=== PATIENT | male | born 1975 | race Caucasian/White ===

== ENCOUNTER 2019-01-23 07:47 | Emergency (ER) | payer BC, SELFPAY ==
[2019-01-23] VITALS (33 sets, daily range): BP systolic 143–163; BP diastolic 78–99; PULSE 86–111; RESP 10–24; TEMP 36.8; O2SAT 94–99
--- NOTE | 2019-01-23 08:20 | DI.CT_ITS ---
SYMPTOM/DIAGNOSIS: TIA,. SLURRED SPEECH, OFF BALANCE NONCONTRAST HEAD CT: No intracranial hemorrhage, mass or infarct is seen. The ventricles are normal in size. The sinuses and orbits as well as mastoid air cells are unremarkable. IMPRESSION: Negative head CT.
--- NOTE | 2019-01-23 08:22 | ED.GENADUL_ITS ---
Discharge Plan Disposition Patient Disposition: HOME Condition: Improving Discharge Details Chief Complaint: CVA/TIA Clinical Impression: Hyperglycemia due to type 1 diabetes mellitus Primary Care Provider: Allan Mims ED Provider: Terry Jackson Home Meds and New Rx's Prescriptions: Continued ibuprofen 800 MG tablet 800 mg PO TID PRNQty: 90 RF: 0 lorazepam 0.5 MG tablet 0.5 mg PO q 6 h prn PRNQty: 40 RF: 0 duloxetine 60 mg capsule,delayed release(DR/EC) 60 mg PO DAILY Qty: 90 RF: 4 buspirone 15 mg tablet 15 mg PO BID Qty: 180 RF: 3 naltrexone 50 mg tablet 50 mg PO DAILY Qty: 30 RF: 3 Humalog U-100 Insulin 100 UNIT/1 ML cartridge 0 unit SQ as directed RF: 0 (DME) Blood Glucose Test 1 EACH strip 1 ea Miscellaneous QID Qty: 100 RF: 6 Lantus U-100 Insulin 100 UNIT/1 ML solution 55 unit SQ BID Qty: 5 RF: 6 magnesium oxide 400 MG tablet 400 mg PO DAILY Qty: 30 RF: 3 Discharge Instructions Instructions: Diabetic Hyperglycemia (ED) Additional Instructions: Please watch your blood sugar levels closely and use your Humalog as prescribed. Return to the emergency department immediately for any new or significant worsening of symptoms and follow-up with your primary care provider as needed for reassessment or if you continue to have these episodes as your medication may need to be changed. Referrals: Allan Mims MD [Primary Care Provider] - (As needed for reassessment) Discharge Data Discharge Date/Time-TO BE ENTERED AT DEPARTURE: 01/23/19 14:19 Medical Decision Making Patient presenting to the emergency department for chief complaint of 3 days of feeling off balance, disequilibrium, intermittent slurred speech. Patient does have headache that is mild but persistent in nature. Patient does have diabetes and states that sugars have been running high but he has been taking his Lantus and Humalog. Physical exam shows no specific findings except that patient does have slight sensation of falling backwards with Romberg. Plan to check labs, CT image head, give fluids. Review of labs show the patient is not acidotic, blood sugar of 199 on CMP, otherwise unremarkable CMP and CBC. Urinalysis does show glucose but no ketones. CT imaging reviewed with radiologist shows no acute findings. Patient reassessed and states continued symptoms given patient slurred speech, headache, and disequilibrium I do feel that MRI is required to rule out CVA. Patient is otherwise stable at this time. Plan to give subcu insulin. Review of MRI MRA with radiologist shows no acute findings. Patient was reassessed and did state improvement. With further discussion of patient's blood sugar control he reports that he has been taking his Lantus and his morning Humalog but throughout the day has not been taking any further Humalog on sliding scale basis. When asking patient to correspond his symptoms he does state that he has noticed his symptoms worsen in the evenings are better in the mornings. Given this I feel that this is more of a metabolic issue and discussed with patient tight glucose control. Return precautions were discussed patient otherwise to follow-up with his primary care provider preferably in the next week for reassessment Lab Data Lab results reviewed: Yes I reviewed the patient's lab results. ECG Data Prior ECG tracings: available for review Interpretation: Sinus rhythm, rate of 98, no acute STEMI, otherwise nondiagnostic EKG HPI General Mode of arrival: ambulatory . Date/Time Provider Initiated Documentation: 01/23/19 07:50 . Limitations to Documentation: no limitations . Information obtained by: patient, family and RN notes reviewed . History of Present Illness 43 year old M presents to the emergency department with the chief complaint of Slurred speech, off balance, described as mild, Patient reports radiation to back. Patient started experiencing this day(s) (3) and it has been intermittent. No relieving factors improve symptom(s), No exacerbating factors reported . Patient notes other (back pain, due ). Related Data Home Medications Medication Instructions Recorded Confirmed Humalog U-100 Insulin 0 unit SQ as directed 02/15/13 01/23/19 Blood Glucose Test #100 strip 11/02/17 09/07/18 Lantus U-100 Insulin 55 unit SQ BID #5 vial 11/02/17 01/23/19 magnesium oxide 400 mg PO DAILY #30 tab 11/02/17 01/23/19 ibuprofen 800 mg PO TID PRN #90 tab-cap 02/15/18 01/23/19 lorazepam 0.5 mg PO q 6 h prn PRN #40 tab-cap 02/15/18 01/23/19 duloxetine 60 mg capsule,delayed 60 mg PO DAILY #90 cap 04/20/18 01/23/19 release buspirone 15 mg tablet 15 mg PO BID #180 tab-cap 10/23/18 01/23/19 naltrexone 50 mg tablet 50 mg PO DAILY #30 tab 10/24/18 01/23/19 Previous Rx's Medication Instructions Recorded Blood Glucose Test #100 strip 11/02/17 Lantus U-100 Insulin 55 unit SQ BID #5 vial 11/02/17 magnesium oxide 400 mg PO DAILY #30 tab 11/02/17 duloxetine 60 mg capsule,delayed 60 mg PO DAILY #90 cap 04/20/18 release buspirone 15 mg tablet 15 mg PO BID #180 tab-cap 10/23/18 naltrexone 50 mg tablet 50 mg PO DAILY #30 tab 10/24/18 Allergies Allergy/AdvReac Type Severity Reaction Status Date / Time ciprofloxacin [From Cipro] AdvReac Intermediate blacks Verified 01/23/19 08:06 out General Stated Complaint: CVA/TIA NEYMAR: 2 Review of Systems Constitutional Denies fever(s), Denies frequent falls, Reports headache(s) and Reports malaise Eyes Denies loss of vision ENT Reports headache(s) and Reports disequilibrium Cardiovascular Denies chest pain and Denies dyspnea Respiratory Denies dyspnea Gastrointestinal Denies nausea and Denies vomiting Genitourinary Denies urinary frequency Musculoskeletal Denies tingling Neurologic Reports abnormal speech, Denies frequent falls, Reports headache(s), Reports lack of coordination, Denies focal weakness, Denies loss of vision, Denies sensory deficit, Denies tingling, Denies paresthesias and Reports disequilibrium Endocrine Denies polyphagia, Denies polydipsia and Denies polyuria [facility]LY [facility] Family History Mother No problems noted. Father Diabetes Brother No problems noted. Social History Smoking/Tobacco Use Status: Former Tobacco Use Drug use: Never Do you feel safe in your relationship?: Yes Exam Const General: cooperative, healthy appearing, no acute distress and well groomed Orientation: alert, awake and oriented x3 HENMT Head: normal to inspection Ears: hearing grossly normal bilaterally and TM's normal bilaterally Mouth: oral mucosae normal and moist mucous membranes Throat: posterior oropharynx normal Eyes Visual Rodrigues: normal visual rodrigues by confrontation Alignment and Position: alignment normal Periorbital: periorbital findings normal Eyelids: eyelids normal Sclera: sclerae normal Cornea: corneas normal Pupils: PERRL EOM: EOM intact bilaterally Neck Neck: normal visual inspection, full ROM, no lymphadenopathy and no meningeal signs Resp Effort & Inspection: normal respiratory effort and able to speak in complete sentences Auscultation: clear to auscultation bilaterally Cardio Rate: regular rate Rhythm: regular rhythm Heart Sounds: S1 normal and S2 normal Back/Spine/Pelvis Thoracic/Lumbar Spine: paraspinal tenderness and thoracic spinal tenderness Neuro General: alert, awake, oriented x3, gait normal, tone normal, moves all extremities, CN's II-XI intact bilaterally and not confused Cognition: normal cognition Speech: speech normal Motor: muscle tone normal throughout, strength 5/5 throughout, no pronator drift, no movement abnormalities noted and no fasciculations Sensory Exam: no sensory deficits noted Coordination: [id number] test normal, Romberg test normal, Does not sway with eyes open and rapid alternating movement UE normal Course Vital Signs Temperature 36.8 C 01/23/19 07:59 Pulse 104 H 01/23/19 07:59 Respiratory Rate 17 01/23/19 07:59 Blood Pressure 156/85 H 01/23/19 07:59 Pulse Oximetry 97 01/23/19 07:59 Temperature 36.8 C 01/23/19 07:59 Temperature Source Skin 01/23/19 07:59 Pulse 104 H 01/23/19 07:59 Respiratory Rate 17 01/23/19 07:59 Respiratory Effort Non-Labored 01/23/19 07:59 Blood Pressure 156/85 H 01/23/19 07:59 Blood Pressure Position Sitting 01/23/19 07:59 Pulse Oximetry 97 01/23/19 07:59 Oxygen Delivery Method Room Air 01/23/19 07:59 Oxygen Flow Rate 0 01/23/19 07:59 Pain Level 3 01/23/19 07:59
[2019-01-23 08:28] LABS: BE (Venous) 2.5 mmol/L (-3-3); HCO3 (Venous) 28 mmol/L (22-28); O2 Sat (Venous) 48 % (70-80); TCO2 (Venous) 25 mmol/L (22-29); pCO2 (Venous) 49 mm/Hg (34-47); pH (Venous) 7.36 (7.32-7.43); pO2 (Venous) 26 mm/Hg (28-44)
[2019-01-23] MEDS: Normal Saline 1,000 ML 1000 ML IV ×2 (08:30→10:23)
[2019-01-23 08:38] LABS: Abs Immature Grans 0.04 k/cumm (0.0-0.09); Absolute Basophil Count 0.04 k/cumm (0.0-0.2); Absolute Eosinophil Count 0.15 k/cumm (0.0-0.7); Absolute Monocyte Count 0.56 k/cumm (0.11-0.7); Absolute Neutrophil Count 3.79 k/cumm (1.2-6.7); Basophils % 0.6; Eosinophils % 2.3; HCT 46.2 % (40.0-50.0); HGB 15.9 g/dL (13.5-17.5); Immature Grans % 0.6; Lymphocytes % 30.4; Mean Corp. HGB Concentration 34.4 g/dL (32.0-36.0); Mean Corpuscular Hemoglobin 31.5 pg (27.0-33.0); Mean Corpuscular Volume 91.7 fL (80-95); Mean Platelet Volume 10.6 fL (8.0-11.0); Monocytes % 8.5; Neutrophils % 57.6; Platelet Count 334 x1000/uL (130-400); RBC 5.04 m/cumm (4.50-6.00); RBC Distribution Width 12.3 % (11.8-14.1); White Blood Cell Count 6.58 k/cumm (4.4-10.8)
[2019-01-23 08:50] LABS: ALT 36 U/L (12-78); AST 18 U/L (15-37); Albumin 3.8 g/dL (3.4-5.0); Alkaline Phosphatase 101 U/L (46-116); BUN 19 mg/dL (7-18); Bilirubin, Total 0.5 mg/dL (0.2-1.0); CREATININE 0.85 mg/dL (0.70-1.30); Chloride 103 mmol/L (98-107); Glucose 199 mg/dL (70-100); Magnesium 1.7 mg/dL (1.8-2.4); Potassium 4.3 mmol/L (3.5-5.1); Sodium 139 mmol/L (136-145); Total Protein 7.5 g/dL (6.4-8.2)
[2019-01-23 08:52] LABS: Troponin I < 0.05 ng/mL (0.00-0.06)
[2019-01-23 09:26] LABS: Bilirubin Negative (Negative); Blood Negative (Negative); Clarity Clear (Clear); Glucose 500 mg/dL (Negative); Ketones Negative (Negative); Leukocyte Esterase Negative (Negative); Nitrite Negative (Negative); Urobilinogen 0.2 EU/dL (Up TO 0.2); pH 5.5 (5-8)
[2019-01-23 09:39] LABS: Bacteria Rare HPF (Negative); Crystals Negative HPF (Negative); Epithelial Cells Rare HPF (Negative); Mucus Trace (Negative); RBC Negative (0-2); WBC 0-2 HPF (0-5)
[2019-01-23 09:40] LABS: C & S Indicated? No; Casts 0-2 Hyaline LPF (Negative)
--- NOTE | 2019-01-23 11:45 | DI.MRI_ITS ---
SYMPTOMS/DIAGNOSIS: SLURRED SPEECH, DISEQUILIBRIUM MRA OF THE [place]: 3D time of flight study was performed. The [place] vasculature appears normal in diameter. There is no significant stenosis or evidence of occlusion or aneurysm. IMPRESSION: Negative MRA of the [place].
--- NOTE | 2019-01-23 12:00 | DI.MRI_ITS ---
SYMPTOMS/DIAGNOSIS: SLURRED SPEECH, DISEQUILIBRIUM MRI OF THE BRAIN: Comparison is made with head CT performed earlier the same day. T 2 sagittal, T 1, T 2, FLAIR, diffusion and gradient echo axial sequences were performed. No intracranial hemorrhage, mass or infarct is seen. The ventricles are normal in size. The vascular flow voids appear intact. There are no white matter lesions. The orbits, sinuses and mastoid air cells are unremarkable. IMPRESSION: Negative MRI of the brain.
--- NOTE | 2019-01-23 12:20 | DI.MRI_ITS ---
SYMPTOMS/DIAGNOSIS: SLURRED SPEECH, DISEQUILIBRIUM MRA OF THE NECK: A 2D time of flight study was performed. The exam is mildly limited by patient motion. There is no evidence of vascular occlusion or significant stenosis of the carotid or vertebral arteries. IMPRESSION: Negative MRA of the neck.
[2019-01-23] MEDS: Insulin REGULAR-Human 100 UNITS/ML UNIT SC (13:03)
== END 2019-01-23 14:19 | disposition home or self-care (01) ==
PROVIDERS: Emergency Provider Nurse Practitioner Family; PCP Family Medicine
DX: E10.65 Type 1 diabetes mellitus with hyperglycemia (principal); R47.81 Slurred speech; R26.2 Difficulty in walking, not elsewhere classified
CPT/HCPCS: 36415; 36416; 70544; 70547; 80053; 82805; 82962; 96360; 96361; 96372; 99285; 70450; 70551; 81003; 81015; 83735; 84484; 85025

== ENCOUNTER 2020-07-22 21:29 | Outpatient (REF) | payer BC, SELFPAY ==
[2020-07-22 22:16] LABS: ALT 33 U/L (16-63); AST 15 U/L (15-37); Albumin 3.8 g/dL (3.4-5.0); Alkaline Phosphatase 108 U/L (46-116); Anion Gap 6.3 mmol/L (3-11); BUN 15 mg/dL (7-18); Bilirubin, Total 0.2 mg/dL (0.2-1.0); CO2 28.7 mmol/L (21.0-32.0); CREATININE 0.9 mg/dL (0.70-1.30); Calcium 9.6 mg/dL (8.5-10.1); Calculated LDL 201 mg/dL (<100); Chloride 100 mmol/L (98-107); Cholesterol 273 mg/dL (<200); Glucose 272 mg/dL (74-106); HDL Cholesterol 50 mg/dL (40-60); Sodium 135 mmol/L (136-145); Total Protein 7.1 g/dL (6.4-8.2); Triglyceride 114 mg/dL (<150)
[2020-07-22 22:17] LABS: COMMENT (LAB VIEW ONLY) 71.33 mg/dL
[2020-07-22 22:36] LABS: Microalb ug/mg Crea 1141.3 ug/mg Cr
== END 2020-07-22 21:30 | disposition home or self-care (01) ==
LOC: LBN 21:29
PROVIDERS: PCP Family Medicine; Visit Provider Family Medicine
DX: E10.9 Type 1 diabetes mellitus without complications (principal)
CPT/HCPCS: 80053; 80061; 82043; 82570

== ENCOUNTER 2021-02-09 01:43 | Outpatient (CLI) | payer BC, SELFPAY ==
--- NOTE | 2021-02-09 07:15 | DI.CT_ITS ---
Exam(s) CT ABDOMEN PELVIS WO/W EXAM: CT ABDOMEN PELVIS WO/W CLINICAL HISTORY: progressive left flank pain, R10.9. TECHNIQUE: Imaging Protocol: Axial computed tomography images with coronal and sagittal reformatted images were created and reviewed CONTRAST MATERIAL: Intravenous: Omnipaque 100cc Oral: None COMPARISON: CT ABD PELVIS WITH CONTRAST from 10/31/2017 FINDINGS: VISUALIZED LUNG BASES: No nodules nor pleural effusions evident. ABDOMEN: There is no ascites. LIVER: There are no focal hepatic lesions evident . GALLBLADDER/BILIARY: No obvious gallbladder pathology. CBD is not dilated. PANCREAS: No evidence of pancreatic mass nor dilatation pancreatic duct. However, there 2 adjacent ca lcifications in the pancreatic body, the larger of the 2 measuring 3 millimeters. No obvious mass at this level. No ductal dilatation. No other parenchymal calcifications evident in the pancreas. SPLEEN: Spleen is not enlarged. No obvious intrasplenic lesions. Splenic and portal veins are paten t. ADRENALS: There are no significant adrenal masses. KIDNEYS:There is a nonobstructive 3 millimeter calculus in the lower pole calyx of the right kidney a gain noted. Another smaller 1 millimeter punctate calculus is also noted in the lower pole the right kidney on today's study. There is also a nonobstructive 2 millimeter calculus in the lower pole of the opposite-left kidney now evident. No other focal renal findings and no hydronephrosis nor hydrou reter. There is a solitary nondilated ureter on each side. Both renal veins are patent. No significan t focal findings in the urinary bladder. . ABDOMINAL AORTA: Abdominal aorta is not enlarged. LYMPH NODES:There is no retroperitineal nor paraaortic adenopathy. ABDOMINAL WALL: No significant anterior abdominal hernia. There is mild subcutaneous streaking over lateral right subcutaneous tissues. No drainable fluid collection. No subcutaneous air at this leve l. GI: There is no evidence of bowel obstruction, free air, nor abscess. PELVIS: GI: No evidence of appendicitis.No evidence of sigmoid diverticulitis. LYMPH NODES: There is no intrapelvic nor inguinal adenopathy. REPRODUCTIVE: Prostate is not enlarged. Seminal vesicles unremarkable URINARY BLADDER: No calculi nor obvious masses evident OSSEOUS: No significant osseous lesions. IMPRESSION: 1. Bilateral small renal calculi, as described above. No hydronephrosis nor hydroureter. No calculi in the urinary bladder. No renal cysts nor masses evident . 2. Parenchymal calcification noted in the pancreas body, not associated with a mass nor obvious ducta l dilatation and unchanged from prior study of October 2017. 3. No ascites nor lymphadenopathy. 4. Visualized lung bases are clear RADIATION DOSE DELIVERED: Total DLP DATA REPOSITORY: All CT scans at this facility are submitted to the National Radiology Data Registry (NRDR) Dose Index Registry (DIR) with the [employer] (ACR). RADIATION OPTIMIZATION: All CT scans at this facility use at least one of these dose optimization te chniques: automated exposure control; mA and/or kV adjustment per patient size (includes targeted exa ms where dose is matched to clinical indication); or iterative reconstruction.
[2021-02-09 08:35] LABS: CREATININE 0.9 mg/dL (0.70-1.30); TSH (W/Ref FT4) 1.89 uIU/mL (0.36-3.74)
[2021-02-09] MEDS: Omnipaque 350 MG/ML 100 ML BTL IV (08:55)
[2021-02-12 10:55] LABS: Testosterone, Total 362 ng/dL (240-950)
== END 2021-02-09 02:03 ==
PROVIDERS: Nurse Practitioner Family; PCP Nurse Practitioner Family; Visit Provider Family Medicine
DX: R10.9 Unspecified abdominal pain (principal); N52.9 Male erectile dysfunction, unspecified; N20.0 Calculus of kidney; K86.89 Other specified diseases of pancreas
CPT/HCPCS: 36415; 84403; 74178; 82565; 84443; J3490

== ENCOUNTER 2021-02-15 19:15 | Inpatient (IN) | payer BC, SELFPAY ==
[2021-02-15] VITALS (29 sets, daily range): BP systolic 118–163; BP diastolic 63–89; PULSE 80–104; RESP 16–23; TEMP 36.5–36.7; O2SAT 97–100
[2021-02-15 19:53] LABS: Abs Immature Grans 0.08 10^3/uL (0.0-0.06); Absolute Basophil Count 0.08 10^3/uL (0.0-0.2); Absolute Eosinophil Count 0.06 10^3/uL (0.0-0.7); Absolute Monocyte Count 0.93 10^3/uL (0.1-0.8); Basophils % 0.6; Eosinophils % 0.5; HCT 44.9 % (40.0-50.0); HGB 15.3 g/dL (13.5-17.5); Immature Grans % 0.6; Lymphocytes % 16.3; MCH 30.5 pg (27.0-33.0); MCHC 34.1 % (32.0-36.0); MCV 89.4 fL (80-95); MPV 10.3 fL (8.0-11.0); Monocytes % 7.2; Neutrophils % 74.8; Nucleated RBC 0 %; Platelet Count 392 10^3/uL (130-400); RBC 5.02 10^6/uL (4.36-5.78); RDW 11.7 % (11.8-14.1); RDW-SD 37.9 fL; WBC 12.87 10^3/uL (4.4-10.8)
[2021-02-15 19:56] LABS: Absolute Neutrophil Count 9.63 10^3/uL (1.2-6.7)
[2021-02-15 20:03] LABS: PTT Activated 22.6 sec (21.0-27.5); Prothrombin Time 9.7 sec (9.3-11.0)
[2021-02-15 20:09] LABS: ALT 29 U/L (16-63); AST 22 U/L (15-37); Albumin 4.2 g/dL (3.4-5.0); Alkaline Phosphatase 110 U/L (46-116); Anion Gap 22.5 mmol/L (3-11); BUN 24 mg/dL (7-18); Bilirubin, Total 0.6 mg/dL (0.2-1.0); CO2 14.5 mmol/L (21.0-32.0); CREATININE 1.4 mg/dL (0.70-1.30); Calcium 9.5 mg/dL (8.5-10.1); Chloride 91 mmol/L (98-107); Estimated GFR 55.05 (mL/min/1.73m2); Glucose 411 mg/dL (74-106); Lipase 108 U/L (73-393); Potassium 4.5 mmol/L (3.5-5.1); Sodium 128 mmol/L (136-145); Total Protein 7.9 g/dL (6.4-8.2)
[2021-02-15] MEDS: Ondansetron 4 MG/2 ML VIAL IVP (20:27)
[2021-02-15 20:28] LABS: BE (Venous) -14 mmol/L (-2-3); HCO3 (Venous) 14 mmol/L (23-28); O2 Sat (Venous) 61 %; TCO2 (Venous) 13 mmol/L (24-29); pCO2 (Venous) 38 mmHg (41-51); pO2 (Venous) 35 mmHg
[2021-02-15] MEDS: Normal Saline 1,000 ML 1000 ML IV ×2 (20:28→21:14)
[2021-02-15] MEDS: Pantoprazole 40 MG VIAL IVP (20:29)
[2021-02-15] MEDS: FAMOTIDINE 20 MG/50 ML BAG 200 MG IVPB (20:31)
[2021-02-15 20:47] LABS: pH (Venous) 7.18 (7.31-7.41)
[2021-02-15 21:12] LABS: Bilirubin Negative (Negative); Blood Small (Negative); Clarity Clear (Clear); Glucose 500 mg/dL (Negative); Ketones >=160 mg/dL (Negative); Leukocyte Esterase Negative (Negative); Nitrite Negative (Negative); Specific Gravity >= 1.030 (1.005-1.025); Urobilinogen 0.2 EU/dL (Up TO 0.2); pH 5.5 (5-8)
[2021-02-15 21:20] LABS: Source Nasal/Nares
[2021-02-15 21:24] LABS: Bacteria Negative HPF (Negative); C & S Indicated? No; Casts Negative LPF (Negative); Crystals Negative HPF (Negative); Epithelial Cells Negative HPF (Negative); Mucus Negative (Negative); Other Cells Negative (Negative); RBC Negative HPF (0-2); WBC Negative HPF (0-5)
--- NOTE | 2021-02-15 21:45 | W.ED.GENAD ---
Discharge Plan Disposition Patient Disposition: [facility] INPATIENT Condition: Serious Discharge Details Clinical Impression: DKA (diabetic ketoacidosis) Primary Care Provider: [facility] ED Provider: [facility] Home Meds and New Rx's Prescriptions: No Action lisinopril 10 mg tablet 10 mg PO DAILY Qty: 30 RF: 5 buspirone 30 mg tablet 30 mg PO BID Qty: 60 RF: 11 sertraline 25 mg tablet 25 mg PO DAILY Qty: 90 RF: 4 insulin lispro 100 unit/mL insulin pen See Rx Instructions subcut DIRECTED Qty: 15 RF: 3 ibuprofen 800 MG tablet 800 mg PO TID PRNQty: 90 RF: 0 insulin glargine 100 unit/mL (3 mL) insulin pen 60 unit subcut BID Qty: 48 RF: 4 duloxetine 60 mg capsule,delayed release(DR/EC) 60 mg PO DAILY Qty: 90 RF: 4 (DME) Comfort EZ Pen [place] 33 gauge x 3/16 needle See Rx Instructions .ROUTE .MEDSUPPLY Qty: 200 RF: 4 (DME) Dexcom G6 [employer] Misc See Rx Instructions .ROUTE .MEDSUPPLY Qty: 1 RF: 0 (DME) Dexcom G6 Sensor Device See Rx Instructions .ROUTE .MEDSUPPLY Qty: 3 RF: 4 (DME) Dexcom G6 Transmitter Device See Rx Instructions .ROUTE .MEDSUPPLY Qty: 1 RF: 0 (DME) Blood Glucose Test 1 EACH strip 1 ea Miscellaneous QID Qty: 100 RF: 6 Medical Decision Making This is a 45-year-old gentleman, noncompliant insulin-dependent diabetic, presenting for nausea, vomiting x1, vomit was dark brown, concern for blood. Patient states that he had a similar presentation like this when he was in DKA. Has not checked his glucose levels in nearly 2 weeks. Clinically he appears dry, tachycardia at 102, otherwise abdomen is soft, nontender, nonsurgical. Will obtain IV access, give IV fluid, Zofran, obtain CBC, CMP, coags, urinalysis, VBG. No vomiting while under my care, patient reports Zofran has helped the symptoms. Heart rate now in the 90s. Laboratory values reveal mild nonspecific leukocytosis of 12.87 hemoglobin 15.3 hematocrit 44.9 platelet count 392. INR 1.0, sodium 128 potassium 4.5 anion gap 22.5 creatinine 1.4 glucose 411, lipase 108 Given his hyperglycemia and elevated anion gap, higher suspicion for DKA, awaiting VBG VBG revealed pH of 7.18 I have ordered a second liter of IV fluid and have initiated the insulin drip per the ER protocol. No vomiting under my care. No evidence of hypotension or anemia. We will discussed the case with our hospitalist team for admission Case discussed with Dr. Yeh who is agreeable to admission and will see the patient here in the ER Medical Records Medical records reviewed: Yes I reviewed the patient's medical records. Lab Data Lab results reviewed: Yes I reviewed the patient's lab results. Labs: Laboratory Tests Range/Units 02/15/21 02/15/21 02/15/21 19:35 19:35 19:35 WBC (4.4-10.8) 10^3/uL 12.87 H RBC (4.36-5.78) 10^6/uL 5.02 Hgb (13.5-17.5) g/dL 15.3 Hct (40.0-50.0) % 44.9 MCV (80-95) fL 89.4 MCH (27.0-33.0) pg 30.5 MCHC (32.0-36.0) % 34.1 RDW (11.8-14.1) % 11.7 L Plt Count (130-400) 10^3/uL 392 MPV (8.0-11.0) fL 10.3 Immature Gran % 0.6 Neutrophils % 74.8 Lymphocytes % 16.3 Monocytes % 7.2 Eosinophils % 0.5 Basophils % 0.6 Nucleated RBC % % 0 Absolute Neutrophils (1.2-6.7) 10^3/uL 9.63 H Absolute Lymphocytes (1.2-3.4) 10^3/uL 2.10 Absolute Monocytes (0.1-0.8) 10^3/uL 0.93 H Absolute Eosinophils (0.0-0.7) 10^3/uL 0.06 Absolute Basophils (0.0-0.2) 10^3/uL 0.08 PT (9.3-11.0) sec 9.7 INR (0.9-1.1) 1.0 APTT (21.0-27.5) sec 22.6 VBG pH (7.31-7.41) VBG pCO2 (41-51) mmHg VBG pO2 mmHg VBG HCO3 (23-28) mmol/L VBG Total CO2 (24-29) mmol/L VBG O2 Saturation % VBG Base Excess (-2-3) mmol/L Sodium (136-145) mmol/L 128 L Potassium (3.5-5.1) mmol/L 4.5 Chloride (98-107) mmol/L 91 L Carbon Dioxide (21.0-32.0) mmol/L 14.5 L Anion Gap (3-11) mmol/L 22.5 H BUN (7-18) mg/dL 24 H Creatinine (0.70-1.30) mg/dL 1.4 H Estimated GFR/1.73 m2 (mL/min/1.73m2) 55.05 Glucose (74-106) mg/dL 411 H Calcium (8.5-10.1) mg/dL 9.5 Total Bilirubin (0.2-1.0) mg/dL 0.6 AST (15-37) U/L 22 ALT (16-63) U/L 29 Alkaline Phosphatase (46-116) U/L 110 Total Protein (6.4-8.2) g/dL 7.9 Albumin (3.4-5.0) g/dL 4.2 Lipase (73-393) U/L 108 Urine Color (Yellow) Urine Clarity (Clear) Urine pH (5-8) Ur Specific Anderson (1.005-1.025) Urine Protein (Negative) mg/dL Urine Ketones (Negative) mg/dL Urine Blood (Negative) Urine Nitrite (Negative) Urine Bilirubin (Negative) Urine Urobilinogen (Up TO 0.2) EU/dL Ur Leukocyte Esterase (Negative) Urine RBC (0-2) HPF Urine WBC (0-5) HPF Ur Epithelial Cells (Negative) HPF Urine Crystals (Negative) HPF Urine Bacteria (Negative) HPF Urine Casts (Negative) LPF Urine Mucus (Negative) Urine Other (Negative) Ur Culture Indicated? Urine Glucose (Negative) mg/dL COVID-19 Source Range/Units 02/15/21 02/15/21 02/15/21 20:20 20:24 21:10 WBC (4.4-10.8) 10^3/uL RBC (4.36-5.78) 10^6/uL Hgb (13.5-17.5) g/dL Hct (40.0-50.0) % MCV (80-95) fL MCH (27.0-33.0) pg MCHC (32.0-36.0) % RDW (11.8-14.1) % Plt Count (130-400) 10^3/uL MPV (8.0-11.0) fL Immature Gran % Neutrophils % Lymphocytes % Monocytes % Eosinophils % Basophils % Nucleated RBC % % Absolute Neutrophils (1.2-6.7) 10^3/uL Absolute Lymphocytes (1.2-3.4) 10^3/uL Absolute Monocytes (0.1-0.8) 10^3/uL Absolute Eosinophils (0.0-0.7) 10^3/uL Absolute Basophils (0.0-0.2) 10^3/uL PT (9.3-11.0) sec INR (0.9-1.1) APTT (21.0-27.5) sec VBG pH (7.31-7.41) 7.18 L* VBG pCO2 (41-51) mmHg 38 L VBG pO2 mmHg 35 VBG HCO3 (23-28) mmol/L 14 L VBG Total CO2 (24-29) mmol/L 13 L VBG O2 Saturation % 61 VBG Base Excess (-2-3) mmol/L -14 L Sodium (136-145) mmol/L Potassium (3.5-5.1) mmol/L Chloride (98-107) mmol/L Carbon Dioxide (21.0-32.0) mmol/L Anion Gap (3-11) mmol/L BUN (7-18) mg/dL Creatinine (0.70-1.30) mg/dL Estimated GFR/1.73 m2 (mL/min/1.73m2) Glucose (74-106) mg/dL Calcium (8.5-10.1) mg/dL Total Bilirubin (0.2-1.0) mg/dL AST (15-37) U/L ALT (16-63) U/L Alkaline Phosphatase (46-116) U/L Total Protein (6.4-8.2) g/dL Albumin (3.4-5.0) g/dL Lipase (73-393) U/L Urine Color (Yellow) Yellow Urine Clarity (Clear) Clear Urine pH (5-8) 5.5 Ur Specific Anderson (1.005-1.025) >= 1.030 H Urine Protein (Negative) mg/dL 100 H Urine Ketones (Negative) mg/dL >=160 H Urine Blood (Negative) Small H Urine Nitrite (Negative) Negative Urine Bilirubin (Negative) Negative Urine Urobilinogen (Up TO 0.2) EU/dL 0.2 Ur Leukocyte Esterase (Negative) Negative Urine RBC (0-2) HPF Negative Urine WBC (0-5) HPF Negative Ur Epithelial Cells (Negative) HPF Negative Urine Crystals (Negative) HPF Negative Urine Bacteria (Negative) HPF Negative Urine Casts (Negative) LPF Negative Urine Mucus (Negative) Negative Urine Other (Negative) Negative Ur Culture Indicated? No Urine Glucose (Negative) mg/dL 500 H COVID-19 Source Nasal/Nares HPI General Mode of arrival: ambulatory. Date/Time Provider Initiated Documentation: 02/15/21 19:20. Limitations to Documentation: no limitations. Information obtained by: patient and family. HPI Narrative: This is a 45-year-old male, past medical history of insulin-dependent diabetes, depression, hyperlipidemia, history of 6-12 beers daily, sober for the past 6 months, presents to the ER for what he describes as epigastric discomfort, nausea, vomiting x1 around 30 minutes prior to arrival. He states that the vomit appeared to be dark brown and was concerned this may be blood. Patient also reports intermittent left lower quadrant pain for a few months, has had an outpatient CT of his abdomen pelvis with contrast as well as follow-up with urology with no clear etiology. Patient denies recent illness or trauma, fever, chest pain, shortness of breath, back pain, dysuria, hematuria, diarrhea or constipation. Denies black tarry stools or bright red blood in his stools. Patient states that he did have a similar episode of vomiting several years ago when he had DKA. Patient has not checked his glucose level cannot leave 2 weeks. Reports that he is not compliant with his medications. Currently reports mild nausea Related Data Home Medications Medication Instructions Recorded Confirmed Blood Glucose Test #100 strip 11/02/17 02/13/21 ibuprofen 800 mg PO TID PRN #90 tab-cap 02/15/18 02/15/21 lisinopril 10 mg tablet 10 mg PO DAILY #30 tab 04/01/20 02/15/21 buspirone 30 mg tablet 30 mg PO BID #60 tab 04/22/20 02/15/21 insulin glargine 100 unit/mL (3 60 unit SUBCUT BID #48 syrg 05/22/20 02/15/21 mL) subcutaneous pen duloxetine 60 mg capsule,delayed 60 mg PO DAILY #90 cap 06/03/20 02/15/21 release pen needle, diabetic 33 gauge x #200 each 10/15/20 02/13/2109/02 blood-glucose meter,continuous #1 ea 10/30/20 02/13/21 blood-glucose sensor #3 ea 12/03/20 02/13/21 insulin lispro 100 unit/mL See Rx Instructions SUBCUT 01/28/21 02/15/21 subcutaneous pen DIRECTED #15 ml sertraline 25 mg tablet 25 mg PO DAILY #90 tab 01/28/21 02/15/21 blood-glucose transmitter #1 ea 02/11/21 02/13/21 Previous Rx's Medication Instructions Recorded Blood Glucose Test #100 strip 11/02/17 lisinopril 10 mg tablet 10 mg PO DAILY #30 tab 04/01/20 buspirone 30 mg tablet 30 mg PO BID #60 tab 04/22/20 insulin glargine 100 unit/mL (3 60 unit SUBCUT BID #48 syrg 05/22/20 mL) subcutaneous pen duloxetine 60 mg capsule,delayed 60 mg PO DAILY #90 cap 06/03/20 release pen needle, diabetic 33 gauge x #200 each 10/15/2009/02 blood-glucose meter,continuous #1 ea 10/30/20 blood-glucose sensor #3 ea 12/03/20 insulin lispro 100 unit/mL See Rx Instructions SUBCUT 01/28/21 subcutaneous pen DIRECTED #15 ml sertraline 25 mg tablet 25 mg PO DAILY #90 tab 01/28/21 blood-glucose transmitter #1 ea 02/11/21 Allergies Allergy/AdvReac Type Severity Reaction Status Date / Time ciprofloxacin [From Cipro] AdvReac Intermediate blacks Verified 02/15/21 19:29 out General Stated Complaint: Abd Prob NEYMAR: 3 Review of Systems Constitutional Constitutional: Denies fatigue, Denies fever(s), Denies headache(s) and Denies weakness ENT Ears, Nose, Mouth, and Throat: Denies headache(s) and Denies neck pain Cardiovascular Cardiovascular: Denies chest pain and Denies dyspnea Respiratory Respiratory: Denies cough and Denies dyspnea Gastrointestinal Gastrointestinal: Reports abdominal pain, Denies melena, Denies hematochezia, Denies coffee ground emesis, Denies constipation, Denies diarrhea, Reports nausea and Reports vomiting Genitourinary Genitourinary: Denies hematuria Musculoskeletal Musculoskeletal: Denies back pain, Denies neck pain, Denies numbness and Denies tingling Integumentary/Breasts Skin/Breast: Denies rash Neurologic Neurologic: Denies headache(s), Denies numbness, Denies tingling and Denies weakness Endocrine Endocrine: Denies fatigue Hematologic/Lymphatic Hematologic/Lymphatic: Denies easy bleeding and Denies easy bruising PFSH Medical History Erectile dysfunction Family History Mother Depression Father Diabetes Social History Smoking/Tobacco Use Status: Former Tobacco Use tobacco type: cigarettes Quit Date: 04/11/02 Tobacco: How many years used: 7 Second Hand Exposure: Yes Smoking risk assessment performed?: Yes Alcohol Intake: current Alcohol Intake frequency: 3 or more drinks per day Alcohol type: beer Drug use: Never Substance use type: does not use Details: No ETOH x 6 months Caregiver/Support person: No Household members: spouse and children Housing: house Communication Needs: None Do you need help understanding health information?: Never Pets and animals: Yes Pets and animals: cat(s) and dog(s) Sexually active: Yes Do you think of yourself as: straight/heterosexual Current gender identity: male What is your relationship status?: How often do you talk on the phone with friends or family?: three or more times per week How often do you get together with friends or relatives?: once per week How often do you attend mandaeism or restoration services?: decline to answer Do you belong to any clubs or organized social groups?: yes Panel score (0-1 are the most socially isolated patients): 3 Nohemi/Latter-Day: None Seatbelt use: sometimes Drive intox or ride w/intox local hazmat driver: No Do you feel safe at home: Yes Do you feel safe in your relationship?: Yes Exam Const General: cooperative, comfortable and no acute distress Orientation: alert, awake and oriented x3 HENMT Head: normal to inspection, normocephalic and atraumatic Mouth: moist mucous membranes abnormal (dry) Throat: posterior oropharynx normal Eyes General: appearance normal, both eyes and all related structures Conjunctivae: conjunctivae normal Neck Neck: normal visual inspection, full ROM, trachea midline and supple Resp Effort & Inspection: normal respiratory effort and able to speak in complete sentences Auscultation: clear to auscultation bilaterally Cardio Rate: tachycardic (102) Rhythm: regular rhythm GI Inspection: normal to inspection Palpation: soft, not firm, no guarding, no pulsatile masses and nontender Auscultation: normal bowel sounds Back/Spine/Pelvis Back: No back tenderness Skin General skin exam: no rashes or lesions noted Neuro General: patient alert, patient awake, moves all extremities and no focal motor deficits Cognition: normal cognition Speech: speech normal Gait: normal gait Motor: muscle tone normal throughout Sensory Exam: no sensory deficits noted Extrem General: normal to inspection, full ROM and capillary refill normal Psych Appearance: grossly normal Mental Status: mental status grossly normal Course Vital Signs Vital signs: Vital Signs Temperature 36.7 C 02/15/21 19:19 Pulse 104 H 02/15/21 19:19 Respiratory Rate 16 02/15/21 19:19 Blood Pressure 163/87 H 02/15/21 19:19 Pulse Oximetry 99 02/15/21 19:19 Temperature 36.7 C 02/15/21 19:19 Pulse 93 H 02/15/21 21:30 Respiratory Rate 16 02/15/21 19:19 Respiratory Effort Non-Labored 02/15/21 19:30 Blood Pressure 144/84 H 02/15/21 21:30 Blood Pressure Mean 99 02/15/21 21:30 Blood Pressure Position Supine 02/15/21 19:19 Pulse Oximetry 99 02/15/21 21:30 Oxygen Delivery Method Room Air 02/15/21 19:19 Oxygen Flow Rate 0 02/15/21 19:19 Pain Level 7 02/15/21 20:29 Lab/Test Results Lab/Test Results: Laboratory Tests Range/Units 0802/15/21 02/15/21 19:35 19:35 19:35 WBC (4.4-10.8) 10^3/uL 12.87 H RBC (4.36-5.78) 10^6/uL 5.02 Hgb (13.5-17.5) g/dL 15.3 Hct (40.0-50.0) % 44.9 MCV (80-95) fL 89.4 MCH (27.0-33.0) pg 30.5 MCHC (32.0-36.0) % 34.1 RDW (11.8-14.1) % 11.7 L Plt Count (130-400) 10^3/uL 392 MPV (8.0-11.0) fL 10.3 Immature Gran % 0.6 Neutrophils % 74.8 Lymphocytes % 16.3 Monocytes % 7.2 Eosinophils % 0.5 Basophils % 0.6 Nucleated RBC % % 0 Absolute Neutrophils (1.2-6.7) 10^3/uL 9.63 H Absolute Lymphocytes (1.2-3.4) 10^3/uL 2.10 Absolute Monocytes (0.1-0.8) 10^3/uL 0.93 H Absolute Eosinophils (0.0-0.7) 10^3/uL 0.06 Absolute Basophils (0.0-0.2) 10^3/uL 0.08 PT (9.3-11.0) sec 9.7 INR (0.9-1.1) 1.0 APTT (21.0-27.5) sec 22.6 VBG pH (7.31-7.41) VBG pCO2 (41-51) mmHg VBG pO2 mmHg VBG HCO3 (23-28) mmol/L VBG Total CO2 (24-29) mmol/L VBG O2 Saturation % VBG Base Excess (-2-3) mmol/L Sodium (136-145) mmol/L 128 L Potassium (3.5-5.1) mmol/L 4.5 Chloride (98-107) mmol/L 91 L Carbon Dioxide (21.0-32.0) mmol/L 14.5 L Anion Gap (3-11) mmol/L 22.5 H BUN (7-18) mg/dL 24 H Creatinine (0.70-1.30) mg/dL 1.4 H Estimated GFR/1.73 m2 (mL/min/1.73m2) 55.05 Glucose (74-106) mg/dL 411 H Calcium (8.5-10.1) mg/dL 9.5 Total Bilirubin (0.2-1.0) mg/dL 0.6 AST (15-37) U/L 22 ALT (16-63) U/L 29 Alkaline Phosphatase (46-116) U/L 110 Total Protein (6.4-8.2) g/dL 7.9 Albumin (3.4-5.0) g/dL 4.2 Lipase (73-393) U/L 108 Urine Color (Yellow) Urine Clarity (Clear) Urine pH (5-8) Ur Specific Anderson (1.005-1.025) Urine Protein (Negative) mg/dL Urine Ketones (Negative) mg/dL Urine Blood (Negative) Urine Nitrite (Negative) Urine Bilirubin (Negative) Urine Urobilinogen (Up TO 0.2) EU/dL Ur Leukocyte Esterase (Negative) Urine RBC (0-2) HPF Urine WBC (0-5) HPF Ur Epithelial Cells (Negative) HPF Urine Crystals (Negative) HPF Urine Bacteria (Negative) HPF Urine Casts (Negative) LPF Urine Mucus (Negative) Urine Other (Negative) Ur Culture Indicated? Urine Glucose (Negative) mg/dL COVID-19 Source Range/Units 02/15/21 02/15/21 02/15/21 20:20 20:24 21:10 WBC (4.4-10.8) 10^3/uL RBC (4.36-5.78) 10^6/uL Hgb (13.5-17.5) g/dL Hct (40.0-50.0) % MCV (80-95) fL MCH (27.0-33.0) pg MCHC (32.0-36.0) % RDW (11.8-14.1) % Plt Count (130-400) 10^3/uL MPV (8.0-11.0) fL Immature Gran % Neutrophils % Lymphocytes % Monocytes % Eosinophils % Basophils % Nucleated RBC % % Absolute Neutrophils (1.2-6.7) 10^3/uL Absolute Lymphocytes (1.2-3.4) 10^3/uL Absolute Monocytes (0.1-0.8) 10^3/uL Absolute Eosinophils (0.0-0.7) 10^3/uL Absolute Basophils (0.0-0.2) 10^3/uL PT (9.3-11.0) sec INR (0.9-1.1) APTT (21.0-27.5) sec VBG pH (7.31-7.41) 7.18 L* VBG pCO2 (41-51) mmHg 38 L VBG pO2 mmHg 35 VBG HCO3 (23-28) mmol/L 14 L VBG Total CO2 (24-29) mmol/L 13 L VBG O2 Saturation % 61 VBG Base Excess (-2-3) mmol/L -14 L Sodium (136-145) mmol/L Potassium (3.5-5.1) mmol/L Chloride (98-107) mmol/L Carbon Dioxide (21.0-32.0) mmol/L Anion Gap (3-11) mmol/L BUN (7-18) mg/dL Creatinine (0.70-1.30) mg/dL Estimated GFR/1.73 m2 (mL/min/1.73m2) Glucose (74-106) mg/dL Calcium (8.5-10.1) mg/dL Total Bilirubin (0.2-1.0) mg/dL AST (15-37) U/L ALT (16-63) U/L Alkaline Phosphatase (46-116) U/L Total Protein (6.4-8.2) g/dL Albumin (3.4-5.0) g/dL Lipase (73-393) U/L Urine Color (Yellow) Yellow Urine Clarity (Clear) Clear Urine pH (5-8) 5.5 Ur Specific Anderson (1.005-1.025) >= 1.030 H Urine Protein (Negative) mg/dL 100 H Urine Ketones (Negative) mg/dL >=160 H Urine Blood (Negative) Small H Urine Nitrite (Negative) Negative Urine Bilirubin (Negative) Negative Urine Urobilinogen (Up TO 0.2) EU/dL 0.2 Ur Leukocyte Esterase (Negative) Negative Urine RBC (0-2) HPF Negative Urine WBC (0-5) HPF Negative Ur Epithelial Cells (Negative) HPF Negative Urine Crystals (Negative) HPF Negative Urine Bacteria (Negative) HPF Negative Urine Casts (Negative) LPF Negative Urine Mucus (Negative) Negative Urine Other (Negative) Negative Ur Culture Indicated? No Urine Glucose (Negative) mg/dL 500 H COVID-19 Source Nasal/Nares Critical Care Time Critical Care Time Critical Care Time: Yes Total Critical Care Time: 35 Attestation: Upon my evaluation, this patient had a high probability of clinically significant, life-threatening deterioration due to their current medical conditions, which required my direct attention, intervention, and personal management. I have personally provided greater than 30 minutes of critical care time exclusive of the time spend on separately billable procedures. Time includes obtaining a history, examining the patient, pulse oximetry, review of laboratory data, radiology results, discussion with consultants, arranging urgent treatment with development of a management plan, evaluation of patient's response to treatment, and monitoring for potential decompensation. Interventions were performed as documented above.
--- NOTE | 2021-02-15 21:48 | HPE_ITS ---
Date of service: 02/15/21 Time of Service: 21:49 Assessment and Plan Assessment and plan (1) DKA (diabetic ketoacidosis): Status: Acute Assessment and plan: Reviewed his laboratory studies. He has been given intravenous fluids. He was started on insulin infusion. His venous gases will be checked in a few hours to monitor for the change. He will be started on intravenous pantoprazole. Diabetic education consult was requested. His labs be checked frequently and monitored for changes of his sodium, potassium and blood sugar. I suspect he will need to be in the hospital for couple days. History of Present Illness History of Present Illness Chief Complaint: nausea,vomiting Narrative: This 45-year-old male came to the hospital with chief complaint nausea and vomiting. He has a history of diabetes since he was age 28. He has not checked his blood sugar about 2 weeks. He took his insulin this morning but did not take it yesterday morning. He does not use a sliding scale. He normally is to take glargine insulin 60 units twice a day. [place] and [place]ited some material that looked a bit red. He vomited about 4 or 5 times. He also has some epigastric pain. He says that he was treated in 2018 for diabetic ketoacidosis. I do not see a record of that here. He has not been around anyone else has been sick. He says he has had both coronavirus vaccines. 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 Was having some ab dominal pain on the left side recently and had a CT scan done which showed 2 stones in his kidney but they are nonobstructing. He has not been drinking alcohol for about 6 months. He says a urologist saw him and thought he might be having some muscle pain on his left side. He lives with his significant other 3 children and a grandson and one of his children's girlfriends. Review of Systems Constitutional Constitutional: Reports anorexia, Denies chills, Denies fever(s) and Denies weakness ENT Ears, Nose, Mouth, and Throat: Denies dizziness Cardiovascular Cardiovascular: Denies chest pain, Denies rapid heart rate, Denies irregular heart rhythm, Denies palpitations and Denies dyspnea Respiratory Respiratory: Denies cough and Denies dyspnea Gastrointestinal Gastrointestinal: Reports abdominal pain, Reports nausea and Reports vomiting Comments: possible hematemesis Genitourinary Genitourinary: Denies hematuria, Denies oliguria and Denies urinary frequency Musculoskeletal Musculoskeletal: Denies back pain and Denies myalgias Neurologic Neurologic: Denies dizziness and Denies weakness Endocrine Endocrine: Denies palpitations [facility] Medical History Erectile dysfunction Family History Mother Depression Father Diabetes Social History Smoking/Tobacco Use Status: Former Tobacco Use tobacco type: cigarettes Quit Date: 04/11/02 Tobacco: How many years used: 7 Second Hand Exposure: Yes Smoking risk assessment performed?: Yes Alcohol Intake: current Alcohol Intake frequency: 3 or more drinks per day Alcohol type: beer Drug use: Never Substance use type: does not use Details: No ETOH x 6 months Caregiver/Support person: No Household members: spouse and children Housing: house Communication Needs: None Do you need help understanding health information?: Never Pets and animals: Yes Pets and animals: cat(s) and dog(s) Sexually active: Yes Do you think of yourself as: straight/heterosexual Current gender identity: male What is your relationship status?: How often do you talk on the phone with friends or family?: three or more times per week How often do you get together with friends or relatives?: once per week How often do you attend catholic or scientology services?: decline to answer Do you belong to any clubs or organized social groups?: yes Panel score (0-1 are the most socially isolated patients): 3 Nohemi/Lutheran: None Seatbelt use: sometimes 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 Do you feel safe at home: Yes Do you feel safe in your relationship?: Yes Meds Allergies and Home Medications Allergies Allergy/AdvReac Type Severity Reaction Status Date / Time ciprofloxacin [From Cipro] AdvReac Intermediate blacks Verified 02/15/21 19:29 out Home Medications Medication Instructions Recorded Confirmed Type Blood Glucose Test #100 strip 11/02/17 02/13/21 Rx ibuprofen 800 mg PO TID PRN #90 tab-cap 02/15/18 02/15/21 History lisinopril 10 mg tablet 10 mg PO DAILY #30 tab 04/01/20 02/15/21 Rx buspirone 30 mg tablet 30 mg PO BID #60 tab 04/22/20 02/15/21 Rx insulin glargine 100 unit/mL (3 60 unit SUBCUT BID #48 syrg 05/22/20 02/15/21 Rx mL) subcutaneous pen duloxetine 60 mg capsule,delayed 60 mg PO DAILY #90 cap 06/03/20 02/15/21 Rx release pen needle, diabetic 33 gauge x #200 each 10/15/20 02/13/21 Rx 09/02 blood-glucose meter,continuous #1 ea 10/30/20 02/13/21 Rx blood-glucose sensor #3 ea 12/03/20 02/13/21 Rx insulin lispro 100 unit/mL See Rx Instructions SUBCUT 01/28/21 02/15/21 Rx subcutaneous pen DIRECTED #15 ml sertraline 25 mg tablet 25 mg PO DAILY #90 tab 01/28/21 02/15/21 Rx blood-glucose transmitter #1 ea 02/11/21 02/13/21 Rx Exam Const General: cooperative, comfortable, no acute distress and not ill appearing Nutritional Appearance: average body habitus Neck Neck: normal visual inspection and no lymphadenopathy Thyroid: thyroid normal Resp Effort & Inspection: normal respiratory effort and able to speak in complete sentences Auscultation: no rales, no rhonchi and no wheezes Cardio Jugular venous pressure: no JVD Rate: regular rate Rhythm: regular rhythm Heart Sounds: S1 normal, S2 normal, no gallops and no murmurs GI Inspection: normal to inspection and non-distended Palpation: no hepatosplenomegaly, not firm and nontender Skin General skin exam: no rashes or lesions noted Neuro General: patient alert, patient awake and patient oriented x3 Extrem General: normal to inspection and no edema Results Labs Result diagrams: 02/15/21 19:35 02/15/21 19:35 Labs: Laboratory Results - last 24 hr 02/15/21 02/15/21 02/15/21 19:35 19:35 19:35 WBC 12.87 H RBC 5.02 Hgb 15.3 Hct 44.9 MCV 89.4 MCH 30.5 MCHC 34.1 RDW 11.7 L Plt Count 392 MPV 10.3 Immature Gran % 0.6 Neutrophils % 74.8 Lymphocytes % 16.3 Monocytes % 7.2 Eosinophils % 0.5 Basophils % 0.6 Nucleated RBC % 0 Absolute Neutrophils 9.63 H Absolute Lymphocytes 2.10 Absolute Monocytes 0.93 H Absolute Eosinophils 0.06 Absolute Basophils 0.08 PT 9.7 INR 1.0 APTT 22.6 VBG pH VBG pCO2 VBG pO2 VBG HCO3 VBG Total CO2 VBG O2 Saturation VBG Base Excess Sodium 128 L Potassium 4.5 Chloride 91 L Carbon Dioxide 14.5 L Anion Gap 22.5 H BUN 24 H Creatinine 1.4 H Estimated GFR/1.73 m2 55.05 Glucose 411 H Calcium 9.5 Total Bilirubin 0.6 AST 22 ALT 29 Alkaline Phosphatase 110 Total Protein 7.9 Albumin 4.2 Lipase 108 Urine Color Urine Clarity Urine pH Ur Specific [place] Urine Protein Urine Ketones Urine Blood Urine Nitrite Urine Bilirubin Urine Urobilinogen Ur Leukocyte Esterase Urine RBC Urine WBC Ur Epithelial Cells Urine Crystals Urine Bacteria Urine Casts Urine Mucus Urine Other Ur Culture Indicated? Urine Glucose COVID-19 Source 02/15/21 02/15/21 02/15/21 20:20 20:24 21:10 WBC RBC Hgb Hct MCV MCH MCHC RDW Plt Count MPV Immature Gran % Neutrophils % Lymphocytes % Monocytes % Eosinophils % Basophils % Nucleated RBC % Absolute Neutrophils Absolute Lymphocytes Absolute Monocytes Absolute Eosinophils Absolute Basophils PT INR APTT VBG pH 7.18 L* VBG pCO2 38 L VBG pO2 35 VBG HCO3 14 L VBG Total CO2 13 L VBG O2 Saturation 61 VBG Base Excess -14 L Sodium Potassium Chloride Carbon Dioxide Anion Gap BUN Creatinine Estimated GFR/1.73 m2 Glucose Calcium Total Bilirubin AST ALT Alkaline Phosphatase Total Protein Albumin Lipase Urine Color Yellow Urine Clarity Clear Urine pH 5.5 Ur Specific [place] >= 1.030 H Urine Protein 100 H Urine Ketones >=160 H Urine Blood Small H Urine Nitrite Negative Urine Bilirubin Negative Urine Urobilinogen 0.2 Ur Leukocyte Esterase Negative Urine RBC Negative Urine WBC Negative Ur Epithelial Cells Negative Urine Crystals Negative Urine Bacteria Negative Urine Casts Negative Urine Mucus Negative Urine Other Negative Ur Culture Indicated? No Urine Glucose 500 H COVID-19 Source Nasal/Nares Last Vital Signs Temp 36.7 C 02/15/21 19:19 Pulse 93 H 02/15/21 21:30 Resp 16 02/15/21 19:19 BP 144/84 H 02/15/21 21:30 Pulse Ox 99 02/15/21 21:30
[2021-02-15] MEDS: INSULIN REGULAR IN 0.9 % NACL 100 UNIT/100 ML BAG 9.4 UNIT IV (22:05)
[2021-02-15 22:32] LABS: COVID-19 PCR Negative (Negative)
[2021-02-15] MEDS: POTASSIUM CHLORIDE/0.9% NACL 1,000 ML 125 MEQ IV (23:29)
[2021-02-16] VITALS (28 sets, daily range): BP systolic 102–123; BP diastolic 56–74; PULSE 80–99; RESP 11–22; TEMP 36.4–37; O2SAT 96–100
[2021-02-16 00:08] LABS: HCT 40.8 % (40.0-50.0); HGB 14.1 g/dL (13.5-17.5)
[2021-02-16 00:10] LABS: Anion Gap 16.1 mmol/L (3-11); BUN 20 mg/dL (7-18); CO2 16.9 mmol/L (21.0-32.0); CREATININE 1.1 mg/dL (0.70-1.30); Calcium 8.4 mg/dL (8.5-10.1); Chloride 101 mmol/L (98-107); Potassium 4.5 mmol/L (3.5-5.1); Sodium 134 mmol/L (136-145)
[2021-02-16 00:11] LABS: Lipase 124 U/L (73-393)
[2021-02-16 00:12] LABS: BE (Venous) -12 mmol/L (-2-3); HCO3 (Venous) 16 mmol/L (23-28); O2 Sat (Venous) 70 %; TCO2 (Venous) 15 mmol/L (24-29); pCO2 (Venous) 40 mmHg (41-51); pO2 (Venous) 39 mmHg
[2021-02-16 00:13] LABS: Glucose 219 mg/dL (74-106)
[2021-02-16] MEDS: POTASSIUM CHLORIDE/D5-0.45NACL 1,000 ML 150 MEQ IV (00:53)
[2021-02-16 02:13] LABS: Anion Gap 13.4 mmol/L (3-11); BUN 18 mg/dL (7-18); CO2 16.6 mmol/L (21.0-32.0); Calcium 8.3 mg/dL (8.5-10.1); Chloride 105 mmol/L (98-107); Glucose 189 mg/dL (74-106); Potassium 4.1 mmol/L (3.5-5.1); Sodium 135 mmol/L (136-145)
[2021-02-16 04:19] LABS: Anion Gap 11.4 mmol/L (3-11); BUN 16 mg/dL (7-18); CO2 19.6 mmol/L (21.0-32.0); Calcium 8.3 mg/dL (8.5-10.1); Chloride 104 mmol/L (98-107); Glucose 147 mg/dL (74-106); Potassium 3.9 mmol/L (3.5-5.1); Sodium 135 mmol/L (136-145)
[2021-02-16 06:40] LABS: BE (Venous) -6 mmol/L (-2-3); HCO3 (Venous) 20 mmol/L (23-28); O2 Sat (Venous) 97 %; TCO2 (Venous) 18 mmol/L (24-29); pCO2 (Venous) 37 mmHg (41-51); pH (Venous) 7.33 (7.31-7.41); pO2 (Venous) 97 mmHg
[2021-02-16 06:42] LABS: Abs Immature Grans 0.04 10^3/uL (0.0-0.06); Absolute Basophil Count 0.06 10^3/uL (0.0-0.2); Absolute Eosinophil Count 0.15 10^3/uL (0.0-0.7); Absolute Lymphocyte Count 2.02 10^3/uL (1.2-3.4); Absolute Monocyte Count 1.08 10^3/uL (0.1-0.8); Absolute Neutrophil Count 7.13 10^3/uL (1.2-6.7); Basophils % 0.6; Eosinophils % 1.4; HCT 38.9 % (40.0-50.0); HGB 13.7 g/dL (13.5-17.5); Immature Grans % 0.4; Lymphocytes % 19.3; MCH 30.7 pg (27.0-33.0); MCHC 35.2 % (32.0-36.0); MCV 87.2 fL (80-95); MPV 10.2 fL (8.0-11.0); Monocytes % 10.3; Nucleated RBC 0 %; Platelet Count 350 10^3/uL (130-400); RBC 4.46 10^6/uL (4.36-5.78); RDW 11.7 % (11.8-14.1); RDW-SD 37.5 fL; WBC 10.48 10^3/uL (4.4-10.8)
[2021-02-16 06:54] LABS: Magnesium 1.7 mg/dL (1.8-2.4)
[2021-02-16 06:58] LABS: PHOSPHORUS 2.4 mg/dL (2.6-4.7)
[2021-02-16 07:20] LABS: Anion Gap 10.7 mmol/L (3-11); BUN 14 mg/dL (7-18); CO2 19.3 mmol/L (21.0-32.0); CREATININE 0.9 mg/dL (0.70-1.30); Calcium 8.4 mg/dL (8.5-10.1); Chloride 107 mmol/L (98-107); Glucose 111 mg/dL (74-106); Potassium 4.2 mmol/L (3.5-5.1); Sodium 137 mmol/L (136-145)
--- NOTE | 2021-02-16 08:03 | W.PM.PROGNOT ---
Subjective Subjective Interval history since last seen: ZACARIAS. Decent night. Last BG 101 at 7:15. On D5 NS - switching to D5 LR. About to get his lantus this morning. Usually takes 60 units BID. No n/v. Wants breakfast. Objective Last Vital Signs Temp 36.5 C 02/15/21 22:55 Pulse 91 H 02/16/21 06:00 Resp 14 02/16/21 06:00 BP 120/74 02/16/21 06:00 Pulse Ox 97 02/16/21 06:00 Laboratory Results - last 24 hr 02/15/21 02/15/21 02/15/21 19:35 19:35 19:35 WBC 12.87 H RBC 5.02 Hgb 15.3 Hct 44.9 MCV 89.4 MCH 30.5 MCHC 34.1 RDW 11.7 L Plt Count 392 MPV 10.3 Immature Gran % 0.6 Neutrophils % 74.8 Lymphocytes % 16.3 Monocytes % 7.2 Eosinophils % 0.5 Basophils % 0.6 Nucleated RBC % 0 Absolute Neutrophils 9.63 H Absolute Lymphocytes 2.10 Absolute Monocytes 0.93 H Absolute Eosinophils 0.06 Absolute Basophils 0.08 PT 9.7 INR 1.0 APTT 22.6 VBG pH VBG pCO2 VBG pO2 VBG HCO3 VBG Total CO2 VBG O2 Saturation VBG Base Excess Sodium 128 L Potassium 4.5 Chloride 91 L Carbon Dioxide 14.5 L Anion Gap 22.5 H BUN 24 H Creatinine 1.4 H Estimated GFR/1.73 m2 55.05 Glucose 411 H Calcium 9.5 Phosphorus Magnesium Total Bilirubin 0.6 AST 22 ALT 29 Alkaline Phosphatase 110 Total Protein 7.9 Albumin 4.2 Lipase 108 Urine Color Urine Clarity Urine pH Ur Specific [place] Urine Protein Urine Ketones Urine Blood Urine Nitrite Urine Bilirubin Urine Urobilinogen Ur Leukocyte Esterase Urine RBC Urine WBC Ur Epithelial Cells Urine Crystals Urine Bacteria Urine Casts Urine Mucus Urine Other Ur Culture Indicated? Urine Glucose COVID-19 Source SARS-CoV-2 (PCR) 02/15/21 02/15/21 02/15/21 20:20 20:24 21:10 WBC RBC Hgb Hct MCV MCH MCHC RDW Plt Count MPV Immature Gran % Neutrophils % Lymphocytes % Monocytes % Eosinophils % Basophils % Nucleated RBC % Absolute Neutrophils Absolute Lymphocytes Absolute Monocytes Absolute Eosinophils Absolute Basophils PT INR APTT VBG pH 7.18 L* VBG pCO2 38 L VBG pO2 35 VBG HCO3 14 L VBG Total CO2 13 L VBG O2 Saturation 61 VBG Base Excess -14 L Sodium Potassium Chloride Carbon Dioxide Anion Gap BUN Creatinine Estimated GFR/1.73 m2 Glucose Calcium Phosphorus Magnesium Total Bilirubin AST ALT Alkaline Phosphatase Total Protein Albumin Lipase Urine Color Yellow Urine Clarity Clear Urine pH 5.5 Ur Specific [place] >= 1.030 H Urine Protein 100 H Urine Ketones >=160 H Urine Blood Small H Urine Nitrite Negative Urine Bilirubin Negative Urine Urobilinogen 0.2 Ur Leukocyte Esterase Negative Urine RBC Negative Urine WBC Negative Ur Epithelial Cells Negative Urine Crystals Negative Urine Bacteria Negative Urine Casts Negative Urine Mucus Negative Urine Other Negative Ur Culture Indicated? No Urine Glucose 500 H COVID-19 Source Nasal/Nares SARS-CoV-2 (PCR) Negative 02/15/21 02/15/21 02/15/21 23:50 23:50 23:50 WBC RBC Hgb Hct MCV MCH MCHC RDW Plt Count MPV Immature Gran % Neutrophils % Lymphocytes % Monocytes % Eosinophils % Basophils % Nucleated RBC % Absolute Neutrophils Absolute Lymphocytes Absolute Monocytes Absolute Eosinophils Absolute Basophils PT INR APTT VBG pH 7.20 L VBG pCO2 40 L VBG pO2 39 VBG HCO3 16 L VBG Total CO2 15 L VBG O2 Saturation 70 VBG Base Excess -12 L Sodium 134 L Potassium 4.5 Chloride 101 Carbon Dioxide 16.9 L Anion Gap 16.1 H BUN 20 H Creatinine 1.1 Estimated GFR/1.73 m2 >= 60.00 Glucose 219 H D Calcium 8.4 L Phosphorus Magnesium Total Bilirubin AST ALT Alkaline Phosphatase Total Protein Albumin Lipase 124 Urine Color Urine Clarity Urine pH Ur Specific [place] Urine Protein Urine Ketones Urine Blood Urine Nitrite Urine Bilirubin Urine Urobilinogen Ur Leukocyte Esterase Urine RBC Urine WBC Ur Epithelial Cells Urine Crystals Urine Bacteria Urine Casts Urine Mucus Urine Other Ur Culture Indicated? Urine Glucose COVID-19 Source SARS-CoV-2 (PCR) 02/16/21 02/16/21 02/16/21 00:00 02:00 03:45 WBC RBC Hgb 14.1 Hct 40.8 MCV MCH MCHC RDW Plt Count MPV Immature Gran % Neutrophils % Lymphocytes % Monocytes % Eosinophils % Basophils % Nucleated RBC % Absolute Neutrophils Absolute Lymphocytes Absolute Monocytes Absolute Eosinophils Absolute Basophils PT INR APTT VBG pH VBG pCO2 VBG pO2 VBG HCO3 VBG Total CO2 VBG O2 Saturation VBG Base Excess Sodium 135 L Cancelled Potassium 4.1 Cancelled Chloride 105 Cancelled Carbon Dioxide 16.6 L Cancelled Anion Gap 13.4 H Cancelled BUN 18 Cancelled Creatinine 1.0 Cancelled Estimated GFR/1.73 m2 >= 60.00 Cancelled Glucose 189 H Cancelled Calcium 8.3 L Cancelled Phosphorus Magnesium Total Bilirubin AST ALT Alkaline Phosphatase Total Protein Albumin Lipase Urine Color Urine Clarity Urine pH Ur Specific [place] Urine Protein Urine Ketones Urine Blood Urine Nitrite Urine Bilirubin Urine Urobilinogen Ur Leukocyte Esterase Urine RBC Urine WBC Ur Epithelial Cells Urine Crystals Urine Bacteria Urine Casts Urine Mucus Urine Other Ur Culture Indicated? Urine Glucose COVID-19 Source SARS-CoV-2 (PCR) 02/16/21 02/16/21 02/16/21 04:05 05:45 06:20 WBC 10.48 RBC 4.46 Hgb 13.7 Hct 38.9 L MCV 87.2 MCH 30.7 MCHC 35.2 RDW 11.7 L Plt Count 350 MPV 10.2 Immature Gran % 0.4 Neutrophils % 68.0 Lymphocytes % 19.3 Monocytes % 10.3 Eosinophils % 1.4 Basophils % 0.6 Nucleated RBC % 0 Absolute Neutrophils 7.13 H Absolute Lymphocytes 2.02 Absolute Monocytes 1.08 H Absolute Eosinophils 0.15 Absolute Basophils 0.06 PT INR APTT VBG pH VBG pCO2 VBG pO2 VBG HCO3 VBG Total CO2 VBG O2 Saturation VBG Base Excess Sodium 135 L Cancelled Potassium 3.9 Cancelled Chloride 104 Cancelled Carbon Dioxide 19.6 L Cancelled Anion Gap 11.4 H Cancelled BUN 16 Cancelled Creatinine 1.0 Cancelled Estimated GFR/1.73 m2 >= 60.00 Cancelled Glucose 147 H Cancelled Calcium 8.3 L Cancelled Phosphorus Magnesium Total Bilirubin AST ALT Alkaline Phosphatase Total Protein Albumin Lipase Urine Color Urine Clarity Urine pH Ur Specific [place] Urine Protein Urine Ketones Urine Blood Urine Nitrite Urine Bilirubin Urine Urobilinogen Ur Leukocyte Esterase Urine RBC Urine WBC Ur Epithelial Cells Urine Crystals Urine Bacteria Urine Casts Urine Mucus Urine Other Ur Culture Indicated? Urine Glucose COVID-19 Source SARS-CoV-2 (PCR) 02/16/21 02/16/21 02/16/21 06:20 06:20 06:20 WBC RBC Hgb Hct MCV MCH MCHC RDW Plt Count MPV Immature Gran % Neutrophils % Lymphocytes % Monocytes % Eosinophils % Basophils % Nucleated RBC % Absolute Neutrophils Absolute Lymphocytes Absolute Monocytes Absolute Eosinophils Absolute Basophils PT INR APTT VBG pH VBG pCO2 VBG pO2 VBG HCO3 VBG Total CO2 VBG O2 Saturation VBG Base Excess Sodium 137 Potassium 4.2 Chloride 107 Carbon Dioxide 19.3 L Anion Gap 10.7 BUN 14 Creatinine 0.9 Estimated GFR/1.73 m2 >= 60.00 Glucose 111 H Calcium 8.4 L Phosphorus 2.4 L Magnesium 1.7 L Total Bilirubin AST ALT Alkaline Phosphatase Total Protein Albumin Lipase Urine Color Urine Clarity Urine pH Ur Specific [place] Urine Protein Urine Ketones Urine Blood Urine Nitrite Urine Bilirubin Urine Urobilinogen Ur Leukocyte Esterase Urine RBC Urine WBC Ur Epithelial Cells Urine Crystals Urine Bacteria Urine Casts Urine Mucus Urine Other Ur Culture Indicated? Urine Glucose COVID-19 Source SARS-CoV-2 (PCR) 02/16/21 02/16/21 02/16/21 06:20 07:45 09:45 WBC RBC Hgb Hct MCV MCH MCHC RDW Plt Count MPV Immature Gran % Neutrophils % Lymphocytes % Monocytes % Eosinophils % Basophils % Nucleated RBC % Absolute Neutrophils Absolute Lymphocytes Absolute Monocytes Absolute Eosinophils Absolute Basophils PT INR APTT VBG pH 7.33 VBG pCO2 37 L VBG pO2 97 VBG HCO3 20 L VBG Total CO2 18 L VBG O2 Saturation 97 VBG Base Excess -6 L Sodium Cancelled Cancelled Potassium Cancelled Cancelled Chloride Cancelled Cancelled Carbon Dioxide Cancelled Cancelled Anion Gap Cancelled Cancelled BUN Cancelled Cancelled Creatinine Cancelled Cancelled Estimated GFR/1.73 m2 Cancelled Cancelled Glucose Cancelled Cancelled Calcium Cancelled Cancelled Phosphorus Magnesium Total Bilirubin AST ALT Alkaline Phosphatase Total Protein Albumin Lipase Urine Color Urine Clarity Urine pH Ur Specific [place] Urine Protein Urine Ketones Urine Blood Urine Nitrite Urine Bilirubin Urine Urobilinogen Ur Leukocyte Esterase Urine RBC Urine WBC Ur Epithelial Cells Urine Crystals Urine Bacteria Urine Casts Urine Mucus Urine Other Ur Culture Indicated? Urine Glucose COVID-19 Source SARS-CoV-2 (PCR) 02/16/21 02/16/21 02/16/21 11:45 13:45 15:45 WBC RBC Hgb Hct MCV MCH MCHC RDW Plt Count MPV Immature Gran % Neutrophils % Lymphocytes % Monocytes % Eosinophils % Basophils % Nucleated RBC % Absolute Neutrophils Absolute Lymphocytes Absolute Monocytes Absolute Eosinophils Absolute Basophils PT INR APTT VBG pH VBG pCO2 VBG pO2 VBG HCO3 VBG Total CO2 VBG O2 Saturation VBG Base Excess Sodium Cancelled Cancelled Cancelled Potassium Cancelled Cancelled Cancelled Chloride Cancelled Cancelled Cancelled Carbon Dioxide Cancelled Cancelled Cancelled Anion Gap Cancelled Cancelled Cancelled BUN Cancelled Cancelled Cancelled Creatinine Cancelled Cancelled Cancelled Estimated GFR/1.73 m2 Cancelled Cancelled Cancelled Glucose Cancelled Cancelled Cancelled Calcium Cancelled Cancelled Cancelled Phosphorus Magnesium Total Bilirubin AST ALT Alkaline Phosphatase Total Protein Albumin Lipase Urine Color Urine Clarity Urine pH Ur Specific [place] Urine Protein Urine Ketones Urine Blood Urine Nitrite Urine Bilirubin Urine Urobilinogen Ur Leukocyte Esterase Urine RBC Urine WBC Ur Epithelial Cells Urine Crystals Urine Bacteria Urine Casts Urine Mucus Urine Other Ur Culture Indicated? Urine Glucose COVID-19 Source SARS-CoV-2 (PCR) 02/16/21 02/16/21 02/16/21 17:45 19:45 21:45 WBC RBC Hgb Hct MCV MCH MCHC RDW Plt Count MPV Immature Gran % Neutrophils % Lymphocytes % Monocytes % Eosinophils % Basophils % Nucleated RBC % Absolute Neutrophils Absolute Lymphocytes Absolute Monocytes Absolute Eosinophils Absolute Basophils PT INR APTT VBG pH VBG pCO2 VBG pO2 VBG HCO3 VBG Total CO2 VBG O2 Saturation VBG Base Excess Sodium Cancelled Cancelled Cancelled Potassium Cancelled Cancelled Cancelled Chloride Cancelled Cancelled Cancelled Carbon Dioxide Cancelled Cancelled Cancelled Anion Gap Cancelled Cancelled Cancelled BUN Cancelled Cancelled Cancelled Creatinine Cancelled Cancelled Cancelled Estimated GFR/1.73 m2 Cancelled Cancelled Cancelled Glucose Cancelled Cancelled Cancelled Calcium Cancelled Cancelled Cancelled Phosphorus Magnesium Total Bilirubin AST ALT Alkaline Phosphatase Total Protein Albumin Lipase Urine Color Urine Clarity Urine pH Ur Specific [place] Urine Protein Urine Ketones Urine Blood Urine Nitrite Urine Bilirubin Urine Urobilinogen Ur Leukocyte Esterase Urine RBC Urine WBC Ur Epithelial Cells Urine Crystals Urine Bacteria Urine Casts Urine Mucus Urine Other Ur Culture Indicated? Urine Glucose COVID-19 Source SARS-CoV-2 (PCR) 02/16/21 23:45 WBC RBC Hgb Hct MCV MCH MCHC RDW Plt Count MPV Immature Gran % Neutrophils % Lymphocytes % Monocytes % Eosinophils % Basophils % Nucleated RBC % Absolute Neutrophils Absolute Lymphocytes Absolute Monocytes Absolute Eosinophils Absolute Basophils PT INR APTT VBG pH VBG pCO2 VBG pO2 VBG HCO3 VBG Total CO2 VBG O2 Saturation VBG Base Excess Sodium Cancelled Potassium Cancelled Chloride Cancelled Carbon Dioxide Cancelled Anion Gap Cancelled BUN Cancelled Creatinine Cancelled Estimated GFR/1.73 m2 Cancelled Glucose Cancelled Calcium Cancelled Phosphorus Magnesium Total Bilirubin AST ALT Alkaline Phosphatase Total Protein Albumin Lipase Urine Color Urine Clarity Urine pH Ur Specific [place] Urine Protein Urine Ketones Urine Blood Urine Nitrite Urine Bilirubin Urine Urobilinogen Ur Leukocyte Esterase Urine RBC Urine WBC Ur Epithelial Cells Urine Crystals Urine Bacteria Urine Casts Urine Mucus Urine Other Ur Culture Indicated? Urine Glucose COVID-19 Source SARS-CoV-2 (PCR)
[2021-02-16] MEDS: Lisinopril 10 MG TAB PO (08:04)
[2021-02-16] MEDS: Insulin Glargine 300 UNITS/3 ML PEN 30 UNITS SC (08:37)
[2021-02-16] MEDS: MAGNESIUM SULFATE 4 GM/100 ML BAG IVPB (08:59)
[2021-02-16] MEDS: Insulin Aspart 300 UNITS/3 ML PEN SC ×2 (09:05→12:56)
--- NOTE | 2021-02-16 09:27 | PUCC_ITS ---
General Date of Service Date of service: 02/16/21 Time of Service: 07:30 Reason for Admission to ICU: Diabetic ketoacidosis Assessment and Plan Assessment and plan (1) DKA (diabetic ketoacidosis): Status: Acute Qualifiers: Diabetes mellitus type: other specified (including MALLY) Diabetes mellitus complication detail: without coma Qualified Code(s): E13.10 - Other specified diabetes mellitus with ketoacidosis without coma (2) Hypomagnesemia: Status: Acute (3) Hypophosphatemia: Status: Acute (4) Leukocytosis: Status: Acute Qualifiers: Leukocytosis type: leukemoid reaction Qualified Code(s): D72.823 - Leukemoid reaction (5) Metabolic acidosis due to diabetes mellitus: Status: Acute Assessment and plan: This is a 45-year-old gentleman admitted to the ICU for DKA in the setting of noncompliance. He has had DKA in the past with his last episode being in 2018. He is maintained on 60 units of Lantus twice daily without any sliding scale or prandial insulin. I cannot find evidence of any endocrine involvement in his care, although he would certainly benefit from this as well as social work to get to the bottom of why he is noncompliant with his regimen. His DKA is resolved and he will be able to come off the drip once he can tolerate p.o. I do notice that his DKA was treated with normal saline, when compared to a balance crystalloid such as Plasma-Lyte or lactated Ringer's, normal saline increases the risk of an adverse renal event, such as the need for renal replacement therapy in critically ill patients, including DKA. Would recommend switching his fluids to LR and using LR or Plasma-Lyte in the future. Recommendations Pulmonary: No acute concerns Cardiac: - recommend EKG and at least one troponin in the setting of DKA Hypertension - continue home lisinopril Renal: Chronic renal calculi - saw Urology on 02/13/21 for this who did not believe these were obstructing or warranted any intervention Metabolic acidosis due to DKA - resolved - negative lactate Hypomagnesemia - recommend repletion to 2.0 - continue to monitor daily Hypophosphatemia - recommend repletion to 4.0 - at risk for refeeding given low phos and vomiting in setting DKA - continue to monitor daily I&O: Intake & Output 02/13/21 02/14/21 02/15/21 02/16/21 23:59 23:59 23:59 23:59 Intake Total 2061.237 / 2061.237 230.082 / 230.082 Output Total 400 / 400 1100 / 1100 Balance 1661.237 / 1661.237 -869.918 / -869.918 Weight 93.4 kg 93.9 kg Daily Fluid Goal:: Even GI Nutrition: Start full PO diet prior to stopping insulin gtt Date of Last Bowel Movement: 02/13/21 Infectious Disease: - UA negative for infection - would have gotten a CXR to rule out respiratory infection - no signs of cellulitis Hematologic: Leukocytosis, resolved - likely reactive Neurologic: Depression - recommend restarting buspirone and sertraline Endocrine: Recurrent diabetic ketoacidosis - GAP is closed and bicarb >18 - recommend against using normal saline - would recommend giving Lantus subq at time of insulin gtt initiation as patients tend to recover more quickly - recommend starting Lantus 60U bid (home regimen) - recommend feeding with a diabetic diet this morning and if he tolerates this can discontinue insulin gtt - can discontinue IVF once patient is tolerating PO intake - can discontinue q2hr labs - typically these can be done q4hr for simple DKA but now that his DKA is resolved can do bid BMP - can D/C q1 hr fingersticks and change to AC&HS - recommend SSI - he should see an car retarder operator if he hasn't - he would benefit from prandial insulin - recommend social work to help determine cause for noncompliance Lines: PIV Prophylaxis: recommend DVT ppx with Lovenox No need for GI ppx I spent a total of 40 minutes with this patient including bedside assessment, rounding with nursing, coordination of care with the hospitalist service, chart review and documentation. Code Status: Resuscitation Status Full Code Subjective Critical and life-threatening events over the past 24 hours: This is a 45-year-old man admitted to the ICU for DKA in the setting of insulin noncompliance. His last bout of DKA was in 2018, he was diagnosed at 28. He tells me that he does not always take his insulin and in this instance he skipped several doses. He reportedly had not checked his blood sugar in approximately 2 weeks. At home he takes glargine 60 units twice daily without a sliding scale. He was not feeling sick prior to the onset of his DKA. He did have vomiting and epigastric pain in the setting of his DKA. He had a CAT scan that does show 2 stones in his kidney however they are nonobstructing. He denies trouble breathing, chest pain, nausea. Exam Const General: no acute distress Nutritional Appearance: well nourished [facility] Head: normocephalic Ears: external ears normal General nose exam: nasal mucous membranes and turbinates normal Face and sinus: normal facial exam Mouth: oropharynx normal and moist mucous membranes Teeth and gingiva: dentition normal Eyes General: appearance normal, both eyes and all related structures Pupils: PERRL Neck Neck: normal visual inspection and no lymphadenopathy Chest Chest: normal inspection of the chest Resp Effort & Inspection: normal respiratory effort Auscultation: clear to auscultation bilaterally, no rales, no rhonchi and no wheezes Cardio Rate: regular rate Rhythm: regular rhythm Heart Sounds: S1 normal, S2 normal and no murmurs Pulses: radial pulses present bilaterally GI Inspection: normal to inspection Palpation: soft Skin General skin exam: no rashes or lesions noted Neuro General: patient alert, patient awake and patient oriented x3 Extrem General: no clubbing, cyanosis or edema Psych Mental Status: mental status grossly normal Affect: normal affect Attitude: cooperative Most Recent VS/Results Last Vital Signs Temp 36.5 C 02/15/21 22:55 Pulse 91 H 02/16/21 08:00 Resp 13 02/16/21 08:00 BP 105/56 L 02/16/21 08:00 Pulse Ox 99 02/16/21 08:00 Laboratory Results - last 24 hr 02/15/21 02/15/21 02/15/21 19:35 19:35 19:35 WBC 12.87 H RBC 5.02 Hgb 15.3 Hct 44.9 MCV 89.4 MCH 30.5 MCHC 34.1 RDW 11.7 L Plt Count 392 MPV 10.3 Immature Gran % 0.6 Neutrophils % 74.8 Lymphocytes % 16.3 Monocytes % 7.2 Eosinophils % 0.5 Basophils % 0.6 Nucleated RBC % 0 Absolute Neutrophils 9.63 H Absolute Lymphocytes 2.10 Absolute Monocytes 0.93 H Absolute Eosinophils 0.06 Absolute Basophils 0.08 PT 9.7 INR 1.0 APTT 22.6 VBG pH VBG pCO2 VBG pO2 VBG HCO3 VBG Total CO2 VBG O2 Saturation VBG Base Excess Sodium 128 L Potassium 4.5 Chloride 91 L Carbon Dioxide 14.5 L Anion Gap 22.5 H BUN 24 H Creatinine 1.4 H Estimated GFR/1.73 m2 55.05 Glucose 411 H Calcium 9.5 Phosphorus Magnesium Total Bilirubin 0.6 AST 22 ALT 29 Alkaline Phosphatase 110 Total Protein 7.9 Albumin 4.2 Lipase 108 Urine Color Urine Clarity Urine pH Ur Specific [place] Urine Protein Urine Ketones Urine Blood Urine Nitrite Urine Bilirubin Urine Urobilinogen Ur Leukocyte Esterase Urine RBC Urine WBC Ur Epithelial Cells Urine Crystals Urine Bacteria Urine Casts Urine Mucus Urine Other Ur Culture Indicated? Urine Glucose COVID-19 Source SARS-CoV-2 (PCR) 02/15/21 02/15/21 02/15/21 20:20 20:24 21:10 WBC RBC Hgb Hct MCV MCH MCHC RDW Plt Count MPV Immature Gran % Neutrophils % Lymphocytes % Monocytes % Eosinophils % Basophils % Nucleated RBC % Absolute Neutrophils Absolute Lymphocytes Absolute Monocytes Absolute Eosinophils Absolute Basophils PT INR APTT VBG pH 7.18 L* VBG pCO2 38 L VBG pO2 35 VBG HCO3 14 L VBG Total CO2 13 L VBG O2 Saturation 61 VBG Base Excess -14 L Sodium Potassium Chloride Carbon Dioxide Anion Gap BUN Creatinine Estimated GFR/1.73 m2 Glucose Calcium Phosphorus Magnesium Total Bilirubin AST ALT Alkaline Phosphatase Total Protein Albumin Lipase Urine Color Yellow Urine Clarity Clear Urine pH 5.5 Ur Specific [place] >= 1.030 H Urine Protein 100 H Urine Ketones >=160 H Urine Blood Small H Urine Nitrite Negative Urine Bilirubin Negative Urine Urobilinogen 0.2 Ur Leukocyte Esterase Negative Urine RBC Negative Urine WBC Negative Ur Epithelial Cells Negative Urine Crystals Negative Urine Bacteria Negative Urine Casts Negative Urine Mucus Negative Urine Other Negative Ur Culture Indicated? No Urine Glucose 500 H COVID-19 Source Nasal/Nares SARS-CoV-2 (PCR) Negative 02/15/21 02/15/21 02/15/21 23:50 23:50 23:50 WBC RBC Hgb Hct MCV MCH MCHC RDW Plt Count MPV Immature Gran % Neutrophils % Lymphocytes % Monocytes % Eosinophils % Basophils % Nucleated RBC % Absolute Neutrophils Absolute Lymphocytes Absolute Monocytes Absolute Eosinophils Absolute Basophils PT INR APTT VBG pH 7.20 L VBG pCO2 40 L VBG pO2 39 VBG HCO3 16 L VBG Total CO2 15 L VBG O2 Saturation 70 VBG Base Excess -12 L Sodium 134 L Potassium 4.5 Chloride 101 Carbon Dioxide 16.9 L Anion Gap 16.1 H BUN 20 H Creatinine 1.1 Estimated GFR/1.73 m2 >= 60.00 Glucose 219 H D Calcium 8.4 L Phosphorus Magnesium Total Bilirubin AST ALT Alkaline Phosphatase Total Protein Albumin Lipase 124 Urine Color Urine Clarity Urine pH Ur Specific [place] Urine Protein Urine Ketones Urine Blood Urine Nitrite Urine Bilirubin Urine Urobilinogen Ur Leukocyte Esterase Urine RBC Urine WBC Ur Epithelial Cells Urine Crystals Urine Bacteria Urine Casts Urine Mucus Urine Other Ur Culture Indicated? Urine Glucose COVID-19 Source SARS-CoV-2 (PCR) 02/16/21 02/16/21 02/16/21 00:00 02:00 03:45 WBC RBC Hgb 14.1 Hct 40.8 MCV MCH MCHC RDW Plt Count MPV Immature Gran % Neutrophils % Lymphocytes % Monocytes % Eosinophils % Basophils % Nucleated RBC % Absolute Neutrophils Absolute Lymphocytes Absolute Monocytes Absolute Eosinophils Absolute Basophils PT INR APTT VBG pH VBG pCO2 VBG pO2 VBG HCO3 VBG Total CO2 VBG O2 Saturation VBG Base Excess Sodium 135 L Cancelled Potassium 4.1 Cancelled Chloride 105 Cancelled Carbon Dioxide 16.6 L Cancelled Anion Gap 13.4 H Cancelled BUN 18 Cancelled Creatinine 1.0 Cancelled Estimated GFR/1.73 m2 >= 60.00 Cancelled Glucose 189 H Cancelled Calcium 8.3 L Cancelled Phosphorus Magnesium Total Bilirubin AST ALT Alkaline Phosphatase Total Protein Albumin Lipase Urine Color Urine Clarity Urine pH Ur Specific [place] Urine Protein Urine Ketones Urine Blood Urine Nitrite Urine Bilirubin Urine Urobilinogen Ur Leukocyte Esterase Urine RBC Urine WBC Ur Epithelial Cells Urine Crystals Urine Bacteria Urine Casts Urine Mucus Urine Other Ur Culture Indicated? Urine Glucose COVID-19 Source SARS-CoV-2 (PCR) 02/16/21 02/16/21 02/16/21 04:05 05:45 06:20 WBC 10.48 RBC 4.46 Hgb 13.7 Hct 38.9 L MCV 87.2 MCH 30.7 MCHC 35.2 RDW 11.7 L Plt Count 350 MPV 10.2 Immature Gran % 0.4 Neutrophils % 68.0 Lymphocytes % 19.3 Monocytes % 10.3 Eosinophils % 1.4 Basophils % 0.6 Nucleated RBC % 0 Absolute Neutrophils 7.13 H Absolute Lymphocytes 2.02 Absolute Monocytes 1.08 H Absolute Eosinophils 0.15 Absolute Basophils 0.06 PT INR APTT VBG pH VBG pCO2 VBG pO2 VBG HCO3 VBG Total CO2 VBG O2 Saturation VBG Base Excess Sodium 135 L Cancelled Potassium 3.9 Cancelled Chloride 104 Cancelled Carbon Dioxide 19.6 L Cancelled Anion Gap 11.4 H Cancelled BUN 16 Cancelled Creatinine 1.0 Cancelled Estimated GFR/1.73 m2 >= 60.00 Cancelled Glucose 147 H Cancelled Calcium 8.3 L Cancelled Phosphorus Magnesium Total Bilirubin AST ALT Alkaline Phosphatase Total Protein Albumin Lipase Urine Color Urine Clarity Urine pH Ur Specific [place] Urine Protein Urine Ketones Urine Blood Urine Nitrite Urine Bilirubin Urine Urobilinogen Ur Leukocyte Esterase Urine RBC Urine WBC Ur Epithelial Cells Urine Crystals Urine Bacteria Urine Casts Urine Mucus Urine Other Ur Culture Indicated? Urine Glucose COVID-19 Source SARS-CoV-2 (PCR) 02/16/21 02/16/21 02/16/21 06:20 06:20 06:20 WBC RBC Hgb Hct MCV MCH MCHC RDW Plt Count MPV Immature Gran % Neutrophils % Lymphocytes % Monocytes % Eosinophils % Basophils % Nucleated RBC % Absolute Neutrophils Absolute Lymphocytes Absolute Monocytes Absolute Eosinophils Absolute Basophils PT INR APTT VBG pH VBG pCO2 VBG pO2 VBG HCO3 VBG Total CO2 VBG O2 Saturation VBG Base Excess Sodium 137 Potassium 4.2 Chloride 107 Carbon Dioxide 19.3 L Anion Gap 10.7 BUN 14 Creatinine 0.9 Estimated GFR/1.73 m2 >= 60.00 Glucose 111 H Calcium 8.4 L Phosphorus 2.4 L Magnesium 1.7 L Total Bilirubin AST ALT Alkaline Phosphatase Total Protein Albumin Lipase Urine Color Urine Clarity Urine pH Ur Specific [place] Urine Protein Urine Ketones Urine Blood Urine Nitrite Urine Bilirubin Urine Urobilinogen Ur Leukocyte Esterase Urine RBC Urine WBC Ur Epithelial Cells Urine Crystals Urine Bacteria Urine Casts Urine Mucus Urine Other Ur Culture Indicated? Urine Glucose COVID-19 Source SARS-CoV-2 (PCR) 02/16/21 02/16/21 02/16/21 06:20 07:45 09:45 WBC RBC Hgb Hct MCV MCH MCHC RDW Plt Count MPV Immature Gran % Neutrophils % Lymphocytes % Monocytes % Eosinophils % Basophils % Nucleated RBC % Absolute Neutrophils Absolute Lymphocytes Absolute Monocytes Absolute Eosinophils Absolute Basophils PT INR APTT VBG pH 7.33 VBG pCO2 37 L VBG pO2 97 VBG HCO3 20 L VBG Total CO2 18 L VBG O2 Saturation 97 VBG Base Excess -6 L Sodium Cancelled Cancelled Potassium Cancelled Cancelled Chloride Cancelled Cancelled Carbon Dioxide Cancelled Cancelled Anion Gap Cancelled Cancelled BUN Cancelled Cancelled Creatinine Cancelled Cancelled Estimated GFR/1.73 m2 Cancelled Cancelled Glucose Cancelled Cancelled Calcium Cancelled Cancelled Phosphorus Magnesium Total Bilirubin AST ALT Alkaline Phosphatase Total Protein Albumin Lipase Urine Color Urine Clarity Urine pH Ur Specific [place] Urine Protein Urine Ketones Urine Blood Urine Nitrite Urine Bilirubin Urine Urobilinogen Ur Leukocyte Esterase Urine RBC Urine WBC Ur Epithelial Cells Urine Crystals Urine Bacteria Urine Casts Urine Mucus Urine Other Ur Culture Indicated? Urine Glucose COVID-19 Source SARS-CoV-2 (PCR) 02/16/21 02/16/21 02/16/21 11:45 13:45 15:45 WBC RBC Hgb Hct MCV MCH MCHC RDW Plt Count MPV Immature Gran % Neutrophils % Lymphocytes % Monocytes % Eosinophils % Basophils % Nucleated RBC % Absolute Neutrophils Absolute Lymphocytes Absolute Monocytes Absolute Eosinophils Absolute Basophils PT INR APTT VBG pH VBG pCO2 VBG pO2 VBG HCO3 VBG Total CO2 VBG O2 Saturation VBG Base Excess Sodium Cancelled Cancelled Cancelled Potassium Cancelled Cancelled Cancelled Chloride Cancelled Cancelled Cancelled Carbon Dioxide Cancelled Cancelled Cancelled Anion Gap Cancelled Cancelled Cancelled BUN Cancelled Cancelled Cancelled Creatinine Cancelled Cancelled Cancelled Estimated GFR/1.73 m2 Cancelled Cancelled Cancelled Glucose Cancelled Cancelled Cancelled Calcium Cancelled Cancelled Cancelled Phosphorus Magnesium Total Bilirubin AST ALT Alkaline Phosphatase Total Protein Albumin Lipase Urine Color Urine Clarity Urine pH Ur Specific [place] Urine Protein Urine Ketones Urine Blood Urine Nitrite Urine Bilirubin Urine Urobilinogen Ur Leukocyte Esterase Urine RBC Urine WBC Ur Epithelial Cells Urine Crystals Urine Bacteria Urine Casts Urine Mucus Urine Other Ur Culture Indicated? Urine Glucose COVID-19 Source SARS-CoV-2 (PCR) 02/16/21 02/16/21 02/16/21 17:45 19:45 21:45 WBC RBC Hgb Hct MCV MCH MCHC RDW Plt Count MPV Immature Gran % Neutrophils % Lymphocytes % Monocytes % Eosinophils % Basophils % Nucleated RBC % Absolute Neutrophils Absolute Lymphocytes Absolute Monocytes Absolute Eosinophils Absolute Basophils PT INR APTT VBG pH VBG pCO2 VBG pO2 VBG HCO3 VBG Total CO2 VBG O2 Saturation VBG Base Excess Sodium Cancelled Cancelled Cancelled Potassium Cancelled Cancelled Cancelled Chloride Cancelled Cancelled Cancelled Carbon Dioxide Cancelled Cancelled Cancelled Anion Gap Cancelled Cancelled Cancelled BUN Cancelled Cancelled Cancelled Creatinine Cancelled Cancelled Cancelled Estimated GFR/1.73 m2 Cancelled Cancelled Cancelled Glucose Cancelled Cancelled Cancelled Calcium Cancelled Cancelled Cancelled Phosphorus Magnesium Total Bilirubin AST ALT Alkaline Phosphatase Total Protein Albumin Lipase Urine Color Urine Clarity Urine pH Ur Specific [place] Urine Protein Urine Ketones Urine Blood Urine Nitrite Urine Bilirubin Urine Urobilinogen Ur Leukocyte Esterase Urine RBC Urine WBC Ur Epithelial Cells Urine Crystals Urine Bacteria Urine Casts Urine Mucus Urine Other Ur Culture Indicated? Urine Glucose COVID-19 Source SARS-CoV-2 (PCR) 02/16/21 23:45 WBC RBC Hgb Hct MCV MCH MCHC RDW Plt Count MPV Immature Gran % Neutrophils % Lymphocytes % Monocytes % Eosinophils % Basophils % Nucleated RBC % Absolute Neutrophils Absolute Lymphocytes Absolute Monocytes Absolute Eosinophils Absolute Basophils PT INR APTT VBG pH VBG pCO2 VBG pO2 VBG HCO3 VBG Total CO2 VBG O2 Saturation VBG Base Excess Sodium Cancelled Potassium Cancelled Chloride Cancelled Carbon Dioxide Cancelled Anion Gap Cancelled BUN Cancelled Creatinine Cancelled Estimated GFR/1.73 m2 Cancelled Glucose Cancelled Calcium Cancelled Phosphorus Magnesium Total Bilirubin AST ALT Alkaline Phosphatase Total Protein Albumin Lipase Urine Color Urine Clarity Urine pH Ur Specific [place] Urine Protein Urine Ketones Urine Blood Urine Nitrite Urine Bilirubin Urine Urobilinogen Ur Leukocyte Esterase Urine RBC Urine WBC Ur Epithelial Cells Urine Crystals Urine Bacteria Urine Casts Urine Mucus Urine Other Ur Culture Indicated? Urine Glucose COVID-19 Source SARS-CoV-2 (PCR) Review of Systems All systems reviewed & are unremarkable except as noted in HPI and below Constitutional Constitutional: Denies fever(s), Denies increased appetite and Reports poor appetite ENT Ears, Nose, Mouth, and Throat: Reports dry mouth, Denies odynophagia, Denies sinus pain, Denies sinus pressure and Denies sore throat Cardiovascular Cardiovascular: Denies chest pain, Denies edema, Denies irregular heart rhythm and Denies dyspnea Respiratory Respiratory: Denies chest congestion, Denies cough and Denies dyspnea Gastrointestinal Gastrointestinal: Denies abdominal pain, Denies change in stool character, Denies nausea, Denies odynophagia and Denies vomiting Endocrine Endocrine: Denies polyphagia
[2021-02-16 10:35] LABS: Anion Gap 10.3 mmol/L (3-11); BUN 13 mg/dL (7-18); CO2 21.7 mmol/L (21.0-32.0); CREATININE 1.1 mg/dL (0.70-1.30); Calcium 8.4 mg/dL (8.5-10.1); Chloride 105 mmol/L (98-107); Glucose 124 mg/dL (74-106); Potassium 3.8 mmol/L (3.5-5.1); Sodium 137 mmol/L (136-145)
--- NOTE | 2021-02-16 10:56 | INITIAL_ITS ---
- If Service Date Differs Date of service: 02/16/21 Time of Service: 11:01 Care Management Initial Assess REASON FOR HOSPITALIZATION:: Diabetic ketoacidosis PAST MEDICAL HISTORY/PAST SURGICAL HISTORY:: Medical History. Erectile dysfunction PREVIOUS FUNCTIONAL STATUS/SOCIAL/FAMILY SUPPORTS:: Dragan resides in [place] with his , Mary and their blended family. They have an adult daughter who resides outside of the home, two eighteen year old boys and an eight year old daughter. 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 He is independent in the community. CURRENT FUNCTIONAL STATUS:: Dragan was lying in bed when CM met with him. He reported that he doesn't have good control of his diabetes, but he declined further education to be set up out patient. He stated that he plans to re establish with his Payroll Benefits Administrator [place] [facility] CM sent a new referral, as it has been 5 years since he has been seen. CM will continue to follow. ADVANCE DIRECTIVES:: Not on file, forms offered. Has patient been provided with info about the portal/API?: Yes Did the patient sign up for the portal?: Yes (active) CODE STATUS:: Full Code INSURANCE COVERAGE / FINANCIAL ISSUES:: BCBS CURRENT HOME/COMMUNITY SERVICES/EQUIPMENT:: No current services or equipment. PRIMARY CARE PHYSICIAN:: [place] POTENTIAL DISCHARGE NEEDS:: Evaluation for further needs, follow up appointments. PATIENT/FAMILY EDUCATION NEEDS:: Review discharge instructions regarding activity levels and medications, discussion of self care needs including ask me three. ANTICIPATED BARRIERS TO DISCHARGE:: None identified at this time. TRANSPORTATION:: Via private vehicle by family. PLAN:: Anticipate Dragan will return home when medicallly cleared by MD. He will be transported home via private vehicle when ready. He will follow up with his PCP and discharge plan of care. CM will continue to follow.
[2021-02-16] MEDS: Lactated Ringers 1,000 ML 150 ML IV (11:47)
[2021-02-16] MEDS: Lidocaine 5% Patch 1 PATCH TP (12:03)
--- NOTE | 2021-02-16 12:37 | W.INDIABCONS ---
Date of service: 02/16/21 Time of Service: 12:37 Diabetes Inpatient Consult DESCRIPTION/ASSESSMENT: Met with Dragan in ICU s/p inpatient admission for DKA with metabolic acidosis, hypophosphatemia, hypomagnesemia. Had previous admission for DKA in 2018. Dragan states he has Dm1 with onset in 2010, he takes 60 units lantus BID. He has script for Dexcom 6 and is interested in getting an insulin pump going forward. He reports not using Dexcom in recent weeks and often skipping insulin doses. He reports that he sometimes has hypoglycemia if he uses sliding scale insulin at meals. Most recent A1C: 13.8% (01/28/21) indicating very poor glycemic control. Weight has been stable in recent year. Admitted with DKA after eating at [facility] without insulin coverage. INTERVENTION: Dragan declines diabetes educationat this time. Provided my contact information and encouraged him to reach out as needed for assistance in blood sugar management PLAN: Dragan to reach out to engineering technical writer for diabetes education in outpatient setting prn. Time Spent in Nutritional Counseling and Treatment: 5
--- NOTE | 2021-02-16 13:56 | PHA.REVIEW ---
Pharmacy Admission Review - Admission Clinical Review (Last Reviewed 02/15/21 @ 21:54 by ABUNDIO Gaines) Leukocytosis (Acute) Metabolic acidosis due to diabetes mellitus (Acute) Hypophosphatemia (Acute) Hypomagnesemia (Acute) DKA (diabetic ketoacidosis) (Acute) ciprofloxacin [From Cipro] Adverse Reaction (Intermediate, Verified 02/15/21 19:29) blacks out Resuscitation Status Full Code Height 6 ft Weight 93.9 kg - Renal Dosing Renal Dosing: BUN Cancelled 02/16/21 23:45 Creatinine Cancelled 02/16/21 23:45 Medications needing adjustments: Reviewed List of meds needing interventions: eCrCl 94 ml/min - Anticoagulation Anticoagulation: Hgb 13.7 g/dL (13.5-17.5) 02/16/21 06:20 Hct 38.9 % (40.0-50.0) L 02/16/21 06:20 Plt Count 350 10^3/uL (130-400) 02/16/21 06:20 INR 1.0 (0.9-1.1) 02/15/21 19:35 Creatinine Cancelled 02/16/21 23:45 DVT Prophylaxis: N/A - Opiate Usage Evaluate Pain Scale/Pains Meds: N/A - Relevant Labs Sodium Cancelled 02/16/21 23:45 Potassium Cancelled 02/16/21 23:45 Chloride Cancelled 02/16/21 23:45 Phosphorus 2.4 mg/dL (2.6-4.7) L 02/16/21 06:20 Magnesium 1.7 mg/dL (1.8-2.4) L 02/16/21 06:20 Electrolytes, C-Reactive P, ESR: Reviewed (repleted with 4mg IV mag this AM, 250mg PO phos QID started this afternoon) - DM Control DM Control: Glucose Cancelled 02/16/21 23:45 Finger Stick Blood Glucose 84 Finger Stick Blood Glucose 84 Finger Stick Blood Glucose 84 Finger Stick Blood Glucose 115 Finger Stick Blood Glucose 115 Finger Stick Blood Glucose 154 Finger Stick Blood Glucose 154 Finger Stick Blood Glucose 95 Finger Stick Blood Glucose 95 Finger Stick Blood Glucose 101 Finger Stick Blood Glucose 101 Finger Stick Blood Glucose 109 Finger Stick Blood Glucose 109 Insulin Dosing: Reviewed (insulin gtt stopped, 30U glargine given this AM + SSI with carb coverage added) - Heart Failure/MS EF%, AUSTIN's, B-Blockers, Diuretics: N/A - BP Control BP Control: Blood Pressure 107/63 Blood Pressure 103/58 Blood Pressure 111/66 Blood Pressure 105/56 Blood Pressure 120/74 Blood Pressure 123/69 Blood Pressure 119/74 If elevated: Reviewed - Qtc Review If Elevated: N/A - IV to PO Switch IV Medications: Reviewed - Home Meds Home Med List reviewed: Reviewed Relevent Home Meds Not ordered & why?: buspirone, sertraline (was previously NPO); of note: lisinopril hasn't been filled since october x 30 day supply -- recommend reiterating importance of ACEI for kidney protection in DM prior to discharge as pt does have compliance issues - Current meds Current Medication Order Review: Reviewed - Comments Comments/Follow Ups: Monitor BMP -- specifically mag and phos; home dose of lantus is 60U BID
[2021-02-16 14:17] LABS: Anion Gap 7.3 mmol/L (3-11); BUN 12 mg/dL (7-18); CO2 22.7 mmol/L (21.0-32.0); CREATININE 0.9 mg/dL (0.70-1.30); Calcium 8.4 mg/dL (8.5-10.1); Chloride 106 mmol/L (98-107); Glucose 113 mg/dL (74-106); Potassium 3.8 mmol/L (3.5-5.1); Sodium 136 mmol/L (136-145)
[2021-02-16 14:21] LABS: PHOSPHORUS 2.4 mg/dL (2.6-4.7)
[2021-02-16] MEDS: Gabapentin 100 MG CAP PO (14:24)
--- NOTE | 2021-02-16 15:46 | W.PM.DS.N ---
Date of service: 02/16/21 Time of Service: 15:46 DS: Diagnosis Discharge Diagnosis (1) DKA (diabetic ketoacidosis): Status: Resolved (2) Diabetes type I: Status: Chronic (3) Radiculopathy: Status: Acute (4) Hypomagnesemia: Status: Acute (5) Hypophosphatemia: Status: Acute (6) Leukocytosis: Status: Resolved Asessment and Plan: reactive (7) Metabolic acidosis due to diabetes mellitus: Status: Resolved (8) Noncompliance with medication regimen: Status: Chronic (9) COVID-19 ruled out by laboratory testing: Status: Ruled-out Discharge Plan Disposition Patient Disposition: HOME Condition: Serious Discharge Details Reason For Visit: Diabetic ketoacidosis Admit Date/Time: 02/15/21 21:37 Admit Provider: Allan Yeh Attending Provider: Allan Yeh Primary Care Provider: Deep [facility] Hospital Course Hospital Course: Mr Leon is a 45 year old male with h/o IDDM with h/o prior DKA, as well as h/o hypertension, hyperlipidemia, and depression, who was a patient in [facility] ICU under the hospitalist service from 02/15/21 until 02/16/21 for DKA. The patient had not been checking his blood sugars for two weeks prior to coming to the hospital, despite having a dexcom CGM at home. 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 The patient was treated with IVF, insulin infusion until resolution of his DKA, at which point he was transitioned to basal bolus insulin. He tolerated PO. He was initiated on gabapentin for apparent radiculopathy of his thoracolumbar region on the left. PCP may choose to pursue imaging of this. He is medically stable to be discharged herman on his [id number] regimen with a referral back to endocrinology. He met with our environmental educator and, while he was not interested in discussing his diabetes mangement with her, outpatient referral for DM education is being sent on discharge. Total Critical Care Time 40 minutes. Home Meds and New Rx's Prescriptions: New gabapentin 100 mg capsule 100 mg PO TID Qty: 90 RF: 0 Continued lisinopril 10 mg tablet 10 mg PO DAILY Qty: 30 RF: 5 buspirone 30 mg tablet 30 mg PO BID Qty: 60 RF: 11 sertraline 25 mg tablet 25 mg PO DAILY Qty: 90 RF: 4 insulin lispro 100 unit/mL insulin pen See Rx Instructions subcut DIRECTED Qty: 15 RF: 3 ibuprofen 800 MG tablet 800 mg PO TID PRNQty: 90 RF: 0 insulin glargine 100 unit/mL (3 mL) insulin pen 60 unit subcut BID Qty: 48 RF: 4 duloxetine 60 mg capsule,delayed release(DR/EC) 60 mg PO DAILY Qty: 90 RF: 4 (DME) Comfort EZ Pen [place] 33 gauge x 3/16 needle See Rx Instructions .ROUTE .MEDSUPPLY Qty: 200 RF: 4 (DME) Dexcom G6 Marking Machine Tender Misc See Rx Instructions .ROUTE .MEDSUPPLY Qty: 1 RF: 0 (DME) Dexcom G6 Sensor Device See Rx Instructions .ROUTE .MEDSUPPLY Qty: 3 RF: 4 (DME) Dexcom G6 Transmitter Device See Rx Instructions .ROUTE .MEDSUPPLY Qty: 1 RF: 0 (DME) Blood Glucose Test 1 EACH strip 1 ea Miscellaneous QID Qty: 100 RF: 6 Discharge Instructions Instructions: Gabapentin (By mouth), Diabetic Ketoacidosis (DC), Lumbar Radiculopathy (GEN) Additional Instructions: Return to the hospital with any fever, bleeding, chest pain, shortness of breath. Take your insulin as prescribed and make sure to check your blood sugars before each meal and at bedtime. Use your continuous glucose monitor. Follow up with your PCP in 1-2 weeks. We are sending referrals to [facility] endocrinology and are also recommending that you follow up with diabetes education. Referrals: ENDOCRINOLOGY,[facility] [OTHER] - Deep Knox, BRASS ROLLER [Primary Care Provider] - Liza Harrington [DEPORTATION EXAMINER] - Activity:: Activity as Tolerated Equipment/Supplies:: No Equipment Needed Diet:: Carb Counting Discharge Orders Discharge Orders: Discharge Order (Routine); Ordered 02/16/21 Ordered By: Cristal Calvo DS: Summary Time Spent with Patient providing and/or coordinating discharge services: Greater than 30 minutes Status at Discharge Functional status at discharge: independent ambulation Overall status at discharge: patient is back to baseline Mental Status: mental status grossly normal Speech and Movement: speech and movement normal Mood: congruent mood Affect: normal affect Exam Narrative Exam Narrative: General: Pleasant middle-aged male, A&Ox3 HEENT: EOMI, MMM Heart: RRR, no m/r/g Lungs: CTAB Abdomen: soft, nontender, nondistended Extremities: no edema BLE's Psych Mental Status: mental status grossly normal Speech and Movement: speech and movement normal Mood: congruent mood Affect: normal affect DS: Data Vitals/I&O Vitals and I&O: Vital Signs Temperature 37.0 C 02/16/21 12:30 Temperature Source Temporal Artery Scan 02/16/21 12:30 Pulse 82 02/16/21 12:59 Pulse 84 02/16/21 13:00 Respiratory Rate 11 L 02/16/21 13:00 Respiratory Effort Non-Labored 02/16/21 12:30 Respiratory Depth Normal 02/16/21 12:30 Respiratory Pattern Normal 02/16/21 12:30 Blood Pressure 107/63 02/16/21 12:59 Blood Pressure Mean 72 02/16/21 12:59 Blood Pressure Position Sitting 02/16/21 12:30 Pulse Oximetry 97 02/16/21 13:28 Oxygen Delivery Method Room Air 02/16/21 13:28 Oxygen Flow Rate 0 02/16/21 13:28 Pain Level 4 02/16/21 12:30 Intake & Output 02/15/21 02/16/21 02/16/21 23:59 11:59 23:59 Intake Total 2061.237 / 2061.237 1741.629 / 1741.629 Output Total 400 / 400 2100 / 2100 Balance 1661.237 / 1661.237 -358.371 / -358.371 Weight 93.4 kg 93.9 kg Intake: IV 2061.237 / 2061.237 1741.629 / 1741.629 Output: Urine 400 / 400 2100 / 2100 Other: Urine Color Yellow Urine Appearance Clear Urine Odor Normal Voiding Methods Urinal Data Completed and Pending Completed studies during hospitalization [Text1]: CT abdomen/pelvis: 1. Bilateral small renal calculi, as described above. No hydronephrosis nor hydroureter. No calculi in the urinary bladder. No renal cysts nor masses evident . 2. Parenchymal calcification noted in the pancreas body, not associated with a mass nor obvious ductal dilatation and unchanged from prior study of October 2017. 3. No ascites nor lymphadenopathy. 4. Visualized lung bases are clear Labs on day of discharge: Labs from last 24 hours 02/16/21 02/16/21 02/16/21 23:45 21:45 19:45 WBC RBC Hgb Hct MCV MCH MCHC RDW Plt Count MPV Immature Gran % Neutrophils % Lymphocytes % Monocytes % Eosinophils % Basophils % Nucleated RBC % Absolute Neutrophils Absolute Lymphocytes Absolute Monocytes Absolute Eosinophils Absolute Basophils PT INR APTT VBG pH VBG pCO2 VBG pO2 VBG HCO3 VBG Total CO2 VBG O2 Saturation VBG Base Excess Sodium Cancelled Cancelled Cancelled Potassium Cancelled Cancelled Cancelled Chloride Cancelled Cancelled Cancelled Carbon Dioxide Cancelled Cancelled Cancelled Anion Gap Cancelled Cancelled Cancelled BUN Cancelled Cancelled Cancelled Creatinine Cancelled Cancelled Cancelled Estimated GFR/1.73 m2 Cancelled Cancelled Cancelled Glucose Cancelled Cancelled Cancelled Calcium Cancelled Cancelled Cancelled Phosphorus Magnesium Total Bilirubin AST ALT Alkaline Phosphatase Total Protein Albumin Lipase Urine Color Urine Clarity Urine pH Ur Specific [place] Urine Protein Urine Ketones Urine Blood Urine Nitrite Urine Bilirubin Urine Urobilinogen Ur Leukocyte Esterase Urine RBC Urine WBC Ur Epithelial Cells Urine Crystals Urine Bacteria Urine Casts Urine Mucus Urine Other Ur Culture Indicated? Urine Glucose COVID-19 Source SARS-CoV-2 (PCR) 02/16/21 02/16/21 02/16/21 17:45 15:45 13:55 WBC RBC Hgb Hct MCV MCH MCHC RDW Plt Count MPV Immature Gran % Neutrophils % Lymphocytes % Monocytes % Eosinophils % Basophils % Nucleated RBC % Absolute Neutrophils Absolute Lymphocytes Absolute Monocytes Absolute Eosinophils Absolute Basophils PT INR APTT VBG pH VBG pCO2 VBG pO2 VBG HCO3 VBG Total CO2 VBG O2 Saturation VBG Base Excess Sodium Cancelled Cancelled Potassium Cancelled Cancelled Chloride Cancelled Cancelled Carbon Dioxide Cancelled Cancelled Anion Gap Cancelled Cancelled BUN Cancelled Cancelled Creatinine Cancelled Cancelled Estimated GFR/1.73 m2 Cancelled Cancelled Glucose Cancelled Cancelled Calcium Cancelled Cancelled Phosphorus 2.4 L Magnesium Total Bilirubin AST ALT Alkaline Phosphatase Total Protein Albumin Lipase Urine Color Urine Clarity Urine pH Ur Specific [place] Urine Protein Urine Ketones Urine Blood Urine Nitrite Urine Bilirubin Urine Urobilinogen Ur Leukocyte Esterase Urine RBC Urine WBC Ur Epithelial Cells Urine Crystals Urine Bacteria Urine Casts Urine Mucus Urine Other Ur Culture Indicated? Urine Glucose COVID-19 Source SARS-CoV-2 (PCR) 0802/16/21 02/16/21 13:55 13:45 11:45 WBC RBC Hgb Hct MCV MCH MCHC RDW Plt Count MPV Immature Gran % Neutrophils % Lymphocytes % Monocytes % Eosinophils % Basophils % Nucleated RBC % Absolute Neutrophils Absolute Lymphocytes Absolute Monocytes Absolute Eosinophils Absolute Basophils PT INR APTT VBG pH VBG pCO2 VBG pO2 VBG HCO3 VBG Total CO2 VBG O2 Saturation VBG Base Excess Sodium 136 Cancelled Cancelled Potassium 3.8 Cancelled Cancelled Chloride 106 Cancelled Cancelled Carbon Dioxide 22.7 Cancelled Cancelled Anion Gap 7.3 Cancelled Cancelled BUN 12 Cancelled Cancelled Creatinine 0.9 Cancelled Cancelled Estimated GFR/1.73 m2 >= 60.00 Cancelled Cancelled Glucose 113 H Cancelled Cancelled Calcium 8.4 L Cancelled Cancelled Phosphorus Magnesium Total Bilirubin AST ALT Alkaline Phosphatase Total Protein Albumin Lipase Urine Color Urine Clarity Urine pH Ur Specific [place] Urine Protein Urine Ketones Urine Blood Urine Nitrite Urine Bilirubin Urine Urobilinogen Ur Leukocyte Esterase Urine RBC Urine WBC Ur Epithelial Cells Urine Crystals Urine Bacteria Urine Casts Urine Mucus Urine Other Ur Culture Indicated? Urine Glucose COVID-19 Source SARS-CoV-2 (PCR) 02/16/21 02/16/21 02/16/21 10:19 09:45 07:45 WBC RBC Hgb Hct MCV MCH MCHC RDW Plt Count MPV Immature Gran % Neutrophils % Lymphocytes % Monocytes % Eosinophils % Basophils % Nucleated RBC % Absolute Neutrophils Absolute Lymphocytes Absolute Monocytes Absolute Eosinophils Absolute Basophils PT INR APTT VBG pH VBG pCO2 VBG pO2 VBG HCO3 VBG Total CO2 VBG O2 Saturation VBG Base Excess Sodium 137 Cancelled Cancelled Potassium 3.8 Cancelled Cancelled Chloride 105 Cancelled Cancelled Carbon Dioxide 21.7 Cancelled Cancelled Anion Gap 10.3 Cancelled Cancelled BUN 13 Cancelled Cancelled Creatinine 1.1 Cancelled Cancelled Estimated GFR/1.73 m2 >= 60.00 Cancelled Cancelled Glucose 124 H Cancelled Cancelled Calcium 8.4 L Cancelled Cancelled Phosphorus Magnesium Total Bilirubin AST ALT Alkaline Phosphatase Total Protein Albumin Lipase Urine Color Urine Clarity Urine pH Ur Specific [place] Urine Protein Urine Ketones Urine Blood Urine Nitrite Urine Bilirubin Urine Urobilinogen Ur Leukocyte Esterase Urine RBC Urine WBC Ur Epithelial Cells Urine Crystals Urine Bacteria Urine Casts Urine Mucus Urine Other Ur Culture Indicated? Urine Glucose COVID-19 Source SARS-CoV-2 (PCR) 02/16/21 02/16/21 02/16/21 06:20 06:20 06:20 WBC RBC Hgb Hct MCV MCH MCHC RDW Plt Count MPV Immature Gran % Neutrophils % Lymphocytes % Monocytes % Eosinophils % Basophils % Nucleated RBC % Absolute Neutrophils Absolute Lymphocytes Absolute Monocytes Absolute Eosinophils Absolute Basophils PT INR APTT VBG pH 7.33 VBG pCO2 37 L VBG pO2 97 VBG HCO3 20 L VBG Total CO2 18 L VBG O2 Saturation 97 VBG Base Excess -6 L Sodium Potassium Chloride Carbon Dioxide Anion Gap BUN Creatinine Estimated GFR/1.73 m2 Glucose Calcium Phosphorus 2.4 L Magnesium 1.7 L Total Bilirubin AST ALT Alkaline Phosphatase Total Protein Albumin Lipase Urine Color Urine Clarity Urine pH Ur Specific [place] Urine Protein Urine Ketones Urine Blood Urine Nitrite Urine Bilirubin Urine Urobilinogen Ur Leukocyte Esterase Urine RBC Urine WBC Ur Epithelial Cells Urine Crystals Urine Bacteria Urine Casts Urine Mucus Urine Other Ur Culture Indicated? Urine Glucose COVID-19 Source SARS-CoV-2 (PCR) 02/16/21 02/16/21 02/16/21 06:20 06:20 05:45 WBC 10.48 RBC 4.46 Hgb 13.7 Hct 38.9 L MCV 87.2 MCH 30.7 MCHC 35.2 RDW 11.7 L Plt Count 350 MPV 10.2 Immature Gran % 0.4 Neutrophils % 68.0 Lymphocytes % 19.3 Monocytes % 10.3 Eosinophils % 1.4 Basophils % 0.6 Nucleated RBC % 0 Absolute Neutrophils 7.13 H Absolute Lymphocytes 2.02 Absolute Monocytes 1.08 H Absolute Eosinophils 0.15 Absolute Basophils 0.06 PT INR APTT VBG pH VBG pCO2 VBG pO2 VBG HCO3 VBG Total CO2 VBG O2 Saturation VBG Base Excess Sodium 137 Cancelled Potassium 4.2 Cancelled Chloride 107 Cancelled Carbon Dioxide 19.3 L Cancelled Anion Gap 10.7 Cancelled BUN 14 Cancelled Creatinine 0.9 Cancelled Estimated GFR/1.73 m2 >= 60.00 Cancelled Glucose 111 H Cancelled Calcium 8.4 L Cancelled Phosphorus Magnesium Total Bilirubin AST ALT Alkaline Phosphatase Total Protein Albumin Lipase Urine Color Urine Clarity Urine pH Ur Specific [place] Urine Protein Urine Ketones Urine Blood Urine Nitrite Urine Bilirubin Urine Urobilinogen Ur Leukocyte Esterase Urine RBC Urine WBC Ur Epithelial Cells Urine Crystals Urine Bacteria Urine Casts Urine Mucus Urine Other Ur Culture Indicated? Urine Glucose COVID-19 Source SARS-CoV-2 (PCR) 02/16/21 02/16/21 02/16/21 04:05 03:45 02:00 WBC RBC Hgb Hct MCV MCH MCHC RDW Plt Count MPV Immature Gran % Neutrophils % Lymphocytes % Monocytes % Eosinophils % Basophils % Nucleated RBC % Absolute Neutrophils Absolute Lymphocytes Absolute Monocytes Absolute Eosinophils Absolute Basophils PT INR APTT VBG pH VBG pCO2 VBG pO2 VBG HCO3 VBG Total CO2 VBG O2 Saturation VBG Base Excess Sodium 135 L Cancelled 135 L Potassium 3.9 Cancelled 4.1 Chloride 104 Cancelled 105 Carbon Dioxide 19.6 L Cancelled 16.6 L Anion Gap 11.4 H Cancelled 13.4 H BUN 16 Cancelled 18 Creatinine 1.0 Cancelled 1.0 Estimated GFR/1.73 m2 >= 60.00 Cancelled >= 60.00 Glucose 147 H Cancelled 189 H Calcium 8.3 L Cancelled 8.3 L Phosphorus Magnesium Total Bilirubin AST ALT Alkaline Phosphatase Total Protein Albumin Lipase Urine Color Urine Clarity Urine pH Ur Specific [place] Urine Protein Urine Ketones Urine Blood Urine Nitrite Urine Bilirubin Urine Urobilinogen Ur Leukocyte Esterase Urine RBC Urine WBC Ur Epithelial Cells Urine Crystals Urine Bacteria Urine Casts Urine Mucus Urine Other Ur Culture Indicated? Urine Glucose COVID-19 Source SARS-CoV-2 (PCR) 02/16/21 02/15/21 02/15/21 00:00 23:50 23:50 WBC RBC Hgb 14.1 Hct 40.8 MCV MCH MCHC RDW Plt Count MPV Immature Gran % Neutrophils % Lymphocytes % Monocytes % Eosinophils % Basophils % Nucleated RBC % Absolute Neutrophils Absolute Lymphocytes Absolute Monocytes Absolute Eosinophils Absolute Basophils PT INR APTT VBG pH 7.20 L VBG pCO2 40 L VBG pO2 39 VBG HCO3 16 L VBG Total CO2 15 L VBG O2 Saturation 70 VBG Base Excess -12 L Sodium Potassium Chloride Carbon Dioxide Anion Gap BUN Creatinine Estimated GFR/1.73 m2 Glucose Calcium Phosphorus Magnesium Total Bilirubin AST ALT Alkaline Phosphatase Total Protein Albumin Lipase 124 Urine Color Urine Clarity Urine pH Ur Specific [place] Urine Protein Urine Ketones Urine Blood Urine Nitrite Urine Bilirubin Urine Urobilinogen Ur Leukocyte Esterase Urine RBC Urine WBC Ur Epithelial Cells Urine Crystals Urine Bacteria Urine Casts Urine Mucus Urine Other Ur Culture Indicated? Urine Glucose COVID-19 Source SARS-CoV-2 (PCR) 02/15/21 02/15/21 02/15/21 23:50 21:10 20:24 WBC RBC Hgb Hct MCV MCH MCHC RDW Plt Count MPV Immature Gran % Neutrophils % Lymphocytes % Monocytes % Eosinophils % Basophils % Nucleated RBC % Absolute Neutrophils Absolute Lymphocytes Absolute Monocytes Absolute Eosinophils Absolute Basophils PT INR APTT VBG pH VBG pCO2 VBG pO2 VBG HCO3 VBG Total CO2 VBG O2 Saturation VBG Base Excess Sodium 134 L Potassium 4.5 Chloride 101 Carbon Dioxide 16.9 L Anion Gap 16.1 H BUN 20 H Creatinine 1.1 Estimated GFR/1.73 m2 >= 60.00 Glucose 219 H D Calcium 8.4 L Phosphorus Magnesium Total Bilirubin AST ALT Alkaline Phosphatase Total Protein Albumin Lipase Urine Color Yellow Urine Clarity Clear Urine pH 5.5 Ur Specific [place] >= 1.030 H Urine Protein 100 H Urine Ketones >=160 H Urine Blood Small H Urine Nitrite Negative Urine Bilirubin Negative Urine Urobilinogen 0.2 Ur Leukocyte Esterase Negative Urine RBC Negative Urine WBC Negative Ur Epithelial Cells Negative Urine Crystals Negative Urine Bacteria Negative Urine Casts Negative Urine Mucus Negative Urine Other Negative Ur Culture Indicated? No Urine Glucose 500 H COVID-19 Source Nasal/Nares SARS-CoV-2 (PCR) Negative 02/15/21 02/15/21 02/15/21 20:20 19:35 19:35 WBC 12.87 H RBC 5.02 Hgb 15.3 Hct 44.9 MCV 89.4 MCH 30.5 MCHC 34.1 RDW 11.7 L Plt Count 392 MPV 10.3 Immature Gran % 0.6 Neutrophils % 74.8 Lymphocytes % 16.3 Monocytes % 7.2 Eosinophils % 0.5 Basophils % 0.6 Nucleated RBC % 0 Absolute Neutrophils 9.63 H Absolute Lymphocytes 2.10 Absolute Monocytes 0.93 H Absolute Eosinophils 0.06 Absolute Basophils 0.08 PT 9.7 INR 1.0 APTT 22.6 VBG pH 7.18 L* VBG pCO2 38 L VBG pO2 35 VBG HCO3 14 L VBG Total CO2 13 L VBG O2 Saturation 61 VBG Base Excess -14 L Sodium Potassium Chloride Carbon Dioxide Anion Gap BUN Creatinine Estimated GFR/1.73 m2 Glucose Calcium Phosphorus Magnesium Total Bilirubin AST ALT Alkaline Phosphatase Total Protein Albumin Lipase Urine Color Urine Clarity Urine pH Ur Specific [place] Urine Protein Urine Ketones Urine Blood Urine Nitrite Urine Bilirubin Urine Urobilinogen Ur Leukocyte Esterase Urine RBC Urine WBC Ur Epithelial Cells Urine Crystals Urine Bacteria Urine Casts Urine Mucus Urine Other Ur Culture Indicated? Urine Glucose COVID-19 Source SARS-CoV-2 (PCR) 02/15/21 19:35 WBC RBC Hgb Hct MCV MCH MCHC RDW Plt Count MPV Immature Gran % Neutrophils % Lymphocytes % Monocytes % Eosinophils % Basophils % Nucleated RBC % Absolute Neutrophils Absolute Lymphocytes Absolute Monocytes Absolute Eosinophils Absolute Basophils PT INR APTT VBG pH VBG pCO2 VBG pO2 VBG HCO3 VBG Total CO2 VBG O2 Saturation VBG Base Excess Sodium 128 L Potassium 4.5 Chloride 91 L Carbon Dioxide 14.5 L Anion Gap 22.5 H BUN 24 H Creatinine 1.4 H Estimated GFR/1.73 m2 55.05 Glucose 411 H Calcium 9.5 Phosphorus Magnesium Total Bilirubin 0.6 AST 22 ALT 29 Alkaline Phosphatase 110 Total Protein 7.9 Albumin 4.2 Lipase 108 Urine Color Urine Clarity Urine pH Ur Specific [place] Urine Protein Urine Ketones Urine Blood Urine Nitrite Urine Bilirubin Urine Urobilinogen Ur Leukocyte Esterase Urine RBC Urine WBC Ur Epithelial Cells Urine Crystals Urine Bacteria Urine Casts Urine Mucus Urine Other Ur Culture Indicated? Urine Glucose COVID-19 Source SARS-CoV-2 (PCR) [facility] Medical History (Updated 02/16/21 @ 15:51 by Cristal Calvo MD) Diabetes type I Erectile dysfunction Family History Mother Depression Father Diabetes Social History Smoking/Tobacco Use Status: Former Tobacco Use tobacco type: cigarettes Quit Date: 04/11/02 Tobacco: How many years used: 7 Second Hand Exposure: Yes Smoking risk assessment performed?: Yes Alcohol Intake: current Alcohol Intake frequency: 3 or more drinks per day Alcohol type: beer Drug use: Never Substance use type: does not use Details: No ETOH x 6 months Caregiver/Support person: No Household members: spouse and children Housing: house Communication Needs: None Do you need help understanding health information?: Never Pets and animals: Yes Pets and animals: cat(s) and dog(s) Sexually active: Yes Do you think of yourself as: straight/heterosexual Current gender identity: male What is your relationship status?: How often do you talk on the phone with friends or family?: three or more times per week How often do you get together with friends or relatives?: once per week How often do you attend pentecostal or rastafari services?: decline to answer Do you belong to any clubs or organized social groups?: yes Panel score (0-1 are the most socially isolated patients): 3 Nohemi/Congregation: None Seatbelt use: sometimes Drive intox or ride w/intox package car driver: No Do you feel safe at home: Yes Do you feel safe in your relationship?: Yes
--- NOTE | 2021-02-16 16:35 | CMDISCH_ITS ---
- If Service Date Differs Date of service: 02/16/21 Time of Service: 16:35 LACE Index Scoring Tool - Questions: Length of Stay (in days): 1 Acuity (Admit via E.D.?): Yes Comorbidities: Diabetes w/o Complication E.D. Visits: 1 - Answers: Total Score: 6 Risk of Readmission: Low Risk Care Management Discharge Reason for Hospitalization: Diabetic ketoacidosis Discharge Plan: Dragan will return home with no new services. His will drive him home via private vehicle. He will follow up with his PCP and discharge plan of care. CM sent a referral for him to see his Kid Club Attendant at [facility]. He is happy to be returning home. Patient/Family Education Needs: Review discharge instructions regarding activity levels and medications, discussion of self care needs including ask me three.
== END 2021-02-16 17:02 | disposition home or self-care (01) | DRG 639 ==
LOC: ER 21:55 → ICU 23:20
PROVIDERS: Internal Medicine; Admitting Provider Family Medicine; Emergency Provider Physician Assistant; PCP Nurse Practitioner Family; Visit Provider Family Medicine
DX: E11.10 Type 2 diabetes mellitus with ketoacidosis without coma (principal); E83.42 Hypomagnesemia; E83.39 Other disorders of phosphorus metabolism; D72.823 Leukemoid reaction; Z20.822 Contact with and (suspected) exposure to COVID-19; Z79.4 Long term (current) use of insulin; Z87.891 Personal history of nicotine dependence; N20.0 Calculus of kidney; F32.9 Major depressive disorder, single episode, unspecified; Z91.14 Patient's other noncompliance with medication regimen; M54.15 Radiculopathy, thoracolumbar region
CPT/HCPCS: 36415; 36416; 80048; 80053; 82805; 82962; 83690; 87635; 96361; 96365; 96375; 99285; 81003; 81015; 83735; 84100; 85014; 85018; 85025; 85610; 85730; 99222; 99291; J2405; J3475; J3490

== ENCOUNTER 2022-01-12 11:56 | Outpatient (CLI) | payer BC, SELFPAY | END 2022-01-12 11:57 | disposition home or self-care (01) | LOC: LBO 11:56 | PROVIDERS: PCP Nurse Practitioner Family ==

== ENCOUNTER 2022-01-15 01:14 | Outpatient (CLI) | payer BC, SELFPAY ==
--- OUTSIDE RECORDS SUMMARY | 2022-01-15 01:16 | XMS_ITS | Encounter Summary ---
:1975 Author Organization [facility] [place] [address] Care Team Providers Name Role Phone Allan Mims MD Primary Care Provider Encounter Details Date Type Department Care Team Description 10/31/2014 Notes Only Endocrinology at [facility] [place] [id number] Social History Tobacco Use Types Packs/Day Years Used Date Former Smoker Quit: 04/28/20 01 Smokeless Tobacco: Never Used Sex Assigned at Date Recorded Not on file documented as of this encounter Progress Notes Francie Delgado LPN - 10/31/2014 3:36 PM EDT CMN for CGM faxed to [facility] documented in this encounter Plan of Treatment Not on filedocumented as of this encounter Visit Diagnoses Not on filedocumented in this encounter Care Teams Process Manufacturing Engineer Relationship Specialty Start Date End Date Allan Mims MD PCP - General 04/28/11 02/25/[address] [place] [address] documented as of this encounter
--- OUTSIDE RECORDS SUMMARY | 2022-01-15 01:16 | XMS_ITS | Encounter Summary ---
:1975 Author Organization [facility] [place] [address] Care Team Providers Name Role Phone Allan Mims MD Primary Care Provider Encounter Details Date Type Department Care Team Description 07/24/2015 Telephone Endocrinology at [facility] [place] [address] Social History Tobacco Use Types Packs/Day Years Used Date Former Smoker Quit: 04/28/20 01 Smokeless Tobacco: Never Used Sex Assigned at Date Recorded Not on file documented as of this encounter Miscellaneous Notes Telephone Encounter - Francie Delgado LPN - 07/29/2015 2:14 PM EST Called patient at which time he was told of need to schedule f/u appointment. Patient agrees with plan of care. Call transferred to paralegal legal secretary. 08/18/15 with Cely Mercedes NP. Telephone Encounter - Francie Delgado LPN - 07/24/2015 1:54 PM EST Rx request received for Dexcom Transmitter and sensors. Called patient. No answer. Message left on home v/m for patient to r/c to nurse regarding need to schedule f/u appointment. documented in this encounter Plan of Treatment Not on filedocumented as of this encounter Visit Diagnoses Not on filedocumented in this encounter Care Teams Fertilizer Loader Relationship Specialty Start Date End Date Allan Mims MD PCP - General 04/28/11 02/25/[address] [place] [address] documented as of this encounter
--- OUTSIDE RECORDS SUMMARY | 2022-01-15 01:16 | XMS_ITS | Encounter Summary ---
:1975 Author Organization [facility] [place] [address] Care Team Providers Name Role Phone Allan Mims MD Primary Care Provider Encounter Details Date Type Department Care Team Description 12/26/2014 Office Visit Endocrinology at [facility] Yina Colin, Type I ([facility] LD type) diabetes Drive [facility] [place] [address] [place] [phone] ENDOCRINOLOGY manifestations , DEPT. uncontrolled [place], [place] [address] Social History Tobacco Use Types Packs/Day Years Used Date Former Smoker Quit: 04/28/20 01 Smokeless Tobacco: Never Used Sex Assigned at Date Recorded Not on file documented as of this encounter Progress Notes Yina Burks LD - 12/26/2014 5:08 PM EDT Diabetes Education and DexCom G4 Continuous Glucose Monitoring System Education Visit Food Service Sales Representatives/Dietitian: Yina EDWARDS, RD, MS, CDE S: Dragan Leon is a 39 y.o. male with type 1 diabetes. He is here for a diabetes education session and will be trialing a DexCom Continuous Glucose Monitoring System which is required by his insurance company before they will pay for the dexcom. His asked me how alcohol ingestion affects blood sugars. Dragan sometimes drinks 6 - 10 [place] Light beers a night. I reviewed risk of hypoglycemia with alcohol and safe drinking amounts. Dragan did have a low blood sugar of 40 last night after drinking. O: Mr. Leon inserted the sensor and was taught how to put in the transmitter, start the sensor session, and calibrate the map editor. Insulin action times and diabetes management skills were reviewed along with how to respond safely to the continuous glucose information and alarms. His low alarm was set at 75. A: Dragan demonstrates an understanding of diabetes management skills and the DexCom Continuous Monitoring System use. P: He is to keep track of his food intake, insulin doses and blood sugars while he wears the sensor continuously for seven days. He will return the DexCom kit and the information will be downloaded andgiven to his diabetes provider. An interpretation will be sent to his insurance company. This was a 60 minute education session. 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
--- OUTSIDE RECORDS SUMMARY | 2022-01-15 01:16 | XMS_ITS | Clinical Summary ---
:1975 Author Organization [facility] [place] [address] Care Team Providers Name Role Phone Deep Knox APRN Primary Care Provider Allergies Active Allergy Reactions Severity Noted Date Comments Ciprofloxacin Seizure, Anaphylaxis High 04/21/2011 dizzin ess Ciprofloxacin (Mixture) Fidel k out, faint Medications Medication Sig Dispensed Refills Start Date End Date Status rosuvastatin Take 1 tablet by 90 tablet 3 10/11/2012 Active (CRESTOR) 20 mg mouth daily. tablet DULoxetine (CYMBALTA) Take 60 mg by mouth 0 Active 60 mg capsule daily. magnesium oxide Take 400 mg by 0 Active (MAG-OX) 400 mg mouth daily. Tablet Reported on 12/13/2016 enalapril (VASOTEC) 5 Take 1 tablet by 90 tablet 3 07/14/2017 Active mg Tablet mouth daily. ONETOUCH ULTRA TEST 1 each by Other 400 each 3 07/14/2017 Active Strip route 4 times daily. Check glcuose 4 times daily Dx code E10.65 glucagon, human As directed for low 2 mL 07/14/2017 Active recombinant, blood sugar (GLUCAGON EMERGENCY KIT, HUMAN,) 1 mg Kit Acetone, Urine, Test 1 each by 50 strip 07/14/2017 Active Strip Misc.(Non-Drug; Combo Route) route as needed (for unexplained BG >250 x 2). Additional Information Patient not taking. Reported on 12/13/2017 busPIRone (BUSPAR) 15 mg Take 15 mg by mouth 2 times 1 11/26/2017 Active Tablet daily. LORazepam (ATIVAN) 0.5 mg Take 0.5 mg by mouth 2 times 0 12/12/2017 Active Tablet daily as needed. naltrexone (DEPADE) 50 mg Take 50 mg by mouth daily. 0 12/01/2017 Active Tablet HUMALOG KWIKPEN 100 Inject 20-25 Units 60 mL 3 04/25/2018 Active unit/mL Insulin Pen subcutaneously 3 times daily (before meals). ICD 10 Code: E10.65 Insulin Safety [place], Inject 1 each subcutaneously 500 each 3 04/25/2018 Active Disp, (NOVOFINE 5 times daily. ICD 10 Code: AUTOCOVER) 30 gauge x E10.65 / Needle LANTUS SOLOSTAR U-100 Inject 50 Units 90 mL 3 04/17/2018 Active INSULIN pen subcutaneously 2 times daily. ICD 10 Code: E10.65 flash glucose sensor 1 each by Mis.(Non-Drug; 3 kit 2 Active (FREESTYLE PAO 10 DAY Combo Route) route See Admin SENSOR) Kit Instructions. Dx code:E10.65 Active Problems Problem Noted Date Anxiety 12/13/2017 DKA, type 1 01/28/2016 Diabetes mellitus 01/26/2015 DM type 1 (diabetes mellitus, type 1) 04/28/2011 Hyperlipidemia 04/28/2011 Immunizations Name Administration Dates Next Due Pneumococcal Polyvalent 23 03/03/2006 Td, adult 04/08/2005 Family History Medical History Relation Comments Diabetes Father Relation Status Comments Father Social History Tobacco Use Types Packs/Day Years Used Date Former Smoker Cigarettes Quit: 04/28/20 Smokeless Tobacco: Never Used Alcohol Use Standard Drinks/Week Comments Yes 6 (1 standard drink = 0.6 oz pure alcoho l) every 2 day's Alcohol Habits Answer Date Recorded How often do you have a drink containing alcohol? Not asked How many drinks containing alcohol do you have on a Not aske d typical day when you are drinking? How often do you have six or more drinks on one occasion? No t asked Comment: every 2 day's 08/27/2020 Sex Assigned at Date Recorded Not on file Last Filed Vital Signs Vital Sign Reading Time Taken Comments Blood Pressure 146/89 12/13/2017 9:24 AM EDT Pulse 96 12/27/2017 7:59 AM EDT Temperature - - Respiratory Rate 16 05/17/2012 10:57 AM EST Oxygen Saturation - - Inhaled Oxygen Concentration - - Weight 103.7 kg (228 lb 11.2 oz) 12/27/2017 7:59 AM EDT Height 182.9 cm (6') 12/27/2017 7:59 AM EDT Body Mass Index 31.02 12/27/2017 7:59 AM EDT Plan of Treatment Health Maintenance Due Date Last Done Comments Covid-19 Vaccine (#1) 1981 HIV screen 1994 Hepatitis C Screening 1994 Tdap adult 1995 Pneumococcal Vaccine: At-Risk 03/03/2007 03/03/2006 5-64yrs (2 - PCV) Tetanus vaccine 04/08/2015 04/08/2005 DM Creatinine yearly 12/13/2017 12/13/2016, 10/30/2014, 09/13/2013, Additional history exists DM Urine Microalbumin yearly 12/13/2017 12/13/2016, 016, 10/30/2014, Additional history exists DM Hemoglobin A1c 03/15/2018 12/13/2017, 12/13/2016, 06/07/2016, Additional history exists Colonoscopy 2021 Influenza (Flu) vaccine (1 of - 02/18/2022 Influenza standard series) DM Opthalmology Exam 03/10/2022 03/10/2021, 08/27/2020 Insurance Payer Benefit Plan Subscriber ID Effective Dates Phone Address Type / Group [facility] [[email or web address] [id number] 2020-Prese [address] [place] [address] [facility] [id number] 2020-Prese [id number] [address] [place] [address] [id number] y (Home) [place] [address] Care Teams Joint Filler Relationship Specialty Start Date End Date Deep Knox, COMMERCIAL TRAILER TRUCK DRIVER PCP - General Family Medicine 02/26/[address] [place], [place] [address]
--- OUTSIDE RECORDS SUMMARY | 2022-01-15 01:16 | XMS_ITS | Encounter Summary ---
:1975 Author Organization [facility] [place] [address] Care Team Providers Name Role Phone Allan Mims MD Primary Care Provider Reason for Visit Reason Onset Date Comments Other 11/28/2014 Encounter Details Date Type Department Care Team Description 11/28/2014 Telephone Endocrinology at [facility] Harmony Jennings, [place] [address] Social History Tobacco Use Types Packs/Day Years Used Date Former Smoker Quit: 04/28/20 01 Smokeless Tobacco: Never Used Sex Assigned at Date Recorded Not on file documented as of this encounter Miscellaneous Notes Telephone Encounter - Francie Delgado LPN - 12/11/2014 3:33 PM EDT Per Cynthia from Dexcom trial sensor needed per insurance Per Yina Burks patient can be seen on December 31 @ 9AM in Dexcom class. Called patient No answer. Message left on home v/m for patient to r/c to nurse . Patient scheduled should he want this appointment.. Telephone Encounter - Harmony Banks RN - 11/28/2014 3:10 PM EDT Received voicemail from Dragan's . States that they would like to know if it is possible to come in sooner for the CGM trial. Will forward to Yina Burks documented in this encounter Plan of Treatment Not on filedocumented as of this encounter Visit Diagnoses Not on filedocumented in this encounter Care Teams Hunter Relationship Specialty Start Date End Date Allan Mims MD PCP - General 04/28/11 02/25/[address] [place] [address] documented as of this encounter
--- OUTSIDE RECORDS SUMMARY | 2022-01-15 01:16 | XMS_ITS | Encounter Summary ---
:1975 Author Organization [facility] [place] [address] Care Team Providers Name Role Phone Allan Mims MD Primary Care Provider Reason for Visit Reason Onset Date Comments Medication Refill 04/17/2018 Encounter Details Date Type Department Care Team Description 04/17/2018 Refill Endocrinology at [facility] C Nubia Mercedes, CONTINUUM OF CARE MANAGER [facility] [place] [address] ENDOCRINOLOGY DEPT. [phone] [place] [id number] (Wo rk) Social History Tobacco Use Types Packs/Day Years Used Date Former Smoker Cigarettes Quit: 04/28/20 01 Smokeless Tobacco: Never Used Sex Assigned at Date Recorded Not on file documented as of this encounter Plan of Treatment Not on filedocumented as of this encounter Visit Diagnoses Not on filedocumented in this encounter Care Teams Agent Telegrapher Relationship Specialty Start Date End Date Allan Mims MD PCP - General 04/28/11 02/25/[address] [place] [address] documented as of this encounter
--- OUTSIDE RECORDS SUMMARY | 2022-01-15 01:16 | XMS_ITS | Encounter Summary ---
:1975 Author Organization [facility] [place] [address] Care Team Providers Name Role Phone Deep Knox APRN Primary Care Provider Encounter Details Date Type Department Care Team Description 08/28/2021 Telephone Ophthalmology at [facility] Lupis Huggins, [facility] [place] [address] [facility] [phone] [place], [place] [address] (Wo rk) Social History Tobacco Use Types [...] this encounter Miscellaneous Notes Telephone Encounter - Cecelia Sawant - 11/11/2021 4:08 PM EDT Called pt x2 to reschedule bumped 09/11 appt with DM. No answer, left vm. Letter sent. Telephone Encounter - Cecelia Sawant - 08/28/2021 10:24 AM EST Called pt to let him know appt on 09/11 w/ DM has been canceled and to reschedule. 6 months for DFE OCT OU Bumped x1 09/11 No answer, left vm. Please reschedule next avail fuv with DM. documented in this encounter Plan of Treatment Not on filedocumented as of this encounter Visit Diagnoses Not on filedocumented in this encounter Care Teams Knife Finisher Relationship Specialty Start Date End Date Deep Knox, CHASSIS INSPECTOR PCP - General Family Medicine 02/26/[address] [place] [address] documented as of this encounter
--- OUTSIDE RECORDS SUMMARY | 2022-01-15 01:16 | XMS_ITS | Encounter Summary ---
:1975 Author Organization [facility] [place] [address] Care Team Providers Name Role Phone Allan Mims MD Primary Care Provider Reason for Visit Reason Comments Diabetes Encounter Details Date Type Department Care Team Description 08/18/2015 Office Visit Endocrinology at [facility] C Nubia Mercedes, Type 1 diabetes [facility] ROLL CUTTING OPERATOR mellitus with [address] [facility] [place] [place] [address] [address] [phone] ENDOCRINOLOGY DEPT. [place], [place] [address] Social History Tobacco Use Types Packs/Day Years Used Date Former Smoker Quit: 04/28/20 01 Smokeless Tobacco: Never Used Sex Assigned at Date Recorded Not on file documented as of this encounter Last Filed Vital Signs Vital Sign Reading Time Taken Comments Blood Pressure 153/99 08/18/2015 10:25 AM EST Pulse 90 08/18/2015 10:25 AM EST Temperature - - Respiratory Rate - - Oxygen Saturation - - Inhaled Oxygen Concentration - - Weight 96.7 kg (213 lb 3.2 oz) 08/18/2015 10:25 AM EST Height 182.9 cm (6') 08/18/2015 10:25 AM EST Body Mass Index 28.92 08/18/2015 10:25 AM EST documented in this encounter Patient Instructions Patient InstructionsNubia Mercedes APRN - 08/18/2015 10:44 AM EST Cable Installer Repairer for corn removal humalog before evening meal consistently documented in this encounter Progress Notes Nubia MercedesED - 08/18/2015 12:57 PM EST DATE OF VISIT: 08/18/2015 REASON FOR VISIT: Followup type 1 DM in continued terrible control with complication of neuropathy pain. BRIEF HISTORY: Presents with and young daughter. Was advised he needed to schedule the appointment because he had called for refill of DexCom sensors. DATE OF DIAGNOSIS OF DIABETES: 2004. Had BKA in 2014. DIABETES REGIMEN: Levemir 65 units in p.m., Humalog usually only takes it before breakfast. States he does not usually need it before lunch because he is so active at work and always forgets to take it before evening meal. COMPLICATIONS: Some neuropathy pain in his right shoulder. REVIEW OF SYSTEMS: Depression and Mood: Takes Cymbalta for neuropathy pain. states he is definitely lr. Eyes: No recent vision changes. Has pre-proliferative retinopathy. No recent headaches or chest pain or shortness of breath. No recent GI symptoms. Appetite: Same. Sleep Pattern: Okay. Extremities: Has a lot of right shoulder pain. Has been advised that it is not neuropathy, but he thinks there is some internal damage in it. PHYSICAL EXAMINATION: Appearance: He appears in good health, pleasant, has good eye contact. Eyes: No retinopathy with green light exam. Neck: No thyromegaly or lymphadenopathy. Heart: Regular rate and rhythm. No murmurs. Lungs: Clear to auscultation. Feet: Skin is normal on right. Has a corn on left lateral aspect. He has tried uyju-iwa-iyeubfd preparations. Pulses are normal. Neuro: Normal sensation to 10 g of pressure. He did have a flu vaccine. Hemoglobin A1c 11.5%, previous was 10.5%. IMPRESSION AND PLAN: Diabetes mellitus type 1 in continued terrible control. Tried to problem solve with the patient and to help the patient remember to take the Humalog consistently before evening meal. He states when he walks in the door, he is just exhausted and the sensor will beep because his glucose levels are so high after the dinner. Was advised to using jlbgxck-ru-ahrg of 1 to 7 with his evening meal from 01/30/2015 office visit note with Dr. Debbie Jacobo. Gave the patient written glucose logs. Encouraged to try to write down his glucose level before the meal and taking the Humalog before the meal. Called the patient later in the day and advised to start low-dose enalapril 5 mg daily and he was taking a statin in the past. Prescription also sent for atorvastatin 10 mg daily. Return to office in three months. Will check hemoglobin A1c, DLDL. Discussed the importance of taking care of his emotional health. Advised to consider counseling. He does enjoy spending time fishing, but has not been able to do that recently. This was a 37-minute office visit with 36 minutes spent counseling ogsf-hy-aqfa with the patient and in the management of glucose levels, stressing the importance of lowering hemoglobin A1c closer to 7% to prevent complications in his future. Advised to contact [facility] for name of office automation technician, Dr. Rocha related to the corn on his left foot. Recent Results (from the past 72 hour(s)) Hemoglobin A1c Result Value Ref Range Hemoglobin A1C 11.5 (H) 4.3 - 5.6 % Est Avg Gluc 283 mg/dL documented in this encounter Plan of Treatment Not on filedocumented as of this encounter Results (ABNORMAL) Microalbumin, urine, random (01/28/2016 9:13 AM EDT) P athologist Signature Alb/Cr Ratio, 30 (H) 0 - 29 [facility] Random mcg/mg Cr [facility] Comment: Reference Ranges: <30 mcg/mg: Normal 30-300 mcg/mg: Moderately increased albu minuria.* >300 mcg/mg: Severely increased albuminu erica. * ACEI or ARB recommended if diabetic; s uggested if BP>130/80 without diabetes ACEI or ARB strongly recommended if di abetic; recommended if BP>130/80 without diabetes Two of three specimens collected within a 3 to 6 month period should be abnormal before considering a patient to have albuminuria. Transient causes: exercise, fever, infection, CHF, marked hyperglycemia or hypertension. Persistent albuminuria indicates CKD and is an independent risk factor for ASCVD. ADA Standards of Medical Care in Diabete s-2016; KDIGO: Kidney International Supplements (2012) 2, 357? 362 U Albumin Conc, Random 39.2 mg/L [facility] U Creatinine 131 mg/dL [facility] Specimen Anatomical Collection Method Collection Time Receive d Time (Source) Location / / Volume Laterality Urine specimen 01/28/2016 9:13 AM 016 9:17 (specimen) EDT AM EDT Resulting Agency Comment Spec In Lab Williams Espinal MD URINE ORDERABLES Performing Organization Address City/[facility] Code Phon e Number [place] [id number] LDL Cholesterol, Direct (01/28/2016 9:12 AM EDT) P athologist Signature LDL Chol 91 <=99 mg/dL [facility] Comment: The National Cholesterol Education Progr am (NCEP) has set the following guidelines for LDL Cholesterol: Reference range: ?? Optimal: ?<100 mg/dL ?? Near Optimal/Above Optimal: ?? 100-1 29 mg/dL ?? Borderline high: ?130-159 mg/dL ?? High: ? 160-189 mg/dL ?? Very high: ?>ea=810 mg/dL MADY 2001: 285(19):6114-6977 Specimen Anatomical Collection Method Collection Time Receive d Time (Source) Location / / Volume Laterality Blood specimen 01/28/2016 9:12 AM 016 9:17 (specimen) EDT AM EDT Resulting Agency Comment Spec In Lab Williams Espinal MD CHEMISTRY ORDERABLES Performing Organization Address City/[facility]/[place] [address] TSH (01/28/2016 9:12 AM EDT) P athologist Signature TSH 1.66 0.27 - 4.20 [facility] mcIU/mL [facility] Specimen Anatomical Collection Method Collection Time Receive d Time (Source) Location / / Volume Laterality Blood specimen 01/28/2016 9:12 AM 016 9:17 (specimen) EDT AM EDT Resulting Agency Comment Spec In Lab Williams Espinal MD CHEMISTRY ORDERABLES Performing Organization Address City/State/[place] [address] (ABNORMAL) Hemoglobin A1c (01/28/2016 9:12 AM EDT) [facility] gist Method Time Signature Hemoglobin A1C 11.4 (H) 4.3 - 5.6 [facility] Comment: Reference Range: 4.3 - 5.6% 5.7 - 6.4% - Increased Risk of Developin g Diabetes Mellitus >=6.5% - Consistent with diagnosis of Di abetes Mellitus In the absence of hyperglycemia (i.e. pl asma glucose > 200 mg/dL) or classic symptoms of hyperglycemia a repeat measu rement of HbA1c should be performed on a separate sample to confirm the diagnos is. Diagnosis and Classification of Diabetes Mellitus, Diabetes Care 2013; 36: Suppl. 1, K27-43 Est Avg Gluc 280 mg/dL [facility] Comment: eAG equivalents for HbA1c percentages: HbA1c(%) ?eAG(mg/dL) 6.0 ?126 6.5 ?140 7.0 ?154 7.5 ?169 8.0 ?183 8.5 ?197 9.0 ?212 9.5 ?226 10.0 ? 240 Limitations: The eAG calculation has not been validated on women, individuals below 18 years old and above 70 years old, and individuals with hemoglobinopathies. Additional resources are available on [facility] website: [email or web address] OKLAHOMA CITYadacalc Orestes MIXON, Gómez J, Philip R, et al. ??Tr anslating the A1C assay into estimated average glucose values. ??Diabetes Care 2008:31(8):1418-8827. Specimen Anatomical Collection Method Collection Time Receive d Time (Source) Location / / Volume Laterality Blood specimen 01/28/2016 9:12 AM 016 9:17 (specimen) EDT AM EDT Resulting Agency Comment Spec In Lab Williams Espinal MD CHEMISTRY ORDERABLES Performing Organization Address City/State/[place] [address] documented in this encounter Visit Diagnoses Diagnosis Type 1 diabetes mellitus with diabetic n europathy Type I (juvenile type) diabetes mellitus with neurological manifestations, not stated as uncontrolled documented in this encounter Care Teams Packing Machine Pilot Can Router Relationship Specialty Start Date End Date Allan Mims MD PCP - General 04/28/11 02/25/[address] [place] [address] documented as of this encounter
--- OUTSIDE RECORDS SUMMARY | 2022-01-15 01:16 | XMS_ITS | Encounter Summary ---
:1975 Author Organization [facility] [place] [address] Care Team Providers Name Role Phone Allan Mims MD Primary Care Provider Encounter Details Date Type Department Care Team Description 01/02/2018 Notes Only [facility] [place] [address] Social History Tobacco Use Types Packs/Day Years Used Date Former Smoker Cigarettes Quit: 04/28/20 01 Smokeless Tobacco: Never Used Sex Assigned at Date Recorded Not on file documented as of this encounter Progress Notes Bety Jolley RN - 01/02/2018 11:29 AM EDT Faxed [place] Medicaid Medical Necessity Form - signed by Nubia Mercedes- to [facility] [phone] Bety Jolley, TANYA - 01/02/2018 11:29 AM EDT Faxed to [place] Medicaid DME number on 01/02/18. documented in this encounter Plan of Treatment Not on filedocumented as of this encounter Visit Diagnoses Not on filedocumented in this encounter Care Teams Literacy Teacher Relationship Specialty Start Date End Date Allan Mims MD PCP - General 04/28/11 02/25/[address] [place] [address] documented as of this encounter
--- OUTSIDE RECORDS SUMMARY | 2022-01-15 01:16 | XMS_ITS | Encounter Summary ---
:1975 Author Organization [facility] [place] [address] Care Team Providers Name Role Phone Allan Mims MD Primary Care Provider Reason for Visit Reason Onset Date Comments Medication Refill 05/06/2015 Encounter Details Date Type Department Care Team Description 05/06/2015 Refill Endocrinology at [facility] Debbie Garcia MD [facility] [place] [address] ENDOCRINOLOGY DEPT. [phone] [place], [place] [address] (Wo rk) Social History Tobacco Use Types Packs/Day Years Used Date Former Smoker Quit: 04/28/20 01 Smokeless Tobacco: Never Used Sex Assigned at Date Recorded Not on file documented as of this encounter Plan of Treatment Not on filedocumented as of this encounter Visit Diagnoses Not on filedocumented in this encounter Care Teams Emergency Medical Service Manager Relationship Specialty Start Date End Date Allan Mims MD PCP - General 04/28/11 02/25/[address] [place] [address] documented as of this encounter
--- OUTSIDE RECORDS SUMMARY | 2022-01-15 01:16 | XMS_ITS | Encounter Summary ---
:1975 [place] [address] Care Team Providers Name Role Phone Allan Mims MD Primary Care Provider Reason for Visit Reason Onset Date Comments Medication Refill 12/17/2017 Encounter Details Date Type Department Care Team Description 12/19/2017 Refill Endocrinology at [facility] C Michael Avalos APRN [facility] [place] [address] ENDOCRINOLOGY DEPT. [phone] [place] [id number] (Wo rk) Social History Tobacco Use Types Packs/Day Years Used Date Former Smoker Cigarettes Quit: 04/28/20 01 Smokeless Tobacco: Never Used Sex Assigned at Date Recorded Not on file documented as of this encounter Miscellaneous Notes Telephone Encounter - Bety Jolley RN - 12/19/2017 9:14 AM EDT From: Dragan Leon To: Michael Avalos APRN Sent: 12/17/2017 9:22 AM EDT Subject: Medication Renewal Request Original authorizing provider: ED MELGAR would like a refill of the following medications: NOVOFINE AUTOCOVER 30 gauge x 1/3 Needle [MICHAEL AVALOS APRN] Preferred pharmacy: [phone] Comment: I am almost out of needles and need them yadira documented in this encounter Plan of Treatment Not on filedocumented as of this encounter Visit Diagnoses Not on filedocumented in this encounter Care Teams Band Splicer Relationship Specialty Start Date End Date Allan Mims MD PCP - General 04/28/11 02/25/[address] [place] [address] documented as of this encounter
--- OUTSIDE RECORDS SUMMARY | 2022-01-15 01:16 | XMS_ITS | Encounter Summary ---
:1975 Author Organization [facility] [place] [address] Care Team Providers Name Role Phone Allan Mims MD Primary Care Provider Encounter Details Date Type Department Care Team Description 06/07/2016 Office Visit Endocrinology at [facility] Brittany, Uncontrolled type 1 [facility] GRACE Hess diabetes mellitus with [facility] [place] [id number] Center [phone] [place] [address] Social History Tobacco Use Types Packs/Day Years Used Date Former Smoker Quit: 04/28/20 Smokeless Tobacco: Never Used Sex Assigned at Date Recorded Not on file documented as of this encounter Patient Instructions Patient InstructionsSena Connolly LD - 06/07/2016 12:00 PM EST Goals Calibrate Dexcom 3-4x per day Use the dexcom like a video game to help you get your BG under control- stay in between your goal lines Get into the habit of taking Lantus every morning and night- set up an alarm on your phone for lantus dose Will need to come in again to download dexcom or BG meter to show testing BG 4x per day A Note in your lunch box to remind you to take your lunch insulin. Blood Glucose (BG) Targets and accuracy: Check Blood Sugar ____X per day FASTING B-130 before meals B-130 1-2 hours after eating BG: < 180 Before bed BG - 100-150 Omni Pod and Tandem X2- are the two pumps considering documented in this encounter Progress Notes Sena Connolly LD - 06/07/2016 12:00 PM EST Images from the original note were not included. Diabetes and Nutrition Note- not ready for pump therapy at this time Goals Calibrate Dexcom 3-4x per day Use the dexcom like a video game to help you get your BG under control- stay in between your goal lines Get into the habit of taking Lantus every morning and night- set up an alarm on your phone for lantus dose Will need to come in again to download dexcom or BG meter to show testing BG 4x per day A Note in your lunch box to remind you to take your lunch insulin. Blood Glucose (BG) Targets and accuracy: Check Blood Sugar ____X per day FASTING B-130 before meals B-130 1-2 hours after eating BG: < 180 Before bed BG - 100-150 Omni Pod and Tandem X2- are the two pumps considering Assessment Dragan Leon is a 41 y.o. male with uncontrolled T1DM. A1c even higher now. Needs to show he's taking medications- switching to the pump isn't going to make things necessarily easier. Discussed site changes (every three days) asked if he would remember to do this- he said yes. Pt uses Dexcom G4 and was calibrating only 1x per day, sensor was not accurate. Last time used the sensor was Mar 16. Transmitter is out of battery and needs new onw. Medications: Pt forgets to take both meds ~ Humalog 80 units/day lantus sliding scale 10-20 units in am and pm. Am usually 14-15 and around the same at night. often forgets to take lantus at night It is unclear how often he tests BG, pt states hes inconsistant and not testing 4x. Asked pt if he was trained on how to use dexcom - he says no. I suggested he come in for training when he gets his new transmitter. Reviewed ways to remember to take insulin. Diabetic nerve pain in shoulder- taking meds for this Dentures- doesn't go to dentist- recommended seeing one 1x per year. 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 I asked him why he's wearing the dexcom- no answer. Asked pt how he could better use dexcom and he's unsure. Discussed how to use dexcom effectively with easy solutions. Pt is willing to try. Pt mostly wearing the sensor to avoid lows. Pt isn't having lows. Recent Labs 06/07/16 1234 01/28/16 0912 08/18/15 1007 HA1C 12.2* 11.4* 11.5* SYSTOLIC 131 DIASTOLIC 72 PULSE 80 RESPIRATIONS Height (Armenian) 6' 0 Height (Metric) 182.9 cm Weight (Armenian) 219 lbs Weight (Metric) 99.338 kg BODY MASS INDEX 29.7 kg/m2 BSA 45 min visit 30 mins mnt documented in this encounter Plan of Treatment Not on filedocumented as of this encounter Visit Diagnoses Diagnosis Uncontrolled type 1 diabetes mellitus wi th hyperglycemia documented in this encounter Care Teams Appraiser Real Estate Relationship Specialty Start Date End Date Allan Mims MD PCP - General 04/28/11 02/25/[address] [place] [address] documented as of this encounter
--- OUTSIDE RECORDS SUMMARY | 2022-01-15 01:16 | XMS_ITS | Encounter Summary ---
:1975 Author Organization [facility] [place] [address] Care Team Providers Name Role Phone Allan Mims MD Primary Care Provider Reason for Visit Reason Onset Date Comments Medication Refill 07/13/2017 Encounter Details Date Type Department Care Team Description 07/14/2017 Refill Endocrinology at [facility] Nubia Li, SPRING COILER HAND [facility] D [facility] [place][note 2] [place] [address] ENDOCRINOLOGY DEPT. [phone] [place], [place] [address] (Wo rk) Social History Tobacco Use Types Packs/Day Years Used Date Former Smoker Quit: 04/28/20 01 Smokeless Tobacco: Never Used Sex Assigned at Date Recorded Not on file documented as of this encounter Plan of Treatment Not on filedocumented as of this encounter Visit Diagnoses Not on filedocumented in this encounter Care Teams Electronic Component Processor Relationship Specialty Start Date End Date Allan Mims MD PCP - General 04/28/11 02/25/[address] [place] [address] documented as of this encounter
--- OUTSIDE RECORDS SUMMARY | 2022-01-15 01:16 | XMS_ITS | Encounter Summary ---
:1975 Author Organization [facility] [place] [address] Care Team Providers Name Role Phone Allan Mims MD Primary Care Provider Encounter Details Date Type Department Care Team Description 11/26/2014 Notes Only Endocrinology at [facility] C Candida Banegas, [place] [address] Social History Tobacco Use Types Packs/Day Years Used Date Former Smoker Quit: 04/28/20 01 Smokeless Tobacco: Never Used Sex Assigned at Date Recorded Not on file documented as of this encounter Progress Notes Candida Banegas RN - 11/26/2014 11:18 AM EDT Faxed Continuous Glucose Monitoring System certificate of medical necessity. Sent 2 recent office visits and labs. documented in this encounter Plan of Treatment Not on filedocumented as of this encounter Visit Diagnoses Not on filedocumented in this encounter Care Teams Lap Layer Relationship Specialty Start Date End Date Allan Mims MD PCP - General 04/28/11 02/25/[address] [place] [address] documented as of this encounter
--- OUTSIDE RECORDS SUMMARY | 2022-01-15 01:16 | XMS_ITS | Encounter Summary ---
:1975 Author Organization [facility] [place] [address] Care Team Providers Name Role Phone Allan Mims MD Primary Care Provider Reason for Visit Reason Onset Date Comments Medication Refill 05/13/2015 Encounter Details Date Type Department Care Team Description 05/13/2015 Refill Endocrinology at [facility] Avila Garcia MD [facility] [place] [address] ENDOCRINOLOGY DEPT. [phone] [place] [address] (Wo rk) Social History Tobacco Use Types Packs/Day Years Used Date Former Smoker Quit: 04/28/20 01 Smokeless Tobacco: Never Used Sex Assigned at Date Recorded Not on file documented as of this encounter Miscellaneous Notes Telephone Encounter - DannyAbiel caalRAVINDRA shearer - 05/13/2015 8:32 AM EST From: Dragan Leon To: Avila Jacobo MD Sent: 05/13/2015 6:41 AM EST Subject: Medication Renewal Request Original authorizing provider: MD Dragan VIGIL would like a refill of the following medications: Blood Sugar Diagnostic (ONE TOUCH ULTRA TEST) test strip [AVILA JACOBO MD] insulin glargine (LANTUS SOLOSTAR) pen injection [AVILA JACOBO MD] Insulin Lispro (HUMALOG KWIKPEN) InPn [AVILA JACOBO MD] NOVOFINE AUTOCOVER 30 x 1/3 Needle [AVILA JACOBO MD] Diabetic Supplies, Miscellan. Misc [AVILA JACOBO MD] Preferred pharmacy: [id number] - [place], [place] - [address] [place] [address] Comment: documented in this encounter Plan of Treatment Not on filedocumented as of this encounter Visit Diagnoses Not on filedocumented in this encounter Care Teams Eyelet Operator Relationship Specialty Start Date End Date Allan Mims MD PCP - General 04/28/11 02/25/[address] [place] [address] documented as of this encounter
--- OUTSIDE RECORDS SUMMARY | 2022-01-15 01:16 | XMS_ITS | Encounter Summary ---
:1975 Author Organization [facility] [address] Care Team Providers Name Role Phone Allan Mims MD Primary Care Provider Encounter Details Date Type Department Care Team Description 12/13/2017 Laboratory Appointment Lab 3L Bety gross type [address] [place] [address] diabetes [facility] [place] [id number] Social History Tobacco Use Types Packs/Day Years Used Date Former Smoker Cigarettes Quit: 04/28/20 01 Smokeless Tobacco: Never Used Sex Assigned at Date Recorded Not on file documented as of this encounter Plan of Treatment Not on filedocumented as of this encounter Procedures Procedure Name Priority Date/Time Associated Diagnosis Comme nts LDL CHOLESTEROL, Routine 12/13/2017 8:36 AM Uncontrolled type 1 Results for this DIRECT EDT diabetes mellitus procedure are in without complication the res ults section. HEMOGLOBIN A1C Routine 12/13/2017 8:36 AM Uncontrolled type 1 Results for this EDT diabetes mellitus procedure are in without complication the res ults section. documented in this encounter Results LDL Cholesterol, Direct (12/13/2017 8:36 AM EDT) P athologist Signature LDL Chol 139 mg/dL [facility] Comment: Lowest Risk: <100 mg/dL Lower Risk: 100-129 mg/dL Borderline High Risk: 130-159 mg/dL High Risk: 160-189 mg/dL Very High Risk: >cx=347 mg/dL Specimen Anatomical Collection Method Collection Time Receive d Time (Source) Location / / Volume Laterality Blood specimen 12/13/2017 8:36 AM 018 8:46 (specimen) EDT AM EDT Resulting Agency Comment Spec In Lab Nubia Mercedes ED CHEMISTRY ORDERABLES Performing Organization Address City/State/ZIP Code Mindy Marquez [place] [id number] [address] (ABNORMAL) Hemoglobin A1c (12/13/2017 8:36 AM EDT) Analysis Performed At Patho logist Time Signature Hemoglobin A1C 9.4 (H) 4.3 - 5.6 [facility] Comment: Reference Range: 4.3 - 5.6% 5.7 - 6.4% - Increased Risk of Developin g Diabetes Mellitus >= 6.5% - Consistent with diagnosis of D iabetes Mellitus In the absence of hyperglycemia (i.e. pl asma glucose > 200 mg/dL) or classic symptoms of hyperglycemia a repeat measu rement of HbA1c should be performed on a separate sample to confirm the diagnos is. Diagnosis and Classification of Diabetes Mellitus, Diabetes Care 2013; 36: Suppl. 1, S67-74 Est Avg Gluc 223 mg/dL [facility] Comment: eAG equivalents for HbA1c percentages: HbA1c(%) ?eAG(mg/dL) 6.0 ?126 6.5 ?140 7.0 ?154 7.5 ?169 8.0 ?183 8.5 ?197 9.0 ?212 9.5 ?226 10.0 ? 240 Limitations: The eAG calculation has not been validated on women, individuals below 18 years old and above 70 years old, and individuals with hemoglobinopathies. Additional resources are available on th e ADA website. Orestes DM, Gómez J, Philip R, et al. ??Tr anslating the A1C assay into estimated average glucose values. ??Diabetes Care 2008:31(8):4908-9096. Specimen Anatomical Collection Method Collection Time Receive d Time (Source) Location / / Volume Laterality Blood specimen 12/13/2017 8:36 AM 018 8:46 (specimen) EDT AM EDT Resulting Agency Comment Spec In Lab Nubia Mercedes APRN CHEMISTRY ORDERABLES Performing Organization Address City/State/[place] [address] documented in this encounter Visit Diagnoses Diagnosis Uncontrolled type 1 diabetes mellitus [facility] complication documented in this encounter Care Teams Base Wad Operator Adjuster Relationship Specialty Start Date End Date Allan Mims MD PCP - General 04/28/11 02/25/[address] [place] [address] documented as of this encounter
--- OUTSIDE RECORDS SUMMARY | 2022-01-15 01:16 | XMS_ITS | Encounter Summary ---
:1975 Author Organization [facility] [place] [address] Care Team Providers Name Role Phone Allan Mims MD Primary Care Provider Reason for Visit Consultation (Routine) - Closed Specialty Diagnoses / Procedures Referred By Contact Refer red To Contact Ophthalmology Diagnoses npdr od Saul Durand, AUGUSTO [place], [address] [place] [address] DR Violette MD [facility] [address] [place] [address] Fax: Referral ID Status Reason Start Date Expiration Date Visits V isits Requested Authorized [id number] Closed Consult, 07/16/2020 07/16/2021 1 1 Test & Treat Encounter Details Date Type Department Care Team Description 08/27/2020 Office Visit Ophthalmology at [facility] Lupis Hug[place], Non-proliferative [facility] MD Violette diabetic retinopathy, [facility] [place] [address] Center [phone] [place], [place] [address] Social History Tobacco Use Types Packs/Day Years Used Date Former Smoker Cigarettes Quit: 04/28/20 01 Smokeless Tobacco: Never Used Alcohol Use Standard [...] documented as of this encounter Progress Notes Violette Hug[place] MD - 08/27/2020 1:00 PM EST ASSESSMENT/PLAN: 1. Non-proliferative diabetic retinopathy, both eyes Visual Acuity Visual Acuity (Snellen - Linear) Right Left Dist cc 20/20 20/40 +1 Dist ph cc 20/30 Near sc 20/20 20/25 Correction: Glasses Last A1c: 12 (07/2020) 1. Moderate NPDR OU without DME OU Dr. Durand, thank you for the kind referral. Dragan Leon has Type 1 diabetes. Today's fundoscopic exam and multimodal imaging show that the retinopathy is non proliferative and there is macular edema that is not visually significant OU Recommended good blood sugar control. The findings communicated to the patient's PCP. Recommended observation with regular eye exams. Treatment is not recommended at this time. 2. Dry Eyes OU Recommend lubricating drops QID PRN. Follow up: 6 months for DFE OCT OU Sooner PRN I, Maryjane Drake, have performed the documentation for this encounter in the presence of, and acting as a scribe for Violette Hug[place] MD. I performed the services which were documented by the scribe, and I agree with the accuracy of the documentation in this encounter.' Violette Hug[place] MD, PhD documented in this encounter Plan of Treatment Not on filedocumented as of this encounter Procedures Procedure Name Priority Date/Time Associated Comments Diagnosis FLUORESCEIN Routine 08/27/2020 3:00 PM Non-proliferative Resu lts for this ANGIOGRAPHY - OU - EST diabetic procedure are in BOTH EYES retinopathy, both the result s eyes section. FUNDUS PHOTOS - OU- Routine 08/27/2020 3:00 PM Non-proliferati ve Results for this BOTH EYES EST diabetic procedure are i n retinopathy, both the result s eyes section. OCT RETINA - OU - Routine 08/27/2020 3:00 PM Non-proliferative Results for this BOTH EYES EST diabetic procedure are i n retinopathy, both the result s eyes section. documented in this encounter Results Fluorescein Angiography - OU - Both Eyes (08/27/2020 3:00 PM EST) Anatomical Region Laterality Modality Other Specimen (Source) Anatomical Location Collection Method / Collectio n Time Received Time / Laterality Volume Narrative 08/27/2020 3:00 PM EST Right Eye Progression has no prior data. Early pha se findings include staining, window defect. Mid/Late phase findings i nclude staining, window defect, microaneurysm. Choroidal neovascularizat ion is not present. Left Eye Progression has no prior data. Early pha se findings include staining, window defect. Mid/Late phase findings i nclude staining, window defect, microaneurysm. Choroidal neovascularizat ion is not present. Violette Hug[place] MD [facility] Fundus Photos - OU - Both Eyes (08/27/2020 3:00 PM EST) Anatomical Region Laterality Modality Other Specimen (Source) Anatomical Location Collection Method / Collectio n Time Received Time / Laterality Volume Narrative 08/27/2020 3:00 PM EST Right Eye Progression has no prior data. Disc find ings include normal observations. Macula findings include microaneurysms. Periphery findings include normal observations. Left Eye Progression has no prior data. Disc find ings include normal observations. Macula findings include exudates, edema. Periphery findings include exudates. Violette Hug[place] MD [facility]MOLOGY [facility] OCT Retina - OU - Both Eyes (08/27/2020 3:00 PM EST) Anatomical Region Laterality Modality Other Specimen (Source) Anatomical Location Collection Method / Collectio n Time Received Time / Laterality Volume Narrative 08/27/2020 3:00 PM EST Right Eye Quality was good. Scan locations include d subfoveal. Progression has no prior data. Findings include intraretina l fluid, normal foveal contour. Left Eye Quality was good. Scan locations include d subfoveal. Progression has no prior data. Findings include intraretina l fluid, normal foveal contour. Violette Hug[place] MD [facility] documented in this encounter Visit Diagnoses Diagnosis Non-proliferative diabetic retinopathy, both eyes Type II or unspecified type diabetes mario litus with ophthalmic manifestations, not stated as uncontrolled documented in this encounter Care Teams Woodworking Machine Setter Relationship Specialty Start Date End Date Allan Mims MD PCP - General 04/28/11 02/25/[address] [place] [address] documented as of this encounter
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
--- OUTSIDE RECORDS SUMMARY | 2022-01-15 01:16 | XMS_ITS | Encounter Summary ---
:1975 Author Organization [facility] [place] [address] Care Team Providers Name Role Phone Allan Mims MD Primary Care Provider Reason for Visit Reason Onset Date Comments Medication Refill 12/19/2017 Encounter Details Date Type Department Care Team Description 12/19/2017 Refill Endocrinology at [facility] Lupis Jolley [facility] [place] [address] Social History Tobacco Use Types Packs/Day Years Used Date Former Smoker Cigarettes Quit: 04/28/20 01 Smokeless Tobacco: Never Used Sex Assigned at Date Recorded Not on file documented as of this encounter Miscellaneous Notes Telephone Encounter - Bety Jolley RN - 12/19/2017 9:14 AM EDT ERROR documented in this encounter Plan of Treatment Not on filedocumented as of this encounter Visit Diagnoses Not on filedocumented in this encounter Care Teams Hot Die Press Feeder Relationship Specialty Start Date End Date Allan Mims MD PCP - General 04/28/11 02/25/[address] [place] [address] documented as of this encounter
--- OUTSIDE RECORDS SUMMARY | 2022-01-15 01:16 | XMS_ITS | Encounter Summary ---
:1975 Author Organization [facility] [address] Care Team Providers Name Role Phone Allan Mims MD Primary Care Provider Reason for Visit Reason Onset Date Comments Medication Refill 07/13/2016 Encounter Details Date Type Department Care Team Description 07/13/2016 Refill Endocrinology at [facility] Nubia Li, GOPHERMAN [facility] [place] [address] ENDOCRINOLOGY DEPT. [phone] [place], [place] [address] (Wo rk) Social History Tobacco Use Types Packs/Day Years Used Date Former Smoker Quit: 04/28/20 01 Smokeless Tobacco: Never Used Sex Assigned at Date Recorded Not on file documented as of this encounter Plan of Treatment Not on filedocumented as of this encounter Visit Diagnoses Not on filedocumented in this encounter Care Teams Manager Field Investigations Relationship Specialty Start Date End Date Allan Mims MD PCP - General 04/28/11 02/25/[address] [place] [address] documented as of this encounter
--- OUTSIDE RECORDS SUMMARY | 2022-01-15 01:16 | XMS_ITS | Encounter Summary ---
:1975 [place] [address] Care Team Providers Name Role Phone Allan Mims MD Primary Care Provider Encounter Details Date Type Department Care Team Description 06/07/2016 Laboratory Appointment Lab at [facility] Diabetes mellitus type [address] [address] Social History Tobacco Use Types Packs/Day Years Used Date Former Smoker Quit: 04/28/20 01 Smokeless Tobacco: Never Used Sex Assigned at Date Recorded Not on file documented as of this encounter Plan of Treatment Not on filedocumented as of this encounter Procedures Procedure Name Priority Date/Time Associated Diagnosis Comme nts HEMOGLOBIN A1C Routine 06/07/2016 12:34 PM Diabetes mellitus t ype Results for this EST 1, uncontrolled procedure ar e in the results section. documented in this encounter Results (ABNORMAL) Hemoglobin A1c (06/07/2016 12:34 PM EST) [facility] Method Time Signature Hemoglobin A1C 12.2 (H) 4.3 - 5.6 [facility] Comment: Reference Range: 4.3 - [...] Mellitus, Diabetes Care 2013; 36: Suppl. 1, S67-79 Est Avg Gluc 303 mg/dL [facility] Comment: eAG equivalents for HbA1c percentages: HbA1c(%) ?eAG(mg/dL) 6.0 ?126 6.5 ?140 7.0 ?154 7.5 ?169 8.0 ?183 8.5 ?197 9.0 ?212 9.5 ?226 10.0 ? 240 Limitations: The eAG calculation has not been validated on women, individuals below 18 years old and above 70 years old, and individuals with hemoglobinopathies. Additional resources are available on [facility] website: http://[employer]/DHMCadacalc Orestes MIXON, Gómez J, Philip R, et al. ??Tr anslating the A1C assay into estimated average glucose values. ??Diabetes Care 2008:31(8):3987-5156. Specimen Anatomical Collection Method Collection Time Receive d Time (Source) Location / / Volume Laterality Blood specimen 06/07/2016 12:34 6 (specimen) PM EST 12:46 PM EST Resulting Agency Comment Spec In Lab Williams Espinal MD CHEMISTRY ORDERABLES Performing Organization Address City/State/[place] [address] documented in this encounter Visit Diagnoses Diagnosis Diabetes mellitus type 1, uncontrolled Type I (juvenile type) diabetes mellitus without mention of complication, uncontrolled documented in this encounter Care Teams Hard Tile Setter Relationship Specialty Start Date End Date Allan Mims MD PCP - General 04/28/11 02/25/[address] [place] [address] documented as of this encounter
--- OUTSIDE RECORDS SUMMARY | 2022-01-15 01:16 | XMS_ITS | Encounter Summary ---
:1975 Author Organization [facility] [place] [address] Care Team Providers Name Role Phone Allan Mims MD Primary Care Provider Encounter Details Date Type Department Care Team Description 01/18/2018 Telephone Endocr[facility]ology at [facility] [place] [address] Social History Tobacco Use Types Packs/Day Years Used Date Former Smoker Cigarettes Quit: 04/28/20 01 Smokeless Tobacco: Never Used Sex Assigned at Date Recorded Not on file documented as of this encounter Plan of Treatment Not on filedocumented as of this encounter Visit Diagnoses Not on filedocumented in this encounter Care Teams Education Program Specialist Relationship Specialty Start Date End Date Allan Mims MD PCP - General 04/28/11 02/25/[address] [place] [address] documented as of this encounter
--- OUTSIDE RECORDS SUMMARY | 2022-01-15 01:16 | XMS_ITS | Encounter Summary ---
:1975 Author Organization [facility] [place] [address] Care Team Providers Name Role Phone Allan Mims MD Primary Care Provider Reason for Visit Reason Comments Diabetes Encounter Details Date Type Department Care Team Description 01/28/2016 Office Visit Endocrinology at [facility] Nubia Li, Diabetes mellitus [facility] SHIPS OR BARGES LOADER type 1, [place] [address] C[address] [phone] [address]PT[address] [place] [id number] Social History Tobacco Use Types Packs/Day Years Used Date Former Smoker Quit: 04/28/20 01 Smokeless Tobacco: Never Used Sex Assigned at Date Recorded Not on file documented as of this encounter Last Filed Vital Signs Vital Sign Reading Time Taken Comments Blood Pressure 131/72 01/28/2016 9:56 AM EDT Pulse 80 01/28/2016 9:56 AM EDT Temperature - - Respiratory Rate - - Oxygen Saturation - - Inhaled Oxygen Concentration - - Weight 99.3 kg (219 lb) 01/28/2016 9:56 AM EDT Height 182.9 cm (6') 01/28/2016 9:56 AM EDT Body Mass Index 29.7 01/28/2016 9:56 AM EDT documented in this encounter Patient Instructions Patient InstructionsNubia Mercedes, SHIPS OR BARGES LOADER - 01/28/2016 10:00 AM EDT Annual dentist appointment injection site rotation Check glucose 4X/day Bring meter to appointments Given information about pumps documented in this encounter Progress Notes Nubia Mercedes APRN - 01/28/2016 10:00 AM EDT REASON FOR VISIT: Followup type 1 DM in continued terrible control with recent hospitalization for DKA at [facility] in [place]. BRIEF HISTORY: Presents with . States the reason he ended up in the hospital because he was not taking care of himself. Now he has stopped drinking beer and soda and he is checking his glucose levels and taking his insulin. Date of diagnosis of diabetes 2004. DIABETES REGIMEN: Lantus, he has lowered the doses to 45 or 50 units twice a day. Humalog before meals, up to 25 units. COMPLICATIONS: None. REVIEW OF SYSTEMS: Depression and mood: States he thinks he is starting to do better. 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 Eyes: No recent vision changes. No recent headaches, chest pain, or shortness of breath. No recent GI symptoms. Appetite is the same. Sleep patterns okay. Extremities are okay. PHYSICAL EXAMINATION: Appearance: He appears in good health. Blood pressure 131/72, weight 219. Eyes: No retinopathy with green light exam. Neck: No thyromegaly or lymphadenopathy. Heart: Regular rate and rhythm. Lungs: Clear to auscultation. Feet: Skin is normal. Pulses are present. Neuro: Normal sensation to 10 g of pressure. Hemoglobin A1c 11.4%. Previous was the same. IMPRESSION AND PLAN: DM type 1. Encouraged the patient to bring meter to all appointments. asked about using an insulin pump. Gave him written information on using an insulin pump. Needs to be checking glucose levels minimum of 3 times a day. He does use the DexCom sensor now and he plans to use it more consistently. Reviewed his 24-hour meal plan. Breakfast is 2 toast or 2 eggs. Lunch is a sandwich. Evening meal was a salad with chicken, rice, and green beans. 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 Gave him written information on available pumps. Requested refill of Glucagon, which was done, and refill of test strips, which was done for 4 times a day in case he is not using the sensor for a while he would be able test before meals and before bed. Reviewed prevention and treatment of hypoglycemia. Gave him copy of his lab results and reviewed them with him. Return to office in 3 months. Schedule appointment with RD to discuss pump use and also the patient is having some trouble with taping issues of the DexCom sensor. This was a 39-minute office visit with 38 minutes spent counseling [id number] with patient and in the management of glucose levels. Advised annual dentist appointment. Discussed protocol to start using an insulin pump. Also, stressed the importance of injection site rotation. He has mostly been using his abdomen. In 3 months, will check hemoglobin A1c. Note: previous office note by this provider listed BKA and should have read DKA documented in this encounter Plan of Treatment Not on filedocumented as of this encounter Results (ABNORMAL) Hemoglobin A1c (06/07/2016 12:34 PM EST) [facility] Method Time Signature Hemoglobin A1C 12.2 (H) 4.3 - 5.6 [facility] Comment: Reference Range: 4.3 - 5.6% [...] 36: Suppl. 1, S67-74 Est Avg Gluc 303 mg/dL [facility] Comment: eAG equivalents for HbA1c percentages: HbA1c(%) ?eAG(mg/dL) 6.0 ?126 6.5 ?140 7.0 ?154 7.5 ?169 8.0 ?183 8.5 ?197 9.0 ?212 9.5 ?226 10.0 ? 240 Limitations: The eAG calculation has not been validated on women, individuals below 18 years old and above 70 years old, and individuals with hemoglobinopathies. Additional resources are available on [facility] website: http://[employer]/DHMCadacalc Orestes MIXON, Gómez J, Philip R, et al. ??Tr anslating the A1C assay into estimated average glucose values. ??Diabetes Care 2008:31(8):0673-4639. Specimen Anatomical Collection Method Collection Time Receive d Time (Source) Location / / Volume Laterality Blood specimen 06/07/2016 12:34 6 (specimen) PM EST 12:46 PM EST Resulting Agency Comment Spec In Lab Williams Espinal MD CHEMISTRY ORDERABLES Performing Organization Address City/State/ZIP [place] [address] documented in this encounter Visit Diagnoses Diagnosis Diabetes mellitus type 1, uncontrolled Type I (juvenile type) diabetes mellitus without mention of complication, uncontrolled documented in this encounter Care Teams Muskrat Trapper Relationship Specialty Start Date End Date Allan Mims MD PCP - General 04/28/11 02/25/[address] [place] [address] documented as of this encounter
--- OUTSIDE RECORDS SUMMARY | 2022-01-15 01:16 | XMS_ITS | Encounter Summary ---
:1975 Author Organization [place] [address] Care Team Providers Name Role Phone Allan Mims MD Primary Care Provider Reason for Visit Reason Onset Date Comments Medication Refill 06/02/2016 Encounter Details Date Type Department Care Team Description 06/02/2016 Refill Endocrinology at [facility] C Jammie Zhou, [place] [address] Social History Tobacco Use Types Packs/Day Years Used Date Former Smoker Quit: 04/28/20 01 Smokeless Tobacco: Never Used Sex Assigned at Date Recorded Not on file documented as of this encounter Plan of Treatment Not on filedocumented as of this encounter Visit Diagnoses Not on filedocumented in this encounter Care Teams Clean Up Helper Banquet Relationship Specialty Start Date End Date Allan Mims MD PCP - General 04/28/11 02/25/[address] [place] [address] documented as of this encounter
--- OUTSIDE RECORDS SUMMARY | 2022-01-15 01:16 | XMS_ITS | Encounter Summary ---
:1975 Author Organization [facility] [place] [address] Care Team Providers Name Role Phone Allan Mims MD Primary Care Provider Encounter Details Date Type Department Care Team Description 06/16/2016 Telephone Endocrinology at [facility] [place] [address] Social History Tobacco Use Types Packs/Day Years Used Date Former Smoker Quit: 04/28/20 01 Smokeless Tobacco: Never Used Sex Assigned at Date Recorded Not on file documented as of this encounter Miscellaneous Notes Telephone Encounter - Manuela Rahman - 06/16/2016 12:32 PM EST LM FOR PATIENT TO RESCHEDULE APPOINTMENT WITH MICHAEL AVALOS documented in this encounter Plan of Treatment Not on filedocumented as of this encounter Visit Diagnoses Not on filedocumented in this encounter Care Teams Lining Layer Relationship Specialty Start Date End Date Allan Mims MD PCP - General 04/28/11 02/25/[address] [place] [address] documented as of this encounter
--- OUTSIDE RECORDS SUMMARY | 2022-01-15 01:16 | XMS_ITS | Encounter Summary ---
:1975 Author Organization [facility] [place] [address] Care Team Providers Name Role Phone Allan Mims MD Primary Care Provider Encounter Details Date Type Department Care Team Description 01/30/2015 Office Visit Endocrinology at [facility] C Yina Burks, Type I ([facility] LD type) diabetes Drive [facility] [place] [address] [place] [phone] ENDOCRINOLOGY manifestations , DEPT. uncontrolled [place] [id number] Social History Tobacco Use Types Packs/Day Years Used Date Former Smoker Quit: 04/28/20 01 Smokeless Tobacco: Never Used Sex Assigned at Date Recorded Not on file documented as of this encounter Progress Notes Yina Burks LD - 01/30/2015 11:32 AM EDT I saw Dragan briefly. I will fax in his blood glucose log that he brought in to get approved for Dexcom CGM. He will call me when he receives the CGM system. 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
--- OUTSIDE RECORDS SUMMARY | 2022-01-15 01:16 | XMS_ITS | Encounter Summary ---
:1975 Author Organization [facility] Address [facility] [place] [address] Care Team Providers Name Role Phone Allan Mims MD Primary Care Provider Encounter Details Date Type Department Care Team Description 01/28/2016 Laboratory Appointment Lab at [facility] Type 1 diabetes [facility] mellitus [place] [id number] Social History Tobacco Use Types Packs/Day Years Used Date Former Smoker Quit: 04/28/20 01 Smokeless Tobacco: Never Used Sex Assigned at Date Recorded Not on file documented as of this encounter Plan of Treatment Not on filedocumented as of this encounter Procedures Procedure Name Priority Date/Time Associated Comments Diagnosis U ALBUMIN/CRE RATIO Routine 01/28/2016 9:13 AM Type 1 diabetes Results for this EDT mellitus with procedure are in diabetic neuropathy the resu lts section. TSH Routine 01/28/2016 9:12 AM Type 1 diabetes Result s for this EDT mellitus with procedure are in diabetic neuropathy the resu lts section. LDL CHOLESTEROL, Routine 01/28/2016 9:12 AM Type 1 diabetes Re sults for this DIRECT EDT mellitus with procedure are in diabetic neuropathy the resu lts section. HEMOGLOBIN A1C Routine 01/28/2016 9:12 AM Type 1 diabetes Resu lts for this EDT mellitus with procedure are in diabetic neuropathy the resu lts section. documented in this encounter Results (ABNORMAL) Microalbumin, urine, random (01/28/2016 9:13 AM EDT) P athologist Signature Alb/Cr Ratio, 30 (H) 0 - 29 [facility] Random mcg/mg Cr [facility] Comment: Reference Ranges: <30 mcg/mg: [...] 362 U Albumin Conc, Random 39.2 mg/L [facility] U Creatinine 131 mg/dL [facility] Specimen Anatomical Collection Method Collection Time Receive d Time (Source) Location / / Volume Laterality Urine specimen 01/28/2016 9:13 AM 016 9:17 (specimen) EDT AM EDT Resulting Agency Comment Spec In Lab Williams Espinal MD URINE ORDERABLES Performing Organization Address City/State/ZIP Code Phon e Number [place] [phone] LDL Cholesterol, Direct (01/28/2016 9:12 AM EDT) P athologist Signature LDL Chol 91 <=99 mg/dL [facility] Comment: The National Cholesterol Education Progr am (NCEP) has set the following guidelines for LDL Cholesterol: Reference range: ?? Optimal: ?<100 mg/dL ?? Near Optimal/Above Optimal: ?? 100-1 29 mg/dL ?? Borderline high: ?130-159 mg/dL ?? High: ? 160-189 mg/dL ?? Very high: ?>qx=516 mg/dL MADY 2001: 285(19):1497-5634 Specimen Anatomical Collection Method Collection Time Receive d Time (Source) Location / / Volume Laterality Blood specimen 01/28/2016 9:12 AM 016 9:17 (specimen) EDT AM EDT Resulting Agency Comment Spec In Lab Williams Espinal MD CHEMISTRY ORDERABLES Performing Organization Address City/[facility]/ZIP Code Phon e Number [address] TSH (01/28/2016 9:12 AM EDT) P athologist Signature TSH 1.66 0.27 - 4.20 [facility] mcIU/mL [facility] Specimen Anatomical Collection Method Collection Time Receive d Time (Source) Location / / Volume Laterality Blood specimen 01/28/2016 9:12 AM 016 9:17 (specimen) EDT AM EDT Resulting Agency Comment Spec In Lab Williams Espinal MD CHEMISTRY ORDERABLES Performing Organization Address City/[facility]/ZIP [place] [address] (ABNORMAL) Hemoglobin A1c (01/28/2016 9:12 AM EDT) Patholo gist Method Time Signature Hemoglobin A1C 11.4 (H) 4.3 - 5.6 [facility] Comment: Reference Range: 4.3 [...] 36: Suppl. 1, S67-74 Est Avg Gluc 280 mg/dL [facility] Comment: eAG equivalents for HbA1c percentages: HbA1c(%) ?eAG(mg/dL) 6.0 ?126 6.5 ?140 7.0 ?154 7.5 ?169 8.0 ?183 8.5 ?197 9.0 ?212 9.5 ?226 10.0 ? 240 Limitations: The eAG calculation has not been validated on women, individuals below 18 years old and above 70 years old, and individuals with hemoglobinopathies. Additional resources are available on [employer] website: [email or web address] Orestes MIXON, Gómez J, Philip R, et al. ??Tr anslating the A1C assay into estimated average glucose values. ??Diabetes Care 2008:31(8):9551-7646. Specimen Anatomical Collection Method Collection Time Receive d Time (Source) Location / / Volume Laterality Blood specimen 01/28/2016 9:12 AM 016 9:17 (specimen) EDT AM EDT Resulting Agency Comment Spec In Lab iWlliams sEpinal MD CHEMISTRY ORDERABLES Performing Organization Address City/State/[place] [address] documented in this encounter Visit Diagnoses Diagnosis Type 1 diabetes mellitus with diabetic n europathy Type I (juvenile type) diabetes mellitus with neurological manifestations, not stated as uncontrolled documented in this encounter Care Teams Green Building Engineer Relationship Specialty Start Date End Date Allan Mims MD PCP - General 04/28/11 02/25/[address] [place] [address] documented as of this encounter
--- OUTSIDE RECORDS SUMMARY | 2022-01-15 01:16 | XMS_ITS | Encounter Summary ---
:1975 Author Organization [facility] [place] [address] Care Team Providers Name Role Phone Deep Knox APRN Primary Care Provider Reason for Visit Reason Comments Medication Refill Encounter Details Date Type Department Care Team Description 05/27/2019 Refill Endocrinology at [facility] C Nubia Mercedes APRN [facility] [place] [address] ENDOCRINOLOGY DEPT. [phone] [place], [place] [address] (Wo rk) Social History Tobacco Use Types Packs/Day Years Used Date Former Smoker Cigarettes Quit: 04/28/20 01 Smokeless Tobacco: Never Used Sex Assigned at Date Recorded Not on file documented as of this encounter Plan of Treatment Not on filedocumented as of this encounter Visit Diagnoses Not on filedocumented in this encounter Care Teams Derivatives Trader Relationship Specialty Start Date End Date Deep Knox APRN PCP - General Family Medicine 02/26/[address] [place] [address] documented as of this encounter
--- OUTSIDE RECORDS SUMMARY | 2022-01-15 01:16 | XMS_ITS | Encounter Summary ---
:1975 Author Organization [facility] [place] [address] Care Team Providers Name Role Phone Allan Mims MD Primary Care Provider Encounter Details Date Type Department Care Team Description 12/27/2017 Orders Only Endocrinology at [facility] C Nubia Mercedes, ED [facility] [place] [address] ENDOCRINOLOGY DEPT. [phone] [place] [id number] (Wo rk) Social History Tobacco Use Types Packs/Day Years Used Date Former Smoker Cigarettes Quit: 04/28/20 01 Smokeless Tobacco: Never Used Sex Assigned at Date Recorded Not on file documented as of this encounter Plan of Treatment Not on filedocumented as of this encounter Visit Diagnoses Not on filedocumented in this encounter Care Teams Metal Hanging Supervisor Relationship Specialty Start Date End Date Allan Mims MD PCP - General 04/28/11 02/25/[address] [place] [address] documented as of this encounter
--- OUTSIDE RECORDS SUMMARY | 2022-01-15 01:16 | XMS_ITS | Encounter Summary ---
:1975 Author Organization [facility] [place] [address] Care Team Providers Name Role Phone Allan Mims MD Primary Care Provider Reason for Visit Reason Onset Date Comments Medication Refill 07/29/2015 Encounter Details Date Type Department Care Team Description 07/29/2015 Refill Endocrinology at [facility] Nubia Li, SEAMER OPERATOR [facility] [place] [address] ENDOCRINOLOGY DEPT. [phone] [place] [id number] (Wo rk) Social History Tobacco Use Types Packs/Day Years Used Date Former Smoker Quit: 04/28/20 01 Smokeless Tobacco: Never Used Sex Assigned at Date Recorded Not on file documented as of this encounter Plan of Treatment Not on filedocumented as of this encounter Visit Diagnoses Not on filedocumented in this encounter Care Teams Help Desk Technician Relationship Specialty Start Date End Date Allan Mims MD PCP - General 04/28/11 02/25/[address] [place] [address] documented as of this encounter
--- OUTSIDE RECORDS SUMMARY | 2022-01-15 01:16 | XMS_ITS | Encounter Summary ---
:1975 Author Organization [facility] [place] [address] Care Team Providers Name Role Phone Deep Knox APRN Primary Care Provider Encounter Details Date Type Department Care Team Description 03/10/2021 Office Visit Ophthalmology at [facility] Lupis Huggins, Non-proliferative [facility] MD Violette diabetic retinopathy, [facility] [place] [address] [place] [address] [place], [place] [address] Social History Tobacco Use Types [...] encounter Progress Notes Violette Huggins MD - 03/10/2021 2:30 PM EDT ASSESSMENT/PLAN: 1. Non-proliferative diabetic retinopathy, both eyes Visual Acuity Visual Acuity (Snellen - Linear) Right Left Dist cc 20/30 -1 20/30 -1 Dist ph cc 20/25- NI Near cc 20/20 20/25 Last A1c: 12 (07/2020) 1. Moderate NPDR OU without DME OU Recommended good blood sugar control. The findings communicated to the patient's PCP. Recommended observation with regular eye exams. Today 03/10/2021 Doing well upon exam and multimodal imaging. No treatment recommended at this time. 2. Dry Eyes [...] Name Priority Date/Time Associated Diagnosis Comme nts OCT RETINA - OU - Routine 03/10/2021 4:23 PM Non-proliferative Results for this BOTH EYES EDT diabetic procedure are i n retinopathy, both the result s eyes section. documented in this encounter Results OCT Retina - OU - Both Eyes (03/10/2021 4:23 PM EDT) Anatomical Region Laterality Modality Other Specimen (Source) Anatomical Location Collection Method / Collectio n Time Received Time / Laterality Volume Narrative 03/10/2021 4:23 PM EDT Right Eye Quality was good. Scan locations include d subfoveal. Progression has been stable. Findings include intraretinal fl uid, normal foveal contour. Left Eye Quality was good. Scan locations include d subfoveal. Progression has been stable. Findings include intraretinal fl uid, normal foveal contour. Violette Huggins MD [facility] documented in this encounter Visit Diagnoses Diagnosis Non-proliferative diabetic retinopathy, both eyes Type II or unspecified type diabetes mario litus with ophthalmic manifestations, not stated as uncontrolled documented in this encounter Care Teams Pediatric Urologist Relationship Specialty Start Date End Date Deep Knox, BELT MAKER PCP - General Family Medicine 02/26/[address] [place] [address] documented as of this encounter
--- OUTSIDE RECORDS SUMMARY | 2022-01-15 01:16 | XMS_ITS | Encounter Summary ---
:1975 Author Organization [facility] [place] [address] Care Team Providers Name Role Phone Allan Mims MD Primary Care Provider Reason for Visit Reason Onset Date Comments Medication Refill 2018 Encounter Details Date Type Department Care Team Description 2018 Refill Endocrinology at [facility] C Nubia Mercedes, RN IMMUNOLOGY [facility] [place] [address] ENDOCRINOLOGY DEPT. [phone] [place] [id number] (Wo rk) Social History Tobacco Use Types Packs/Day Years Used Date Former Smoker Cigarettes Quit: 04/28/20 01 Smokeless Tobacco: Never Used Sex Assigned at Date Recorded Not on file documented as of this encounter Plan of Treatment Not on filedocumented as of this encounter Visit Diagnoses Not on filedocumented in this encounter Care Teams Air Intercept Controller Relationship Specialty Start Date End Date Allan Mims MD PCP - General 04/28/11 02/25/[address] [place] [address] documented as of this encounter
--- OUTSIDE RECORDS SUMMARY | 2022-01-15 01:16 | XMS_ITS | Encounter Summary ---
:1975 Author Organization [facility] [place] [address] Care Team Providers Name Role Phone Alaln Mims MD Primary Care Provider Reason for Visit Reason Comments Diabetes Encounter Details Date Type Department Care Team Description 01/30/2015 Office Visit Endocrinology at [facility] Donnell, Type 1 diabetes mellitus wit h diabetic retinopathy without macular edema, with unspecified retinopathy severity; [facility] Windy Mayorga Diabetes mellitus type 1, [place] [address] CENTER [phone] END[address]PT[address] [place] [address] Social History Tobacco Use Types Packs/Day Years Used Date Former Smoker Quit: 04/28/20 01 Smokeless Tobacco: Never Used Sex Assigned at Date Recorded Not on file documented as of this encounter Last Filed Vital Signs Vital Sign Reading Time Taken Comments Blood Pressure 132/80 01/30/2015 10:21 AM EDT Pulse 77 01/30/2015 10:21 AM EDT Temperature - - Respiratory Rate - - Oxygen Saturation - - Inhaled Oxygen Concentration - - Weight 94.7 kg (208 lb 12.8 oz) 01/30/2015 10:21 AM EDT Height 182.9 cm (6') 01/30/2015 10:21 AM EDT Body Mass Index 28.32 01/30/2015 10:21 AM EDT documented in this encounter Progress Notes Debbie Jacobo MD - 01/26/2015 6:58 PM EDT PRIMARY CARE PROVIDER: Allan Mims M.D CC: Here for f/u of type 1 DM Dx: 2004, anti GABRIELLE + 08/01 Regimen ____ oral agents only ____ basal insulin __xx__ basal and meal insulin/pump Diagnosis codes 250.03 __x_ Type 1 250.02 ____Type 2 Glucose test strip brand: one touch Number of Tests prescribed per day ___ 2 _x__ 3 ___ 4 ___ 5-8 ___>8 Prescriber: _ JUANCHO Espinal MD _BOWEN Colunga _ Amarjit Saab MD _ Augie Rodriguez MD _orestes Jacobo MD Justification for more than 3 tests a day ____ prevent severe hypoglycemia ____ prevent severe hyperglycemia ____ widely fluctuating blood sugars ____ overnight hypoglycemia Duration of need ___ lifetime until ___/___/___ Last Hga1c 10.5, 02/01; 11.9, 11/01;10.6, 08/31; 9.1%, 10/30;8.5%, 08/02; 9.4%, 05/01; 8.7%, 01/29; 8.8%, 10/29; 8.2%, 08/01 Regimen: lantus 55 bid; novolog 5-10, CF 15 if > 170 -carb 10 COMPLICATIONS: He has not seen his dentist. Only has six teeth on the bottom. Had his eyes examined November 21, 2014, PPDR-.Microalbumin 11, 09/01 . Creatinine 0.79, 11/01. No neuropathic symptoms. No symptomatic cardiac disease. Lipids ; total cholesterol 179, 11/01, HDL 34, 11/01, LDL 73 on Crestor 20 , 08/31 DIABETIC HEALTH MAINTENANCE: [id number], [place] Inhibitor-no, Statin: crestor 20. Aspirin:no- too much heartburn. Flu Shot: 2012. Pneumovax: 2005. He is a nonsmoker.TSH 2.6, 11/01 Since his last visit, Dragan wore the glucose sensor and found it very helpful and he is in the process of seeing if he will be eligible for it from his insurance company. He checks his blood sugars usually four times a day, fasting has been running 50 to 180, lunch 70 to 120, sometimes low after lunch and then supper 130 to 210 and at bedtime 220 to 250. He has lows two or three times a week, so he has cut back on his Lantus insulin doing 55 units twice a day. He has been better about counting his carbohydrates and using his correction factor. Exercise, he walks a couple of times a week, he is mowing his lawn, etc. His diet for breakfast, he had a breakfast pizza with egg, pringle and cheese on crust. Lunch time, two sandwiches. For supper, four eggs with peppers and two peanut butter sandwiches, usually has a regular meal at suppertime with meat and potato and a vegetable. No evening snack. COMPLICATION EVALUATION: He has pre-proliferative retinopathy and otherwise complications are minimal and up to date on evaluation. PAST MEDICAL HISTORY: Type 1 diabetes (DKA 11/01), hypertension, and hyperlipidemia. Current Outpatient Prescriptions Medication Sig Dispense Refill ??? NOVOFINE AUTOCOVER 30 x 1/3 Needle USE 4-5 TIMES A DAY WITH INSULIN 400 each 3 ??? glucagon, human recombinant, (GLUCAGON EMERGENCY KIT, HUMAN,) 1 mg Kit As directed for low bloodsugar 2 mL prn ??? insulin glargine (LANTUS SOLOSTAR) pen injection Inject 70 Units subcutaneously 2 times daily. 135 mL 3 ??? Insulin Lispro (HUMALOG KWIKPEN) InPn Inject 25-30 Units subcutaneously 3 times daily (before meals). 90 mL 3 ??? DULoxetine (CYMBALTA) 60 mg capsule Take 60 mg by mouth daily. ??? rosuvastatin (CRESTOR) 20 mg tablet Take 1 tablet by mouth daily. 90 tablet 3 ??? Blood Sugar Diagnostic (ONE TOUCH ULTRA TEST) test strip 1 each by Other route 6 times daily. Use as instructed 4-6 times daily 200 each 12 No current facility-administered medications for this visit. Allergies Allergen Reactions ??? 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 Complete review of systems is negative. On physical exam, blood pressure 132/80, pulse 77, weight 208. In general, he looks well. Skin: Smooth, warm, and dry. No ulcerations. Cardiovascular: 2+ pulses. No edema. On neurologic exam, he has excellent light touch sensation to the monofilament. Psychiatric: Mood and affect are appropriate. LABORATORY TESTS: Hemoglobin A1c 10.5%. IMPRESSION/PLAN: 1. Diabetes. Blood sugar control has improved since October, but still poor. Dragan's having high blood sugars in the evening and his ratio of basal to bolus is still heavy on the basal. I asked him to adjust his carb ratio at supper to 1:7 or 8 and if he is still spiking high after the meal to go to 1:6 and see if we can get the evening blood sugars down and if he goes low in the middle of the night it means his Lantus dose is too high and he can cut back on that. We will see him in follow up in about six months with hemoglobin A1c in the [facility] lab. documented in this encounter Plan of Treatment Not on filedocumented as of this encounter Procedures Procedure Name Priority Date/Time Associated Diagnosis Comme nts HEMOGLOBIN A1C STAT 01/30/2015 9:41 AM Diabetes mellitus ty pe Results for this EDT 1, uncontrolled procedure ar e in the results section. documented in this encounter Results (ABNORMAL) Hemoglobin A1c (08/18/2015 10:07 AM EST) [facility] Method Time Signature Hemoglobin A1C 11.5 (H) 4.3 - 5.6 [facility] Comment: Reference Range: 4.3 [...] Mellitus, Diabetes Care 2013; 36: Suppl. 1, C17-68 Est Avg Gluc 283 mg/dL [facility] Comment: eAG equivalents for HbA1c percentages: HbA1c(%) ?eAG(mg/dL) 6.0 ?126 6.5 ?140 7.0 ?154 7.5 ?169 8.0 ?183 8.5 ?197 9.0 ?212 9.5 ?226 10.0 ? 240 Limitations: The eAG calculation has not been validated on women, individuals below 18 years old and above 70 years old, and individuals with hemoglobinopathies. Additional resources are available on [employer] website: [email or web address] Orestes MIXON, Gómez J, Philip R, et al. ??Tr anslating the A1C assay into estimated average glucose values. ??Diabetes Care 2008:31(8):5727-4516. Specimen Anatomical Collection Method Collection Time Receive d Time (Source) Location / / Volume Laterality Blood specimen 08/18/2015 10:07 6 (specimen) AM EST 10:28 AM EST Resulting Agency Comment Spec In Lab Debbie Jacobo MD CHEMISTRY ORDERABLES Performing Organization Address City/State/[place] [address] (ABNORMAL) Hemoglobin A1c (01/30/2015 9:41 AM EDT) [facility] Method Time Signature Hemoglobin A1C 10.5 (H) 4.3 - 5.6 [facility] Comment: Reference Range: 4.3 - 5.6% 5.7 - 6.4% - Increased Risk of Developin g Diabetes Mellitus 6.5% - Consistent with diagnosis of Diab etes Mellitus In the absence of hyperglycemia (i.e. pl asma glucose > 200 mg/dL) or classic symptoms of hyperglycemia a repeat measu rement of HbA1c should be performed on a separate sample to confirm the diagnos is. Diagnosis and Classification of Diabetes Mellitus, Diabetes Care 2013; 36: Suppl. 1, S67-74 Est Avg Gluc 255 mg/dL [facility] Comment: eAG equivalents for HbA1c percentages: HbA1c(%) ?eAG(mg/dL) 6.0 ?126 6.5 ?140 7.0 ?154 7.5 ?169 8.0 ?183 8.5 ?197 9.0 ?212 9.5 ?226 10.0 ? 240 Limitations: The eAG calculation has not been validated on women, individuals below 18 years old and above 70 years old, and individuals with hemoglobinopathies. Additional resources are available on [facility] website: [email or web address] Orestes MIXON, Gómez J, Philip R, et al. ??Tr anslating the A1C assay into estimated average glucose values. ??Diabetes Care 2008:31(8):6210-7486. Specimen Anatomical Collection Method Collection Time Receive d Time (Source) Location / / Volume Laterality Blood specimen 01/30/2015 9:41 AM 015 9:52 (specimen) EDT AM EDT Resulting Agency Comment Spec In Lab Debbie Jacobo MD CHEMISTRY ORDERABLES Performing Organization Address City/State/[place] [address] [facility] documented in this encounter Visit Diagnoses Diagnosis Type 1 diabetes mellitus with diabetic r etinopathy without macular edema, with unspecified retinopathy severity documented in this encounter Care Teams Logistician Relationship Specialty Start Date End Date Allan Mims MD PCP - General 04/28/11 02/25/[address] [place] [address] documented as of this encounter
--- OUTSIDE RECORDS SUMMARY | 2022-01-15 01:16 | XMS_ITS | Encounter Summary ---
:1975 Author Organization [employer] [place] [address] Care Team Providers Name Role Phone Allan Mims MD Primary Care Provider Encounter Details Date Type Department Care Team Description 12/13/2016 Laboratory Appointment [facility] [place] [id number] Social History Tobacco Use Types Packs/Day Years Used Date Former Smoker Quit: 04/28/20 01 Smokeless Tobacco: Never Used Sex Assigned at Date Recorded Not on file documented as of this encounter Plan of Treatment Not on filedocumented as of this encounter Procedures Procedure Name Priority Date/Time Associated Diagnosis Comme nts U ALBUMIN/CRE RATIO Routine 12/13/2016 2:29 PM Uncontrolled ty pe 1 Results for this EDT diabetes mellitus procedure are in without complication the res ults section. TSH Routine 12/13/2016 2:21 PM Uncontrolled type 1 Re sults for this EDT diabetes mellitus procedure are in without complication the res ults section. HEMOGLOBIN A1C Routine 12/13/2016 2:21 PM Uncontrolled type 1 Results for this EDT diabetes mellitus procedure are in without complication the res ults section. BASIC METABOLIC Routine 12/13/2016 2:21 PM Uncontrolled type 1 Results for this PANEL (NON-FASTING) EDT diabetes mellitus pro cedure are in without complication the res ults section. documented in this encounter Results (ABNORMAL) U Albumin/Cre Ratio (12/13/2016 2:29 PM EDT) athologist Signature Alb/Cr Ratio, 146 (H) 0 - 29 [facility] Random mcg/mg Cr [facility] Comment: Reference Ranges: <30 mcg/mg: [...] 2, 357? 362 U Albumin Conc, Random 92.1 mg/L [facility] U Creatinine 63 mg/dL [facility] Specimen Anatomical Collection Method Collection Time Receive d Time (Source) Location / / Volume Laterality Urine specimen 12/13/2016 2:29 PM 017 2:35 (specimen) EDT PM EDT Resulting Agency Comment Spec In Lab Nubia Mercedes COPY PREPARER URINE ORDERABLES Performing Organization Address City/[facility]/[place] [address] TSH (12/13/2016 2:21 PM EDT) P athologist Signature TSH 1.43 0.27 - 4.20 [facility] mlU/ML [facility] Specimen Anatomical Collection Method Collection Time Receive d Time (Source) Location / / Volume Laterality Blood specimen 12/13/2016 2:21 PM 017 2:26 (specimen) EDT PM EDT Resulting Agency Comment Spec In Lab Nubia Deni Pickeringa COPY PREPARER CHEMISTRY ORDERABLES Performing Organization Address City/[facility]/[place] [address] (ABNORMAL) Hemoglobin A1c (12/13/2016 2:21 PM EDT) Analysis Performed At Patho logist Time Signature Hemoglobin A1C 9.8 (H) 4.3 - 5.6 [facility] Comment: Reference Range: 4.3 - [...] Mellitus, Diabetes Care 2013; 36: Suppl. 1, S67-53 Est Avg Gluc 235 mg/dL [facility] Comment: eAG equivalents for HbA1c percentages: HbA1c(%) ?eAG(mg/dL) 6.0 ?126 6.5 ?140 7.0 ?154 7.5 ?169 8.0 ?183 8.5 ?197 9.0 ?212 9.5 ?226 10.0 ? 240 Limitations: The eAG calculation has not been validated on women, individuals below 18 years old and above 70 years old, and individuals with hemoglobinopathies. Additional resources are available on [facility] ADA website. Orestes MIXON, Gómez J, Philip R, et al. ??Tr anslating the A1C assay into estimated average glucose values. ??Diabetes Care 2008:31(8):4110-1694. Specimen Anatomical Collection Method Collection Time Receive d Time (Source) Location / / Volume Laterality Blood specimen 12/13/2016 2:21 PM 017 2:26 (specimen) EDT PM EDT Resulting Agency Comment Spec In Lab Nubia Mercedes APRN CHEMISTRY ORDERABLES Performing Organization Address City/State/ZIP [place] [address] (ABNORMAL) Basic Metabolic Panel (non-fasting) (12/13/2016 2:21 PM EDT) athologist Signature Glucose Lvl 302 (H) 65 - 199 [facility] mg/dL [facility] Comment: Diabetes: >=200 mg/dL plus symp toms BUN 13 10 - 20 mg/dL [facility] Creatinine 0.91 0.80 - 1.50 mg/dL [facility] Comment: Please note that the pediatric reference intervals supplied above were not validated at [facility]. Results from pediatri c patients should be interpreted in conjunction to the patient's age, height and muscle mass. Sodium 138 135 - 145 mmol/L [facility] Potassium 4.2 3.5 - 5.0 mmol/L [facility] Comment: Please note: ??Patients with WBC >100,00 0 may have falsely elevated Potassium levels. ??For accurate Potassium quantif ication in these patients send serum separator tube (gold top) for subsequent determinations. ??Contact the Clinical Chemistry Laboratory if there are any qu estions. Chloride 98 98 - 107 mmol/L [facility] CO2 24 22 - 31 mmol/L [facility] Anion Gap 16 (H) 5 - 15 mmol/L [facility] Calcium 9.2 8.5 - 10.5 mg/dL [facility] Estimated GFR >60 >=60 [facility] Comment: This estimated GFR (eGFR) value was calc ulated using the MDRD equation which has been validated on patients between t he ages of 18 and 70. The MDRD should not be used to assess kidney function in patients < 18 years of age or in patients with extremes of body mass, or in patients with acute kidney failure. This value should be multiplied by 1.2 f or patients. For further information please copy and past e the following links into your internet browser. [email or web address] [email or web address] Specimen Anatomical Collection Method Collection Time Receive d Time (Source) Location / / Volume Laterality Blood specimen 12/13/2016 2:21 PM 017 2:26 (specimen) EDT PM EDT Resulting Agency Comment Spec In Lab Nubia Mercedes COPY PREPARER CHEMISTRY ORDERABLES Performing Organization Address City/State/ZIP [place] [address] documented in this encounter Visit Diagnoses Diagnosis Uncontrolled type 1 diabetes mellitus wi thout complication documented in this encounter Care Teams Caramel Candy Maker Helper Relationship Specialty Start Date End Date Allan Mims MD PCP - General 04/28/11 02/25/[address] [place] [address] documented as of this encounter
--- OUTSIDE RECORDS SUMMARY | 2022-01-15 01:16 | XMS_ITS | Encounter Summary ---
:1975 Author Organization [facility] [place] [address] Care Team Providers Name Role Phone Allan Mims MD Primary Care Provider Reason for Visit Reason Comments Diabetes Encounter Details Date Type Department Care Team Description 12/13/2016 Office Visit Endocrinology at [facility] C Nubia Mercedes, Uncontrolled type 1 [facility] SECURITY TRAINER diabetes mellitus [facility] [place] [address] [address] [phone] ENDOCRINOLOGY DEPT. [place], [place] [address] Social History Tobacco Use Types Packs/Day Years Used Date Former Smoker Quit: 04/28/20 01 Smokeless Tobacco: Never Used Sex Assigned at Date Recorded Not on file documented as of this encounter Last Filed Vital Signs Vital Sign Reading Time Taken Comments Blood Pressure 151/89 12/13/2016 3:25 PM EDT Pulse 101 12/13/2016 3:25 PM EDT Temperature - - Respiratory Rate - - Oxygen Saturation - - Inhaled Oxygen Concentration - - Weight 100.7 kg (222 lb) 12/13/2016 4:07 PM EDT Height 182.9 cm (6') 12/13/2016 3:25 PM EDT Body Mass Index 30.11 12/13/2016 3:25 PM EDT documented in this encounter Patient Instructions Patient InstructionsNubia Mercedes APRN - 12/13/2016 3:30 PM EDT humalog 3X/day before meals Given 7 units humalog 3:45 pm documented in this encounter Progress Notes Nubia Mercedes APRN - 12/13/2016 3:30 PM EDT REASON FOR VISIT: Followup type-1 DM in poor but improving control. BRIEF HISTORY: Presents and states glucose levels are usually still around 200 but today he had one as low as 43 at work. DIABETES REGIMEN: Lantus 50 units twice a day, Humalog up to 20 units before meals 3 times a day, uses a correction factor of 10. Does not count carb grams and does not use an insulin:carb ratio. COMPLICATIONS: None. DATE OF DIAGNOSIS OF DIABETES: 2004 REVIEW OF SYSTEMS: Depression and mood: Looking forward to vacation soon to celebrate his 's completion of a teacher's degree. Eyes: No recent vision changes. He has had some headaches recently because he bumped his head at work. No chest pain or shortness of breath. No recent GI symptoms. Appetite is good. Sleep pattern: States he always gets up once during the night. Extremities: Okay. PHYSICAL EXAM: Appearance: He appears in good health. He is overweight, 222 pounds. Blood pressure 151/89; it is not usually that high. Eyes: No retinopathy with green light exam. Neck: No thyromegaly or lymphadenopathy. Heart: Regular rate and rhythm. Lungs are clear to auscultation. Feet: Has callus on first toes, medial aspect. Pulses are normal. Neuro: Normal sensation to 10 Gs of pressure. Hemoglobin A1c 9.8%; previous was 12.2%. IMPRESSION AND PLAN: DM type-1 in poor but improved control. At time of lab draw, glucose level was over 300. Patient states the hardest Humalog dose to remember to take consistently recently has been the one before lunch and he did not take Humalog before lunch today. Gave him correction dose of 7 units, subcutaneous, right arm. Gave him copy of his lab results and reviewed them with him. Encouraged to change from NSAID for pain control to Tylenol for renal protection. Patient states his would like him to consider using an insulin pump. He has discussed using a pump in the past and he was not interested but he states he was thinking about using one in the future. Advised appointment with MARY to review available insulin pumps. He states using the DexCom sensor is definitely why he was able to lower his hemoglobin A1c. Return to office in March. Will check hemoglobin A1c. This was a 39-minute office visit with 25 minutes spent counseling [id number] with patient in the management of glucose levels, reviewing target glucose levels, advised if fasting glucose level is under 95 to start lowering the Lantus doses by 2 or 4 units and that becomes the new dose. Bring meter to all appointments. Schedule a follow-up visit with Dr. Espinal. Recent Results (from the past 72 hour(s)) Basic Metabolic Panel (non-fasting) Result Value Ref Range Glucose Lvl 302 (H) 65 - 199 mg/dL BUN 13 10 - 20 mg/dL Creatinine 0.91 0.80 - 1.50 mg/dL Sodium 138 135 - 145 mmol/L Potassium 4.2 3.5 - 5.0 mmol/L Chloride 98 98 - 107 mmol/L CO2 24 22 - 31 mmol/L Anion Gap 16 (H) 5 - 15 mmol/L Calcium 9.2 8.5 - 10.5 mg/dL Estimated GFR >60 >=60 Hemoglobin A1c Result Value Ref Range Hemoglobin A1C 9.8 (H) 4.3 - 5.6 % Est Avg Gluc 235 mg/dL TSH Result Value Ref Range TSH 1.43 0.27 - 4.20 mlU/ML U Albumin/Cre Ratio Result Value Ref Range Alb/Cr Ratio, Random 146 (H) 0 - 29 mcg/mg Cr U Albumin Conc, Random 92.1 mg/L U Creatinine 63 mg/dL documented in this encounter Plan of Treatment Not on filedocumented as of this encounter Results LDL Cholesterol, Direct (12/13/2017 8:36 AM EDT) P athologist Signature LDL Chol 139 mg/dL [facility] Comment: Lowest Risk: <100 mg/dL Lower Risk: 100-129 mg/dL Borderline High Risk: 130-159 mg/dL High Risk: 160-189 mg/dL Very High Risk: >ts=897 mg/dL Specimen Anatomical Collection Method Collection Time Receive d Time (Source) Location / / Volume Laterality Blood specimen 12/13/2017 8:36 AM 018 8:46 (specimen) EDT AM EDT Resulting Agency Comment Spec In Lab Nubia Mercedes ED CHEMISTRY ORDERABLES Performing Organization Address City/State/ZIP Code Mindy Marquez [place] [id number] (ABNORMAL) Hemoglobin A1c (12/13/2017 8:36 AM EDT) Analysis Performed At Patho logist Time Signature Hemoglobin A1C 9.4 (H) 4.3 - 5.6 [facility] Comment: Reference Range: 4.3 - [...] 1, S67-74 Est Avg Gluc 223 mg/dL [facility] Comment: eAG equivalents for HbA1c percentages: HbA1c(%) ?eAG(mg/dL) 6.0 ?126 6.5 ?140 7.0 ?154 7.5 ?169 8.0 ?183 8.5 ?197 9.0 ?212 9.5 ?226 10.0 ? 240 Limitations: The eAG calculation has not been validated on women, individuals below 18 years old and above 70 years old, and individuals with hemoglobinopathies. Additional resources are available on ADA website. Orestes MIXON, Gómez J, Philip R, et al. ??Tr anslating the A1C assay into estimated average glucose values. ??Diabetes Care 2008:31(8):0360-8272. Specimen Anatomical Collection Method Collection Time Receive d Time (Source) Location / / Volume Laterality Blood specimen 12/13/2017 8:36 AM 018 8:46 (specimen) EDT AM EDT Resulting Agency Comment Spec In Lab Nubia Deni Ladana SECURITY TRAINER CHEMISTRY ORDERABLES Performing Organization Address City/[facility]/[place] [address] (ABNORMAL) U Albumin/Cre Ratio (12/13/2016 2:29 PM EDT) athologist Signature Alb/Cr Ratio, 146 (H) 0 - 29 [facility] Random mcg/mg Cr [facility] Comment: Reference Ranges: <30 mcg/mg: Normal [...] 362 U Albumin Conc, Random 92.1 mg/L [facility] U Creatinine 63 mg/dL [facility] Specimen Anatomical Collection Method Collection Time Receive d Time (Source) Location / / Volume Laterality Urine specimen 12/13/2016 2:29 PM 017 2:35 (specimen) EDT PM EDT Resulting Agency Comment Spec In Lab Nubiadavy Parkotta SECURITY TRAINER URINE ORDERABLES Performing Organization Address City/[facility]/ZIP Code Phon [place] [address] TSH (12/13/2016 2:21 PM EDT) P athologist Signature TSH 1.43 0.27 - 4.20 [facility]ML [facility] Specimen Anatomical Collection Method Collection Time Receive d Time (Source) Location / / Volume Laterality Blood specimen 12/13/2016 2:21 PM 017 2:26 (specimen) EDT PM EDT Resulting Agency Comment Spec In Lab Nubia E Ladankelly ED CHEMISTRY ORDERABLES Performing Organization Address City/State/ZIP Code Phon e Number [place] [phone] [facility] Drive (ABNORMAL) Hemoglobin A1c (12/13/2016 2:21 PM EDT) Analysis Performed At Patho logist Time Signature Hemoglobin A1C 9.8 (H) 4.3 - 5.6 [facility] % [facility] Comment: Reference Range: 4.3 [...] Mellitus, Diabetes Care 2013; 36: Suppl. 1, V77-00 Est Avg Gluc 235 mg/dL [facility] Comment: eAG equivalents for HbA1c percentages: HbA1c(%) ?eAG(mg/dL) 6.0 ?126 6.5 ?140 7.0 ?154 7.5 ?169 8.0 ?183 8.5 ?197 9.0 ?212 9.5 ?226 10.0 ? 240 Limitations: The eAG calculation has not been validated on women, individuals below 18 years old and above 70 years old, and individuals with hemoglobinopathies. Additional resources are available on [facility] website. Orestes MIXON, Gómez J, Philip R, et al. ??Tr anslating the A1C assay into estimated average glucose values. ??Diabetes Care 2008:31(8):2872-7911. Specimen Anatomical Collection Method Collection Time Receive d Time (Source) Location / / Volume Laterality Blood specimen 12/13/2016 2:21 PM 017 2:26 (specimen) EDT PM EDT Resulting Agency Comment Spec In Lab Nubia Mercedes APRN CHEMISTRY ORDERABLES Performing Organization Address City/State/[place] [address] (ABNORMAL) Basic Metabolic Panel (non-fasting) (12/13/2016 2:21 PM EDT) athologist Signature Glucose Lvl 302 (H) 65 - 199 [facility] mg/dL [facility] Comment: Diabetes: >=200 mg/dL plus symp toms BUN 13 10 - 20 mg/dL [facility] Creatinine 0.91 0.80 - 1.50 mg/dL [facility] Comment: Please note that the pediatric reference intervals supplied above were not validated at [facility]. Results from pediatri c patients should be interpreted in conjunction to the patient's age, height and muscle mass. Sodium 138 135 - 145 mmol/L [facility] Potassium 4.2 3.5 - 5.0 mmol/L [facility] Comment: Please note: ??Patients with WBC >100,00 0 may have falsely elevated Potassium levels. ??For accurate Potassium quantif ication in these patients send serum separator tube (gold top) for subsequent determinations. ??Contact the Clinical Chemistry Laboratory if there are any qu estions. Chloride 98 98 - 107 mmol/L [facility] CO2 24 22 - 31 mmol/L [facility] Anion Gap 16 (H) 5 - 15 mmol/L [facility] Calcium 9.2 8.5 - 10.5 mg/dL [facility] Estimated GFR >60 >=60 [facility] Comment: This estimated GFR [...] the following links into your internet browser. [email or web address] Specimen Anatomical Collection Method Collection Time Receive d Time (Source) Location / / Volume Laterality Blood specimen 12/13/2016 2:21 PM 017 2:26 (specimen) EDT PM EDT Resulting Agency Comment Spec In Lab Nubia Mercedes APRN CHEMISTRY ORDERABLES Performing Organization Address City/State/ZIP Code Phon e Number [place] [phone] documented in this encounter Visit Diagnoses Diagnosis Uncontrolled type 1 diabetes mellitus wi thout complication documented in this encounter Administered Medications Inactive Administered Medications - up to 3 most recent administrations Medication Order MAR Action Action Date Dose Rate Site insulin lispro (humaLOG) Given 12/13/2016 3:41 PM EDT 7 Units Right Arm VIAL injection 7 Units 7 Units, Subcutaneous, ONCE, 1 dose, On 12/13/16 at 1600, Routine documented in this encounter Care Teams Sofa Back Upholsterer Relationship Specialty Start Date End Date Allan Mims MD PCP - General 04/28/11 02/25/[address] [place] [address] documented as of this encounter
--- OUTSIDE RECORDS SUMMARY | 2022-01-15 01:17 | XMS_ITS | Encounter Summary ---
:1975 Author Organization [facility] [place] [address] Care Team Providers Name Role Phone Allan Mims MD Primary Care Provider Reason for Visit Reason Onset Date Comments Other 06/02/2012 Encounter Details Date Type Department Care Team Description 06/02/2012 Telephone Endocrinology at [facility] C Doreen Stuart CDE [facility] [place] [phone] ENDOCRINOLOGY DEPT. [phone] [place], [place] [address] (Wo rk) Social History Tobacco Use Types Packs/Day Years Used Date Former Smoker Quit: 04/28/20 01 Sex Assigned at Date Recorded Not on file documented as of this encounter Miscellaneous Notes Telephone Encounter - Doreen Stuart RN - 06/02/2012 11:[address] Conway's message left on this patient's answering machine. documented in this encounter Plan of Treatment Not on filedocumented as of this encounter Visit Diagnoses Not on filedocumented in this encounter Care Teams Roto Rooter Operator Relationship Specialty Start Date End Date Allan Mims MD PCP - General 04/28/11 02/25/[address] [place], [place] [address] documented as of this encounter
--- OUTSIDE RECORDS SUMMARY | 2022-01-15 01:17 | XMS_ITS | Encounter Summary ---
:1975 Author Organization [facility] [place] [address] Care Team Providers Name Role Phone Allan Mims MD Primary Care Provider Reason for Visit Reason Onset Date Comments Medication Refill 08/10/2012 Encounter Details Date Type Department Care Team Description 08/10/2012 Refill Endocrinology at [facility] Debbie Garcia MD [facility] [place] [address] ENDOCRINOLOGY DEPT. [phone] [place], [place] [address] (Wo rk) Social History Tobacco Use Types Packs/Day Years Used Date Former Smoker Quit: 04/28/20 01 Sex Assigned at Date Recorded Not on file documented as of this encounter Plan of Treatment Not on filedocumented as of this encounter Visit Diagnoses Not on filedocumented in this encounter Care Teams Driver Engineer Relationship Specialty Start Date End Date Allan Mims MD PCP - General 04/28/11 02/25/[address] [place] [address] documented as of this encounter
--- OUTSIDE RECORDS SUMMARY | 2022-01-15 01:17 | XMS_ITS | Encounter Summary ---
:1975 Author Organization [facility] Address [place] [id number] Care Team Providers Name Role Phone Jc Gonzalez MD Primary Care Provider Reason for Referral Consultation (Routine) - Duplicate Referral Specialty Diagnoses / Procedures Referred By Contact Refer red To Contact Endocrinology Diagnoses Type I (juvenile type) diabetes mellitus without mention of complication, uncontrolled Debbie Jacobo, [facility] Endocrinology [address] [place] [address] [place] [address] Referral ID Status Reason Start Expiration Visits Visits Date Date Requested Authorized [id number] Duplicate Specialty 10/30/2014 10/30/2015 3 3 Referral Service Requested Consultation (Routine) - Closed Specialty Diagnoses / Procedures Referred By Contact Refer red To Contact Endocrinology Diagnoses Type I (juvenile type) diabetes mellitus without mention of complication, uncontrolled Debbie Jacobo, [facility] Endocrinology [address] [place] [address] [place] [address] Referral ID Status Reason Start Date Expiration Date Visits V isits Requested Authorized [id number] Closed Specialty 10/30/2014 10/30/2015 3 3 Service Requested Encounter Details Date Type Department Care Team Description 10/30/2014 Office Visit Endocrinology at [facility] Yina Colin, Type I (Formerly [facility] LD type) diabetes [place] [address] mention of [phone] ENDOCRINOLOGY complication, DEPT. uncontrolled [place], [place] [address] Social History Tobacco Use Types Packs/Day Years Used Date Former Smoker Quit: 04/28/20 Smokeless Tobacco: Never Used Sex Assigned at Date Recorded Not on file documented as of this encounter Progress Notes Yina Burks, LD - 10/30/2014 11:44 AM EDT Assessment of Diabetes Management and Medical Nutrition Therapy Primary Care Provider: JC GONZALEZ MD Diabetes Provider: Debbie Jacobo MD Medical History: Pt with type 1 dm x 10 years with recent hospitalization for DKA. Labs: HbA1c 11.6% today Patient Information: He is here with his and 2 children. 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 He was told to eat more protein and less carb - max of 60 gms carb per meal. Breakfast: 4 eggs and 2 toasts, diet soda = 30 gms carb (previous was no breakfast) Snack: Lunch: 2 tuna sandwiches and 2 apples and 3 chips = 93 gms carb and previous was fruit and ? Snack: Dinner:last night was meat balls, pepperoni with cheese and jhoana sauce over 2 slices bread and 1/2 cup peas = 45 gms carb Monitoring Blood Glucose: Checking 2 - 3 x a day and many lows Toolkit given He uses a One Touch Mini meter: has one at home and one at work. He rarely checks BG at work as it is difficult with his job. We talked about using alternate sites but it is not as accurate. Education: We sent in the paper work for a Dexcom CGM. He will call when it arrives. He does have [place] Medicaid for insurance so it may take a while for him to get it. I taught him carb counting using 1:10 ratio with Cf of 35 and 115 target. Carb resource book given. Carb amount needed: 200 - 300 gms a day . Amount of one-on-one diabetes education and medical nutrition therapy time spent:: of this 40 min appt, 20 mins was spent on MNT documented in this encounter Plan of Treatment Scheduled Referrals Name Type Priority Associated Diagnoses Order S chedule Referral to Outpatient Referral Routine Type I (juvenile Orde red: Diabetic Education type) diabetes 015 mellitus without mention of complication, uncontrolled Referral to Outpatient Referral Routine Type I (juvenile Orde red: Diabetic Education type) diabetes 015 mellitus without mention of complication, uncontrolled documented as of this encounter Visit Diagnoses Diagnosis Type I (juvenile type) diabetes mellitus without mention of complication, uncontrolled documented in this encounter Care Teams Dermatologist Managing Partner Relationship Specialty Start Date End Date Jc Gonzalez MD PCP - General 04/28/11 02/25/[address] [place] [address] documented as of this encounter
--- OUTSIDE RECORDS SUMMARY | 2022-01-15 01:17 | XMS_ITS | Encounter Summary ---
:1975 Author Organization [facility] [address] Care Team Providers Name Role Phone Allan Mims MD Primary Care Provider Reason for Visit Reason Comments Diabetes Encounter Details Date Type Department Care Team Description 11/15/2012 Office Visit Endocrinology at [facility] Debbie Garcia DM type 1 (diabetes [facility] MD Lupis mellitus, type 1) [place] (Primary Dx) [place] [address] [address] [place] [id number] Social History Tobacco Use Types Packs/Day Years Used Date Former Smoker Quit: 04/28/20 01 Sex Assigned at Date Recorded Not on file documented as of this encounter Last Filed Vital Signs Vital Sign Reading Time Taken Comments Blood Pressure 139/84 11/15/2012 11:02 AM EDT Pulse 92 11/15/2012 11:02 AM EDT Temperature - - Respiratory Rate - - Oxygen Saturation - - Inhaled Oxygen Concentration - - Weight 103.7 kg (228 lb 9.6 oz) 11/15/2012 11:02 AM EDT Height - - Body Mass Index 31 05/17/2012 10:57 AM EST documented in this encounter Progress Notes Debbie Jacobo MD - 11/12/2012 10:57 PM EDT PRIMARY CARE PROVIDER: Allan Mims [...] Amarjit Saab MD _ Augie Rodriguez MD _x Thompson Jacobo MD Justification for more than 3 tests a day ____ prevent severe hypoglycemia ____ prevent severe hyperglycemia ____ widely fluctuating blood sugars ____ overnight hypoglycemia Duration of need ___ lifetime until ___/___/___ Last Hga1c 9.1%, 10/30;8.5%, 08/02; 9.4%, 05/01; 8.7%, 01/29; 8.8%, 10/29; 8.2%, 08/01 Regimen: lantus 70 bid; novolog 0-20, CF 10 if > 150 - not calculating just guesstimating COMPLICATIONS: He has not seen his dentist. Only has six teeth on the bottom. Had his eyes examined in 08/02, PPDR- f/u 6 months.Microalbumin 41, 08/02 . Creatinine 0.93 in 01/2012. No neuropathic symptoms. No symptomatic cardiac disease. Lipids ; total [id number], HDL 36, LDL 126 on simvastatin 40 mg/d 08/02- changed to Crestor 20 DIABETIC HEALTH MAINTENANCE: Olba-Viayneu-vk, [place] Inhibitor-no, Statin: crestor 20. Aspirin:no- too much heartburn. Flu Shot: 2011. Pneumovax: 2005. He is a nonsmoker.TSH 2.01, 01/29 Since his last visit, Dragan started the Weight Watchers diet about a month ago, he has lost 21 pounds. With this, he has noticed some low blood sugars two or three hours after breakfast or lunch, so he has been very leery about using much NovoLog insulin, so he is only using sometimes 0 to 10 units. Fasting sugars 80 to 140. He is not really checking many other times a day. About four times a week, lows after breakfast or after lunch. EXERCISE: He walks once or twice a week. He has been mowing the lawn. DIET: Weight Watchers. Yesterday, he had a banana for breakfast. For lunch, he had a chicken wrap. For supper, he had a hamburger with a bun, Divehi fries and coleslaw, usually does not have the bun and no evening snack. He is up-to-date with his complication evaluation and he is looking very much improved with Crestor versus simvastatin. PAST MEDICAL HISTORY: Type 1 diabetes, hypertension, and hyperlipidemia. Current Outpatient Prescriptions on File Prior to Visit Medication Sig Dispense Refill ??? rosuvastatin (CRESTOR) 20 mg tablet Take 1 tablet by mouth daily. 90 tablet 3 ??? Insulin Glargine (LANTUS SOLOSTAR) 100 unit/mL (3 mL) InPn Inject 130-150 Units subcutaneously daily. 150 mL 11 ??? Insulin Lispro (HUMALOG KWIKPEN) 100 unit/mL InPn Inject 25-30 Units subcutaneously 3 times daily (before meals). 90 mL 11 ??? Blood Sugar Diagnostic (ONE TOUCH ULTRA TEST) test strip 1 each by Other route 6 times daily. Use as instructed 4-6 times daily 200 each 12 Allergies Allergen Reactions ??? 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 Not smoking, not drinking much, on Weight Watchers diet. Complete review of systems is negative. He really feels well. PHYSICAL EXAMINATION: On physical exam, his blood pressure is 139/84, pulse 92, and weight 228 pounds. In general, he looks well. His skin is smooth, warm, and dry. No ulcerations. Cardiovascular: 2+ pulses. No edema. Neurologic Exam: Good light touch sensation to the monofilament. Psych: Mood and affect are appropriate. LABORATORY TESTS: Hemoglobin A1c 9.1% and LDL cholesterol 61. IMPRESSION: 1. Diabetes. Blood sugar control is suboptimal despite the diet and weight loss, although that it has only been ongoing for about a month. I told Dragan he really needs to check his blood sugars more often, so we can see where we need to make adjustments in his insulin. He should be aiming for premeals below 120 to 130 and two-hour post meal below 180. If he is spiking higher than that, then he probably needs more NovoLog. 2. Hyperlipidemia, well controlled with Crestor. PLAN: 1. More frequent home blood glucose testing. 2. Follow up in three months with hemoglobin A1c, creatinine, and TSH in the quick draw lab. documented in this encounter Plan of Treatment Not on filedocumented as of this encounter Procedures Procedure Name Priority Date/Time Associated Comments Diagnosis LDL CHOLESTEROL, STAT 11/15/2012 10:00 AM DM type 1 (diabet es Results for this DIRECT EDT mellitus, type 1) procedure are in the results section. HEMOGLOBIN A1C STAT 11/15/2012 10:00 AM DM type 1 (diabetes Results for this EDT mellitus, type 1) procedure are in the results section. documented in this encounter Results TSH (09/13/2013 9:22 AM EDT) athologist Signature TSH 1.43 0.27 - 4.20 CERNER mcIU/mL MILLENNIUM Specimen Anatomical Collection Method Collection Time Receive d Time (Source) Location / / Volume Laterality Blood specimen 09/13/2013 9:22 AM 014 9:36 (specimen) EDT AM EDT Resulting Agency Comment Spec In Lab Debbie Jacobo MD CHEMISTRY ORDERABLES Performing Organization Address City/State/[place] [address] CERNER MILLENNIUM Creatinine (09/13/2013 9:22 AM EDT) athologist Signature Creatinine 1.07 0.80 - 1.50 CERNER mg/dL MILLENNIUM Comment: Please note that the pediatric reference intervals supplied above were not validated at [facility]. Results from pediatri c patients should be interpreted in conjunction to the patient's age, height and muscle mass. Estimated GFR >60 >=60 CERNER MILLENNIU M Comment: This estimated GFR (eGFR) value was [...] the following links into your internet browser. http://www.nkdep.nih.gov/lab-evaluation. shtml http://www.kidney.org/professionals/ Specimen Anatomical Collection Method Collection Time Receive d Time (Source) Location / / Volume Laterality Blood specimen 09/13/2013 9:22 AM 014 9:36 (specimen) EDT AM EDT Resulting Agency Comment Spec In Lab Debbie Jacobo MD CHEMISTRY ORDERABLES Performing Organization Address City/State/[place] [address] [facility] (ABNORMAL[facility] Hemoglobin A1c (09/13/2013 9:22 AM EDT) [facility] gist Method Time Signature Hemoglobin A1C 10.6 (H) <=5.6 % [facility] Comment: As of 2013 the methodology for Hem oglobin A1c testing has changed. This change is accompanied by a new interpret marty statement and flags. Please review the new interpretive statement and conta ct Dr. Garcias or Dr. Ruelas with questions. Reference Range: 4.3 ? 5.6% 5.7 ? 6.4% - Increased Risk of Developing Diabetes Mellitus 6.5% - Consistent with diagnosis of Diab etes Mellitus In the absence of hyperglycemia (i.e. pl asma glucose > 200 mg/dL) or classic symptoms of hyperglycemia a repeat measu rement of HbA1c should be performed on a separate sample to confirm the diagnos is. Diagnosis and Classification of Diabetes Mellitus, Diabetes Care 2013; 36: Suppl. 1, Z57-41 Est Avg Gluc 258 mg/dL [facility] Comment: eAG equivalents for HbA1c percentages: HbA1c(%) ?eAG(mg/dL) 6.0 ?126 6.5 ?140 7.0 ?154 7.5 ?169 8.0 ?183 8.5 ?197 9.0 ?212 9.5 ?226 10.0 ? 240 Limitations: The eAG calculation has not been validated on women, individuals below 18 years old and above 70 years old, and individuals with hemoglobinopathies. Additional resources are available on [facility] ADA website: ??http://professional.diabetes.org/gluc osecalculator.aspx Orestes MIXON, Gómez Panda, Philip R, et al. ??Tr anslating the A1C assay into estimated average glucose values. ??Diabetes Care 2008:31(8):5377-0029. Specimen Anatomical Collection Method Collection Time Receive d Time (Source) Location / / Volume Laterality Blood specimen 09/13/2013 9:22 AM 014 9:36 (specimen) EDT AM EDT Resulting Agency Comment Spec In Lab Debbie Jacobo MD CHEMISTRY ORDERABLES Performing Organization Address City/State/[place] [address] [facility] LDL Cholesterol, Direct (11/15/2012 10:00 AM EDT) athologist Signature LDL Chol 61 <=99 mg/dL [facility] Comment: The National Cholesterol Education Progr am (NCEP) has set the following guidelines for LDL Cholesterol: Reference range: ?? Optimal: ?<100 mg/dL ?? Near Optimal/Above Optimal: ?? 100-1 29 mg/dL ?? Borderline high: ?130-159 mg/dL ?? High: ? 160-189 mg/dL ?? Very high: ?>uf=151 mg/dL MADY 2001: [id number] Specimen Anatomical Collection Method Collection Time Receive d Time (Source) Location / / Volume Laterality Blood specimen 11/15/2012 10:00 3 (specimen) AM EDT 10:15 AM EDT Resulting Agency Comment Spec In Lab Debbie Jacobo MD CHEMISTRY ORDERABLES Performing Organization Address City/State/[place] [address] CERNER MILLENNIUM (ABNORMAL) Hemoglobin A1c (11/15/2012 10:00 AM EDT) Analysis Performed At Patho logist Time Signature Hemoglobin A1C 9.1 (H) 4.3 - 6.1 CERNER % [facility] Comment: The [place] Diabetes Association (ADA) has stated that HbA1c values >or= 6.5% are consistent with the diagnosis of facundo betes mellitus. In the absence of hyperglycemia (i.e. plasma glucose > 200 mg/dL) or classic symptoms of hyperglycemia a repeat measurement of Hb A1c should be performed on a separate sample to confirm the diagnosis. The ADA also considers an HbA1c value be tween 5.7% and 6.4% to be consistent with an increased risk of diabetes (pred iabetes). Patients with an HbA1c value in this range should be counseled about their increased risk of progressing to diabetes. Reference: Position Statement: Standards of Medical Care in Diabetes 2013. Diabetes Care 2013:36;suppl 1:S11 -S66. Est Avg Gluc 214 mg/dL CERNER MILLENNIUM Comment: eAG equivalents for HbA1c percentages: HbA1c(%) ?eAG(mg/dL) 6.0 ?126 6.5 ?140 7.0 ?154 7.5 ?169 8.0 ?183 8.5 ?197 9.0 ?212 9.5 ?226 10.0 ? 240 Limitations: The eAG calculation has not been validated on women, individuals below 18 years old and above 70 years old, and individuals with hemoglobinopathies. Additional resources are available on [facility] ADA website: ??http://professional.diabetes.org/gluc osecalculator.aspx Orestes MIXON, Gómez J, Philip R, et al. ??Tr anslating the A1C assay into estimated average glucose values. ??Diabetes Care 2008:31(8):3018-6239. Specimen Anatomical Collection Method Collection Time Receive d Time (Source) Location / / Volume Laterality Blood specimen 11/15/2012 10:00 3 (specimen) AM EDT 10:15 AM EDT Resulting Agency Comment Spec In Lab Debbie Jacobo MD CHEMISTRY ORDERABLES Performing Organization Address City/State/[place] [address] [address] [facility] documented in this encounter Visit Diagnoses Diagnosis DM type 1 (diabetes mellitus, type 1) - Primary Type I (juvenile type) diabetes mellitus without mention of complication, not stated as uncontrolled documented in this encounter Care Teams Shearing Supervisor Relationship Specialty Start Date End Date Allan Mims MD PCP - General 04/28/11 02/25/[address] [place] [address] documented as of this encounter
--- OUTSIDE RECORDS SUMMARY | 2022-01-15 01:17 | XMS_ITS | Encounter Summary ---
:1975 Author Organization [facility] [place] [address] Care Team Providers Name Role Phone Allan Mims MD Primary Care Provider Encounter Details Date Type Department Care Team Description 10/11/2012 Orders Only Endocrinology at [facility] C Debbie Jacobo, [facility] [place] [address] [facility] [phone] ENDOCR[address]OLOGY [address] PT. [place], [place] [address] (Wo rk) Social History Tobacco Use Types Packs/Day Years Used Date Former Smoker Quit: 04/28/20 01 Sex Assigned at Date Recorded Not on file documented as of this encounter Plan of Treatment Not on filedocumented as of this encounter Visit Diagnoses Not on filedocumented in this encounter Care Teams Automated Cutting Machine Operator Relationship Specialty Start Date End Date Allan Mims MD PCP - General 04/28/11 02/25/[address] [place] [address] documented as of this encounter
--- OUTSIDE RECORDS SUMMARY | 2022-01-15 01:17 | XMS_ITS | Encounter Summary ---
:1975 Author Organization [facility] [place] [address] Care Team Providers Name Role Phone Allan Mims MD Primary Care Provider Reason for Visit Reason Comments Diabetes Encounter Details Date Type Department Care Team Description 04/28/2011 Office Visit Endocrinology at [facility] Debbie Garcia DM type 1 (diabetes [facility] MD Lupis mellitus, type 1) [facility] (Primary Dx) [place] [address] ENDOCRIN[address]PT[address] [place] [id number] Social History Tobacco Use Types Packs/Day Years Used Date Former Smoker Quit: 04/28/20 Sex Assigned at Date Recorded Not on file documented as of this encounter Last Filed Vital Signs Vital Sign Reading Time Taken Comments Blood Pressure 121/77 04/28/2011 10:01 AM EST Pulse 96 04/28/2011 10:01 AM EST Temperature - - Respiratory Rate - - Oxygen Saturation - - Inhaled Oxygen Concentration - - Weight 81 kg (178 lb 9.6 oz) 04/28/2011 10:01 AM EST Height 182.9 cm (6') 04/28/2011 10:01 AM EST Body Mass Index 24.22 04/28/2011 10:01 AM EST documented in this encounter Patient Instructions Patient InstructionsDebbie Jacobo MD - 04/28/2011 10:45 AM EST Target ranges for blood sugars: before meals 90-130, 2 hours after meals <180, Lantus 55 units If am sugars above 130 for 1 week. increase 5 units, if am low decrease Lantus 5 units Humalog 12-18 with meals, learn carb counting For high blood sugars 150-200 1 unit 201-250 2 units 251-300 3 units 301-350 4 units 351-400 5 units > 400 5 units Check ketones if blood sugar> 250, if moderate or high take and extra 3-5 units Humalog Learn carb counting at [facility] documented in this encounter Progress Notes Debbie Jacobo MD - 04/28/2011 12:38 PM EST OFFICE NOTE DATE OF DICTATION: 04/28/2011 PRIMARY CARE PROVIDER: Allan Mims M.D. and Rodolfo Harris Mr. Leon is a 36-year-old man seen at the request of Dr. Mims for evaluation of diabetes. He was diagnosed 7 years ago when he was found to have high blood sugar on health exam. He was treated with oral agents for two years and then switched to insulin. He was initially told he had type 2 diabetes but more recently told he had type 1 diabetes and he is not sure. Of note, he was admitted to [facility] on April 20 with nausea and vomiting and severe diabetic ketoacidosis. Preceding this admission, the patient admits he was not compliant with his insulin regimen, he took only Lantus insulin (no Novolog) for a month before that and was not checking his blood sugars at all. He awakened that morning with nausea and vomiting and queasiness and several days before had had an injury to his hand from a table saw, had multiple sutures and an infection, had been started on an antibiotic a day or two ahead of time. He had nausea and vomiting the whole day, finally around 5 p.m. went to his local emergency room, was found to be ketotic with a bicarb of 6, and an elevated white count of 22,000. He was treated with IV insulin and IV hydration, IV antibiotics and despite Insulin at 10 units an hour and the 5 L of fluid, was still acidotic with a bicarb of 5 and was transferred to [facility]. His ketoacidosis resolved with fluids and insulin drip, and he was discharged home on Lantus and Humalog and he is here now to establish care for his diabetes. During his hospital stay, other than the lesions on his hand and noncompliance with insulin regimen, no other inciting factor for his DKA were noted. Urine tests, chest x-ray, abdominal CT scan, troponins, and EKG were all unremarkable. Prior to that admission, the patient was taking Lantus 50 or 55 units a day and never took Humalog insulin, was not checking his blood sugars, had significant polyuria, polydipsia. Since being discharged, he is taking Lantus 50 units, but Increased it to 55 units and Humalog started with 6 or 7 units, bumped it as high as 20 units, was having low blood sugars with that. It is back down to 15 units with meals, so he is on Lantus 55 units, Humalog 15 units with meals. Fasting sugars are running 90 to 160. Noon 100 to 125. Supper 65 to 100 and bedtime 90 to 130. The polyuria and polydipsia have subsided and his vision is pretty much back to normal. EXERCISE: He tries to stay active around the house. He has been laid off. 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 His current diet, for breakfast, usually two toasts and egg and some bananas. For lunch, usually a sandwich, cottage cheese, and some pickles and for supper, last night he had hot dogs, Hungarian fries, cottage cheese, and [place] sprouts. He does not snack. COMPLICATIONS: He only has six teeth on his bottom jaw and none on the upper. He is due to see his dentist. Had his eyes examined in 02/2010. No retinopathy. Microalbumin 62, creatinine 1.1 in 09/2010. No neuropathic symptoms. No symptomatic coronary disease and lipids in 09/2010, total cholesterol 170, LDL 158, HDL 38, triglycerides 146. DIABETIC HEALTH MAINTENANCE: Beta-Jamila: No. Aspirin 81 mg. [place]IN Inhibitor and Statin: No. Flu Shot: 2010. Pneumovax: 2005. He is a nonsmoker. I do not have a recent TSH. Clinically, he is feeling much better since he is home from the hospital. He understands the importance of taking his insulin regimen regularly and he is ready to get serious about controlling the diabetes. PAST MEDICAL HISTORY: Type 1 diabetes with recent episode of DKA and hyperlipidemia. PAST SURGICAL HISTORY: Sinus surgery in the spring and nephrolithiasis with severe surgeries a couple of years ago. Current outpatient prescriptions ordered prior to encounter Medication Sig Dispense Refill ??? insulin glargine (LANTUS) 100 unit/mL injection 15 unit(s), SQ, QHS Allergies Allergen Reactions ??? Ciprofloxacin (Mixture) Black out, faint SOCIAL HISTORY: He is twice, most recently for two and a half years. He has two children by his previous marriage, a 15-year-old daughter and a 9-year-old son. He has a stepson, his current 's son is 9 years old and his is currently expecting in 09/2011. 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 Quit smoking 10 years ago. Alcohol, two or three drinks a month. FAMILY HISTORY: His father is 63, developed diabetes in his 30s and has always been on insulin sounds like type 1. Mother has rheumatoid arthritis. Brother is alive and well. Complete review of systems is really negative. On physical exam, blood pressure 121/77, pulse 96, weight 178 pounds, height 6 feet. In general, he is a well-developed man in no acute distress. HEENT: Extraocular movements intact. Fundi showed sharp discs. No hemorrhages or exudates were noted. His pharynx was clear. His neck was supple. Lungs are clear to auscultation and percussion. Spine: No point tenderness. Cardiac Exam: Regular rhythm. Normal S1 and S2. No murmur, rub, or gallops were appreciated. Abdomen: Bowel sounds present, soft, nontender. No organomegaly or masses. Skin: He had several long lacerations on his second, third, and fourth finger on his left hand. There were no ulcerations on his feet. No lipohypertrophy at insulin injection sites. Peripheral pulses were 2+ and symmetrical. On neurologic exam, cranial nerves III through XII intact. Motor strength and tone are normal. Deep tendon reflexes were 2+ and symmetrical. He had excellent light touch sensation to the monofilament. Psych: Mood and affect were appropriate. IMPRESSION: 1. Dragan Leon is a 36-year-old man with about a seven-year history of diabetes, I suspect it is type 1 diabetes with the severe episode of diabetic ketoacidosis which I think was precipitated by noncompliance with insulin regimen and perhaps infection in his hand lacerations. He has recovered now and on his current insulin regimen, blood sugars actually are fairly well controlled. We talked about having him learn carbohydrate counting and he will make an appointment with the clinical nurse educator at [facility]. In the meantime, he will continue Lantus 55 units and Humalog 12 to 18 units with meals, a sort of small medium large carbohydrate 12, 15, 18 units and I gave him a correction factor of 50 for blood sugars over 150. We will teach his how to do a glucagon injection in case he needs it. We reviewed treatment of hypoglycemia, good foot care, regular eye exams, etc. We will see him in followup in about three months. 2. Hyperlipidemia and mild increase in his lipids, we will check it again at his next visit. 3. Microalbuminuria- will check at next visit, it may improve with improved control of blood sugars. PLAN: 1. Adjust insulin as noted above. Encouraged diabetes education appointment and learning carbohydrate counting. 2. Followup in three months with hemoglobin A1c, lipids, microalbumin, and TSH in the quick draw lab. documented in this encounter Plan of Treatment Not on filedocumented as of this encounter Results Microalbumin, urine, random (08/05/2011 9:32 AM EST) P athologist Signature U Creatinine 55 mg/dL CERNER MILLENNIUM U Albumin Conc, <3.0 mg/L CERNER Random MILLENNIUM Alb/Cr Ratio, <5 mcg/mg Cr CERNER Random MILLENNIUM Comment: Reference Range* Random collection (mcg/mg creatinine) Normal ?<30 Microalbuminuria ?? 30 - 300 Clinical Albuminuria ?? >300 *Canadian Diabetes Association. Diabetic Nephropathy. Diabetes Care 1997;(Suppl 1):S24-S27 Exercise within 24 hour, infection, fe juan, CHF, marked hyperglycemia, and marked hypertension may elevate urinary albumin excretion over baseline values. Specimen Anatomical Collection Method Collection Time Receive d Time (Source) Location / / Volume Laterality Urine specimen 08/05/2011 9:32 AM 012 9:38 (specimen) EST AM EST Debbie Jacobo MD URINE ORDERABLES Performing Organization Address City/[facility]/[place] [address] [facility] GAD65 Antibody Assay (08/05/2011 9:29 AM EST) athologist Signature GAD65 Ab 0.07 (H) <=0.02 CERNER nmol/L [facility] Comment: Suggests predisposition to type-1 diabet es and related autoimmune thyrogastric disorders. Test Performed by: [facility] Dpt of Lab Med and Pathology [address] [place] [address] Farm Marketer: Venkat deleon III, M.D. Specimen Anatomical Collection Method Collection Time Receive d Time (Source) Location / / Volume Laterality Blood specimen 08/05/2011 9:29 AM 012 (specimen) EST 11:06 AM EST Resulting Agency Comment Spec In Lab Debbie Jacobo MD CHEMISTRY ORDERABLES Performing Organization Address City/[facility]/ZIP Code Phon e Number [place] [phone] [facility] [address] [facility] HDL/Cholesterol Profile (08/05/2011 9:29 AM EST) athologist Signature Chol, Total 184 <=199 mg/dL [facility] Comment: Recommendations of the NCEP Adult Treatm ent Panel for the following risk cutoff thresholds for the [place] populatio n: Desirable: <200 mg/dL Borderline High: 200-239 mg/dL High: > or = 240 mg/dL HDL 56 >=40 mg/dL [facility] Comment: Reference range: ??Low HDL: ?? < 40 mg/dL ??Normal: ?40-60 mg/dL ??Desirable: > 60 mg/dL MADY 2001; 285(19):1559-1792 Chol/HDL Ratio 3.3 ratio [facility] Comment: A Cholesterol to HDL ratio below 4:1 is desirable. ??Studies suggest that increased CAD risk occurs at ratios abov e 5 for females and above 6 for men. ? Canadian Heart Association ??(htt p://www.americanheart.org) ? Katelyn Int Med, 1994; 121:641 ? AM J Med, 1998; 105(1A):48S Specimen Anatomical Collection Method Collection Time Receive d Time (Source) Location / / Volume Laterality Blood specimen 08/05/2011 9:29 AM 012 9:38 (specimen) EST AM EST Debbie Jacobo MD CHEMISTRY ORDERABLES Performing Organization Address City/[facility]/ZIP Code Phon e Number [address] [facility] (ABNORMAL) LDL Cholesterol, Direct (08/05/2011 9:29 AM EST) athologist Signature LDL Chol 125 (H) <=99 mg/dL [facility] Comment: The National Cholesterol Education Progr am (NCEP) has set the following guidelines for LDL Cholesterol: Reference range: ?? Optimal: ?<100 mg/dL ?? Near Optimal/Above Optimal: ?? 100-1 29 mg/dL ?? Borderline high: ?130-159 mg/dL ?? High: ? 160-189 mg/dL ?? Very high: ?>bc=321 mg/dL MADY 2001: 285(19):9925-0065 Specimen Anatomical Collection Method Collection Time Receive d Time (Source) Location / / Volume Laterality Blood specimen 08/05/2011 9:29 AM 012 9:38 (specimen) EST AM EST Debbie Jacobo MD CHEMISTRY ORDERABLES Performing Organization Address [facility]/ZIP Code Phon e Number [address] [facility] (ABNORMAL) Hemoglobin A1c (08/05/2011 9:29 AM EST) Analysis Performed At Patho logist Time Signature Hemoglobin A1C 8.2 (H) 4.3 - 6.1 CERNER % MILLENNIUM Est Avg Gluc 189 mg/dL [facility] Comment: eAG equivalents for HbA1c percentages: HbA1c(%) ?eAG(mg/dL) 6.0 ?126 6.5 ?140 7.0 ?154 7.5 ?169 8.0 ?183 8.5 ?197 9.0 ?212 9.5 ?226 10.0 ? 240 Limitations: The eAG calculation has not been validated on women, individuals below 18 years old and above 70 years old, and individuals with hemoglobinopathies. Additional resources are available on [facility] ADA website: ??http://professional.diabetes.org/gluc osecalculator.aspx Reference: Orestes MIXON, Gómez J, Philip R, et al. ??Tr anslating the A1C assay into estimated average glucose values. ??Diabetes Care 2008:31(8):1814-7755. Specimen Anatomical Collection Method Collection Time Receive d Time (Source) Location / / Volume Laterality Blood specimen 08/05/2011 9:29 AM 012 9:38 (specimen) EST AM EST Debbie Jacobo MD CHEMISTRY ORDERABLES Performing Organization Address City/State/ZIP [place] [address] [facility] documented in this encounter Visit Diagnoses Diagnosis DM type 1 (diabetes mellitus, type 1) - Primary Type I (juvenile type) diabetes mellitus without mention of complication, not stated as uncontrolled documented in this encounter Care Teams Storage Management Architect Relationship Specialty Start Date End Date Allan Mims MD PCP - General 04/28/11 02/25/[address] [place] [address] documented as of this encounter
--- OUTSIDE RECORDS SUMMARY | 2022-01-15 01:17 | XMS_ITS | Encounter Summary ---
:1975 Author Organization [facility] [place] [address] Care Team Providers Name Role Phone Allan Mims MD Primary Care Provider Reason for Visit Reason Onset Date Comments Medication Refill 01/25/2013 Encounter Details Date Type Department Care Team Description 01/25/2013 Refill Endocrinology at [facility] Debbie Garcia MD [facility] [place] [address] ENDOCR[address]Y [address]PT. [phone] [place], [place] [address] (Wo rk) Social History Tobacco Use Types Packs/Day Years Used Date Former Smoker Quit: 04/28/20 01 Sex Assigned at Date Recorded Not on file documented as of this encounter Plan of Treatment Not on filedocumented as of this encounter Visit Diagnoses Not on filedocumented in this encounter Care Teams First Helper Relationship Specialty Start Date End Date Allan Mims MD PCP - General 04/28/11 02/25/[address] [place] [address] documented as of this encounter
--- OUTSIDE RECORDS SUMMARY | 2022-01-15 01:17 | XMS_ITS | Encounter Summary ---
:1975 Author Organization [facility] [place] [address] Care Team Providers Name Role Phone Allan Mims MD Primary Care Provider Reason for Visit Reason Comments Follow-up Encounter Details Date Type Department Care Team Description 08/05/2011 Office Visit Endocrinology at [facility] Debbie Garcia DM type 1 (diabetes [facility] MD Lupis mellitus, type 1) [facility] (Primary Dx) [place] [address] [address]PT[address] [place] [id number] Social History Tobacco Use Types Packs/Day Years Used Date Former Smoker Quit: 04/28/20 01 Sex Assigned at Date Recorded Not on file documented as of this encounter Last Filed Vital Signs Vital Sign Reading Time Taken Comments Blood Pressure 135/82 08/05/2011 10:18 AM EST Pulse 88 08/05/2011 10:18 AM EST Temperature - - Respiratory Rate 20 08/05/2011 10:18 AM EST Oxygen Saturation - - Inhaled Oxygen - - Concentration Weight 96.8 kg (213 lb 6 08/05/2011 10:18 with clothes and oz) AM EST shoes on. Height 182.9 cm (6') 08/05/2011 10:18 AM EST Body Mass Index 28.94 08/05/2011 10:18 AM EST documented in this encounter Patient Instructions Patient InstructionsDebbie Jacobo MD - 08/05/2011 10:47 AM EST Recent Results (from the past 24 hour(s)) HDL/CHOL PROFILE Component Value Range ? ? Chol, Total 184 <=199 (mg/dL) ? ? HDL 56 >=40 (mg/dL) ??? Chol/HDL Ratio 3.3 (ratio) HEMOGLOBIN A1C Component Value Range ??? Hemoglobin A1C 8.2 (*) 4.3 - 6.1 (%) ??? Est Avg Gluc 189 (mg/dL) LDL CHOLESTEROL, DIRECT Component Value Range ? ? LDL Chol Direct 125 (*) <=99 (mg/dL) MICROALBUMIN, URINE, RANDOM Component Value Range ??? U Creatinine 55 (mg/dL) I'll let you know the results of the lab tests Lantus 60 units, increase 5 units every week if am sugar>130 Humalog 15-25 units with meals Correction factor 25 (BS-125)/25 150-175 1 unit 176-200 2 201-226 3 226-250 4 251-275 5 Target ranges for blood sugars: before meals <130, 2 hours after meals <180, documented in this encounter Progress Notes Debbie Jacobo MD - 08/05/2011 11:13 AM EST OFFICE NOTE DATE OF DICTATION: 08/05/2011 PRIMARY CARE PROVIDER: Allan Mims M.D. Dragan is here for followup of his type 1 diabetes which was diagnosed at 02/14/2005. Initially was felt to be type 2 diabetes. Treated with oral agents for two years, then went on insulin, but had a severe bout of DKA in 04/2011. His anti-GABRIELLE antibody is pending from today and hemoglobin A1c today 8.2%. His current regimen is Lantus 55 units, Humalog 15 to 20 units with meals, and he does not have a set correction factor, says if he is over 300, he will usually take 8 to 10 units. Checking his blood sugars, fastings are running 160 to 205, lunch time 100 to 140, supper 110 to 270, rare hypoglycemia. EXERCISE: He is active around his house. He lost his job. Diet is unchanged. For breakfast, eggs, toast, and pringle. For lunch, usually a sandwich and cottage cheese. For supper, usually has a meat, a vegetable, and a starch. He is trying to keep the starch portions limited. COMPLICATIONS: He has not seen his dentist. Only has six teeth on the bottom. Had his eyes examined in 02/2010. We will arrange an upcoming visit. Microalbumin is pending today. Creatinine 1.1 in 09/2010. No neuropathic symptoms. No symptomatic cardiac disease. Lipids 07/2011; total cholesterol 184, HDL 56, LDL 125. He is off his atorvastatin. DIABETIC HEALTH MAINTENANCE: Beta-Jamila, [place] Inhibitor, Statin: No. Aspirin: 81 mg. Flu Shot: 2010. Pneumovax: 2005. He is a nonsmoker. I do not have a recent TSH. Clinically, he is feeling well. Was a little concerned that sugars are still little higher than he wants them to be. 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 PAST MEDICAL HISTORY: Type 1 diabetes with an episode of DKA. Current outpatient prescriptions ordered prior to encounter Medication Sig Dispense Refill ??? aspirin 81 mg EC tablet Take 81 mg by mouth daily. ??? glucagon, human recombinant, (GLUCAGON EMERGENCY) 1 mg injection Inject subcutaneously. Use for low blood sugar as directed 1 mL prn ??? Insulin Safety [place], Disp, 29 x 3/16 Ndle 1 Device by [facility].(Non-Drug; Combo Route) route 4 times daily. 200 Device 12 ??? Blood Sugar Diagnostic (ONE TOUCH ULTRA TEST) test strip 1 each by Other route 6 times daily. Use as instructed 4-6 times daily 200 each 12 Allergies Allergen Reactions ??? Ciprofloxacin (Mixture) Black out, faint On physical exam, blood pressure 135/82, pulse 88, respiratory rate 20, weight 213 pounds, and height 6 feet. In general, he is a well-developed man in no acute distress. His skin is smooth and warm and dry. No ulcerations. Extremities: No edema. Cardiovascular: 2+ pulses. On neurologic exam, excellent light touch sensation to the monofilament. Psychiatric: Mood and affect are appropriate. LABORATORY TESTS: Hemoglobin A1c 8.2%. Lipids as noted above. Microalbumin and anti-GABRIELLE antibody are pending. IMPRESSION: 1. Probable type 1 diabetes. Blood sugar control has improved, but still suboptimal. We are going to increase Lantus to 60 units and then increase by 5 units every week until mornings are below 130. Use Humalog 15 to 25 units. He is not interested in learning carb counting just yet and he will use a correction factor of 25 for blood sugars over 150. We reviewed target blood sugars. He knows how to make appropriate insulin adjustments. PLAN: 1. Adjust insulin as noted above. 2. Follow up in three months with hemoglobin A1c in the quick draw lab. Recent Results (from the past 72 hour(s)) HDL/CHOL PROFILE Component Value Range ? ? Chol, Total 184 <=199 (mg/dL) ? ? HDL 56 >=40 (mg/dL) ??? Chol/HDL Ratio 3.3 (ratio) HEMOGLOBIN A1C Component Value Range ??? Hemoglobin A1C 8.2 (*) 4.3 - 6.1 (%) ??? Est Avg Gluc 189 (mg/dL) LDL CHOLESTEROL, DIRECT Component Value Range ? ? LDL Chol Direct 125 (*) <=99 (mg/dL) MICROALBUMIN, URINE, RANDOM Component Value Range ??? U Creatinine 55 (mg/dL) ? ? U Ran Malb Conc <3.0 (mg/L) ? ? U Ran Malb Calc <5 (mcg/mg Cr) documented in this encounter Plan of Treatment Not on filedocumented as of this encounter Procedures Procedure Name Priority Date/Time Associated Comments Diagnosis U ALBUMIN/CRE RATIO NO 08/05/2011 9:32 AM DM type 1 (diab etes Results for this EST mellitus, type 1) procedure are in the results section. GAD65 ANTIBODY ASSAY Routine 08/05/2011 9:29 AM DM type 1 (facundo betes Results for this EST mellitus, type 1) procedure are in the results section. LDL CHOLESTEROL, NO 08/05/2011 9:29 AM DM type 1 (diabete s Results for this DIRECT EST mellitus, type 1) procedure are in the results section. HDL/CHOL PROFILE NO 08/05/2011 9:29 AM DM type 1 (diabete s Results for this EST mellitus, type 1) procedure are in the results section. HEMOGLOBIN A1C NO 08/05/2011 9:29 AM DM type 1 (diabetes Results for this EST mellitus, type 1) procedure are in the results section. documented in this encounter Results (ABNORMAL) Hemoglobin A1c (11/04/2011 9:35 AM EDT) Analysis Performed At [facility] Time Signature Hemoglobin A1C 8.8 (H) 4.3 - 6.1 C[facility]ER [facility] Est Avg Gluc 206 mg/dL [facility] Comment: eAG equivalents for HbA1c percentages: HbA1c(%) ?eAG(mg/dL) 6.0 ?126 6.5 ?140 7.0 ?154 7.5 ?169 8.0 ?183 8.5 ?197 9.0 ?212 9.5 ?226 10.0 ? 240 Limitations: The eAG calculation has not been validated on women, individuals below 18 years old and above 70 years old, and individuals with hemoglobinopathies. Additional resources are available on [facility] ADA website: ??http://professional.diabetes.org/gluc osecalculator.aspx Reference: Orestes MIXON, Gómez J, Philip R, et al. ??Tr anslating the A1C assay into estimated average glucose values. ??Diabetes Care 2008:31(8):7122-2913. Specimen Anatomical Collection Method Collection Time Receive d Time (Source) Location / / Volume Laterality Blood specimen 11/04/2011 9:35 AM 012 9:40 (specimen) EDT AM EDT Resulting Agency Comment Spec In Lab Debbie Jacobo MD CHEMISTRY ORDERABLES Performing Organization Address City/State/Z[place] [address] CERNER [facility]ILL[facility]UM Microalbumin, urine, random (08/05/2011 9:32 AM EST) P athologist Signature U Creatinine 55 mg/dL [facility] U Albumin Conc, <3.0 mg/L [facility] Random MILLEN[facility]UM Alb/Cr Ratio, <5 mcg/mg Cr CERNER Random MILLENNIUM Comment: Reference Range* Random collection (mcg/mg creatinine) Normal ?<30 Microalbuminuria ?? 30 - 300 Clinical Albuminuria ?? >300 *[place] Diabetes Association. Diabetic Nephropathy. Diabetes Care 1997;(Suppl 1):S24-S27 Exercise within 24 hour, infection, fe juan, CHF, marked hyperglycemia, and marked hypertension may elevate urinary albumin excretion over baseline values. Specimen Anatomical Collection Method Collection Time Receive d Time (Source) Location / / Volume Laterality Urine specimen 08/05/2011 9:32 AM 012 9:38 (specimen) EST AM EST Debbie Jacobo MD URINE ORDERABLES Performing Organization Address City/State/[place] [address] [facility] [address] [facility] (ABNORMAL) LDL Cholesterol, Direct (08/05/2011 9:29 AM EST) athologist Signature LDL Chol 125 (H) <=99 mg/dL [facility] Direct [facility] Comment: The National Cholesterol Education Progr am (NCEP) has set the following guidelines for LDL Cholesterol: Reference range: ?? Optimal: ?<100 mg/dL ?? Near Optimal/Above Optimal: ?? 100-1 29 mg/dL ?? Borderline high: ?130-159 mg/dL ?? High: ? 160-189 mg/dL ?? Very high: ?>ky=818 mg/dL MADY 2001: 285(88):8034-7788 Specimen Anatomical Collection Method Collection Time Receive d Time (Source) Location / / Volume Laterality Blood specimen 08/05/2011 9:29 AM 012 9:38 (specimen) EST AM EST Debbie Jacobo MD CHEMISTRY ORDERABLES Performing Organization Address City/State/ZIP Code [place]on [place] [address] CERNER MILLENNIUM (ABNORMAL) Hemoglobin A1c (08/05/2011 9:29 AM EST) Analysis Performed At [facility] Time Signature Hemoglobin A1C 8.2 (H) 4.3 - 6.1 CERNER % MILLENNIUM Est Avg Gluc 189 mg/dL CERNER MILLENNIUM Comment: eAG equivalents for HbA1c percentages: HbA1c(%) ?eAG(mg/dL) 6.0 ?126 6.5 ?140 7.0 ?154 7.5 ?169 8.0 ?183 8.5 ?197 9.0 ?212 9.5 ?226 10.0 ? 240 Limitations: The eAG calculation has not been validated on women, individuals below 18 years old and above 70 years old, and individuals with hemoglobinopathies. Additional resources are available on e ADA website: ??http://professional.diabetes.org/gluc osecalculator.aspx Reference: Orestes MIXON, Gómez J, Philip R, et al. ??Tr anslating the A1C assay into estimated average glucose values. ??Diabetes Care 2008:31(8):0792-8050. Specimen Anatomical Collection Method Collection Time Receive d Time (Source) Location / / Volume Laterality Blood specimen 08/05/2011 9:29 AM 012 9:38 (specimen) EST AM EST Debbie Jacobo MD CHEMISTRY ORDERABLES Performing Organization Address City/[facility]/ZIP Code Phon e Number [place] [phone] CERNER MILLENNIUM (ABNORMAL) GAD65 Antibody Assay (08/05/2011 9:29 AM EST) athologist Signature GAD65 Ab 0.07 (H) <=0.02 CERNER nmol/L MILLENNIUM Comment: Suggests predisposition to type-1 diabet es and related autoimmune thyrogastric disorders. Test Performed by: [facility] Dpt of Lab Med and Pathology [address] [place] [address] Cco & President: Venkat deleon III, M.D. Specimen Anatomical Collection Method Collection Time Receive d Time (Source) Location / / Volume Laterality Blood specimen 08/05/2011 9:29 AM 012 (specimen) EST 11:06 AM EST Resulting Agency Comment Spec In Lab Debbie Jacobo MD CHEMISTRY ORDERABLES Performing Organization Address City/[facility]/[place] [address] CERNER MILLENNIUM HDL/Cholesterol Profile (08/05/2011 9:29 AM EST) athologist Signature Chol, Total 184 <=199 mg/dL CERNER MILLENNIUM Comment: Recommendations of the NCEP Adult Treatm ent Panel for the following risk cutoff thresholds for the [place] populatio n: Desirable: <200 mg/dL Borderline High: 200-239 mg/dL High: > or = 240 mg/dL HDL 56 >=40 mg/dL CERNER MILLENNIUM Comment: Reference range: ??Low HDL: ?? < 40 mg/dL ??Normal: ?40-60 mg/dL ??Desirable: > 60 mg/dL MADY 2001; 285(19):6990-5335 Chol/HDL Ratio 3.3 ratio CERNER MILLENNI UM Comment: A Cholesterol to HDL ratio below 4:1 is desirable. ??Studies suggest that increased CAD risk occurs at ratios abov e 5 for females and above 6 for men. ? [place] Heart Association ??(htt p://www.americanheart.org) ? Katelyn Int Med, 1994; 121:641 ? AM J Med, 1998; 105(1A):48S Specimen Anatomical Collection Method Collection Time Receive d Time (Source) Location / / Volume Laterality Blood specimen 08/05/2011 9:29 AM 012 9:38 (specimen) EST AM EST Debbie Jacobo MD CHEMISTRY ORDERABLES Performing Organization Address City/State/Z[place] [address] [facility] documented in this encounter Visit Diagnoses Diagnosis DM type 1 (diabetes mellitus, type 1) - Primary Type I (juvenile type) diabetes mellitus without mention of complication, not stated as uncontrolled documented in this encounter Care Teams Nuclear Technician Relationship Specialty Start Date End Date Allan Mims MD PCP - General 04/28/11 02/25/[address] [place] [address] documented as of this encounter
--- OUTSIDE RECORDS SUMMARY | 2022-01-15 01:17 | XMS_ITS | Encounter Summary ---
:1975 Author Organization [place] [place] [address] Care Team Providers Name Role Phone Allan Mims MD Primary Care Provider Encounter Details Date Type Department Care Team Description 08/09/2012 Office Visit Endocrinology at [facility] Lupis Jacobo, DM type 1 (diabetes mellitus , type 1) (Primary Dx); [facility] Windy Mayorga DM w/o complication type I, uncontrolled ; [place] [address] [facility]ENTER [phone] END[address] [place] [id number] Social History Tobacco Use Types Packs/Day Years Used Date Former Smoker Quit: 04/28/20 01 Sex Assigned at Date Recorded Not on file documented as of this encounter Last Filed Vital Signs Vital Sign Reading Time Taken Comments Blood Pressure 143/90 08/09/2012 10:57 AM EST Pulse 104 08/09/2012 10:57 AM EST Temperature - - Respiratory Rate - - Oxygen Saturation - - Inhaled Oxygen Concentration - - Weight 113.1 kg (249 lb 6.4 oz) 08/09/2012 10:57 AM Wit h shoes EST Height - - Body Mass Index 33.82 05/17/2012 10:57 AM EST documented in this encounter Progress Notes Debbie Jacobo MD - 08/07/2012 8:36 PM EST PRIMARY CARE PROVIDER: Allan Mims M.D CC: Here for f/u of type 1 DM Dx: 2005, anti GABRIELLE + 2/12 Last Hga1c 8.5%, 08/02; 9.4%, 05/01; 8.7%, 01/29; 8.8%, 10/29; 8.2%, 08/01 Regimen: lantus 70 bid; novolog 30-35, CF 10 if > 150 - not calculating just guesstimating Monitoring: one touch- 2-3/d COMPLICATIONS: He has not seen his dentist. Only has six teeth on the bottom. Had his eyes examined in 08/02, PPDR- f/u 6 months.Microalbumin <3, 08/01 . Creatinine 0.93 in 01/2012. No neuropathic symptoms. No symptomatic cardiac disease. Lipids 01/2012; total cholesterol 201, HDL 53, LDL 127 on simvastatin 20 mg/d DIABETIC HEALTH MAINTENANCE: Sjcl-Tvtypcc-ot, [place]UST[place] Inhibitor-no, Statin: simvastatin 40 mg will increase to 80. Aspirin:no- too much heartburn. Flu Shot: 2011. Pneumovax: 2005. He is a nonsmoker.TSH 2.01, 01/29... Since his last visit, Mr. Leon has been doing better about taking his insulin pretty regularly. He still sort of estimates his NovoLog somewhere between usually 28 and 34, although if his blood sugars are really low in the morning, he may only take 22 units. He has low blood sugars two or three times a week where blood sugars will be in the 60s or 70s. He usually can explain why as he ate a little less then when he thought he was going to. Checking his blood sugars regularly about three times a day, sometimes he will do an extra one. Fastings 80 to 140, after lunch 120 to 230, before supper 130 to 160. Dragan found with the aspirin he was having a lot of heartburn. He was taking it at the same time as the simvastatin. He stopped the simvastatin, still had heartburn, then stopped the aspirin, heartburn went away, restarted the simvastatin, and the heartburn did not come back. So, he is on the simvastatin but off the aspirin. EXERCISE: He has done some ice fishing and he is going to school, so he is not that active on his job. 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 His diet, for breakfast, two to four pieces of toast with peanut butter. Midmorning, some popcorn four or five days a week, usually does not take extra insulin for that. For lunch, a sandwich or a hot dog or a double quarter pounder. For supper, last night he had some leftover pizza, usually he will have meat or chicken, potato or rice, and a vegetable; and evening snack, more popcorn. He does drink beer once or twice a week. He might have up to a six pack. He always eats when he drinks. Current Outpatient Prescriptions on File Prior to Visit Medication Sig Dispense Refill ??? Insulin Glargine (LANTUS SOLOSTAR) 100 unit/mL (3 mL) InPn Inject 130-150 Units subcutaneously daily. 150 mL 11 ??? Insulin Lispro (HUMALOG KWIKPEN) 100 unit/mL InPn Inject 25-30 Units subcutaneously 3 times daily (before meals). 90 mL 11 ??? Insulin Safety [place], Disp, 29 x 3/16 Ndle 1 Device [place] [facility] [place]Non-Drug; Combo Route) route 4 times daily. 100 Device 12 ??? Insulin [place], Disposable, 31 X 1/4 Ndle 1 each [place] [facility] [place]Non-Drug; Combo Route) route 4 times daily. Dx 250; tests 4 x daily; uses 4 needles daily Novofine autocover .3x8mm; 400 each 4 ??? glucagon, human recombinant, (GLUCAGON EMERGENCY) 1 mg injection Inject subcutaneously. Use for low blood sugar as directed 1 mL prn ??? Blood Sugar Diagnostic (ONE TOUCH ULTRA TEST) test strip 1 each by Other route 6 times daily. Use as instructed 4-6 times daily 200 each 12 Allergies Allergen Reactions ??? Ciprofloxacin (Mixture) Black out, faint SOCIAL HISTORY: He is for five years. Has three of his own children and a 10-year-old stepson, so he has a 16-year-old, 10-year-old, [id number], and a 10-year-old stepson. 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 Nonsmoker. Alcohol, a couple of times a week. PHYSICAL EXAMINATION: Blood pressure 143/90, pulse 104, weight 249. In general, he is a well-developed, overweight man in no acute distress. His skin is smooth, warm, and dry. No ulcerations. He has some calluses on his great toes. Cardiovascular: 2+ pulses. No edema. On neurologic exam, he has excellent light touch sensation to the monofilament. Psych: Mood and affect are appropriate. LABORATORY TESTS: Hemoglobin A1c 8.5%. Lipids: Total cholesterol 197, HDL 36, LDL 126. Microalbumin 41. IMPRESSION: 1. Diabetes. Blood sugar control has improved. Hemoglobin A1c is down 0.9% since his last visit and he attributes it to being more careful about taking his insulin regularly and calculated his carbohydrates better. We are going to have him check some after supper blood sugars as well to see if he might need to adjust his insulin at that time of day. 2. Hyperlipidemia. Lipids are still above target. We will increase simvastatin from 40 mg a day to 80 mg a day and check his lipids at his next visit. 3. Hypertension. Blood pressure is a little above target. If it stays up, we may need to start an AUSTIN inhibitor at his next visit. PLAN: 1. A little more frequent home blood glucose testing to include after supper and after breakfast. 2. Increase simvastatin to 80 mg a day. 3. We will see him in followup in three months with hemoglobin A1c and lipids, LDL cholesterol in the quick draw lab. 4. If blood pressure stays up, we will start an AUST[place] inhibitor. 5. Followup in three months. Recent Results (from the past 72 hour(s)) HEMOGLOBIN A1C Component Value Range Hemoglobin A1C 8.5 (*) 4.3 - 6.1 (%) Est Avg Gluc 197 LDL CHOLESTEROL, DIRECT Component Value Range LDL Chol Direct 136 (*) <=99 (mg/dL) HDL/CHOL PROFILE Component Value Range Chol, Total 197 <=199 (mg/dL) HDL 36 (*) >=40 (mg/dL) Chol/HDL Ratio 5.5 MICROALBUMIN, URINE, RANDOM Component Value Range U Creatinine 137 U Ran Malb Conc 55.8 U Ran Malb Calc 41 documented in this encounter Plan of Treatment Not on filedocumented as of this encounter Procedures Procedure Name Priority Date/Time Associated Comments Diagnosis U ALBUMIN/CRE RATIO STAT 08/09/2012 10:08 AM DM type 1 (facundo peres Results for this EST mellitus, type 1) procedure are in the results section. LDL CHOLESTEROL, STAT 08/09/2012 10:04 AM DM type 1 (diabet es Results for this DIRECT EST mellitus, type 1) procedure are in the results section. HDL/CHOL PROFILE STAT 08/09/2012 10:04 AM DM type 1 (diabet es Results for this EST mellitus, type 1) procedure are in the results section. HEMOGLOBIN A1C STAT 08/09/2012 10:04 AM DM type 1 (diabetes Results for this EST mellitus, type 1) procedure are in the results section. documented in this encounter Results LDL Cholesterol, Direct (11/15/2012 10:00 AM EDT) P athologist Signature LDL Chol 61 <=99 mg/dL CERNER Direct MILLENNIUM Comment: The National Cholesterol Education Progr am (NCEP) has set the following guidelines for LDL Cholesterol: Reference range: ?? Optimal: ?<100 mg/dL ?? Near Optimal/Above Optimal: ?? 100-1 29 mg/dL ?? Borderline high: ?130-159 mg/dL ?? High: ? 160-189 mg/dL ?? Very high: ?>at=204 mg/dL MADY 2001: 285(19):1901-3335 Specimen Anatomical Collection Method Collection Time Receive d Time (Source) Location / / Volume Laterality Blood specimen 11/15/2012 10:00 3 (specimen) AM EDT 10:15 AM EDT Resulting Agency Comment Spec In Lab Debbie Jacobo MD CHEMISTRY ORDERABLES Performing Organization Address City/State/[place] [address] CERNER MILLENNIUM (ABNORMAL) Hemoglobin A1c (11/15/2012 10:00 AM EDT) Analysis Performed At Patho logist Time Signature Hemoglobin A1C 9.1 (H) 4.3 - 6.1 CERNER % MILLENNIUM Comment: The [place] Diabetes Association (ADA) has stated that HbA1c [...] 1:S11 -S66. Est Avg Gluc 214 mg/dL [facility] Comment: eAG equivalents for HbA1c percentages: HbA1c(%) ?eAG(mg/dL) 6.0 ?126 6.5 ?140 7.0 ?154 7.5 ?169 8.0 ?183 8.5 ?197 9.0 ?212 9.5 ?226 10.0 ? 240 Limitations: The eAG calculation has not been validated on women, individuals below 18 years old and above 70 years old, and individuals with hemoglobinopathies. Additional resources are available on th e ADA website: ??http://professional.diabetes.org/gluc osecalculator.aspx Orestes MIXON, Gómez J, Philip R, et al. ??Tr anslating the A1C assay into estimated average glucose values. ??Diabetes Care 2008:31(8):8862-7542. Specimen Anatomical Collection Method Collection Time Receive d Time (Source) Location / / Volume Laterality Blood specimen 11/15/2012 10:00 3 (specimen) AM EDT 10:15 AM EDT Resulting Agency Comment Spec In Lab Debbie Jacobo MD CHEMISTRY ORDERABLES Performing Organization Address [facility] [place] [address] CERNER MILLENNIUM Microalbumin, urine, random (08/09/2012 10:08 AM EST) athologist Signature U Creatinine 137 mg/dL CERNER MILLENNIUM U Albumin Conc, 55.8 mg/L CERNER Random MILLENNIUM Alb/Cr Ratio, 41 mcg/mg Cr CERNER Random MILLENNIUM Comment: Reference Range* Random collection (mcg/mg creatinine) Normal ?<30 Microalbuminuria ?? 30 - 300 Clinical Albuminuria ?? >300 *[place] Diabetes Association. Diabetic Nephropathy. Diabetes Care 1997;(Suppl 1):S24-S27 Exercise within 24 hour, infection, fe juan, CHF, marked hyperglycemia, and marked hypertension may elevate urinary albumin excretion over baseline values. Specimen Anatomical Collection Method Collection Time Receive d Time (Source) Location / / Volume Laterality Urine specimen 08/09/2012 10:08 3 (specimen) AM EST 10:27 AM EST Resulting Agency Comment Spec In Lab Debbie Jacobo MD URINE ORDERABLES Performing Organization Address [facility] [place] [address] CERNER MILLENNIUM (ABNORMAL) HDL/Cholesterol Profile (08/09/2012 10:04 AM EST) athologist Signature Chol, Total 197 <=199 mg/dL CERNER MILLENNIUM Comment: Recommendations of the NCEP Adult Treatm ent Panel for the following risk cutoff thresholds for the [place] populatio n: Desirable: <200 mg/dL Borderline High: 200-239 mg/dL High: > or = 240 mg/dL HDL 36 (L) >=40 mg/dL CERNER MILLENNIUM Comment: Reference range: ??Low HDL: ?? < 40 mg/dL ??Normal: ?40-60 mg/dL ??Desirable: > 60 mg/dL MADY 2001; 285(19):4751-0784 Chol/HDL Ratio 5.5 ratio CERNER ORII UM Comment: A Cholesterol to HDL ratio below 4:1 is desirable. ??Studies suggest that increased CAD risk occurs at ratios abov e 5 for females and above 6 for men. ? [place] Heart Association ??(htt p://www.americanheart.org) ? Katelyn Int Med, 1994; 121:641 ? AM J Med, 1998; 105(1A):48S Specimen Anatomical Collection Method Collection Time Receive d Time (Source) Location / / Volume Laterality Blood specimen 08/09/2012 10:04 3 (specimen) AM EST 10:10 AM EST Resulting Agency Comment Spec In Lab Debbie Jacobo MD CHEMISTRY ORDERABLES Performing Organization Address City/State/ZIP Code Phon e Number [place] [phone] [facility] (ABNORMAL[facility] LDL Cholesterol, Direct (08/09/2012 10:04 AM EST) athologist Signature LDL Chol 136 (H) <=99 mg/dL CERNER Direct [facility] Comment: The National Cholesterol Education Progr am (NCEP) has set the following guidelines for LDL Cholesterol: Reference range: ?? Optimal: ?<100 mg/dL ?? Near Optimal/Above Optimal: ?? 100-1 29 mg/dL ?? Borderline high: ?130-159 mg/dL ?? High: ? 160-189 mg/dL ?? Very high: ?>jf=781 mg/dL MADY 2001: 285(19):6737-0439 Specimen Anatomical Collection Method Collection Time Receive d Time (Source) Location / / Volume Laterality Blood specimen 08/09/2012 10:04 3 (specimen) AM EST 10:10 AM EST Resulting Agency Comment Spec In Lab Debbie Jacobo MD CHEMISTRY ORDERABLES Performing Organization Address City/State/[place] [address] KARL BARRERA (ABNORMAL) Hemoglobin A1c (08/09/2012 10:04 AM EST) Analysis Performed At Patho logis Time Signature Hemoglobin A1C 8.5 (H) 4.3 - 6.1 CERNER % MILLENNIUM Est Avg Gluc 197 mg/dL [facility] Comment: eAG equivalents for HbA1c percentages: HbA1c(%) ?eAG(mg/dL) 6.0 ?126 6.5 ?140 7.0 ?154 7.5 ?169 8.0 ?183 8.5 ?197 9.0 ?212 9.5 ?226 10.0 ? 240 Limitations: The eAG calculation has not been validated on women, individuals below 18 years old and above 70 years old, and individuals with hemoglobinopathies. Additional resources are available on ADA website: ??http://professional.diabetes.org/gluc osecalculator.aspx Reference: Orestes MIXON, Gómez J, Philip R, et al. ??Tr anslating the A1C assay into estimated average glucose values. ??Diabetes Care 2008:31(8):0647-2378. Specimen Anatomical Collection Method Collection Time Receive d Time (Source) Location / / Volume Laterality Blood specimen 08/09/2012 10:04 3 (specimen) AM EST 10:10 AM EST Resulting Agency Comment Spec In Lab Debbie Jacobo MD CHEMISTRY ORDERABLES Performing Organization Address City/State/ZIP Code [place] [address] [facility] documented in this encounter Visit Diagnoses Diagnosis Type I (juvenile type) diabetes mellitus without mention of complication, uncontrolled Hyperlipidemia Other and unspecified hyperlipidemia documented in this encounter Care Teams Bookkeeping Clerk Relationship Specialty Start Date End Date Allan Mims MD PCP - General 04/28/11 02/25/[address] [place] [address] documented as of this encounter
--- OUTSIDE RECORDS SUMMARY | 2022-01-15 01:17 | XMS_ITS | Encounter Summary ---
:1975 Author Organization [facility] [place] [address] Care Team Providers Name Role Phone Allan Mims MD Primary Care Provider Reason for Visit Reason Comments Diabetes Encounter Details Date Type Department Care Team Description 10/30/2014 Office Visit Endocrinology at [facility] Lupis Jacobo, Diabetes mellitus [facility] type 1, [place] [address] CENTER [phone] END[address] [place] [address] Social History Tobacco Use Types Packs/Day Years Used Date Former Smoker Quit: 04/28/20 01 Smokeless Tobacco: Never Used Sex Assigned at Date Recorded Not on file documented as of this encounter Last Filed Vital Signs Vital Sign Reading Time Taken Comments Blood Pressure 140/90 10/30/2014 9:30 AM EDT Pulse 79 10/30/2014 9:30 AM EDT Temperature - - Respiratory Rate - - Oxygen Saturation - - Inhaled Oxygen Concentration - - Weight 91.1 kg (200 lb 12.8 oz) 10/30/2014 9:30 AM EDT Height 182.9 cm (6') 10/30/2014 9:30 AM EDT Body Mass Index 27.23 10/30/2014 9:30 AM EDT documented in this encounter Patient Instructions Patient InstructionsDebbie Jacobo MD - 10/30/2014 10:10 AM EDT Recent Results (from the past 24 hour(s)) HEMOGLOBIN A1C Result Value Ref Range Hemoglobin A1C 11.9 (*) 4.3 - 5.6 % Est Avg Gluc 295 CREATININE Result Value Ref Range Creatinine 0.79 (*) 0.80 - 1.50 mg/dL Estimated GFR >60 >=60 HDL/CHOL PROFILE Result Value Ref Range Chol, Total 169 <=199 mg/dL HDL 34 (*) >=40 mg/dL Chol/HDL Ratio 5.0 TSH Result Value Ref Range TSH 2.60 0.27 - 4.20 mcIU/mL documented in this encounter Progress Notes Debbie Jacobo MD - 10/28/2014 3:59 PM EDT PRIMARY CARE PROVIDER: Allan Mims [...] Saab MD _ Augie Rodriguez MD _x K MD Zoraida Justification for more than 3 tests a day ____ prevent severe hypoglycemia ____ prevent severe hyperglycemia ____ widely fluctuating blood sugars ____ overnight hypoglycemia Duration of need ___ lifetime until ___/___/___ Last Hga1c 11.9, 11/01;10.6, 08/31; 9.1%, 10/30;8.5%, 08/02; 9.4%, 05/01; 8.7%, 01/29; 8.8%, 10/29; 8.2%, 2/12 Regimen: lantus 70 bid; novolog 0-25, CF 10 if > 150 - not calculating just guesstimating COMPLICATIONS: He has not seen his dentist. Only has six teeth on the bottom. Had his eyes examined in 06/01 upcoming November 21, 2014, PPDR-.Microalbumin 11, 09/01 . Creatinine 10.79, 11/01. No neuropathic symptoms. No symptomatic cardiac disease. Lipids ; total cholesterol 179, 11/01, HDL 34, 11/01, LDL 73 on Crestor 20 , 08/31 DIABETIC HEALTH MAINTENANCE: Jwlw-Vtninai-uf, [place] Inhibitor-no, Statin: crestor 20. Aspirin:no- too much heartburn. Flu Shot: 2012. Pneumovax: 2005. He is a nonsmoker.TSH 2.6, 11/01; It has been about a year since his last visit and Mr. Leon was admitted to the hospital last weekend with early DKA; was hydrated, given insulin, and discharged. It turns out he has not been taking his NovoLog insulin, he has not been checking his blood sugars, he has not been eating well, was not feeling well for a while before he got admitted with some polyuria, polydipsia, then got a sinus infection and ended up in the hospital. Since his discharge, he has been taking Lantus 70 units twice a day and was advised to take NovoLog 18 units with the meals, but he is having low blood sugars with that, so he is taking 10 to 16. He is not doing carb counting yet, but will be meeting his helper steel fabrication locally to go over some of that and will meet with our critical care educator today to review some of that as well. Fasting sugars have been 68 to 140 usually 90 to 100 since discharge. Lunch time 80 to 90. He has had two lows in the afternoon around 4 or 4:30 yesterday as low as 36, supper 90 to 100. 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 DIET: For breakfast, four eggs and two slices of toast. For lunch, two tuna sandwiches and an apple. For supper, meatballs, pepperoni, soft cheese on bread and some peas as his vegetable and evening snack, peanuts. COMPLICATIONS: He has an upcoming eye appointment. We are awaiting his microalbumin. Lipids have been under good control. PAST MEDICAL HISTORY: Type 1 diabetes, hypertension, and hyperlipidemia. Current Outpatient Prescriptions Medication Sig Dispense Refill ??? insulin glargine (LANTUS SOLOSTAR) pen injection [...] instructed 4-6 times daily 200 each 12 ??? NOVOFINE AUTOCOVER 30 x 1/3 Needle USE 4-5 TIMES A DAY WITH INSULIN 400 each 3 ??? glucagon, human recombinant, (GLUCAGON EMERGENCY KIT, HUMAN,) 1 mg Kit As directed for low bloodsugar 2 mL prn No current facility-administered medications for this visit. Allergies Allergen Reactions ??? 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 six years. Four children. REVIEW OF SYSTEMS: Now he is feeling well. Lot better than he felt in a long time other than the low blood sugars, but he does note that his thinking is little more fuzzy since the episode, tasks that used to come easily at work, sometimes he is having to think about a little more. No discrete paresis, paresthesias, or trouble word finding. On physical exam, blood pressure 140/90, pulse 79, and weight 200. General: He is a well developed young man in no acute distress. Skin: Smooth, warm, and dry. No ulcerations. Cardiovascular: 2+ pulses. No edema. Neurologic: Good light touch sensation. Motor strength and tone are normal. Psych: Mood and affect are appropriate. Laboratory test are all pending. His hemoglobin A1c was 11.7% at his local hospital last weekend. IMPRESSION: Dragan Leon is a 39-year-old man with type 1 diabetes, which is poorly controlled. He has been noncompliant with his insulin regimen. Currently, he is on very large basal insulin with low bolus needs and he is having a lot of hypoglycemia now that he has been more careful with this diet. We are going to have him lower his Lantus insulin to 60 units twice a day and do a carb ratio of 10. If he is still going low 3 or 4 hours after his meals, he can lower his Lantus by 5 units each week until he eliminates the hypoglycemia. I would like to see if we can get his dose of Lantus and NovoLog closer together so about 50% each and he is willing now to start doing carb counting. PLAN: Adjust insulin Lantus 60 units twice a day and NovoLog 1 unit per 10 g of carbs. We will see him in followup in two to three months. Recent Results (from the past 72 hour(s)) HEMOGLOBIN A1C Result Value Ref Range Hemoglobin A1C 11.9 (*) 4.3 - 5.6 % Est Avg Gluc 295 CREATININE Result Value Ref Range Creatinine 0.79 (*) 0.80 - 1.50 mg/dL Estimated GFR >60 >=60 HDL/CHOL PROFILE Result Value Ref Range Chol, Total 169 <=199 mg/dL HDL 34 (*) >=40 mg/dL Chol/HDL Ratio 5.0 TSH Result Value Ref Range TSH 2.60 0.27 - 4.20 mcIU/mL MICROALBUMIN, URINE, RANDOM Result Value Ref Range U Creatinine 108 U Ran Malb Conc 11.6 U Ran Malb Calc 11 documented in this encounter Plan of Treatment Not on filedocumented as of this encounter Procedures Procedure Name Priority Date/Time Associated Diagnosis Comme nts U ALBUMIN/CRE RATIO STAT 10/30/2014 9:12 AM Diabetes mellit us Results for this EDT type 1, uncontrolled procedu re are in the results section. CREATININE STAT 10/30/2014 9:08 AM Diabetes mellitus Resu lts for this EDT type 1, uncontrolled procedu re are in the results section. TSH STAT 10/30/2014 9:08 AM Diabetes mellitus Resu lts for this EDT type 1, uncontrolled procedu re are in the results section. HDL/CHOL PROFILE STAT 10/30/2014 9:08 AM Diabetes mellitus Results for this EDT type 1, uncontrolled procedu re are in the results section. HEMOGLOBIN A1C STAT 10/30/2014 9:08 AM Diabetes mellitus Re sults for this EDT type 1, uncontrolled procedu re are in the results section. documented in this encounter Results (ABNORMAL) Hemoglobin A1c (01/30/2015 9:41 AM EDT) [facility] Method Time Signature Hemoglobin A1C 10.5 (H) 4.3 - 5.6 [facility] MILLENNIUM Comment: Reference Range: 4.3 - 5.6% [...] 1, S67-74 Est Avg Gluc 255 mg/dL [facility] Comment: eAG equivalents for HbA1c percentages: HbA1c(%) ?eAG(mg/dL) 6.0 ?126 6.5 ?140 7.0 ?154 7.5 ?169 8.0 ?183 8.5 ?197 9.0 ?212 9.5 ?226 10.0 ? 240 Limitations: The eAG calculation has not been validated on women, individuals below 18 years old and above 70 years old, and individuals with hemoglobinopathies. Additional resources are available on ADA website: [email or web address] Orestes MIXON, Gómez J, Philip R, et al. ??Tr anslating the A1C assay into estimated average glucose values. ??Diabetes Care 2008:31(8):7674-5659. Specimen Anatomical Collection Method Collection Time Receive d Time (Source) Location / / Volume Laterality Blood specimen 01/30/2015 9:41 AM 015 9:52 (specimen) EDT AM EDT Resulting Agency Comment Spec In Lab Debbie Jacobo MD CHEMISTRY ORDERABLES Performing Organization Address City/State/[place] [address] CERNER MILLENNIUM Microalbumin, urine, random (10/30/2014 9:12 AM EDT) P athologist Signature U Creatinine 108 mg/dL CERNER MILLENNIUM U Albumin Conc, 11.6 mg/L CERNER Random MILLENNIUM Alb/Cr Ratio, 11 mcg/mg Cr CERNER Random MILLENNIUM Comment: Reference Range* Random collection (mcg/mg creatinine) Normal ?<30 Microalbuminuria ?? 30 - 300 Clinical Albuminuria ?? >300 *[place] Diabetes Association. Diabetic Nephropathy. Diabetes Care 1997;(Suppl 1):S24-S27 Exercise within 24 hour, infection, fe juan, CHF, marked hyperglycemia, and marked hypertension may elevate urinary albumin excretion over baseline values. Specimen Anatomical Collection Method Collection Time Receive d Time (Source) Location / / Volume Laterality Urine specimen 10/30/2014 9:12 AM 015 9:34 (specimen) EDT AM EDT Resulting Agency Comment Spec In Lab Debbie Jacobo MD URINE ORDERABLES Performing Organization Address City/[facility]/[place] [address] CERNER MILLENNIUM TSH (10/30/2014 9:08 AM EDT) P athologist Signature TSH 2.60 0.27 - 4.20 CERNER mcIU/mL MILLENNIUM Specimen Anatomical Collection Method Collection Time Receive d Time (Source) Location / / Volume Laterality Blood specimen 10/30/2014 9:08 AM 015 9:33 (specimen) EDT AM EDT Resulting Agency Comment Spec In Lab Debbie Jacobo MD CHEMISTRY ORDERABLES Performing Organization Address City/[facility]/ZIP Code Phon e Number [facility] [place] [address] [facility] (ABNORMAL) HDL/Cholesterol Profile (10/30/2014 9:08 AM EDT) athologist Signature Chol, Total 169 <=199 mg/dL [facility] Comment: Recommendations of the NCEP Adult Treatm ent Panel for the following risk cutoff thresholds for the [place] populatio n: Desirable: <200 mg/dL Borderline High: 200-239 mg/dL High: > or = 240 mg/dL HDL 34 (L) >=40 mg/dL [facility] Comment: Reference range: ??Low HDL: ?? < 40 mg/dL ??Normal: ?40-60 mg/dL ??Desirable: > 60 mg/dL MADY 2001; 285(19):3702-3504 Chol/HDL Ratio 5.0 ratio [facility] Comment: A Cholesterol to HDL ratio below 4:1 is desirable. ??Studies suggest that increased CAD risk occurs at ratios abov e 5 for females and above 6 for men. ? [place] Heart Association ??(htt p://www.americanheart.org) ? Katelyn Int Med, 1994; 121:641 ? AM J Med, 1998; 105(1A):48S Specimen Anatomical Collection Method Collection Time Receive d Time (Source) Location / / Volume Laterality Blood specimen 10/30/2014 9:08 AM 015 9:33 (specimen) EDT AM EDT Resulting Agency Comment Spec In Lab Debbie Jacobo MD CHEMISTRY ORDERABLES Performing Organization Address City/State/ZIP Code Phon e Number [place] [id number] [facility] (ABNORMAL) Creatinine (10/30/2014 9:08 AM EDT) athologist Signature Creatinine 0.79 (L) 0.80 - CERNER 1.50 mg/dL [facility] Comment: Please note that the pediatric reference intervals supplied above were not validated at [facility]. Results from pediatri c patients should be interpreted in conjunction to the patient's age, height and muscle mass. Estimated GFR >60 >=60 KARL Temple Comment: This estimated GFR (eGFR) value was [...] the following links into your internet browser. [email or web address] Specimen Anatomical Collection Method Collection Time Receive d Time (Source) Location / / Volume Laterality Blood specimen 10/30/2014 9:08 AM 015 9:33 (specimen) EDT AM EDT Resulting Agency Comment Spec In Lab Debbie Jacobo MD CHEMISTRY ORDERABLES Performing Organization Address City/State/[place] [address] KARL BRUCE (ABNORMAL) Hemoglobin A1c (10/30/2014 9:08 AM EDT) [facility] gist Method Time Signature Hemoglobin A1C 11.9 (H) 4.3 - 5.6 CERMARIMAR Marbiel MILLENNIUM Comment: Reference Range: 4.3 - 5.6% [...] Mellitus, Diabetes Care 2013; 36: Suppl. 1, S77-97 Est Avg Gluc 295 mg/dL KARL ERNSTENNIUM Comment: eAG equivalents for HbA1c percentages: HbA1c(%) ?eAG(mg/dL) 6.0 ?126 6.5 ?140 7.0 ?154 7.5 ?169 8.0 ?183 8.5 ?197 9.0 ?212 9.5 ?226 10.0 ? 240 Limitations: The eAG calculation has not been validated on women, individuals below 18 years old and above 70 years old, and individuals with hemoglobinopathies. Additional resources are available on [facility] website: [email or web address] AN[facility]ERSadacalc Orestes MIXON, Gómez J, Philip R, et al. ??Tr anslating the A1C assay into estimated average glucose values. ??Diabetes Care 2008:31(8):8212-9197. Specimen Anatomical Collection Method Collection Time Receive d Time (Source) Location / / Volume Laterality Blood specimen 10/30/2014 9:08 AM 015 9:33 (specimen) EDT AM EDT Resulting Agency Comment Spec In Lab Debbie Jacobo MD CHEMISTRY ORDERABLES Performing Organization Address City/State/[place] [address] [facility] documented in this encounter Visit Diagnoses Diagnosis Diabetes mellitus type 1, uncontrolled Type I (juvenile type) diabetes mellitus without mention of complication, uncontrolled documented in this encounter Care Teams Sales Force Administrator Relationship Specialty Start Date End Date Allan Mims MD PCP - General 04/28/11 02/25/[address] [place] [address] documented as of this encounter
--- OUTSIDE RECORDS SUMMARY | 2022-01-15 01:17 | XMS_ITS | Encounter Summary ---
:1975 Author Organization [facility] [place] [address] Care Team Providers Name Role Phone Allan Mims MD Primary Care Provider Encounter Details Date Type Department Care Team Description 02/17/2012 Office Visit Endocrinology at [facility] Debbie Garcia DM type 1 (diabetes [facility] MD Lupis mellitus, type 1) [facility] (Primary Dx) [place] [address] ENDOCRINOLOGY DEPT. [place], [place] [address] Social History Tobacco Use Types Packs/Day Years Used Date Former Smoker Quit: 04/28/20 01 Sex Assigned at Date Recorded Not on file documented as of this encounter Last Filed Vital Signs Vital Sign Reading Time Taken Comments Blood Pressure 141/84 02/17/2012 9:49 AM EDT Pulse 86 02/17/2012 9:49 AM EDT Temperature - - Respiratory Rate 16 02/17/2012 9:49 AM EDT Oxygen Saturation - - Inhaled Oxygen Concentration - - Weight 108.9 kg (240 lb) 02/17/2012 9:49 AM EDT Height 182.9 cm (6') 02/17/2012 9:49 AM EDT Body Mass Index 32.55 02/17/2012 9:49 AM EDT documented in this encounter Patient Instructions Patient InstructionsDebbie Jacobo MD - 02/17/2012 10:18 AM EDT Recent Results (from the past 24 hour(s)) HEMOGLOBIN A1C Component Value Range ??? Hemoglobin A1C 8.7 (*) 4.3 - 6.1 (%) ??? Est Avg Gluc 203 (mg/dL) CREATININE, SERUM Component Value Range ??? Creatinine 0.93 0.80 - 1.50 (mg/dL) ? ? Estimated GFR >60 >=60 TSH Component Value Range ??? TSH 2.01 0.27 - 4.20 (mcIU/mL) LDL CHOLESTEROL, DIRECT Component Value Range ? ? LDL Chol Direct 127 (*) <=99 (mg/dL) HDL/CHOL PROFILE Component Value Range ? ? Chol, Total 203 (*) <=199 (mg/dL) ? ? HDL 53 >=40 (mg/dL) ??? Chol/HDL Ratio 3.8 (ratio) documented in this encounter Progress Notes Debbie Jacobo MD - 02/15/2012 9:03 PM EDT PRIMARY CARE PROVIDER: Allan Mims M.D CC: Here for f/u of type 1 DM Dx: 2004, anti GABRIELLE + 08/01 Last Hga1c 8.7%, 01/29; 8.8%, 10/29; 8.2%, 08/01 Regimen: lantus 48 bid; novolog 25-30, CF 25 if > 150 COMPLICATIONS: He has not seen his dentist. Only has six teeth on the bottom. Had his eyes examined in 01/2012, PPDR- f/u 6 months. We will arrange an upcoming visit. Microalbumin <3, 08/01 . Creatinine 0.93 in 01/2012. No neuropathic symptoms. No symptomatic cardiac disease. Lipids 01/2012; total cholesterol 201, HDL 53, LDL 127 on simvastatin 20 mg/d DIABETIC HEALTH MAINTENANCE: Alex-Osolyns-xk, [place] Inhibitor-no, Statin: simvastatin 20 mg. Aspirin: 81 mg. Flu Shot: 2010. Pneumovax: 2005. He is a nonsmoker.TSH 2.01, 01/29... Since his last visit, Dragan has been feeling well. His daughter Delores is four and half months old and doing well. 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 With respect to his diabetes, he checks his blood sugars once or twice a weeks. Fastings run 160 to 200 and he has low sugars sometimes mid morning. He takes his NovoLog insulin when he gets up in the morning and does not eat breakfast, does not have anything as light as snack in the later morning, and this maybe why he is having the hypoglycemia, so we talked about adjusting the time of his NovoLog insulin. Exercise has been limited. His diet, usually skips breakfast. Midmorning, half banana bread. For lunch, usually two sandwiches and some popcorns, sometime cucumbers or tomatoes. For supper last night, he had fish sticks and [place] fries and evening snack, popcorn. He has been feeling well without complaints or concerns. Current outpatient prescriptions ordered prior to encounter Medication Sig Dispense Refill ??? Insulin [place], Disposable, 31 X 1/4 Ndle 1 each by [facility].(Non-Drug; Combo Route) route 4 times daily. Dx 250; tests 4 x daily; uses 4 needles daily Novofine autocover .3x8mm; 400 each 4 ??? aspirin 81 mg EC tablet Take [...] Reactions ??? Ciprofloxacin (Mixture) Black out, faint . On physical exam, blood pressure 141/84, pulse 86, respiratory rate 16, weight 240 pounds, height 6 feet. In general, he looks well. His skin is smooth, warm, and dry. No ulcerations. Cardiovascular: 2+ pulses. No edema. On neurologic exam, he has excellent light touch sensation to the monofilament. Psych: Mood and affect are appropriate. LABORATORY TESTS: Hemoglobin A1c 8.7, lipids, TSH, creatinine as noted above. IMPRESSION: 1. Diabetes. Blood sugar control is suboptimal. I told Dragan that he really needs to be checking his blood sugars more frequently . If he is finding premeals are consistently above 130, two-hour postmeal is consistently above 180, we need to adjust the insulin. He finds his morning blood sugars are low if he does not have a snack at night and they are a little high if he does have snacks. So, we are going to have him adjust his Lantus insulin. He will do 46 or 48 units if he does not have a snack in the evening and he will do 50 to 52 units if he does have a snack in the evening to see if we can bring the morning blood sugars down. We will check some postmeal blood sugars and if they are high, he will adjust his NovoLog. He will use his correction factor if he has a high blood sugar. 2. Hypertension. Blood pressure is modestly elevated. If it stays up, we may need to add an antihypertensive. 3. Hyperlipidemia, on simvastatin 20 mg a day, lipids are suboptimal, so we will increase to 40 mg a day. PLAN: 1. Adjust insulin as noted above. 2. Increase simvastatin to 40 mg a day. 3. Followup in three months with hemoglobin A1c in the quick draw lab. documented in this encounter Plan of Treatment Not on filedocumented as of this encounter Procedures Procedure Name Priority Date/Time Associated Comments Diagnosis CREATININE Routine 02/17/2012 9:22 AM DM type 1 (diabetes Re sults for this EDT mellitus, type 1) procedure are in the results section. TSH Routine 02/17/2012 9:22 AM DM type 1 (diabetes Re sults for this EDT mellitus, type 1) procedure are in the results section. LDL CHOLESTEROL, Routine 02/17/2012 9:22 AM DM type 1 (diabete s Results for this DIRECT EDT mellitus, type 1) procedure are in the results section. HDL/CHOL PROFILE Routine 02/17/2012 9:22 AM DM type 1 (diabete s Results for this EDT mellitus, type 1) procedure are in the results section. HEMOGLOBIN A1C Routine 02/17/2012 9:22 AM DM type 1 (diabetes Results for this EDT mellitus, type 1) procedure are in the results section. documented in this encounter Results (ABNORMAL) Hemoglobin A1c (05/17/2012 10:16 AM EST) Analysis Performed At Patho logist Time Signature Hemoglobin A1C 9.4 (H) 4.3 - 6.1 [place] % [facility] Est Avg Gluc 223 mg/dL [facility] Comment: eAG equivalents for HbA1c percentages: HbA1c(%) ?eAG(mg/dL) 6.0 ?126 6.5 ?140 7.0 ?154 7.5 ?169 8.0 ?183 8.5 ?197 9.0 ?212 9.5 ?226 10.0 ? 240 Limitations: The eAG calculation has not been validated on women, individuals below 18 years old and above 70 years old, and individuals with hemoglobinopathies. Additional resources are available on [facility] ADA website: ??http://professional.diabetes.org/gluc osecalculator.aspx Reference: Orestes MIXON, Gómez J, Philip R, et al. ??Tr anslating the A1C assay into estimated average glucose values. ??Diabetes Care 2008:31(8):2291-8228. Specimen Anatomical Collection Method Collection Time Receive d Time (Source) Location / / Volume Laterality Blood specimen 05/17/2012 10:16 2 (specimen) AM EST 10:24 AM EST Resulting Agency Comment Spec In Lab Debbie Jacobo MD CHEMISTRY ORDERABLES Performing Organization Address City/State/ZIP [place] [address] [facility] (ABNORMAL) HDL/Cholesterol Profile (02/17/2012 9:22 AM EDT) athologist Signature Chol, Total 203 (H) <=199 CERNER mg/dL MILLENNIUM Comment: Recommendations of the NCEP Adult Treatm ent Panel for the following risk cutoff thresholds for the [place] populatio n: Desirable: <200 mg/dL Borderline High: 200-239 mg/dL High: > or = 240 mg/dL HDL 53 >=40 mg/dL CERNER MILLENNIUM Comment: Reference range: ??Low HDL: ?? < 40 mg/dL ??Normal: ?40-60 mg/dL ??Desirable: > 60 mg/dL MADY 2001; 285(19):1592-1455 Chol/HDL Ratio 3.8 ratio CERNER MILLENNI UM Comment: A Cholesterol to HDL ratio below 4:1 is desirable. ??Studies suggest that increased CAD risk occurs at ratios abov e 5 for females and above 6 for men. ? [place] Heart Association ??(htt p://www.americanheart.org) ? Katelyn Int Med, 1994; 121:641 ? AM J Med, 1998; 105(1A):48S Specimen Anatomical Collection Method Collection Time Receive d Time (Source) Location / / Volume Laterality Blood specimen 02/17/2012 9:22 AM 012 9:30 (specimen) EDT AM EDT Resulting Agency Comment Spec In Lab Debbie Jacobo MD CHEMISTRY ORDERABLES Performing Organization Address City/State/[place] [address] CERNER MILLENNIUM (ABNORMAL) LDL Cholesterol, Direct (02/17/2012 9:22 AM EDT) athologist Signature LDL Chol 127 (H) <=99 mg/dL CERNER Direct MILLENNIUM Comment: The National Cholesterol Education Progr am (NCEP) has set the following guidelines for LDL Cholesterol: Reference range: ?? Optimal: ?<100 mg/dL ?? Near Optimal/Above Optimal: ?? 100-1 29 mg/dL ?? Borderline high: ?130-159 mg/dL ?? High: ? 160-189 mg/dL ?? Very high: ?>si=230 mg/dL MADY 2001: 285(19):4791-7411 Specimen Anatomical Collection Method Collection Time Receive d Time (Source) Location / / Volume Laterality Blood specimen 02/17/2012 9:22 AM 012 9:30 (specimen) EDT AM EDT Resulting Agency Comment Spec In Lab Debbie Jacobo MD CHEMISTRY ORDERABLES Performing Organization Address [facility] Phon e Number [address] CERNER MILLENNIUM TSH (02/17/2012 9:22 AM EDT) athologist Signature TSH 2.01 0.27 - 4.20 CERNER mcIU/mL [facility] Specimen Anatomical Collection Method Collection Time Receive d Time (Source) Location / / Volume Laterality Blood specimen 02/17/2012 9:22 AM 012 9:30 (specimen) EDT AM EDT Resulting Agency Comment Spec In Lab Debbie Jacobo MD CHEMISTRY ORDERABLES Performing Organization Address City/[facility] Phon e Number [address] CERNER MILLENNIUM Creatinine, serum (02/17/2012 9:22 AM EDT) athologist Signature Creatinine 0.93 0.80 - 1.50 CERNER mg/dL MILLENNIUM Comment: Please note that the pediatric reference intervals supplied above were not validated at [facility]. Results from pediatri c patients should be interpreted in conjunction to the patient's age, height and muscle mass. Estimated GFR >60 >=60 KARL SMITHU M Comment: The National Kidney Disease Education Pr ogram (NKDEP) has recommended all laboratories report estimated GFR (eGFR) along with plasma creatinine measurements to assist you with recognit ion of early kidney disease. Caveats: ??Plasma creatinine should be a t steady-state (unchanged within the past week). For patient s multiply eGFR by 1.2. The MDRD equation was developed using patients be tween the ages of 18 and 70 years. ?? The MDRD equation has not been validated for patients < 18 years of age and should not be used to assess renal function in the pediatric population. ??The MDRD eGFR equation will also overestimate the true GFR of patients above the age of 70. ??This overestimation is variable bu t increases with age. At present, NKDEP does NOT recommend usi ng the MDRD equation for drug dosing purposes and pharmacists should continue to use their current dosing methods. In addition, numerical eGFR values great er than 60 ml/min/1.73 square meters should be treated as > 60, and not an ex act number due to greater inaccuracies at these higher values. Per NKDEP, they classify normal renal function as any GFR >60ml/min/1.73 square meters; chronic kidney disease wh en GFR <60, and renal failure when GFR <15. ??This calculation may not be valid for patients with atypical muscle mass (very lean or obese), acute renal failur e, and in patients with diabetic kidney disease. References: http://nkdep.nih.gov/resources/NKDEP_Sug gestn4Labs_0606_508.pdf http://www.kidney.org/professionals/kls/ pdf/faq_gfr.pdf Taylor K, Anushka NA, Tomer AK, Rajesh TS, Miguel AD, Luz HECTOR. Relative performance of the MDRD and CKD-EPI equa tions for estimating glomerular filtration rate among patients with vari ed clinical presentations. Clin J Am Soc Nephrol;6:1963-72. Specimen Anatomical Collection Method Collection Time Receive d Time (Source) Location / / Volume Laterality Blood specimen 02/17/2012 9:22 AM 012 9:30 (specimen) EDT AM EDT Resulting Agency Comment Spec In Lab Debbie Jacobo MD CHEMISTRY ORDERABLES Performing Organization Address City/State/ZIP [place] [address] [facility] (ABNORMAL) Hemoglobin A1c (02/17/2012 9:22 AM EDT) Analysis Performed At Patho logist Time Signature Hemoglobin A1C 8.7 (H) 4.3 - 6.1 CERNER % MILLENNIUM Est Avg Gluc 203 mg/dL CERNER MILLENNIUM Comment: eAG equivalents for [...] into estimated average glucose values. ??Diabetes Care 2008:31(8):1462-1634. Specimen Anatomical Collection Method Collection Time Receive d Time (Source) Location / / Volume Laterality Blood specimen 02/17/2012 9:22 AM 012 9:30 (specimen) EDT AM EDT Resulting Agency Comment Spec In Lab Debbie Jacobo MD CHEMISTRY ORDERABLES Performing Organization Address City/State/ZIP [place] [address] [facility] documented in this encounter Visit Diagnoses Diagnosis DM type 1 (diabetes mellitus, type 1) - Primary Type I (juvenile type) diabetes mellitus without mention of complication, not stated as uncontrolled documented in this encounter Care Teams Public Health Dentist Relationship Specialty Start Date End Date Allan Mims MD PCP - General 04/28/11 02/25/[address] [place] [address] documented as of this encounter
--- OUTSIDE RECORDS SUMMARY | 2022-01-15 01:17 | XMS_ITS | Encounter Summary ---
:1975 Author Organization [place] [address] Care Team Providers Name Role Phone Allan Mims MD Primary Care Provider Reason for Visit Reason Onset Date Comments Medication Refill 10/29/2013 Encounter Details Date Type Department Care Team Description 10/29/2013 Refill Endocrinology at [facility] Debbie Garcia DM type 1 (diabetes [facility] Cely Baugh MD mellitus, type 1) [place] [address] [facility] (Primary Dx) [phone] ENDOCRINOLOGY [address] PT. [place], [place] [address] (Wo rk) Social History Tobacco Use Types Packs/Day Years Used Date Former Smoker Quit: 04/28/20 01 Smokeless Tobacco: Never Used Sex Assigned at Date Recorded Not on file documented as of this encounter Plan of Treatment Not on filedocumented as of this encounter Visit Diagnoses Diagnosis DM type 1 (diabetes mellitus, type 1) - Primary Type I (juvenile type) diabetes mellitus without mention of complication, not stated as uncontrolled documented in this encounter Care Teams Pugger Helper Relationship Specialty Start Date End Date Allan Mims MD PCP - General 04/28/11 02/25/[address] [place] [id number] documented as of this encounter
--- OUTSIDE RECORDS SUMMARY | 2022-01-15 01:17 | XMS_ITS | Encounter Summary ---
:1975 Author Organization [place] [address] Care Team Providers Name Role Phone Allan Mims MD Primary Care Provider Encounter Details Date Type Department Care Team Description 05/17/2012 Office Visit Endocrinology at [facility] Debbie Garcia DM type 1 (diabetes [facility] MD Lupis mellitus, type 1) [facility] (Primary Dx) [place] [address] ENDOCRINOLOGY DEPT. [place], [place] [address] Social History Tobacco Use Types Packs/Day Years Used Date Former Smoker Quit: 04/28/20 01 Sex Assigned at Date Recorded Not on file documented as of this encounter Last Filed Vital Signs Vital Sign Reading Time Taken Comments Blood Pressure 133/91 05/17/2012 10:57 AM EST Pulse 94 05/17/2012 10:57 AM EST Temperature - - Respiratory Rate 16 05/17/2012 10:57 AM EST Oxygen Saturation - - Inhaled Oxygen Concentration - - Weight 110.7 kg (244 lb) 05/17/2012 10:57 AM EST Height 182.9 cm (6') 05/17/2012 10:57 AM EST Body Mass Index 33.09 05/17/2012 10:57 AM EST documented in this encounter Progress Notes Debbie Jacobo MD - 05/15/2012 10:00 PM EST PRIMARY CARE PROVIDER: Allan Mims M.D CC: Here for f/u of type 1 DM Dx: 2005, anti GABRIELLE + 08/01 Last Hga1c 9.4%, 05/01; 8.7%, 01/29; 8.8%, 10/29; 8.2%, 08/01 Regimen: lantus 60 bid; novolog 25-30, CF 8- 10 if > 150 - not calculating [...] on simvastatin 20 mg/d DIABETIC HEALTH MAINTENANCE: Eakn-Crpynur-jp, [place] Inhibitor-no, Statin: simvastatin 20 mg. Aspirin: 81 mg. Flu Shot: 2011. Pneumovax: 2005. He is a nonsmoker.TSH 2.01, 01/29... Since his last visit, Mr. Leon has gradually increased his Lantus insulin now to 60 units twice a day and Humalog 25 mg to 30 mg and if he is high during the day, he will take extra, so if couple of hours after meal he is still up in the 250 range, he will take an extra 10 units. He has had low blood sugars perhaps twice around 11 p.m. usually couple of hours after he has taken some extra Humalog. Fasting sugars, if he has a low at 11 p.m then they are about 130 to 140, but usually fasting sugars are 200 to 260. Lunch time 180 to 220, he is not checking other times of the day. EXERCISE: None. DIET: For breakfast, usually a breakfast sandwich or a couple of pieces of toast. Lunch, two sandwiches and a diet drink. For supper last night, he had scrambled eggs and four slices of toast. Usually, he will have meat and starch. Evening snack, popcorn or chips. He does not take insulin for that. He is up-to-date with his complications, screening and feeling well. PAST MEDICAL HISTORY: Diabetes, hypertension, and hyperlipidemia. 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 Nonsmoker. Alcohol two or three beers a week. He is for five years and has a 7-month-old daughter and from his first marriage, he has a 16-year-old daughter and 10-year-old son and his has a 10-year-old son. Stressful time, his daughter just recently moved out and has gone back to her mother, so it has been tough for him. REVIEW OF SYSTEMS: Otherwise, he notes decreased erectile function and decreased libido and no morning erections. PHYSICAL EXAMINATION: Blood pressure 130/91, pulse 94, respiratory rate 16, weight 244 pounds, and height 6 feet. In general, he looks well. His skin is smooth, warm, and dry. No ulcerations. Cardiovascular: 2+ pulses, no edema. Neurologic Exam: He has excellent light touch sensation to the monofilament. Psych: Mood and affect are appropriate. LABORATORY TEST: Hemoglobin A1c is pending. IMPRESSION: 1. Type 1 diabetes with really significant insulin resistance. Dragan is still running high blood sugars. We are going to increase his Humalog to 30 to 35 units with meals. We will continue his correction factor about 10. We will increase the Lantus to 65 mg twice a day to see if we can get blood sugars down. I asked him to check some bedtime blood sugars to see if we can get bedtime blood sugars down if morning's follow suit. 2. Decreased libido and erectile dysfunction. We will measure a morning testosterone at a local lab. PLAN: 1. Await hemoglobin A1c. 2. Adjust insulin as noted above. 3. Morning testosterone. 4. Followup in three months with hemoglobin A1c, lipids, and microalbumin in the quick draw lab. Recent Results (from the past 72 hour(s)) HEMOGLOBIN A1C Component Value Range ??? Hemoglobin A1C 9.4 (*) 4.3 - 6.1 (%) ??? Est Avg Gluc 223 (mg/dL) documented in this encounter Plan of Treatment Scheduled Orders Name Type Priority Associated Diagnoses Order S chedule Testosterone, total Lab Routine DM type 1 (diabetes E xpected: 05/22/2012 mellitus, type 1) (Approxima te), Expires: 05/18/2013 documented as of this encounter Procedures Procedure Name Priority Date/Time Associated Diagnosis Comme nts HEMOGLOBIN A1C Routine 05/17/2012 10:16 AM DM type 1 (diabetes Results for this EST mellitus, type 1) procedure are in the results section . documented in this encounter Results Microalbumin, urine, random (08/09/2012 10:08 AM EST) P athologist Signature U Creatinine 137 mg/dL [facility] U Albumin Conc, 55.8 mg/L CERNER Random MILLENNIUM Alb/Cr Ratio, 41 mcg/mg Cr CERNER Random MILLENNIUM Comment: Reference Range* Random collection (mcg/mg creatinine) Normal ?<30 Microalbuminuria ?? 30 - 300 Clinical Albuminuria ?? >300 *[place] Diabetes Association. Diabetic Nephropathy. Diabetes Care 1997;(Suppl [...] Organization Address City/State/[place] [address] [facility] (ABNORMAL) HDL/Cholesterol Profile (08/09/2012 10:04 AM EST) athologist Signature Chol, Total 197 <=199 mg/dL [facility] Comment: Recommendations of the NCEP Adult Treatm ent Panel for the following risk cutoff thresholds for the [place] populatio n: Desirable: <200 mg/dL Borderline High: 200-239 mg/dL High: > or = 240 mg/dL HDL 36 (L) >=40 mg/dL [facility] Comment: Reference range: ??Low HDL: ?? < 40 mg/dL ??Normal: ?40-60 mg/dL ??Desirable: > 60 mg/dL MADY 2001; 285(19):5304-7249 Chol/HDL Ratio 5.5 ratio [facility] Comment: A Cholesterol to HDL ratio below 4:1 is desirable. ??Studies suggest that increased CAD risk occurs at ratios abov e 5 for females and above 6 for men. ? [place] Heart Association ??(htt p://www.americanheart.org) ? Katelyn Int Med, 1994; 121:641 ? AM J Med, 1998; 105(1A):48S Specimen Anatomical Collection Method Collection Time Receive d Time (Source) Location / / Volume Laterality Blood specimen 08/09/2012 10:04 3 (specimen) AM EST 10:10 AM EST Resulting Agency Comment Spec In Lab Debbie Jacobo MD CHEMISTRY ORDERABLES Performing Organization Address [facility] Code Phon e Number [address] [facility] (ABNORMAL) LDL Cholesterol, Direct (08/09/2012 10:04 AM EST) athologist Signature LDL Chol 136 (H) <=99 mg/dL [facility] Comment: The National Cholesterol Education Progr am (NCEP) has set the following guidelines for LDL Cholesterol: Reference range: ?? Optimal: ?<100 mg/dL ?? Near Optimal/Above Optimal: ?? 100-1 29 mg/dL ?? Borderline high: ?130-159 mg/dL ?? High: ? 160-189 mg/dL ?? Very high: ?>zu=921 mg/dL MADY 2001: 285(19):4542-7422 Specimen Anatomical Collection Method Collection Time Receive d Time (Source) Location / / Volume Laterality Blood specimen 08/09/2012 10:04 3 (specimen) AM EST 10:10 AM EST Resulting Agency Comment Spec In Lab Debbie Jacobo MD CHEMISTRY ORDERABLES Performing Organization Address City/[facility]/ZIP Code Phon e Number [address] [facility] (ABNORMAL) Hemoglobin A1c (08/09/2012 10:04 AM EST) Analysis Performed At [facility] Time Signature Hemoglobin A1C 8.5 (H) 4.3 - 6.1 [facility] Est Avg Gluc 197 mg/dL [facility] Comment: eAG equivalents for HbA1c percentages: [...] into estimated average glucose values. ??Diabetes Care 2008:31(8):7320-3202. Specimen Anatomical Collection Method Collection Time Receive d Time (Source) Location / / Volume Laterality Blood specimen 08/09/2012 10:04 3 (specimen) AM EST 10:10 AM EST Resulting Agency Comment Spec In Lab Debbie Jacobo MD CHEMISTRY ORDERABLES Performing Organization Address City/State/[place] [address] [facility] [address] [facility] (ABNORMAL) Hemoglobin A1c (05/17/2012 10:16 AM EST) Analysis Performed At Patho logist Time Signature Hemoglobin A1C 9.4 (H) 4.3 - 6.1 CERNER % MILLENNIUM Est Avg Gluc 223 mg/dL [facility]ERNER ENNIUM Comment: eAG equivalents for HbA1c percentages: HbA1c(%) [...] into estimated average glucose values. ??Diabetes Care 2008:31(8):1577-9451. Specimen Anatomical Collection Method Collection Time Receive d Time (Source) Location / / Volume Laterality Blood specimen 05/17/2012 10:16 2 (specimen) AM EST 10:24 AM EST Resulting Agency Comment Spec In Lab Debbie Jacobo MD CHEMISTRY ORDERABLES Performing Organization Address City/State/[place] [address] [facility] documented in this encounter Visit Diagnoses Diagnosis DM type 1 (diabetes mellitus, type 1) - Primary Type I (juvenile type) diabetes mellitus without mention of complication, not stated as uncontrolled documented in this encounter Care Teams Sugar Reprocess Operator Head Relationship Specialty Start Date End Date Allan Mims MD PCP - General 04/28/11 02/25/21 [address] [place] [address] documented as of this encounter
--- OUTSIDE RECORDS SUMMARY | 2022-01-15 01:17 | XMS_ITS | Encounter Summary ---
:1975 Author Organization [facility] [place] [address] Care Team Providers Name Role Phone Allan Mims MD Primary Care Provider Reason for Visit Reason Onset Date Comments Medication Problem 08/13/2011 Encounter Details Date Type Department Care Team Description 08/13/2011 Refill Endocrinology at [facility] C Doreen Stuart [facility] [place] [address] ENDOCRINOLOGY DEPT. [phone] [place] [id number] (Wo rk) Social History Tobacco Use Types Packs/Day Years Used Date Former Smoker Quit: 04/28/20 01 Sex Assigned at Date Recorded Not on file documented as of this encounter Miscellaneous Notes Telephone Encounter - Doreen Stuart RN - 08/13/2011 11:51 AM EST Message left on patient's phone for patient to call this office. It is regarding his cholesterol medication. Telephone Encounter - Debbie Jacobo MD - 08/13/2011 11:36 AM EST Sent prescription for simvastatin 20 mg/d to pharmacy. Please let patient know that insurance requests this change. Thanks Telephone Encounter - Doreen Stuart RN - 08/13/2011 11:23 AM EST [facility] called about this patient. They are refusing the prior authorization for Lipitor prescribed for this patient. They want you to try Simvistatin (option 1) first and then Crestor (option 2) ifthe first option doesn't work. They can be called at . documented in this encounter Plan of Treatment Not on filedocumented as of this encounter Visit Diagnoses Not on filedocumented in this encounter Care Teams Pipe Stem Sawyer Relationship Specialty Start Date End Date Allan Mims MD PCP - General 04/28/11 02/25/[address] [place] [address] documented as of this encounter
--- OUTSIDE RECORDS SUMMARY | 2022-01-15 01:17 | XMS_ITS | Encounter Summary ---
:1975 Author Organization [facility] Address [place] [id number] Care Team Providers Name Role Phone Allan Mims MD Primary Care Provider Reason for Referral Consultation (Routine) - Closed Specialty Diagnoses / Procedures Referred By Contact Refer red To Contact Endocrinology Diagnoses DM type 1 (diabetes mellitus, type 1) Debbie Jacobo French, Carol B, LD MD [facility] END[facility]CR[facility]Y DEPT. ENDOCRINOLOGY DEPT. [place], [place] [id number] [place] [address] Referral ID Status Reason Start Date Expiration Visits Visits Date Requested Authorized [id number] Closed Continuity of 09/13/2013 03/12/2014 1 1 Care Reason for Visit Reason Comments Diabetes Encounter Details Date Type Department Care Team Description 09/13/2013 Office Visit Endocrinology at [facility] Debbie Garcia Hyperlipidemia; [facility] MD Lupis DM type 1 (diabetes mellitus, type 1) [place] [address] ENDOCRINOLOGY DEPT. [place] [id number] Social History Tobacco Use Types Packs/Day Years Used Date Former Smoker Quit: 04/28/20 01 Smokeless Tobacco: Never Used Sex Assigned at Date Recorded Not on file documented as of this encounter Last Filed Vital Signs Vital Sign Reading Time Taken Comments Blood Pressure 122/86 09/13/2013 10:00 AM EDT Pulse 95 09/13/2013 10:00 AM EDT Temperature - - Respiratory Rate - - Oxygen Saturation - - Inhaled Oxygen Concentration - - Weight 95.9 kg (211 lb 6.4 09/13/2013 10:00 AM with mercado ts on oz) EDT Height - - Body Mass Index 28.67 05/17/2012 10:57 AM EST documented in this encounter Progress Notes Debbie Jacobo MD - 09/10/2013 9:22 PM EDT PRIMARY CARE PROVIDER: Allan Mims [...] need ___ lifetime until ___/___/___ Last Hga1c 10.6, 08/31; 9.1%, 10/30;8.5%, 08/02; 9.4%, 05/01; 8.7%, 01/29; 8.8%, 10/29; 8.2%, 08/01 Regimen: lantus 70 bid; novolog 0-25, CF 10 if > 150 - not calculating just guesstimating COMPLICATIONS: He has not seen his dentist. Only has six teeth on the bottom. Had his eyes examined in 06/01, PPDR- f/u 6 months.Microalbumin 30, 08/31 . Creatinine 1.07, 08/31. No neuropathic symptoms. No symptomatic cardiac disease. Lipids ; total cholesterol 141, HDL 28, LDL 73 onCrestor 20 , 08/31 DIABETIC HEALTH MAINTENANCE: Fxlp-Kdcrvah-ct, [place] Inhibitor-no, Statin: crestor 20. Aspirin:no- too much heartburn. Flu Shot: 2012. Pneumovax: 2005. He is a nonsmoker.TSH 1.43, Since his last visit, Dragan admits he has not been careful about taking his insulin. He takes his Lantus regularly, and his NovoLog, he takes at breakfast and supper probably a couple of times a week each, never takes it at lunch and he has not been checking his blood sugars. Denies significant polyuria or polydipsia. EXERCISE: He walks. Ice fishes. DIET: Unchanged. For breakfast, usually a toast and peanut butter, and a piece of fruit. Midmorning, fruit. For lunch, usually sandwich and chips. Supper, meat and vegetables, burgers and fries; and evening snack, popcorn. COMPLICATION EVALUATIONS: Up-to-date. He has a pre-proliferative retinopathy. He is seeing his ground defence officer every six months and otherwise no complications. He expressed interest in an OmniPod pump or a V-Go pump, so his insulin would be on him and he might be better about taking it. PAST MEDICAL HISTORY: Type 1 diabetes, hypertension, and hyperlipidemia. Current Outpatient Prescriptions Medication Sig Dispense Refill ??? DULoxetine (CYMBALTA) 60 mg capsule Take 60 mg by mouth daily. ??? insulin glargine (LANTUS SOLOSTAR) 100 unit/mL (3 mL) pen injection Inject 70 Units subcutaneously 2 times daily. 150 mL 3 ??? Insulin Crary, Disposable, 31 X 1/4 Ndle 1 each by [facility].(Non-Drug; Combo Route) route 4 times daily. Dx 250; tests 4 x daily; uses 4 needles daily Novofine autocover .3x8mm; 400 each 4 ??? rosuvastatin (CRESTOR) 20 mg tablet Take 1 tablet by mouth daily. 90 tablet 3 ??? Insulin Lispro (HUMALOG KWIKPEN) 100 unit/mL InPn Inject 25-30 Units subcutaneously 3 times daily (before meals). 90 mL 11 ??? Blood Sugar Diagnostic (ONE TOUCH ULTRA TEST) test strip 1 each by Other route 6 times daily. Use as instructed 4-6 times daily 200 each 12 ??? glucagon, human recombinant, (GLUCAGON EMERGENCY) 1 mg injection As directed for low blood sugar1 mL prn Allergies Allergen Reactions ??? Ciprofloxacin (Mixture) Black out, faint SOCIAL HISTORY: He is for six years, has four children, 16, 10, and 2, and a 10-year-old step child. He is nonsmoker. Alcohol, a couple of times a week he might have six pack of beer. His review of systems is negative. On physical exam, blood pressure 122/86, pulse 95, and weight 211, decreased 17 pounds. In general, he is a well-developed young man in no acute distress. Skin: Smooth, warm, and dry with some hypertrophic toenails and calluses. Cardiovascular: 2+ pulses. No edema. On neurologic exam, he has good light touch sensation to the monofilament. Psych: Mood and affect are appropriate. LABORATORY TEST: Hemoglobin A1c 10.6, other labs are pending. IMPRESSION: Diabetes is poorly-controlled since Dragan is not taking his insulin regularly. I told him he will be a good candidate for an insulin pump. He needs to be checking his blood sugars more regularly and might want to think about getting a sensor and a pump. I gave him the information on the OmniPod. It only holds 200 units a day and he takes 140 units of Lantus, so it need to be changing everyday, but he said he would be willing to do that and he is hoping it might help him remember to take his insulin if he has the pod on with him and only he has to do is push the button. I suggested that he start keeping records, checking his blood sugars three or four times a day and keeping record of his food, trying to estimate carbohydrate counts. We will have him come and see Yina Burks, our nursing educator, registered dietitian to review the carbohydrate counting and the different pump options and the sensor options. PLAN: 1. Improve compliance with insulin injections. 2. More frequent home blood glucose testing. 3. An appointment with Yina Burks soon to discuss possible insulin pump and sensors. 4. Follow up with me in three months with hemoglobin A1c in the quick draw lab. HEMOGLOBIN A1C Component Value Range Hemoglobin A1C 10.6 (*) <=5.6 % Est Avg Gluc 258 MICROALBUMIN, URINE, RANDOM Component Value Range U Creatinine 94 U Ran Malb Conc 28.3 U Ran Malb Calc 30 CREATININE Component Value Range Creatinine 1.07 0.80 - 1.50 mg/dL Estimated GFR >60 >=60 LDL CHOLESTEROL, DIRECT Component Value Range LDL Chol Direct 73 <=99 mg/dL HDL/CHOL PROFILE Component Value Range Chol, Total 141 <=199 mg/dL HDL 28 (*) >=40 mg/dL Chol/HDL Ratio 5.0 TSH Component Value Range TSH 1.43 0.27 - 4.20 mcIU/mL documented in this encounter Plan of Treatment Scheduled Referrals Name Type Priority Associated Diagnoses Order S chedule Referral to Outpatient Referral Routine DM type 1 (diabetes O rdered: Diabetic Education mellitus, type 1) 08/19 documented as of this encounter Procedures Procedure Name Priority Date/Time Associated Diagnosis Comme nts U ALBUMIN/CRE RATIO STAT 09/13/2013 9:36 AM DM type 1 (diab etes Results for this EDT mellitus, type 1) procedure are in the results section. CREATININE STAT 09/13/2013 9:22 AM DM type 1 (diabetes Re sults for this EDT mellitus, type 1) procedure are in the results section. TSH STAT 09/13/2013 9:22 AM DM type 1 (diabetes Re sults for this EDT mellitus, type 1) procedure are in the results section. LDL CHOLESTEROL, STAT 09/13/2013 9:22 AM Hyperlipidemia Res ults for this DIRECT EDT procedure are i n the results section. HDL/CHOL PROFILE STAT 09/13/2013 9:22 AM Hyperlipidemia Res ults for this EDT procedure are i n the results section. HEMOGLOBIN A1C STAT 09/13/2013 9:22 AM DM type 1 (diabetes Results for this EDT mellitus, type 1) procedure are in the results section. documented in this encounter Results Microalbumin, urine, random (09/13/2013 9:36 AM EDT) P athologist Signature U Creatinine 94 mg/dL CERNER MILLENNIUM U Albumin Conc, 28.3 mg/L CERNER Random MILLENNIUM Alb/Cr Ratio, 30 mcg/mg Cr CERNER Random MILLENNIUM Comment: Reference Range* Random collection (mcg/mg creatinine) Normal ?<30 Microalbuminuria ?? 30 - 300 Clinical Albuminuria ?? >300 *[place] Diabetes Association. Diabetic Nephropathy. Diabetes Care 1997;(Suppl 1):S24-S27 Exercise within 24 hour, infection, fe juan, CHF, marked hyperglycemia, and marked hypertension may elevate urinary albumin excretion over baseline values. Specimen Anatomical Collection Method Collection Time Receive d Time (Source) Location / / Volume Laterality Urine specimen 09/13/2013 9:36 AM 014 9:44 (specimen) EDT AM EDT Resulting Agency Comment Spec In Lab Debbie Jacobo MD URINE ORDERABLES Performing Organization Address City/[facility]/ZIP [facility] Phon e Number [address] CERNER MILLENNIUM TSH (09/13/2013 9:22 AM EDT) athologist Signature TSH 1.43 0.27 - 4.20 CERNER mcIU/mL MILLENNIUM Specimen Anatomical Collection Method Collection Time Receive d Time (Source) Location / / Volume Laterality Blood specimen 09/13/2013 9:22 AM 014 9:36 (specimen) EDT AM EDT Resulting Agency Comment Spec In Lab Debbie Jacobo MD CHEMISTRY ORDERABLES Performing Organization Address City/[facility] Phon e Number [address] CERNER MILLENNIUM Creatinine (09/13/2013 9:22 AM EDT) athologist Signature Creatinine 1.07 0.80 - 1.50 CERNER mg/dL MILLENNIUM Comment: Please note that the pediatric reference intervals supplied above were not validated at [facility]. Results from pediatri c patients should be [...] Organization Address City/State/ZIP Code Phon e Number [place] [phone] [address] [facility] Hemoglobin A1c (09/13/2013 9:22 AM EDT) [facility] Method Time Signature Hemoglobin A1C 10.6 (H) <=5.6 % [facility] Comment: As of 2013 the methodology for [...] Mellitus, Diabetes Care 2013; 36: Suppl. 1, S67-76 Est Avg Gluc 258 mg/dL [facility] Comment: eAG equivalents for HbA1c percentages: HbA1c(%) ?eAG(mg/dL) 6.0 ?126 6.5 ?140 7.0 ?154 7.5 ?169 8.0 ?183 8.5 ?197 9.0 ?212 9.5 ?226 10.0 ? 240 Limitations: The eAG calculation has not been validated on women, individuals below 18 years old and above 70 years old, and individuals with hemoglobinopathies. Additional resources are available on [facility] ADA website: ??http://professional.diabetes.org/gluc osecalculator.aspx Orestes MIXON, Gómez J, Philip R, et al. ??Tr anslating the A1C assay into estimated average glucose values. ??Diabetes Care 2008:31(8):3717-7153. Specimen Anatomical Collection Method Collection Time Receive d Time (Source) Location / / Volume Laterality Blood specimen 09/13/2013 9:22 AM 014 9:36 (specimen) EDT AM EDT Resulting Agency Comment Spec In Lab Debbie Jacobo MD CHEMISTRY ORDERABLES Performing Organization Address City/State/ZIP Code [place] [address] [facility] (ABNORMAL) HDL/Cholesterol Profile (09/13/2013 9:22 AM EDT) athologist Signature Chol, Total 141 <=199 mg/dL [facility] Comment: Recommendations of the NCEP Adult Treatm ent Panel for the following risk cutoff thresholds for the [place] populatio n: Desirable: <200 mg/dL Borderline High: 200-239 mg/dL High: > or = 240 mg/dL HDL 28 (L) >=40 mg/dL [facility] Comment: Reference range: ??Low HDL: ?? < 40 mg/dL ??Normal: ?40-60 mg/dL ??Desirable: > 60 mg/dL MADY 2001; 285(19):4988-4917 Chol/HDL Ratio 5.0 ratio KARL SARABIA Comment: A Cholesterol to HDL ratio below 4:1 is desirable. ??Studies suggest that increased CAD risk occurs at ratios abov e 5 for females and above 6 for men. ? [place] Heart Association ??(htt p://www.americanheart.org) ? Katelyn Int Med, 1994; 121:641 ? AM J Med, 1998; 105(1A):48S Specimen Anatomical Collection Method Collection Time Receive d Time (Source) Location / / Volume Laterality Blood specimen 09/13/2013 9:22 AM 014 9:36 (specimen) EDT AM EDT Resulting Agency Comment Spec In Lab Debbie Jacobo MD CHEMISTRY ORDERABLES Performing Organization Address [facility]/State/ZIP Code [place] [address] [facility] LDL Cholesterol, Direct (09/13/2013 9:22 AM EDT) athologist Signature LDL Chol 73 <=99 mg/dL [facility] Comment: The National Cholesterol Education Progr am (NCEP) has set the following guidelines for LDL Cholesterol: Reference range: ?? Optimal: ?<100 mg/dL ?? Near Optimal/Above Optimal: ?? 100-1 29 mg/dL ?? Borderline high: ?130-159 mg/dL ?? High: ? 160-189 mg/dL ?? Very high: ?>jd=950 mg/dL MADY 2001: 285(19):4867-2782 Specimen Anatomical Collection Method Collection Time Receive d Time (Source) Location / / Volume Laterality Blood specimen 09/13/2013 9:22 AM 014 9:36 (specimen) EDT AM EDT Resulting Agency Comment Spec In Lab Debbie Jacobo MD CHEMISTRY ORDERABLES Performing Organization Address City/State/ZIP [place] [address] [facility] documented in this encounter Visit Diagnoses Diagnosis Hyperlipidemia Other and unspecified hyperlipidemia DM type 1 (diabetes mellitus, type 1) Type I (juvenile type) diabetes mellitus without mention of complication, not stated as uncontrolled documented in this encounter Care Teams Surgical Garment Inspector Relationship Specialty Start Date End Date Allan Mims MD PCP - General 04/28/11 02/25/[address] [place] [address] documented as of this encounter
--- OUTSIDE RECORDS SUMMARY | 2022-01-15 01:17 | XMS_ITS | Encounter Summary ---
:1975 Author Organization [facility] [place] [address] Care Team Providers Name Role Phone Allan Mims MD Primary Care Provider Encounter Details Date Type Department Care Team Description 06/01/2012 External Results Endocrinology at [facility] Debbie Garcia [facility] [place] [address] [facility] [phone] ENDOCRINOLOGY [address] PT. [place], [place] 0[address] (Wo rk) Social History Tobacco Use Types Packs/Day Years Used Date Former Smoker Quit: 04/28/20 01 Sex Assigned at Date Recorded Not on file documented as of this encounter Plan of Treatment Not on filedocumented as of this encounter Procedures Procedure Name Priority Date/Time Associated Diagnosis Comme nts LAB SCAN Routine 05/19/2012 documented in this encounter Results Scan Doc: Lab (05/19/2012) Narrative This result has an attachment that is no t available. Debbie Jacobo MD MEDIA MGR SCAN EXT ORDR/RSLT documented in this encounter Visit Diagnoses Not on filedocumented in this encounter Care Teams Construction Supervisor/Carpenter Relationship Specialty Start Date End Date Allan Mims MD PCP - General 04/28/11 02/25/[address] [place] [address] documented as of this encounter
--- OUTSIDE RECORDS SUMMARY | 2022-01-15 01:17 | XMS_ITS | Encounter Summary ---
:1975 Author Organization [facility] [place] [address] Care Team Providers Name Role Phone Allan Mims MD Primary Care Provider Reason for Visit Reason Comments Diabetes Encounter Details Date Type Department Care Team Description 11/04/2011 Office Visit Endocrinology at [facility] Debbie Garcia DM type 1 (diabetes [facility] MD Lupis mellitus, type 1) [facility] (Primary Dx) [place] [address] [address] [place] [id number] Social History Tobacco Use Types Packs/Day Years Used Date Former Smoker Quit: 04/28/20 01 Sex Assigned at Date Recorded Not on file documented as of this encounter Last Filed Vital Signs Vital Sign Reading Time Taken Comments Blood Pressure 134/80 11/04/2011 10:37 AM EDT Pulse 83 11/04/2011 10:37 AM EDT Temperature - - Respiratory Rate 18 11/04/2011 10:37 AM EDT Oxygen Saturation - - Inhaled Oxygen Concentration - - Weight 105.7 kg (233 lb) 11/04/2011 10:37 AM EDT Height 182.9 cm (6') 11/04/2011 10:37 AM EDT Body Mass Index 31.6 11/04/2011 10:37 AM EDT documented in this encounter Patient Instructions Patient InstructionsDebbie Jacobo MD - 11/04/2011 10:43 AM EDT Office Visit on 11/04/11 (from the past 24 hour(s)) HEMOGLOBIN A1C Component Value Range ??? Hemoglobin A1C 8.8 (*) 4.3 - 6.1 (%) ??? Est Avg Gluc 206 (mg/dL) lantus 40 twice daily F/u in 3 months documented in this encounter Progress Notes Debbie Jacobo MD - 11/02/2011 3:47 PM EDT DATE OF DICTATION: 11/04/2011 PRIMARY CARE PROVIDER: Allan Mims M.D CC: Here for f/u of type 1 DM Dx: 2004, anti GABRIELLE + 08/01 Last Hga1c 8.8%, 10/29; 8.2%, 08/01 Regimen: lantus 70; novolog 25-30, CF 25 if > 150 COMPLICATIONS: He has not seen his dentist. Only has six teeth on the bottom. Had his eyes examined in 02/2010. We will arrange an upcoming visit. Microalbumin <3, 08/01 . Creatinine 1.1 in 09/2010. No neuropathic symptoms. No symptomatic cardiac disease. Lipids 07/2011; total cholesterol 184, HDL 56, LDL 125. He is off his atorvastatin. DIABETIC HEALTH MAINTENANCE: Beta-Blockerno, [place] Inhibitorno, Statin: simvastatin 20 mg. Aspirin: 81 mg. Flu Shot: 2010. Pneumovax: 2005. He is a nonsmoker. I do not have a recent TSH. Since his last visit, Dragan has been feeling well, but he is still not working, so at home probably eating a little bit more and he has gained quite a bit of weight. With this, he has noticed insulin requirements have gone up. He has not checked his blood sugars for about a month and he has been really busy, he has a new 5-week-old baby at home. His was back in the hospital after the delivery, so it has been a stressful time. Prior to that fastings are running 180 to 220 and supper 130 to 180. He will get low blood sugars may be once or twice a month usually in the late morning. He is more active than usual. EXERCISE: He is not doing anything. He is unemployed. Now he is working on remodeling his house. DIET: For breakfast, two eggs or toast and a banana. For lunch, usually two sandwiches, ham and cheese with lettuce tomato mayonnaise. Midafternoon, a bowl of peanuts that he shells and eats. For supper, last night four links of kielbasa and one hot dog bun. Usually, he will have a vegetable, but last night he did not, and for snack, last night he had another bowl of peanuts and banana. He has been upcoming eye appointment, has not seen a dentist in years. He only has a few teeth. He is feeling well. No complaints or concerns. Current outpatient prescriptions ordered prior to encounter Medication Sig Dispense Refill ??? simvastatin (ZOCOR) 20 mg tablet Take 1 tablet by mouth every evening. 90 tablet 4 ??? aspirin 81 mg EC tablet Take 81 mg by mouth daily. ??? glucagon, human recombinant, (GLUCAGON EMERGENCY) 1 mg injection Inject subcutaneously. Use for low blood sugar as directed 1 mL prn ??? Insulin Safety [employer], Disp, 29 x 3/16 Ndle 1 Device by [facility].(Non-Drug; Combo Route) route 4 times daily. 200 Device 12 ??? Blood Sugar Diagnostic (ONE TOUCH ULTRA TEST) test strip 1 each by Other route 6 times daily. Use as instructed 4-6 times daily 200 each 12 Allergies Allergen Reactions ??? Ciprofloxacin (Mixture) Black out, faint Patient Active Problem List Diagnoses Code ??? DM type 1 (diabetes mellitus, type 1) 250.01AA ??? Hyperlipidemia 272.4S PHYSICAL EXAMINATION: On physical exam, his blood pressure is 134/80, pulses 83, weighs 233 pounds, and height 6 feet. His weight has gone up 20 pounds since July and 45 pounds since April. He had lost weight in April, but his usual weight is about 200. His skin is smooth, warm, and dry. No ulcerations. No areas of lipohypertrophy at insulin injection sites. Cardiovascular, 2+ pulses. No edema. On neurologic exam, excellent light touch sensation to the monofilament. Psych, mood and affect are appropriate. LABORATORY TEST Hemoglobin A1c 8.3%. IMPRESSION: 1. Diabetes. Blood sugar control has worsened in the past three months and there has been lot of weight gain since then. I think some insulin resistance is probably coming into play. I have asked Dragan to split his Lantus insulin and increase the dose, which is 40 units twice a day. He will continue his Humalog 25 to 30 units with meals and correction factor of 25. He will start doing some home blood glucose testing and if he is not falling into the target range of premeal below 130, 2-hour post meal below 180, he will continue to increase his insulin. We talked about the need for him to watch his weight and modify his diet and increase his activity. 2. Hyperlipidemia. We started Simvastatin at his last visit. We will check lipids at his next visit. PLAN: 1. Adjust insulin as noted above. 2. Followup in three months with hemoglobin A1c, creatinine, TSH, and lipids in the quick draw lab. documented in this encounter Plan of Treatment Not on filedocumented as of this encounter Procedures Procedure Name Priority Date/Time Associated Diagnosis Comme nts HEMOGLOBIN A1C Routine 11/04/2011 9:35 AM DM type 1 (diabetes Results for this EDT mellitus, type 1) procedure are in the results section . documented in this encounter Results (ABNORMAL) HDL/Cholesterol Profile (02/17/2012 9:22 AM EDT) athologist Signature Chol, Total 203 (H) <=199 [facility] mg/dL [facility] Comment: Recommendations of the NCEP Adult Treatm ent Panel for the following risk cutoff thresholds for the [place] populatio n: Desirable: <200 mg/dL Borderline High: 200-239 mg/dL High: > or = 240 mg/dL HDL 53 >=40 mg/dL [facility] Comment: Reference range: ??Low HDL: ?? < 40 mg/dL ??Normal: ?40-60 mg/dL ??Desirable: > 60 mg/dL MADY 2001; 285(19):1109-8657 Chol/HDL Ratio 3.8 ratio [facility] Comment: A Cholesterol to HDL ratio below 4:1 is desirable. ??Studies suggest that increased CAD risk occurs at ratios abov e 5 for females and above 6 for men. ? [place] Heart Association ??(htt p://www.americanheart.org) ? Katelyn Int Med, 1994; 121:641 ? AM J Med, 1998; 105(1A):48S Specimen Anatomical Collection Method Collection Time Receive d Time (Source) Location / / Volume Laterality Blood specimen 02/17/2012 9:22 AM 012 9:30 (specimen) EDT AM EDT Resulting Agency Comment Spec In Lab Debbie Jacobo MD CHEMISTRY ORDERABLES Performing Organization Address City/[facility]/ZIP Code Phon e Number [address] [facility] (ABNORMAL) LDL Cholesterol, Direct (02/17/2012 9:22 AM EDT) athologist Signature LDL Chol 127 (H) <=99 mg/dL [facility] Comment: The National Cholesterol Education Progr am (NCEP) has set the following guidelines for LDL Cholesterol: Reference range: ?? Optimal: ?<100 mg/dL ?? Near Optimal/Above Optimal: ?? 100-1 29 mg/dL ?? Borderline high: ?130-159 mg/dL ?? High: ? 160-189 mg/dL ?? Very high: ?>ff=205 mg/dL MADY 2001: 285(19):0320-4651 Specimen Anatomical Collection Method Collection Time Receive d Time (Source) Location / / Volume Laterality Blood specimen 02/17/2012 9:22 AM 012 9:30 (specimen) EDT AM EDT Resulting Agency Comment Spec In Lab Debbie Jacobo MD CHEMISTRY ORDERABLES Performing Organization Address City/[facility]/[place] [address] [facility] TSH (02/17/2012 9:22 AM EDT) P athologist Signature TSH 2.01 0.27 - 4.20 CERNER mcIU/mL [facility] Specimen Anatomical Collection Method Collection Time Receive d Time (Source) Location / / Volume Laterality Blood specimen 02/17/2012 9:22 AM 012 9:30 (specimen) EDT AM EDT Resulting Agency Comment Spec In Lab Debbie Jacobo MD CHEMISTRY ORDERABLES Performing Organization Address City/State/[place] [address] [place] MILLENNIUM Creatinine, serum (02/17/2012 9:22 AM EDT) athologist Signature Creatinine 0.93 0.80 - 1.50 [place] mg/dL [facility] Comment: Please note that the pediatric reference intervals supplied above were not validated at [facility]. Results from pediatri c patients should be interpreted in conjunction to the patient's age, height and muscle mass. Estimated GFR >60 >=60 KARL [facility] Comment: The National Kidney Disease Education Pr [...] age. At present, NKDEP does NOT recommend i ng the MDRD equation for drug dosing [...] Organization Address City/State/[place] [address] C[place]ER MILLENNIUM (ABNORMAL) Hemoglobin A1c (02/17/2012 9:22 AM EDT) Analysis Performed At [facility] logis Time Signature Hemoglobin A1C 8.7 (H) 4.3 [...] with hemoglobinopathies. Additional resources are available on [facility] ADA website: ??http://professional.diabetes.org/gluc osecalculator.aspx Reference: Orestes MIXON, Gómez J, Philip R, et al. ??Tr anslating the A1C assay into estimated average glucose values. ??Diabetes Care 2008:31(8):8838-4902. Specimen Anatomical Collection Method Collection Time Receive d Time (Source) Location / / Volume Laterality Blood specimen 02/17/2012 9:22 AM 012 9:30 (specimen) EDT AM EDT Resulting Agency Comment Spec In Lab Debbie Jacobo MD CHEMISTRY ORDERABLES Performing Organization Address City/State/[place] [address] CERNER MILLENNIUM (ABNORMAL) Hemoglobin A1c (11/04/2011 9:35 AM EDT) Analysis Performed At [facility] logis Time Signature Hemoglobin A1C 8.8 (H) 4.3 - 6.1 CERNER % MILLENNIUM Est Avg Gluc 206 mg/dL CERNER MILLENNIUM Comment: eAG equivalents for HbA1c percentages: HbA1c(%) ?eAG(mg/dL) 6.0 ?126 6.5 ?140 7.0 ?154 7.5 ?169 8.0 ?183 8.5 ?197 9.0 ?212 9.5 ?226 10.0 ? 240 Limitations: The eAG calculation has not been validated on women, individuals below 18 years old and above 70 years old, and individuals with hemoglobinopathies. Additional resources are available on [facility] ADA website: ??http://professional.diabetes.org/gluc osecalculator.aspx Reference: Orestes MIXON, Gómez J, Philip R, et al. ??Tr anslating the A1C assay into estimated average glucose values. ??Diabetes Care 2008:31(8):2771-3125. Specimen Anatomical Collection Method Collection Time Receive d Time (Source) Location / / Volume Laterality Blood specimen 11/04/2011 9:35 AM 012 9:40 (specimen) EDT AM EDT Resulting Agency Comment Spec In Lab Debbie Jacobo MD CHEMISTRY ORDERABLES Performing Organization Address City/State/[place] [address] [address] [facility] documented in this encounter Visit Diagnoses Diagnosis DM type 1 (diabetes mellitus, type 1) - Primary Type I (juvenile type) diabetes mellitus without mention of complication, not stated as uncontrolled documented in this encounter Care Teams Router Tender Relationship Specialty Start Date End Date Allan Mims MD PCP - General 04/28/11 02/25/[address] [place] [address] documented as of this encounter
--- OUTSIDE RECORDS SUMMARY | 2022-01-15 01:17 | XMS_ITS | Encounter Summary ---
:1975 Author Organization [facility] [place] [address] Care Team Providers Name Role Phone Allan Mims MD Primary Care Provider Reason for Visit Reason Onset Date Comments Prior Authorization 08/10/2011 LIPITOR 10MG Encounter Details Date Type Department Care Team Description 08/10/2011 Telephone Endocrinology at [facility] Debbie Garcia Prior Authorization [facility] MD Lupis (LIPITOR 10MG) [place] [address] ENDOCRINOLOGY DEPT. [place], [place] [address] Social History Tobacco Use Types Packs/Day Years Used Date Former Smoker Quit: 04/28/20 01 Sex Assigned at Date Recorded Not on file documented as of this encounter Miscellaneous Notes Telephone Encounter - Debbie Jacobo MD - 08/20/2011 9:18 AM EST i had sent the script for simvastatin last month, i just did it again. Telephone Encounter - Zeenat Nuno - 08/10/2011 10:29 AM EST Medication Prior Authorization JOHN Medication name/dose/directions: LIPITOR 10MG Rationale for request: DIABETES 250.01 Health [place] Authorizing collections representative name: FAXED Faxed to health plan on: 08/10/2011 Health plan decision: Denied Received Fax (08/11/2011) from [place] Medicaid asking if PT has tried Crestor, Simvastatin, and require LDL reduction of at least 45%. I did not find any documentation of Dragan ever trying Crestor or Simvastatin. I faxed back the form and will wait for the final decision. Quantity approved: Authorization number: Start date: End date: Patient notified? no Pharmacy notified? no 08/20/2011- Patient must try Crestor or Simvastatin first. documented in this encounter Plan of Treatment Not on filedocumented as of this encounter Visit Diagnoses Not on filedocumented in this encounter Care Teams Electrician Supervisor Airplane Relationship Specialty Start Date End Date Allan Mims MD PCP - General 04/28/11 02/25/[address] [place] [address] documented as of this encounter
--- OUTSIDE RECORDS SUMMARY | 2022-01-15 01:18 | XMS_ITS | Clinical Summary ---
:[address] [facility] Address [address] [place] [address] Care Team Providers Name Role Phone Allan Mims MD Primary Care Provider Unavailable Allergies Active Allergy Reactions Severity Noted Date Comments Ciprofloxacin Other (See Comments) 04/21/2011 dizzin ess Medications Medication Sig Dispensed Refills Start Date End Date Status insulin glargine Inject 50 Units 5 Device 12 04/23/2011 Active (LANTUS SOLOSTAR PEN) into the skin at 100 unit/mL (3 mL) bedtime. injection pen aspirin 81 mg EC Take 1 Tab by 1 Each 0 04/23/2011 Active tablet mouth daily. insulin lispro Inject 0.2 mL into 5 Device 12 04/23/2011 Active (HUMALOG PENFILL) 100 the skin 3 times unit/mL injection pen daily with meals. Active Problems Problem Noted Date Type II diabetes mellitus with ketoacidosis ([facility]) 04/21/2011 Leukocytosis 04/21/2011 Acidosis 04/21/2011 Surgical History Surgery Date Site/Laterality Comments HAND SURGERY 04/17/2011 Medical History Medical History Date Comments DM (diabetes mellitus) type 2, uncontrolled, with ketoacidos is ([facility]) ([facility]) Family History Medical History Relation Name Comments Diabetes Relation Name Status Comments Social History Tobacco Use Types Packs/Day Years Used Date Former Smoker Cigarettes Quit: 11/19/19 06 Smokeless Tobacco: Former User Q uit: 12/07/2010 Comments: pt quit in 2005 does not smoke Alcohol Use Standard Drinks/Week Comments Yes .[id number] (1 standard drink = 0.6 oz pure alcohol) Sex Assigned at Date Recorded Not on file Last Filed Vital Signs Vital Sign Reading Time Taken Comments Blood Pressure 127/77 04/23/2011 0632 EDT Pulse 107 04/22/2011 0021 EDT Temperature 35.8 ??C (96.4 ??F) 04/23/2011 1316 EDT Respiratory Rate 18 04/23/2011 0632 EDT Oxygen Saturation 97% 04/23/2011 0632 EDT Inhaled Oxygen Concentration - - Weight 82.5 kg (181 lb 14.1 oz) 04/23/2011 0632 EDT Height 182.9 cm (6') 04/21/2011 0715 EDT Body Mass Index 24.67 04/21/2011 0715 EDT Plan of Treatment Not on file [place] Direct[place] For more information, please contact: [phone] Documents on File Type Date Recorded 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
--- OUTSIDE RECORDS SUMMARY | 2022-01-15 01:18 | XMS_ITS | Encounter Summary ---
:1975 Author Organization [facility] Address [address] [place] [address] Care Team Providers Name Role Phone Allan Mims MD Primary Care Provider Unavailable Encounter Details Date Type Department Care Team Description 04/21/2011 - [facility] Justin Villegas MD [address] [place] [phone] DKA, type 2 04/23/2011 Encounter General Medicine Jean Carlos Murillo MD PhD [address] [facility], [address] [place] [phone] ([facility]) Unit Dandre Maharaj MD [address] [phone] [address] [place], [place] [id number] Social History Tobacco Use Types Packs/Day Years Used Date Former Smoker Cigarettes Quit: 11/19/19 06 Smokeless Tobacco: Former User Q uit: 12/07/2010 Comments: pt quit in 2005 does not smoke Alcohol Use Standard Drinks/Week Comments Yes .[id number] (1 standard drink = 0.6 oz pure [...] Body Mass Index 24.67 04/21/2011 0715 EDT documented in this encounter Functional Status Cognitive Status Response Date of Assessment Because of a physical, mental, or emotional condition, do Ye s 04/21/2011 you have serious difficulty concentrating, remembering, or making decisions? (5 years old or older) documented as of this encounter Discharge Summaries Dandre Maharaj MD - 04/22/2011 0844 EDT Discharge Summary Admit Date: 04/21/2011 Discharge Date: 04/23/11 Chief Complaint/Reason for Admission: Diabetic Ketoacidosis Principal/Final Diagnosis: Diabetic Ketoacidosis Condition at Discharge: Improved or Stable Assessment at Discharge: Vital signs: Patient Vitals for the past 12 hrs: BP Heart Rate Resp Temp SpO2 O2 Device 04/23/11 0632 127/77 mmHg 92 BPM 18 36.3 ??C (97.3 ??F) 97 % Room air 04/23/11 0205 136/75 mmHg 97 BPM 18 36.4 ??C (97.5 ??F) 98 % Room air Hospital Course: Kelly Leon is a 36 y.o. male who has a hx of DM (unclear if type I vs type II) who on Tuesday suffered stressors of the loss of employment and then cut his hand on a table saw for which was given Kelflex. Five days later he was afflicted by CRUM, chest pain and nausea. He presented to [facility] and was found to have glucose of 345, anion gap of 27 with total CO2 of 5, pH of 6.85 and ketones in his urine. He was ruled out for NE and treated for diabetic ketoacidosis. He was transferred to [facility] for management of this DKA. He was placed on the DKA protocol with insulin infusion and resuscitated with over 10 L of intravenous fluids. Gap and bicarb corrected and he remained euglycemic after being transitioned to a slightly reduced dose of his home insulin regimen. He was again educated about the importance of insulin use. Barriers were discussed and Insulin pens were prescribed with plan for follow up with PCP. He was discharged home on 04/23/11 with 2 more days of KCl repletion and i nstructions to f/u with his PCP GABRIELLE antibody was checked prior to D/c. Follow Up Appointments/Pending Studies/Labs: GABRIELLE antibody BMP Wednesday April 27, 2011 Dr. Allan Mims April 27, 2011 Relevant Studies at Discharge: Results for KELLY LEON ( ) as of 04/23/2011 11:37 Ref. Range 04/21/2011 07:42 Hemoglobin A1C No range found 13.1 Last Lab Results at Discharge: BUN: Lab Results Component Value Date BUN 5* 04/23/2011 Creatinine: Lab Results Component Value Date CREATININE 0.56* 04/23/2011 CBC: Lab Results Component Value Date WBC 5.11 04/23/2011 RBC 3.68* 04/23/2011 HGB 11.9* 04/23/2011 HCT 32.9* 04/23/2011 MCV 89 04/23/2011 MCH 32.2 04/23/2011 MCHC 36.0 04/23/2011 PLT 238 04/23/2011 DIFFTYPE Automated 04/23/2011 Electrolytes: Lab Results Component Value Date NA 141 04/23/2011 K 3.2* 04/23/2011 CL 104 04/23/2011 CO2 32 04/23/2011 Discharge Medications: No medications prior to admission that will be resumed at discharge. New medications prescribed at discharge: Medication Sig Dispense Refill ??? insulin glargine (LANTUS SOLOSTAR PEN) 100 unit/mL (3 mL) injection pen Inject 50 Units into theskin at bedtime. 5 Device 12 ??? potassium chloride SA (K-DUR, KLOR-CON M20) 20 mEq tablet Take 3 Tabs by mouth daily for 2 days.6 Tab 0 ??? aspirin 81 mg EC tablet Take 1 Tab by mouth daily. 1 Each 0 ??? insulin lispro (HUMALOG PENFILL) 100 unit/mL injection pen Inject 0.2 mL into the skin 3 times daily with meals. 5 Device 12 Dandre Maharaj MD (Spent 35 minutes - all FTF and coordination) cc: Allan Mims documented in this encounter Discharge Instructions Christy Hernandez - 04/23/2011 Call to schedule an appointment with the Endocrinology clinic at [phone]. Diet: Diabetic Activity: Activity as tolerated Driving: No driving while taking narcotic pain medication Skin/Wound Care: Not applicable Bathing: No restrictions Pending Results: GABRIELLE antibody Quality Measures for Acute Myocardial Infarction or Heart Failure Patients: Not applicable Symptoms to Call Your Doctor About: Chest pain (angina) Dizziness or fainting Inability to swallow or increasing difficulty swallowing Increased or new pain Increased peripheral edema Nausea or vomiting Recurrance of symptoms that brought you to the hospital Severe or increasing headache Shortness of breath or rapid breathing Appointments: Please follow up with Dr. Allan Mims on Tuesday Please have your potassium checked at this appointment Follow-up Services Contacted at Discharge: Attending physician Heart Failure Teaching: Not applicable Health Risk and Disease Information: Not applicable documented in this encounter Medications at Time of Discharge Medication Sig Dispensed Refills Start Date End Date aspirin 81 mg EC tablet Take 1 Tab by mouth 1 Each 0 09/2010 daily. insulin glargine (LANTUS Inject 50 Units into 5 Device 12 1 06/23/2010 SOLOSTAR PEN) 100 unit/mL the skin at bedtime. (3 mL) injection pen insulin lispro (HUMALOG Inject 0.2 mL into 5 Device 12 09/2010 PENFILL) 100 unit/mL the skin 3 times injection pen daily with meals. potassium chloride SA Take 3 Tabs by mouth 6 Tab 0 09/201004/25/2011 (K-DUR, KLOR-CON M20) 20 daily for 2 days. mEq tablet documented as of this encounter Ordered Prescriptions Prescription Sig Dispensed Refills Start Date End Date insulin lispro (HUMALOG Inject 0.2 mL into 5 Device 12 09/2010 PENFILL) 100 unit/mL the skin 3 times injection pen daily with meals. aspirin 81 mg EC tablet Take 1 Tab by mouth 1 Each 0 09/2010 daily. insulin glargine (LANTUS Inject 50 Units 5 Device 12 2010 SOLOSTAR PEN) 100 unit/mL into the skin at (3 mL) injection pen bedtime. potassium chloride SA Take 3 Tabs by 6 Tab 0 04/23/2011 04/25/2011 (K-DUR, KLOR-CON M20) 20 mouth daily for 2 mEq tablet days. documented in this encounter Discharge Disposition Disposition Code Departure Means Destination Home or Self Care documented in this encounter Progress Notes Khushboo Olmos - 04/23/2011 1356 EDT Active Multi-Disciplinary problems: SKIN INTEGRITY [468348] (04/21/11) DISCHARGE PLANNING [706247] (04/21/11) CIRCULATORY STATUS [712293] (04/21/11) FLUID AND ELECTROLYTE BALANCE [919200] (04/21/11) KNOWLEDGE DEFICIT [590548] (04/22/11) NUTRITION [526308] (04/22/11) RISK FOR INFECTION [131666] (04/22/11) GLYCEMIA IMBALANCE [330594] (04/22/11) FALL RISK [729462] (04/22/11) Data: Pt had FS 66 early this am but FS up to 173 before lunch. Insulin as needed. Has complaints ofheadache ,given Tylenol with relief. Appetite good. Independent mobility. VSS and no respiratory distress noted. Potassium 3.2 on discharge. Action:Reviewed home diabetic care with pt. Has a diabetic education booklet at home. Pt encouraged to monitor FS at home. Will offer pt Rich 4 education material. Pt given IV Potassium and oral dosing. Response: Pt has diabetic knowledge but needs to monitor self more closely. Khushboo Olmos RN 04/23/2011 13:56 Gabbie Vail RN - 04/23/2011 1101 EDT Case Management Note Met with patient and his this morning. Mr. Leon indicated he will be returning to the ED for suture removal of fingers on Tuesday. Mrs. Leon indicated that hospitalization insurance may still be in effect, regardless, patient is Medicaid applied. Provided [facility] card. No fu rther needs at this time, having has the social work assistance of Terra Almeida when in ICU. Gabbie Carter RN,[facility] [phone] ageto, Ev Hdz MD - 04/22/2011 1521 EDT Daily Progress Note 04/22/2011 CC: DKA 24 Hrs: d/c insulin infusion, started 2/3 home lantus dose, GAP closed and Bicarb in 20's Subjective: Still with nausea and poor appetite, no crum, vomiting or chest pain. ROS: A 10 point review of systems was conducted and the pertinent positives and negatives are noted in the HPI, all other systems were reviewed and are negative. Objective: Blood pressure 112/69, pulse 107, temperature 36.4 ??C (97.5 ??F), temperature source Tympanic, resp. rate 19, height 182.9 cm (72), weight 76.7 kg (169 lb 1.5 oz), SpO2 99.00%. 04/21 0700 - 04/22 0659 In: 85823.8 [P.O.:570; I.V.:3221.8] Out: 5735 [Urine:5735] Physical Exam Gen Ill apearing HEENT anicteric PERRL EOMI Resp Non Labored Breathing CTAB CV JVP not elevated No Bruit S1/S2 Equal No Murmur Peripheral Pulses equal upper and lower Abd Soft/Non tender/Non Distended Ext Fingers with clean non draining stiches on three fingers of left hand Neuro CN II-XII intact No Focal Deficits Skin Tattoos , no rashes Medications Reviewed on AUG Labs WBC/Hgb/Hct/Plts: 5.52/10.4/28.9/212 (04/22 430) BUN/Cr/glu/ALT/AST/amyl/lip: 5/0.63/146/--/--/--/-- (04/22 430) Na/K/Cl/CO2: 138/2.7/111/21 (04/22 430) Imaging Reviewed Assessment/Plan 36 yo man with DM II admitted with DKA from [facility] with gap of 21 pH of 6.8 and total CO2 of 5. Gap and bicarb corrected with nl glucose on reduced home dose. Likely inciting factor abx from hand stiches v stress v infection noted as persistent GI sx. Notable today for hypokalemia that was corrected with hypomagnesemia. Recheck lytes at 10 AM today and replete as indicated OK to transfer to general medicine floor SUZANNE FERGUSON MD Pager [phone] MICU ATTENDING ADDENDUM: Attestation statement: I saw and examined Mr. Leon. I agree with the findings and plan of care documented in the resident's/fellow's note. Patient doing well today. Ready to leave the ICU. Blood sugars controlled. Still unclear what triggered his DKA. Will correct electrolytes and plan to transfer to floor later today. Ev Mcclure MD MICU Attending 04/22/2011 Raven Bansal RN - 04/22/2011 1202 EDT Diabetes Nurse Educator requested by Maggie MARTÍNEZ, on MICU unit, to provide an Ultramini glucometer to patient. Instructions provided to patient and regarding use of meter, and extra strips provided. [facility] diabetes education book, Living Well with Diabetes provided, and encouraged TANYA Serrano to obtain a d ietary and endocrinology consult for patient - NO. Pt. demonstrated knowledge of glucometer functions and urged to test before meals and at bedtime (minimum) or as needed. Plan: CDE will follow up with DM education from staff air defense officer when transferred to [place] [phone]. Raven Paula RN, CDE #[id number] Sumeet Winslow RN - 04/22/2011 1152 EDT 1150 contacted Dm educator Raven Paula to come see pt about DM teaching she was in to see pt + family vss taken off tele earlier vss 1000 K 3.8 iv fluid off pt ate all of breakfast uo good comfortableL hand soaked in soapy water this am @ 1010 bacitracin applied to sutures + abrasions along L fingers, incision healing well, clean no s/s of infection covered with telfa + wrapped DM teaching done with pt + re s/s of hypo+ hyperglycemia, site rotation insulin injection, action of aspart + lantus, monitoring fs before meals, how to tx when sick Pt open to dm teaching needs reiforcement stable will transfer to B4 when bed is available stable radha d/c 1225 FS 281 Pt used own glucometer + gave himself insulin reviewed various site rotations 1420 report called to b4 nurse earlier transport paged to take pt to b4 via w/c stable a + o [id number] signed by Sumeet Cronin, RN at 04/22/2011 14:21 Marti Perdomo I - 04/22/2011 0816 EDT Brief Case Management Assessment Reason for Hospitalization: DKA in a 36 year old man with DM who recently severed some fingers and has lost his job due to downsizing Current Living Arrangements: Lives in [place], [place] with his , Mary and his 15 and 9 year old and her 9 y.o. They are expecting a baby in September. She is taking online classes and does not work outside the home. No income currently for the household although it seems Mary knows where to turn. Current Social, Health Care and Community Supports: Unsure of support but there is family. His parents are taking care of the kids at home and 's mother is here with her. Identified Case Management/Social Work Needs and Issues (housing, care, financial, transportation, cultural, spiritual, emotional, legal, etc.): Insurance likely ended as of 04/19/11 but has applied for Medicaid for Kelly and the family. They are without income until he can get unemployment. Have asked Shweta Wills in business office to see pt. Regarding Pt. Assistance. Provided 2 [address] passes. Will need to be sure he has adequate supplies to manage the DM prior to d/c. Was the injury workman's comp? SW to f/u. Case Management Actions (completed and planned): As above. Unfortunate man with supportive family recovering from DKA and recent hand injury. Financial/insurance needs big concern until he gets coverage and they have some income and they are a familyof 5. Follow in unit. Gianluca Almeida 1446 GTJean Carlos Zaldivar RN - 04/21/2011 2337 EDT Bedside report from Indu Cronin RN, reports improvement of anion gap and no other issues to report. Assumed pt care. Pt is in bed A+Ox3, pleasant and engaged, insulin gtt currently off, pt reports definitely feeling better than when I came here, pt denies any pain or nausea. Maintained rapport, reviewed plan of care with pt, plan to maintain comfort/safety, redraw f/u labs in the AM per orders and will continue monitoring closely. GTSumeet Cronin RN - 04/21/2011 0859 EDT 0900 Pt arrived @ 0715 alert + oriented x3,admisson FS 167, vss ST 130's ns bolus up earlier , started on insulin drip + IV fluid sat well no pain , in updated 1000 did not follow dka protocol with D5 1/2 NS secondary to elevated CL started D5 RL instead per Dr. Ferguson team aware of gap 1040 false FS > 500 drawn from PIV by iv nurse, redid FS 150 1725 Pt resting nauseated earlier zofran given taking sips vss [address] extra fluid boluses ordered + infusing, K 3.3 20 meq iv given x2 sat well uo good,taking sips, no furter nausea no pain family in updated 1820 Pt did not want to have a bath 2[id number] Ferguson aware K 3.3 plan is to give 20 meq x2 plan is to give lantus, pt takes 55 units at home at hs will give a reduced rate per Dr. Ferguson secondary to poor po intake planis to keep D5 RL going at present rate after insulin drip off secondary to poor appetite + po intake 2250 FS 68 @ 2227 insulin drip stopped D50 1/[address] Ferguosn aware 2300 FS 97 documented in this encounter H&P Notes Lucien Barcenas MD - 04/22/2011 1540 EDT Medicine Service Accept Note Chief Complaint: nausea Hospital Course: Pt is a 36 y.o. male h/o DM II who was admitted to the ICU yesterday with DKA. LastFriday pt suffered stressors of the loss of employment and then cut his hand on a talbe saw for which was given Kelflex. Five days later he was afflicted by CRUM, chest pain and nausea. He presented to [facility] and was found to have glucose of 345, anion gap of 27 with total CO2 of 5, pH of 6.85 and ketones in his urine. He was ruled out for NE and treated for diabetic ketoacidosis. Hewas transferred to [facility] for management of this DKA. He was placed on the DKA protocol with insulin infusion and resuscitated with over 10 L of intravenous fluids. Gap and bicarb corrected with nl glucose on reduced home dose. He was seen ready for transfer to the [facility] floor. Pt feeling well at the time of my visit. Denies nausea, vomiting and abdominal pain. Appetite is good. Has chronic polyuria, polydipsia and nocturia, but no vision changes or peripheral neuropathy. Hasnever had hypoglycemia. Had episode of viral vertigo one week ago, but otherwise no infections. Also denies excessive ETOH intake. Home insulin regimen consists of lantus 60 U QHS and Humalog 20 U with meals, though admits that has not been supplementing his meals for months-years. He does not checkhis glucose at home. A1c on arrival was 13.1. His diabetes is managed by his PCP. Never seen an adjuster and inspector. Was diagnosed with DM II at age of 28. Unsure if he ever had antibody testing to r/o type 1 DM. Was initially on oral agents for two years, and now only on insulin. His father was diagnosedwith DM at the age of 30. Patient Active Problem List Diagnoses Date Noted ??? DKA, type 2 04/21/2011 ??? Leukocytosis 04/21/2011 ??? Acidosis 04/21/2011 Past Medical History Diagnosis Date ??? DM (diabetes mellitus) type 2, uncontrolled, with ketoacidosis Past Surgical History Procedure Date ??? Hand surgery 04/17/2011 No prescriptions prior to admission Allergies Allergen Reactions ??? Ciprofloxacin Other (See Comments) dizziness History Substance Use Topics ??? Smoking status: Former Smoker Types: Cigarettes Quit date: 11/18/2005 ??? Smokeless tobacco: Former User Quit date: 12/07/2010 Comment: pt quit in 2005 does not smoke ??? Alcohol Use: 0.5 oz/week 1 drink(s) per week Family History Problem Relation Age of Onset ??? Diabetes Review of Systems Pertinent items are noted in Subjective/HPI Objective: Exam: BP 122/70 Pulse 107 Temp(Src) 36.7 ??C (98.1 ??F) (Tympanic) Resp 18 Ht 182.9 cm (72) Wt 76.7 kg (169 lb 1.5 oz) BMI 22.93 kg/m2 SpO2 100% Gen: NAD HEENT: PERRL, no oropharyngeal erythema or exudate Neck: supple, trachea midline, no anterior cervical or SC LAD, no thyromegaly Heart: RRR, normal s1s2, no MRTG Lungs: CTAB Abd: +bs, soft, NT/ND, no HSM Ext: no cyanosis or edema, no foot deformities, DP 2+ bilaterally; Fingers with clean non draining stiches on three fingers of left hand Neuro: Sensation intact throughout Data Review: Recent Labs Basename 04/22/11 0805 04/22/11 0425 04/22/11 0122 04/21/11 2300 04/21/11 2226 04/21/11 2124 04/21/11 2027 04/21/11 1928 04/21/11 1844 04/21/11 1740 04/21/11 1636 04/21/11 1540 GLUCOSEFINGE 215* 164* 159* 97 68* 103* 144* 157* 177* 150* 113* 127* CBC: Lab Results Component Value Date WBC 5.52 04/22/2011 RBC 3.22* 04/22/2011 HGB 10.4* 04/22/2011 HCT 28.9* 04/22/2011 MCV 90 04/22/2011 MCH 32.2 04/22/2011 MCHC 36.0 04/22/2011 PLT 212 04/22/2011 NEUTROABS 4.37 04/22/2011 BMP: Lab Results Component Value Date NA 135* 04/22/2011 K 3.8 04/22/2011 CL 107 04/22/2011 CO2 24 04/22/2011 BUN 5* 04/22/2011 CREATININE 0.63* 04/22/2011 GLUCOSEFINGE 215* 04/22/2011 MG 1.4* 04/22/2011 PHOS <1.0* 04/22/2011 LABALBU 4.1 04/21/2011 Coagulation: Lab Results Component Value Date PROTIME 9.7 04/21/2011 INR 0.9 04/21/2011 ABGs: Lab Results Component Value Date PHISTAT 7.07* 04/21/2011 PCOISTAT 14* 04/21/2011 POISTAT 114* 04/21/2011 POCTCO2 <5 04/21/2011 POCFIO2 21 04/21/2011 U/A: Lab Results Component Value Date CLARITYU Hazy 04/21/2011 LABSPEC >1.030 04/21/2011 PHUR 5.5 04/21/2011 GLUCOSEU 1+* 04/21/2011 BILIRUBINUR 2+* 04/21/2011 KETONES 3+* 04/21/2011 BLOODU 3+* 04/21/2011 PROTEINUA 1+* 04/21/2011 Assessment: 36 yo M with h/o DM (unclear whether type I or II) and current admission for DKA, presumably due to recent life stressors and hand injury. Pt's body habitus and age are atypical for type II DM. It is possible that pt has late onset type 1 DM. Gap now closed and pt stable for transfer to medicine service. Plan: DM/DKA (resolved): Repeat lytes now, if gap continues to be closed, can check daily Resume home lantus 60 units QHS Hold mealtime humalog for now ( since was not using at home) Supplemental sliding scale aspart CC diet Consider w/u for type 1 DM Pt would benefit from outpatient referral to endocrinology -- will need to establish in [place] (45min) or [facility] (60 min) as closest endocrine MD Abnormal (low) TFT's: Check FT3 CODE: FULL PPx: ambulation Dispo: home in next 24 hrs NADINE GALLEGO MD 04/22/2011 15:41 Attestation statement: I saw and examined the patient with the resident. I agree with the findings and plan of care documented in the resident's note. Changes in bold. Appropriate for general medical floor. Lucien Barcenas PCIM Kerrie Carlton MD - 04/21/2011 1158 EDT History and Physical 04/21/2011 CC: Nausea HPI: Kelly Leon is a 36 y.o. male who has a hx of DM II and on Tuesday suffered stressors of the loss of employment and then cut his hand on a talbe saw. He went to the [facility] in [facility] for stiches andwas given Kelflex. On Tuesday he was afflicted by CRUM, chest pain and nausea. Through this he was checking his FS glucose and had minimal increase in his glucose. He denies fevers, chills neck stiffnessor diarrhea. In the [facility] Ed he was found to have glucose of 345, anion gap of 27 with total CO2 of 5,pH of 6.85 and ketones in his urine. He was ruled out for NE and treated for diabetic ketoacidosis. He was transferred to [facility] for management of this DKA. Upon arrival in the ICU his FS glucose was 167 and he was complaining of fatigue and nausea. ROS: A 10 point review of systems was conducted and the pertinent positives and negatives are noted in the HPI, all other systems were reviewed and are negative. Active Problem List Patient Active Problem List Diagnoses ??? DKA, type 2 ??? Leukocytosis ??? Acidosis PMH PSH Past Medical History Diagnosis Date ??? DM (diabetes mellitus) type 2, uncontrolled, with ketoacidosis Past Surgical History Procedure Date ??? Hand surgery 04/17/2011 Social History Family history History Substance Use Topics ??? Smoking status: Former Smoker Types: Cigarettes Quit date: 04/21/2011 ??? Smokeless tobacco: Not on file ??? Alcohol Use: 0.5 oz/week 1 drink(s) per week Family History Problem Relation Age of Onset ??? Diabetes Allergies Allergies Allergen Reactions ??? Ciprofloxacin Other (See Comments) dizziness Medications Current Facility-Administered Medications Medication Dose Route Frequency Provider Last Rate Last Dose ??? acetaminophen (TYLENOL) tablet 325 mg 325 mg Oral Q6H PRN Suzanne Ferguson MD ??? docusate sodium (COLACE) capsule 100 mg 100 mg Oral BID Suzanne Ferguson MD Or ??? docusate (COLACE) liquid 100 mg 100 mg Per NG tube BID Suzanne Ferguson MD ??? bisacodyl (DULCOLAX) suppository 10 mg 10 mg Rectal DAILY Suzanne Ferguson MD ??? senna (SENOKOT) tablet 2 Tab 2 Tab Oral AT BEDTIME PRN Suzanne Ferguson MD ??? magnesium sulfate in D5W 2 g/50 mL premade bag 2 g Intravenous Q1H PRN Suzanne Ferguson MD ??? atropine 0.1 mg/mL 10 mL syringe 0.5-1 mg 0.5-1 mg Intravenous PRN Suzanne Ferguson MD ??? insulin regular (HUMULIN R,NOVOLIN R) 100 Units in sodium chloride (NS) 0.9 % 100 mL infusion 0.1 Units/kg/hr Intravenous CONTINUOUS Suzanne Ferguson MD 9.2 mL/hr at 04/21/11 1431 0.12 Units/kg/hr at 04/21/11 1431 ??? sodium chloride 0.9 % (NS) infusion 10 mL/hr Intravenous CONTINUOUS Suzanne Ferguson MD ??? dextrose 50 % solution 12.5-25 g 12.5-25 g Intravenous PRN Suzanne Ferguson MD ??? enoxaparin (LOVENOX) injection 40 mg 40 mg Subcutaneous DAILY Suzanne Ferguson MD 40 mg at [id number] ??? aspirin EC tablet 81 mg 81 mg Oral DAILY Suzanne Ferguson MD 81 mg at 04/21/11 1107 ??? dextrose 5 % in lactated ringers infusion Intravenous CONTINUOUS Suzanne Ferguson MD 150 mL/hr at 04/21/11 1400 ??? potassium chloride 20 mEq, lidocaine 10 mg in sodium chloride 0.9% 100 mL IVPB 20 mEq Intravenous Q1H PRN Suzanne Ferguson MD ??? ondansetron (PF) (ZOFRAN) 4 mg/2 mL injection ??? ondansetron (PF) (ZOFRAN) injection 4 mg 4 mg Intravenous Q4H PRN Suzanne Ferguson MD Objective: Blood pressure 126/46, pulse 98, temperature 37.1 ??C (98.8 ??F), temperature source Tympanic, resp. rate 19, height 182.9 cm (72), weight 76.7 kg (169 lb 1.5 oz), SpO2 99.00%. Physical Exam Gen NAD HEENT anicteric PERRL EOMI Resp Non Labored Breathing CTAB/P CV Tachy S1/S2 Equal No Murmur Peripheral Pulses equal upper and lower Abd Soft/Non tender/Non Distended Ext Non cyanotic No Edema Neuro CN II-XII intact No Focal Deficits Skin Tatoos Labs WBC/Hgb/Hct/Plts: 25.57/14.4/41.3/332 (04/21 742) BUN/Cr/glu/ALT/AST/amyl/lip: 19/1.00/--/22/<10/--/-- (04/21 742) Na/K/Cl/CO2: 140/4.6/117/11 (04/21 113) Imaging Reviewed Assessment/Plan 36 yo man with DM II presenting with diabetic keto acidosis from OSH. Currently tachycardic with anion gap metabolic acidosis. Resp: Currently no issues CV: Tachy with likely volume depletion as etiology. EKG with Sinus tachy. Nl Cardiac biomarkers at OSH Fluid resuscitation TSH CE, tele Endo: Antibiotic v life stress as etiology of DKA v not taking insulin Insulin infusion Q 4 lytes to follow gap and total CO2 Switch to Sub Q when bicarb and GAP corrected A1c GI: Nausea. Able to take minimal PO. With normal LFT's Carb consistent diet Zofran Heme: Leukocytosis likely from hemoconcentration Follow CBC ID: leukocytosis as above, no fevers chills or other sign of uncontrolled infection. Viral etiology is possible cause of DKA. No need for Abx Repeat CBC Neuro: no issues Full Code SUZANNE FERGUSON MD Pager [phone] MICU ATTENDING ADDENDUM: Attestation statement: I performed a history and physical examination on Mr. Leon. I agree with the findings and plan of care documented in the resident's/fellow's note. In addition, patient notes that he was diagnosed with what sounds like viral labrynthitis about three weeks ago-symptoms had resolved. He was concerned that the nausea/vomiting that started two days before admission were related -tried taking meclazine without relief. Unclear what triggered DAK-possibly stress, injury but with increased WBC concerned about infection or other process. No evidence for NE, UA neg, nl LFTs, nothing on physical exam to indicate an infectious source. Will re check WBC and follow closely. KERRIE GRIFFITHS MD MICU Attending 04/21/2011 documented in this encounter Procedure Notes Functional Manager, Scan - 05/18/2011 1602 ESTAssociated Order(s): ECG REPORT - SCANNED Functional Manager, Scan - 04/27/20112125 ESTAssociated Order(s): ECG REPORT - SCANNED documented in this encounter Miscellaneous Notes Scanned Note-Null - Functional Manager, Scan - 04/27/20112125 EST canned Note- Null - Functional Manager, Scan - 04/27/20112125 EST canned Note- Null - Functional Manager, Scan - 04/27/20112125 EST lan of Aruna Duke Khushboo Olmos Amarilys - 04/23/2011 1029 EDT Problem: GLYCEMIA IMBALANCE Goal: Clinical Indication Of Glycemia Balance Is Achieved Active Multi-Disciplinary problems: SKIN INTEGRITY [838620] (04/21/11) DISCHARGE PLANNING [467754] (04/21/11) CIRCULATORY STATUS [003526] (04/21/11) FLUID AND ELECTROLYTE BALANCE [131437] (04/21/11) KNOWLEDGE DEFICIT [666243] (04/22/11) NUTRITION [014153] (04/22/11) RISK FOR INFECTION [401882] (04/22/11) GLYCEMIA IMBALANCE [914651] (04/22/11) FALL RISK [495707] (04/22/11) Data:FS as documented =66. Pt feels fine except for slight headache. Pt has diabetes education booklet at home. Takes his insulin but does not monitor his FS. Action:Slide scale insulin held per parameters. Juice given and breakfast ordered. Response: Pt feels fine.CTM Khushboo Olmos RN 04/23/2011 10:26 lan of Wendy Stanton RN - 04/23/2011 0417 EDT Problem: FLUID AND ELECTROLYTE BALANCE Goal: Fluid And Electrolyte Balance Are Achieved/Maintained Intervention: Monitor labs for signs of fluid inbalance Monitor for signs of fluid imbalance and report abnormal labs to the provider. Data: Patient's potassium level was 2.9, magnesium was 1.4 Action: patient medicated with 2 doses of 20 meq of potasium IV , and a bag of mag. And Electrolyteswas rechecked. K level remained @ 2.9 and Mag level went up to 2.1. Dr. Paez made aware, and he reordered total of 40 meq of potasium IV and a 20 meq PO potasium. Response: awaiting for Lab results in AM.patient has no other complain. Wendy Verdugo RN 04/23/2011 4:10 canned Note- Null - Functional Manager, Scan - 04/22/2011 1058 EDT canned Note- Null - Functional Manager, Scan - 04/22/2011 1058 EDT lan of Jean Carlos Soto RN - 04/22/2011 0657 EDT Problem: FLUID AND ELECTROLYTE BALANCE Goal: Fluid And Electrolyte Balance Are Achieved/Maintained Active Multi-Disciplinary problems: SKIN INTEGRITY [798538] (04/21/11) DISCHARGE PLANNING [028874] (04/21/11) CIRCULATORY STATUS [955293] (04/21/11) FLUID AND ELECTROLYTE BALANCE [645974] (04/21/11) Data: See labs, see flowsheets. Critical K=2.7, Mag=1.4 this AM. FSBG less than 170 overnight. Pt diuresing 200 to 400ml/hr overnight. Action: Notified Dr Ferguson, KCL and Mag replaced, maintained pt safety, continued monitoring. Recheck lytes one hr after IV replacement complete Response: IV lytes infusing, waiting to receive PO lytes from pharmacy, pt states he thinks he is feeling better. Jean Carlos Zaldivar RN 04/22/2011 6:50 lan of Care - Sumeet Cronin RN - 04/21/2011 2140 EDT Problem: FLUID AND ELECTROLYTE BALANCE Goal: Fluid And Electrolyte Balance Are Achieved/Maintained Outcome: Ongoing Active Multi-Disciplinary problems: SKIN INTEGRITY [411062] (04/21/11) DISCHARGE PLANNING [688805] (04/21/11) CIRCULATORY STATUS [464629] (04/21/11) FLUID AND ELECTROLYTE BALANCE [776842] (04/21/11) Data: see fs flow sheet gap closed Hco3 normalized lantus given, vss still ST denies pain no bleeding, afebrile , not anxious L finger laceration 4ht + 5th fingers sutures clean n s/s of infection Action: fs 1 hr for 1 1/2 hrs then will shut insulin drip off po still poor plan is to keep D5 RL running at present rate k 3.3 20 meq iv x 2 given, L hand soaked earlier bacitracin applied to sutures then telfa + wrapped Response: pt stable con't to monitor fs with meals con't with dsg changed q d Sumeet Cronin RN 04/21/2011 21:33 documented in this encounter Plan of Treatment Not on filedocumented as of this encounter Procedures Procedure Name Priority Date/Time Associated Comments Diagnosis ECG REPORT - SCANNED 05/18/2011 16:02 Res ults for this EST procedure are i n the results section. ECG REPORT - SCANNED 04/27/2011 21:26 Res ults for this EST procedure are i n the results section. GLUCOSE, GLUCOMETER Routine 04/23/2011 11:53 Resu lts for this EDT procedure are i n the results section. INPATIENT ADD-ON Routine 04/23/2011 11:25 Results for this EDT procedure are i n the results section. GLUTAMIC ACID Routine 04/23/2011 8:40 Results for this DECARBOXYLASE ANTIBODY EDT proce dure are in the results section. COMPLETE BLOOD COUNT Routine 04/23/2011 8:40 Resu lts for this AND DIFFERENTIAL EDT procedure a re in the results section. BUN Routine 04/23/2011 8:40 Results for this EDT procedure are i n the results section. GLUCOSE, SERUM Routine 04/23/2011 8:40 Results fo r this EDT procedure are i n the results section. CREATININE Routine 04/23/2011 8:40 Results for this EDT procedure are i n the results section. ELECTROLYTES Routine 04/23/2011 8:40 Results for this EDT procedure are i n the results section. GLUCOSE, GLUCOMETER Routine 04/23/2011 7:53 Resul ts for this EDT procedure are i n the results section. POTASSIUM Routine 04/23/2011 2:28 Results for this EDT procedure are i n the results section. MAGNESIUM Routine 04/23/2011 2:28 Results for this EDT procedure are i n the results section. GLUCOSE, GLUCOMETER Routine 04/22/2011 23:54 Resu lts for this EDT procedure are i n the results section. GLUCOSE, GLUCOMETER Routine 04/22/2011 20:42 Resu lts for this EDT procedure are i n the results section. ELECTROLYTES Routine 04/22/2011 19:20 Results for this EDT procedure are i n the results section. GLUCOSE, GLUCOMETER Routine 04/22/2011 17:37 Resu lts for this EDT procedure are i n the results section. T3 FREE Routine 04/22/2011 16:20 Results for this EDT procedure are i n the results section. ELECTROLYTES Routine 04/22/2011 16:20 Results for this EDT procedure are i n the results section. ELECTROLYTES Routine 04/22/2011 9:57 Results for this EDT procedure are i n the results section. GLUCOSE, GLUCOMETER Routine 04/22/2011 8:05 Resul ts for this EDT procedure are i n the results section. HOLD BLUE TOP Routine 04/22/2011 4:30 Results for this EDT procedure are i n the results section. CALCIUM, IONIZED Routine 04/22/2011 4:30 Results for this EDT procedure are i n the results section. COMPLETE BLOOD COUNT Routine 04/22/2011 4:30 Resu lts for this AND DIFFERENTIAL EDT procedure a re in the results section. BUN Routine 04/22/2011 4:30 Results for this EDT procedure are i n the results section. TSH Routine 04/22/2011 4:30 Results for this EDT procedure are i n the results section. T4 FREE Routine 04/22/2011 4:30 Results for this EDT procedure are i n the results section. PHOSPHORUS Routine 04/22/2011 4:30 Results for this EDT procedure are i n the results section. MAGNESIUM Routine 04/22/2011 4:30 Results for this EDT procedure are i n the results section. GLUCOSE, SERUM Routine 04/22/2011 4:30 Results fo r this EDT procedure are i n the results section. CREATININE Routine 04/22/2011 4:30 Results for this EDT procedure are i n the results section. ELECTROLYTES Routine 04/22/2011 4:30 Results for this EDT procedure are i n the results section. GLUCOSE, GLUCOMETER Routine 04/22/2011 4:25 Resul ts for this EDT procedure are i n the results section. GLUCOSE, GLUCOMETER Routine 04/22/2011 1:22 Resul ts for this EDT procedure are i n the results section. GLUCOSE, GLUCOMETER Routine 04/21/2011 23:00 Resu lts for this EDT procedure are i n the results section. GLUCOSE, GLUCOMETER Routine 04/21/2011 22:26 Resu lts for this EDT procedure are i n the results section. GLUCOSE, GLUCOMETER Routine 04/21/2011 21:24 Resu lts for this EDT procedure are i n the results section. GLUCOSE, GLUCOMETER Routine 04/21/2011 20:27 Resu lts for this EDT procedure are i n the results section. ELECTROLYTES Routine 04/21/2011 19:30 Results for this EDT procedure are i n the results section. GLUCOSE, GLUCOMETER Routine 04/21/2011 19:28 Resu lts for this EDT procedure are i n the results section. GLUCOSE, GLUCOMETER Routine 04/21/2011 18:44 Resu lts for this EDT procedure are i n the results section. GLUCOSE, GLUCOMETER Routine 04/21/2011 17:40 Resu lts for this EDT procedure are i n the results section. GLUCOSE, GLUCOMETER Routine 04/21/2011 16:36 Resu lts for this EDT procedure are i n the results section. GLUCOSE, GLUCOMETER Routine 04/21/2011 15:40 Resu lts for this EDT procedure are i n the results section. TROPONIN I Routine 04/21/2011 15:32 Results for this EDT procedure are i n the results section. COMPLETE BLOOD COUNT Routine 04/21/2011 15:32 Res ults for this AND DIFFERENTIAL EDT procedure a re in the results section. CK MB WITH TOTAL CK Routine 04/21/2011 15:32 Resu lts for this EDT procedure are i n the results section. ELECTROLYTES Routine 04/21/2011 15:32 Results for this EDT procedure are i n the results section. INPATIENT ADD-ON Routine 04/21/2011 15:00 Results for this EDT procedure are i n the results section. GLUCOSE, GLUCOMETER Routine 04/21/2011 14:27 Resu lts for this EDT procedure are i n the results section. GLUCOSE, GLUCOMETER Routine 04/21/2011 13:33 Resu lts for this EDT procedure are i n the results section. GLUCOSE, GLUCOMETER Routine 04/21/2011 12:32 Resu lts for this EDT procedure are i n the results section. RESPIRATORY CARE Routine 04/21/2011 12:19 EVALUATION ONLY EDT GLUCOSE, GLUCOMETER Routine 04/21/2011 11:37 Resu lts for this EDT procedure are i n the results section. ELECTROLYTES Routine 04/21/2011 11:30 Results for this EDT procedure are i n the results section. GLUCOSE, GLUCOMETER Routine 04/21/2011 10:32 Resu lts for this EDT procedure are i n the results section. GLUCOSE, GLUCOMETER Routine 04/21/2011 10:29 Resu lts for this EDT procedure are i n the results section. INPATIENT ADD-ON STAT 04/21/2011 9:40 Results for this EDT procedure are i n the results section. GLUCOSE, GLUCOMETER Routine 04/21/2011 9:29 Resul ts for this EDT procedure are i n the results section. ZZBLOOD GAS, G3 ISTAT Routine 04/21/2011 8:28 Res ults for this EDT procedure are i n the results section. ZZBLOOD GAS, G3 ISTAT Routine 04/21/2011 8:23 Res ults for this EDT procedure are i n the results section. INPATIENT ADD-ON Routine 04/21/2011 8:15 Results for this EDT procedure are i n the results section. SCREENING GLUCOSE STAT 04/21/2011 7:42 Results for this EDT procedure are i n the results section. URINE MICROSCOPIC Routine 04/21/2011 7:42 Results for this EDT procedure are i n the results section. URINALYSIS WITH Routine 04/21/2011 7:42 Results f or this MICROSCOPIC IF EDT procedure are in POSITIVE the results section. CALCIUM, IONIZED STAT 04/21/2011 7:42 Results for this EDT procedure are i n the results section. MRSA PCR Routine 04/21/2011 7:42 Results for this EDT procedure are i n the results section. ACETONE Routine 04/21/2011 7:42 Results for this EDT procedure are i n the results section. PROTIME STAT 04/21/2011 7:42 Results for this EDT procedure are i n the results section. COMPLETE BLOOD COUNT STAT 04/21/2011 7:42 Resu lts for this AND DIFFERENTIAL EDT procedure a re in the results section. BILIRUBIN STAT 04/21/2011 7:42 Results for this DIRECT/INDIRECT EDT procedure ar e in the results section. BUN STAT 04/21/2011 7:42 Results for this EDT procedure are i n the results section. ALT STAT 04/21/2011 7:42 Results for this EDT procedure are i n the results section. AST STAT 04/21/2011 7:42 Results for this EDT procedure are i n the results section. TSH Routine 04/21/2011 7:42 Results for this EDT procedure are i n the results section. PROTEIN, TOTAL STAT 04/21/2011 7:42 Results fo r this EDT procedure are i n the results section. PHOSPHORUS STAT 04/21/2011 7:42 Results for this EDT procedure are i n the results section. ALKALINE PHOSPHATASE STAT 04/21/2011 7:42 Resu lts for this EDT procedure are i n the results section. MAGNESIUM STAT 04/21/2011 7:42 Results for this EDT procedure are i n the results section. HEMOGLOBIN A1C Routine 04/21/2011 7:42 Results fo r this EDT procedure are i n the results section. CREATININE STAT 04/21/2011 7:42 Results for this EDT procedure are i n the results section. ALBUMIN STAT 04/21/2011 7:42 Results for this EDT procedure are i n the results section. ELECTROLYTES STAT 04/21/2011 7:42 Results for this EDT procedure are i n the results section. GLUCOSE, GLUCOMETER Routine 04/21/2011 7:22 Resul ts for this EDT procedure are i n the results section. documented in this encounter Results ECG REPORT - SCANNED (05/18/2011 16:02 EST) Specimen Narrative This result has an attachment that is no t available. Transcriptions Functional Manager, Scan - 05/18/2011 16:[address] ECG REPORT - SCANNED (04/27/2011 21:26 EST) Specimen Narrative This result has an attachment that is no t available. Transcriptions Functional Manager, Scan - 04/27/2011 21:[address] (ABNORMAL) GLUCOSE, GLUCOMETER (04/23/2011 11:53 EDT) Glucose, 173 (H) 70 - 100 [facility] Fingerstick mg/dl LAB Passementerie Worker ID [id number]: [facility] Test Performed by LAB Nursing Services Specimen Performing Organization Address City/[facility]/ZIP Code Phon e Number [facility] [address] [place] [address] SERVICES [facility] [address] [place] [address] INPATIENT ADD-ON (04/23/2011 11:25 EDT) Tests to be added GLUTAMIC ACID [facility] DECARBOXYLASE LAB ANTIBODY Number for B4 [facility] problems LAB Accession number [id number] [facility] Specimen Performing Organization Address City/[facility]/ZIP Code Phon e Number [facility] [address] [place] [address] SERVICES [facility] [address] [place] [address] (ABNORMAL) GLUTAMIC ACID DECARBOXYLASE ANTIBODY (04/23/2011 8:40 EDT) Glutamic Acid 0.03 (H) <=0.02 [facility] Decarboxylase Comment: nmol/L LAB Antibody Assay (Note) Suggests predisposition to type-1 diabetes and related autoimmune thyrogastric disorders. * Performed or Referred by: [facility], [address] [place] [address], Lab Dir: Venkat Mansfield III, MD Specimen Performing Organization Address City/[facility]/ZIP Code Phon e Number [facility] [address] [place] [address] SERVICES [facility] [address] [place] [address] (ABNORMAL) ELECTROLYTES (04/23/2011 8:40 EDT) Pathologist Sig nature Sodium 141 136 - 145 mEq/L [facility] Potassium 3.2 (L) 3.5 - 5.0 mEq/L [facility] Chloride 104 96 - 110 mEq/L [facility] CO2 32 24 - 32 mEq/L [facility] Specimen Blood specimen (specimen) Performing Organization Address City/[facility]/ZIP Code Phon e Number [facility] [address] [place] [address] SERVICES [facility] [address] [place] [address] (ABNORMAL) HEMAGRAM AND DIFFERENTIAL (04/23/2011 8:40 EDT) Pathologist Sig nature WBC 5.11 4.0 - 10.4 K/cmm [facility] RBC 3.68 (L) 4.36 - 5.78 M/cmm [facility] Hemoglobin 11.9 (L) 13.8 - 17.3 gm/dl [facility] HCT 32.9 (L) 39.5 - 50.2 % [facility] MCV 89 81 - 95 fl [facility] MCH 32.2 27.6 - 33.0 pg [facility] MCHC 36.0 32.8 - 36.4 gm/dl [facility] PLT 238 141 - 320 K/cmm [facility] RDW-CV 12.5 11.8 - 14.1 % [facility] Neutrophils 67.4 45.5 - 79.7 % [facility] Lymphocytes 21.4 15.0 - 46.8 % [facility] Monocytes 10.3 1.8 - 12.0 % [facility] Eosinophils 0.5 (L) 0.6 - 6.9 % [facility] Basophils 0.4 0.2 - 1.4 % [facility] ABS Neutrophils 3.44 2.20 - 8.85 K/cmm [facility] ABS Lymphs 1.10 1.09 - 3.30 K/cmm [facility] ABS Monocytes 0.53 0.1 - 0.8 K/cmm [facility] ABS Eosinophils 0.02 (L) 0.03 - 0.61 K/cmm [facility] ABS Basophils 0.02 0.01 - 0.11 K/cmm [facility] Type of Diff: Automated [facility] Specimen Blood specimen (specimen) Performing Organization Address City/[facility]/ZIP Code Phon e Number [facility] [address] [place] [address] SERVICES [facility] [address] [place] [address] GLUCOSE, SERUM (04/23/2011 8:40 EDT) Pathologist [facility] Glucose, Serum 95 70 - 100 mg/dl [facility] Specimen Blood specimen (specimen) Performing Organization Address [facility]/ZIP [facility] [place] Phon e Number [facility] [address] [place] [address] SERVICES [facility] [address] [place] [address] (ABNORMAL) CREATININE (04/23/2011 8:40 EDT) Pathologist Sig [facility] Creatinine 0.56 (L) 0.7 - 1.5 mg/dl [facility] GFR, Calculated >60 >60 ml/min/1.73m2 [facility] Specimen Blood specimen (specimen) Performing Organization Address City/[facility]/ZIP Code Phon e Number [facility] [address] [place] [address] SERVICES [facility] [address] [place] [address] (ABNORMAL) BUN (04/23/2011 8:40 EDT) Pathologist Sig [facility] BUN 5 (L) 10 - 26 mg/dl [facility] Specimen Blood specimen (specimen) Performing Organization Address [facility] Phon e Number [facility] [address] [place] [address] SERVICES [facility] [address] [place] [address] (ABNORMAL) GLUCOSE, GLUCOMETER (04/23/2011 7:53 EDT) Glucose, 66 (L) 70 - 100 [facility] Fingerstick mg/dl LAB Passementerie Worker ID [id number]: [facility] Test Performed by LAB Nursing Services Specimen Performing Organization Address [facility] Phon e Number [facility] [address] [place] [address] SERVICES [facility] [address] [place] [address] MAGNESIUM (04/23/2011 2:28 EDT) Pathologist Sig nature Magnesium 2.1 1.7 - 2.8 mg/dl [facility] Specimen Blood specimen (specimen) Performing Organization Address [facility] Phon e Number [facility] [address] [place] [address] SERVICES [facility] [address] [place] [address] (ABNORMAL) POTASSIUM (04/23/2011 2:28 EDT) Pathologist Sig nature Potassium 2.9 (LL)Comment: 3.5 - 5.0 mEq/L [facility] Sample retested, result confirmed Specimen Blood specimen (specimen) Performing Organization Address [facility] Phon e Number [facility] [address] [place] [address] SERVICES [facility] [address] [place] [address] (ABNORMAL) GLUCOSE, GLUCOMETER (04/22/2011 23:54 EDT) Glucose, 159 (H) 70 - 100 [facility] Fingerstick mg/dl LAB Passementerie Worker ID [id number]: [facility] Test Performed by LAB Nursing Services Specimen Performing Organization Address [facility]/ZIP [facility] [place] Phon e Number [facility] [address] [place] [address] SERVICES [facility] [address] [place] [address] (ABNORMAL) GLUCOSE, GLUCOMETER (04/22/2011 20:42 EDT) Glucose, 292 (H) 70 - 100 [facility] Fingerstick mg/dl LAB Passementerie Worker ID [id number]: [facility] Test Performed by LAB Nursing Services Specimen Performing Organization Address [facility] Phon e Number [facility] [address] [place] [address] SERVICES [facility] [address] [place] [address] (ABNORMAL) ELECTROLYTES (04/22/2011 19:20 EDT) Pathologist Sig nature Sodium 135 (L) 136 - 145 mEq/L [facility] Potassium 2.9 (LL)Comment: 3.5 - 5.0 mEq/L [facility] Sample retested, result confirmed Chloride 102 96 - 110 mEq/L [facility] CO2 27 24 - 32 mEq/L [facility] Specimen Blood specimen (specimen) Performing Organization Address [facility] Phon e Number [facility] [address] [place] [address] SERVICES [facility] [address] [place] [address] (ABNORMAL) GLUCOSE, GLUCOMETER (04/22/2011 17:37 EDT) Glucose, 186 (H) 70 - 100 [facility] Fingerstick mg/dl LAB Passementerie Worker ID [id number]: [facility] Test Performed by LAB Nursing Services Specimen Performing Organization Address [facility] Phon e Number [facility] [address] [place] [address] SERVICES [facility] [address] [place] [address] T3 FREE (04/22/2011 16:20 EDT) Pathologist Sig nature T3, Free 2.5 2.3 - 4.2 pg/mL [facility] Specimen Blood specimen (specimen) Performing Organization Address [facility] Phon e Number [facility] [address] [place] [address] SERVICES [facility] [address] [place] [address] (ABNORMAL) ELECTROLYTES (04/22/2011 16:20 EDT) Pathologist Sig nature Sodium 138 136 - 145 mEq/L [facility] Potassium 3.1 (L) 3.5 - 5.0 mEq/L [facility] Chloride 103 96 - 110 mEq/L [facility] CO2 28 24 - 32 mEq/L [facility] Specimen Blood specimen (specimen) Performing Organization Address City/[facility]/ZIP Code Phon e Number [facility] [address] [place] [address] SERVICES [facility] [address] [place] [address] (ABNORMAL) ELECTROLYTES (04/22/2011 9:57 EDT) Pathologist Sig nature Sodium 135 (L) 136 - 145 mEq/L [facility] Potassium 3.8 3.5 - 5.0 mEq/L [facility] Chloride 107 96 - 110 mEq/L [facility] CO2 24 24 - 32 mEq/L [facility] Specimen Blood specimen (specimen) Performing Organization Address [facility] Phon e Number [facility] [address] [place] [address] SERVICES [facility] [address] [place] [address] (ABNORMAL) GLUCOSE, GLUCOMETER (04/22/2011 8:05 EDT) Glucose, 215 (H) 70 - 100 [facility] Fingerstick mg/dl LAB Passementerie Worker ID [id number]: [facility] Test Performed by LAB Nursing Services Specimen Performing Organization Address City/[facility]/ZIP Code Phon e Number [facility] [address] [place] [address] SERVICES [facility] [address] [place] [address] HOLD BLUE TOP (04/22/2011 4:30 EDT) Pathologist Sig nature Hold Blue Top Sample for [facility] coagulation will be discarded after 4 hours Specimen Performing Organization Address City/[facility]/ZIP [facility] [place] Phon e Number [facility] [address] [place] [address] SERVICES [facility] [address] [place] [address] (ABNORMAL) ELECTROLYTES (04/22/2011 4:30 EDT) Pathologist Sig nature Sodium 138 136 - 145 mEq/L [facility] Potassium 2.7 (LL)Comment: 3.5 - 5.0 mEq/L [facility] Sample retested, result confirmed Chloride 111 (H) 96 - 110 mEq/L [facility] CO2 21 (L) 24 - 32 mEq/L [facility] Specimen Blood specimen (specimen) Performing Organization Address City/[facility]/ZIP Code Phon e Number [facility] [address] [place] [address] SERVICES [facility] [address] [place] [address] (ABNORMAL) HEMAGRAM AND DIFFERENTIAL (04/22/2011 4:30 EDT) Pathologist Sig nature WBC 5.52 4.0 - 10.4 K/cmm [facility] RBC 3.22 (L) 4.36 - 5.78 M/cmm [facility] Hemoglobin 10.4 (L) 13.8 - 17.3 gm/dl [facility] HCT 28.9 (L) 39.5 - 50.2 % [facility] MCV 90 81 - 95 fl [facility] MCH 32.2 27.6 - 33.0 pg [facility] MCHC 36.0 32.8 - 36.4 gm/dl [facility] PLT 212 141 - 320 K/cmm [facility] RDW-CV 12.0 11.8 - 14.1 % [facility] Neutrophils 79.1 45.5 - 79.7 % [facility] Lymphocytes 9.0 (L) 15.0 - 46.8 % [facility] Monocytes 10.8 1.8 - 12.0 % [facility] Eosinophils 1.0 0.6 - 6.9 % [facility] Basophils 0.1 (L) 0.2 - 1.4 % [facility] ABS Neutrophils 4.37 2.20 - 8.85 K/cmm [facility] ABS Lymphs 0.50 (L) 1.09 - 3.30 K/cmm [facility] ABS Monocytes 0.60 0.1 - 0.8 K/cmm [facility] ABS Eosinophils 0.05 0.03 - 0.61 K/cmm [facility] ABS Basophils 0.01 0.01 - 0.11 K/cmm [facility] Type of Diff: Automated [facility] Specimen Blood specimen (specimen) Performing Organization Address City/State/ZIP Code Phon e Number [facility] [address] [place] [address] SERVICES [facility] [address] [place] [address] (ABNORMAL) PHOSPHORUS (04/22/2011 4:30 EDT) Pathologist Sig nature Phosphorus <1.0 (L) 2.5 - 4.5 mg/dl [facility] Specimen Blood specimen (specimen) Performing Organization Address [facility] Phon e Number [facility] [address] [place] [address] SERVICES [facility] [address] [place] [address] (ABNORMAL) MAGNESIUM (04/22/2011 4:30 EDT) Pathologist Sig nature Magnesium 1.4 (L) 1.7 - 2.8 mg/dl [facility] Specimen Blood specimen (specimen) Performing Organization Address [facility] Phon e Number [facility] [address] [place] [address] SERVICES [facility] [address] [place] [address] CALCIUM, IONIZED (04/22/2011 4:30 EDT) Pathologist Sig nature Calcium, Ionized 1.20 1.12 - 1.32 mmol/L [facility] Specimen Blood specimen (specimen) Performing Organization Address [facility] Phon e Number [facility] [address] [place] [address] SERVICES [facility] [address] [place] [address] (ABNORMAL) GLUCOSE, SERUM (04/22/2011 4:30 EDT) Pathologist Sig nature Glucose, Serum 146 (H) 70 - 100 mg/dl [facility] Specimen Blood specimen (specimen) Performing Organization Address [facility] Phon e Number [facility] [address] [place] [address] SERVICES [facility] [address] [place] [address] (ABNORMAL) CREATININE (04/22/2011 4:30 EDT) Pathologist Sig nature Creatinine 0.63 (L) 0.7 - 1.5 mg/dl [facility] GFR, Calculated >60 >60 ml/min/1.73m2 [facility] Specimen Blood specimen (specimen) Performing Organization Address City/State/ZIP Code Phon e Number [facility] [address] [place] [address] SERVICES [facility] [address] [place] [address] (ABNORMAL) BUN (04/22/2011 4:30 EDT) Pathologist Sig nature BUN 5 (L) 10 - 26 mg/dl [facility] Specimen Blood specimen (specimen) Performing Organization Address City/State/ZIP Code Phon e Number [facility] [address] [place] [address] SERVICES [facility] [address] [place] [address] (ABNORMAL) T4 FREE (04/22/2011 4:30 EDT) Pathologist Sig nature Free T4 0.7 (L) 0.8 - 1.8 ng/dL [facility] Specimen Blood specimen (specimen) Performing Organization Address City/State/ZIP Code Phon e Number [facility] [address] [place] [address] SERVICES [facility] [address] [place] [address] (ABNORMAL) TSH (04/22/2011 4:30 EDT) Pathologist Sig nature TSH 0.27 (L) 0.35 - 5.00 uIU/ml [facility] Specimen Blood specimen (specimen) Performing Organization Address City/[facility]/ZIP Code Phon e Number [facility] [address] [place] [address] SERVICES [facility] [address] [place] [address] (ABNORMAL) GLUCOSE, GLUCOMETER (04/22/2011 4:25 EDT) Glucose, 164 (H) 70 - 100 [facility] Fingerstick mg/dl LAB Passementerie Worker [place] [id number]: [facility] Test Performed by LAB Nursing Services Specimen Performing Organization Address City/State/ZIP Code Phon e Number [facility] [address] [place] [address] SERVICES [facility] [address] [place] [address] (ABNORMAL) GLUCOSE, GLUCOMETER (04/22/2011 1:22 EDT) Glucose, 159 (H) 70 - 100 [facility] Fingerstick mg/dl LAB [employer]sement[employer] Worker [place] [id number]: [facility] Performed by LAB Nursing Services Specimen Performing Organization Address [facility] Phon e Number [facility] [address] [place] [address] SERVICES [facility] [address] [place] [address] GLUCOSE, GLUCOMETER (04/21/2011 23:00 EDT) Glucose, 97 70 - 100 [facility] Fingerstick mg/dl LAB Passement[employer] Worker [place] [id number]: [facility] Performed by LAB Nursing Services Specimen Performing Organization Address [facility] Phon e Number [facility] [address] [place] [address] SERVICES [facility] [address] [place] [address] (ABNORMAL) GLUCOSE, GLUCOMETER (04/21/2011 22:26 EDT) Glucose, 68 (L) 70 - 100 [facility] Fingerstick mg/dl LAB [employer]sement[place] Worker [place] [id number]: [facility] Performed by LAB Nursing Services Specimen Performing Organization Address [facility] Phon e Number [facility] [address] [place] [address] SERVICES [facility] [address] [place] [address] (ABNORMAL) GLUCOSE, GLUCOMETER (04/21/2011 21:24 EDT) Glucose, 103 (H) 70 - 100 [facility] Fingerstick mg/dl LAB [employer]se[employer] Worker [place] [id number]: [facility] Performed by LAB Nursing Services Specimen Performing Organization Address [facility] Phon e Number [facility] [address] [place] [address] SERVICES [facility] [address] [place] [address] (ABNORMAL) GLUCOSE, GLUCOMETER (04/21/2011 20:27 EDT) Glucose, 144 (H) 70 - 100 [facility] Fingerstick mg/dl LAB [employer] Worker [place] [id number]: [facility] Performed by LAB Nursing Services Specimen Performing Organization Address [facility] Phon e Number [facility] [address] [place] [address] SERVICES [facility] [address] [place] [address] (ABNORMAL) ELECTROLYTES (04/21/2011 19:30 EDT) Pathologist Sig nature Sodium 135 (L) 136 - 145 mEq/L [facility] Potassium 3.4 (L) 3.5 - 5.0 mEq/L [facility] Chloride 114 (H) 96 - 110 mEq/L [facility] CO2 19 (L) 24 - 32 mEq/L [facility] Specimen Blood specimen (specimen) Performing Organization Address [facility] Phon e Number [facility] [address] [place] [address] SERVICES [facility] [address] [place] [address] (ABNORMAL) GLUCOSE, GLUCOMETER (04/21/2011 19:28 EDT) Glucose, 157 (H) 70 - 100 [facility] Fingerstick mg/dl LAB [employer] Worker [place] [id number]: [facility] Performed by LAB Nursing Services Specimen Performing Organization Address [facility] Phon e Number [facility] [address] [place] [address] SERVICES [facility] [address] [place] [address] (ABNORMAL) GLUCOSE, GLUCOMETER (04/21/2011 18:44 EDT) Glucose, 177 (H) 70 - 100 [facility] Fingerstick mg/dl LAB [employer]se[employer] Worker [place] [id number]: [facility] Performed by LAB Nursing Services Specimen Performing Organization Address [facility] Phon e Number [facility] [address] [place] [address] SERVICES [facility] [address] [place] [address] (ABNORMAL) GLUCOSE, GLUCOMETER (04/21/2011 17:40 EDT) Glucose, 150 (H) 70 - 100 [facility] Fingerstick mg/dl LAB [employer] Worker [place] [id number]: [facility] Performed by LAB Nursing Services Specimen Performing Organization Address [facility] Phon e Number [facility] [address] [place] [address] SERVICES [facility] [address] [place] [address] (ABNORMAL) GLUCOSE, GLUCOMETER (04/21/2011 16:36 EDT) Glucose, 113 (H) 70 - 100 [facility] Fingerstick mg/dl LAB [employer]sementerie Worker ID [id number]: [facility] Test Performed by LAB Nursing Services Specimen Performing Organization Address [facility]/ZIP [facility] [place] Phon e Number [facility] [address] [place] [address] SERVICES [facility] [address] [place] [address] (ABNORMAL) GLUCOSE, GLUCOMETER (04/21/2011 15:40 EDT) Glucose, 127 (H) 70 - 100 [facility] Fingerstick mg/dl LAB [employer]se[employer] Worker [place] [id number]: [facility] Performed by LAB Nursing Services Specimen Performing Organization Address City/[facility]/ZIP Code Phon e Number [facility] [address] [place] [address] SERVICES [facility] [address] [place] [address] TROPONIN I (04/21/2011 15:32 EDT) Troponin I pre <0.05 <0.81 ng/ml [facility] 2011 Comment: Reference Range: Normal: ??Less than 0.05 Indeterminate: ??0.05-0.80 Positive: ??Greater than 0.80 Specimen Blood specimen (specimen) Performing Organization Address City/[facility]/ZIP Code Phon e Number [facility] [address] [place] [address] SERVICES [facility] [address] [place] [address] CK MB WITH TOTAL CK (04/21/2011 15:32 EDT) Pathologist Sig nature CK 41 0 - 250 U/L [facility] MB 2.2 0 - 5.0 ng/ml [facility] CK-MB Index Not 0 - 2.5 [facility] calculated,Comment : normal MB. Specimen Blood specimen (specimen) Performing Organization Address City/[facility]/ZIP [facility] [place] Phon e Number [facility] [address] [place] [address] SERVICES [facility] [address] [place] [address] (ABNORMAL) HEMAGRAM AND DIFFERENTIAL (04/21/2011 15:32 EDT) WBC 13.83 (H) 4.0 - 10.4 [facility] K/cmm LAB RBC 4.02 (L) 4.36 - 5.78 [facility] M/cmm LAB Hemoglobin 12.6 (L) 13.8 - 17.3 [facility] gm/dl LAB HCT 36.3 (L) 39.5 - 50.2 % [facility] MCV 90 81 - 95 fl [facility] MCH 31.4 27.6 - 33.0 [facility] pg LAB MCHC 34.7 32.8 - 36.4 [facility] gm/dl LAB PLT 259 141 - 320 [facility] K/cmm LAB RDW-CV 12.1 11.8 - 14.1 % [facility] Neutrophils 91.0 (H) 45.5 - 79.7 % [facility] Lymphocytes 4.0 (L) 15.0 - 46.8 % [facility] Monocytes 4.0 1.8 - 12.0 % [facility] Metamyelocytes 1.0 % [facility] ABS Neutrophils 12.59 (H) 2.20 - 8.85 [facility] K/cmm LAB ABS Lymphs 0.55 (L) 1.09 - 3.30 [facility] K/cmm LAB ABS Monocytes 0.55 0.1 - 0.8 [facility] K/cmm LAB ABS Metamyelocytes 0.14 K/cmm [facility] RBC Morphology Normal [facility] WBC Morphology 2+ [facility] Comment: LAB Vacuolization 1+ Toxic granulation Type of Diff: Manual [facility] Specimen Blood specimen (specimen) Performing Organization Address City/[facility]/ZIP Code Phon e Number [facility] [address] [place] [address] SERVICES [facility] [address] [place] [address] (ABNORMAL) ELECTROLYTES (04/21/2011 15:32 EDT) Pathologist Sig nature Sodium 139 136 - 145 mEq/L [facility] Potassium 3.3 (L) 3.5 - 5.0 mEq/L [facility] Chloride 116 (H) 96 - 110 mEq/L [facility] CO2 14 (L) 24 - 32 mEq/L [facility] Specimen Blood specimen (specimen) Performing Organization Address [facility] Phon e Number [facility] [address] [place] [address] SERVICES [facility] [address] [place] [address] INPATIENT ADD-ON (04/21/2011 15:00 EDT) Pathologist Sig nature Tests to be added HEMOGLOBIN A1C [facility] Number for problems [address]21 [facility] Accession number [id number] [facility] Specimen Performing Organization Address [facility] Phon e Number [facility] [address] [place] [address] SERVICES [facility] [address] [place] [address] (ABNORMAL) GLUCOSE, GLUCOMETER (04/21/2011 14:27 EDT) Glucose, 159 (H) 70 - 100 [facility] Fingerstick mg/dl LAB [employer]sement[place] Worker [place] [id number]: [facility] Test Performed by LAB Nursing Services Specimen Performing Organization Address [facility] Phon e Number [facility] [address] [place] [address] SERVICES [facility] [address] [place] [address] (ABNORMAL) GLUCOSE, GLUCOMETER (04/21/2011 13:33 EDT) Glucose, 156 (H) 70 - 100 [facility] Fingerstick mg/dl LAB [employer]sement[place] Worker [place] [id number]: [facility] Test Performed by LAB Nursing Services Specimen Performing Organization Address [facility] Phon e Number [facility] [address] [place] [address] SERVICES [facility] [address] [place] [address] (ABNORMAL) GLUCOSE, GLUCOMETER (04/21/2011 12:32 EDT) Glucose, 155 (H) 70 - 100 [facility] Fingerstick mg/dl LAB Passementerie Worker ID [id number]: [facility] Test Performed by LAB Nursing Services Specimen Performing Organization Address [facility] Phon e Number [facility] [address] [place] [address] SERVICES [facility] [address] [place] [address] (ABNORMAL) GLUCOSE, GLUCOMETER (04/21/2011 11:37 EDT) Glucose, 143 (H) 70 - 100 [facility] Fingerstick mg/dl LAB Passement[place] Worker [place] [id number]: [facility] Test Performed by LAB Nursing Services Specimen Performing Organization Address [facility] Phon e Number [facility] [address] [place] [address] SERVICES [facility] [address] [place] [address] (ABNORMAL) ELECTROLYTES (04/21/2011 11:30 EDT) Pathologist Sig nature Sodium 140 136 - 145 mEq/L [facility] Potassium 4.6 3.5 - 5.0 mEq/L [facility] Chloride 117 (H) 96 - 110 mEq/L [facility] CO2 11 (L) 24 - 32 mEq/L [facility] Specimen Blood specimen (specimen) Performing Organization Address [facility] Phon e Number [facility] [address] [place] [address] SERVICES [facility] [address] [place] [address] (ABNORMAL) GLUCOSE, GLUCOMETER (04/21/2011 10:32 EDT) Glucose, 150 (H) 70 - 100 [facility] Fingerstick mg/dl LAB Passementerie Worker ID [id number]: [facility] Test Performed by LAB Nursing Services Specimen Performing Organization Address [facility] Phon e Number [facility] [address] [place] [address] SERVICES [facility] [address] [place] [address] (ABNORMAL) GLUCOSE, GLUCOMETER (04/21/2011 10:29 EDT) Glucose, >500 (HH) 70 - 100 [facility] Fingerstick mg/dl LAB Passementerie Worker [place] [id number]: [facility] Test Performed by LAB Nursing Services Specimen Performing Organization Address [facility] Phon e Number [facility] [address] [place] [address] SERVICES [facility] [address] [place] [address] INPATIENT ADD-ON (04/21/2011 9:40 EDT) Pathologist Sig nature Tests to be added TSH [facility] Number for problems 72195 [facility] Accession number [id number] [facility] Specimen Performing Organization Address [facility]/ZIP Code Phon e Number [facility] [address] [place] [address] SERVICES [facility] [address] [place] [address] (ABNORMAL) GLUCOSE, GLUCOMETER (04/21/2011 9:29 EDT) Glucose, 144 (H) 70 - 100 [facility] Fingerstick mg/dl LAB Passement[place] Worker [place] [id number]: [facility] Test Performed by LAB Nursing Services Specimen Performing Organization Address City/State/ZIP Code Phon e Number [facility] [address] [place] [address] SERVICES [facility] [address] [place] [address] (ABNORMAL) BLOOD GAS, G3 ISTAT (04/21/2011 8:28 EDT) pH, i-STAT 7.07 (L) 7.35 - 7.45 [facility] pCO2, i-STAT 14 (L) 35 - 45 mmHg [facility] pO2, i-STAT 114 (H) 80 - 105 mmHg [facility] TCO2, i-STAT <5 mEq/L [facility] O2 Saturation 96 % [facility] Base Deficit, 24 [facility] i-STAT LAB FIO2 21 [facility] Sample Type ARTERIAL [facility] home security professional ID [id number] [facility] Comment: LAB Test Performed by Respiratory For non-arterial reference ranges, please see ISTAT procedure. Specimen Performing Organization Address City/[facility]/ZIP Code Phon e Number [facility] [address] [place] [address] SERVICES [facility] [address] [place] [address] (ABNORMAL) BLOOD GAS, G3 ISTAT (04/21/2011 8:23 EDT) pH, i-STAT 7.09 (L) 7.35 - 7.45 [facility] pCO2, i-STAT 14 (L) 35 - 45 mmHg [facility] pO2, i-STAT 114 (H) 80 - 105 mmHg [facility] TCO2, i-STAT <5 mEq/L [facility] O2 Saturation 97 % [facility] Base Deficit, 24 [facility] i-STAT LAB FIO2 21 [facility] Sample Type ARTERIAL [facility] home security professional ID [id number] [facility] Comment: LAB Test Performed by Respiratory For non-arterial reference ranges, please see ISTAT procedure. Specimen Performing Organization Address [facility]/ZIP Code Phon e Number [facility] [address] [place] [address] SERVICES [facility] [address] [place] [address] INPATIENT ADD-ON (04/21/2011 8:15 EDT) Pathologist Sig nature Tests to be added SERUM KETONES [facility] Number for problems [id number] [facility] Accession number [id number] [facility] Specimen Performing Organization Address [facility]/ZIP Code Phon e Number [facility] [address] [place] [address] SERVICES [facility] [address] [place] [address] HEMOGLOBIN A1C (04/21/2011 7:42 EDT) Hemoglobin A1C 13.1 % [facility] Comment: Reference Range: <5.7% Normal 5.7-6.4% Increased risk for diabetes =>6.5% Diagnostic for diabetes (if confirmed) The A1c goal for non adults in general is <7%. The A1c goal for selected patients may be significantly lower than 7% if this can be achieved without significant hypoglycemia or other adverse effects of treatment. Est Avg Glucose 329 mg/dl [facility] Comment: eAG represents the A1c result expressed as average glucose in mg/dl. Specimen Performing Organization Address [facility] Phon e Number [facility] [address] [place] [address] SERVICES [facility] [address] [place] [address] (ABNORMAL) TSH (04/21/2011 7:42 EDT) Pathologist Sig nature TSH 0.32 (L) 0.35 - 5.00 uIU/ml [facility] Specimen Performing Organization Address City/[facility]/ZIP Code Phon e Number [facility] [address] [place] [address] SERVICES [facility] [address] [place] [address] (ABNORMAL) ACETONE (04/21/2011 7:42 EDT) Pathologist Sig nature Acetone Mod (A) Neg [facility] Specimen Performing Organization Address City/[facility]/ZIP Code Phon e Number [facility] [address] [place] [address] SERVICES [facility] [address] [place] [address] URINE MICROSCOPIC (04/21/2011 7:42 EDT) WBC, UA less than 1 0 - 5 /HPF [facility] RBC, UA 10 to 50 0 - 5 /HPF [facility] Squam Epithel, UA None seen None seen [facility] /HPF LAB Renal Epithel, UA None seen None seen [facility] /[facility] LAB Bacteria, UA None seen None seen [facility] /[facility] LAB Crystals, UA None seen /HPF [facility] Hyaline Casts, UA 2 to 10Comment: /LPF [facility] Granular LAB UA Comment Microscopic results [facility] Comment: LAB are unreliable on urines unrefrig >2hrs or refrig >8hrs. Mucus, UA Present [facility] Specimen Performing Organization Address [facility] Phon e Number [facility] [address] [place] [address] SERVICES [facility] [address] [place] [address] MRSA MOLECULAR DETECTION (04/21/2011 7:42 EDT) Specimen Nasal [facility] Description LAB Result Methicillin [facility] susceptible LAB Staphylococcus aureus (MSSA) DNA detected by PCR. Specimen Other (qualifier value) Performing Organization Address [facility]/ZIP [facility] [place] Phon e Number [facility] [address] [place] [address] SERVICES [facility] [address] [place] [address] (ABNORMAL) URINALYSIS (04/21/2011 7:42 EDT) Pathologist Sig nature Color, UA Yellow [facility] Clarity, UA Hazy [facility] Glucose, UA 1+ (A) Neg [facility] Bilirubin, UA 2+ (A) Neg [facility] Ketones, UA 3+ (A) Neg [facility] Specific [place], Urine >1.030 1.001 - 1.035 [facility] L AB Blood, UA 3+ (A) Neg [facility] pH, UA 5.5 4.6 - 8.0 [facility] Protein, UA 1+ (A) Neg [facility] Urobilinogen, UA 0.2 0.2 - 1.0 [facility] E.U./dl Nitrite, UA Neg Neg [facility] Leuk Esterase Neg Neg [facility] Refractometer SG,Urine 1.017 1.001 - 1.035 [facility] LA B Specimen Urine (substance) Performing Organization Address [facility]/ZIP [facility] [place] Phon e Number [facility] [address] [place] [address] SERVICES [facility] [address] [place] [id number] PROTIME (04/21/2011 7:42 EDT) Pro Time 9.7 9.5 - 13.1 [facility] secs I.N.R. 0.9 0.9 - 1.1 [facility] Comment: Ratio Moderate Intensity Coumadin INR = 2.0-3.0 Adjustments in anticoagulant therapy dose should be based upon the INR and NOT the Pro Time. Specimen Blood specimen (specimen) Performing Organization Address [facility] Phon e Number [facility] [address] [place] [address] SERVICES [facility] [address] [place] [address] (ABNORMAL) HEMAGRAM AND DIFFERENTIAL (04/21/2011 7:42 EDT) Pathologist Sig nature WBC 25.57 (H) 4.0 - 10.4 K/cmm [facility] RBC 4.51 4.36 - 5.78 M/cmm [facility] Hemoglobin 14.4 13.8 - 17.3 gm/dl [facility] HCT 41.3 39.5 - 50.2 % [facility] MCV 91 81 - 95 fl [facility] MCH 32.0 27.6 - 33.0 pg [facility] MCHC 35.0 32.8 - 36.4 gm/dl [facility] PLT 332 (H) 141 - 320 K/cmm [facility] RDW-CV 11.9 11.8 - 14.1 % [facility] Neutrophils 81.0 (H) 45.5 - 79.7 % [facility] Lymphocytes 8.0 (L) 15.0 - 46.8 % [facility] Monocytes 11.0 1.8 - 12.0 % [facility] ABS Neutrophils 20.71 (H) 2.20 - 8.85 K/cmm [facility] ABS Lymphs 2.05 1.09 - 3.30 K/cmm [facility] ABS Monocytes 2.81 (H) 0.1 - 0.8 K/cmm [facility] RBC Morphology Normal [facility] Type of Diff: Manual [facility] Specimen Blood specimen (specimen) Performing Organization Address [facility] Phon e Number [facility] [address] [place] [address] SERVICES [facility] [address] [place] [address] (ABNORMAL) PHOSPHORUS (04/21/2011 7:42 EDT) Pathologist Sig nature Phosphorus 1.3 (L) 2.5 - 4.5 mg/dl [facility] Specimen Blood specimen (specimen) Performing Organization Address [facility] [facility] Phon e Number [facility] [address] [place] [address] SERVICES [facility] [address] [place] [address] MAGNESIUM (04/21/2011 7:42 EDT) Pathologist Sig nature Magnesium 2.0 1.7 - 2.8 mg/dl [facility] Specimen Blood specimen (specimen) Performing Organization Address [facility] Phon e Number [facility] [address] [place] [address] SERVICES [facility] [address] [place] [address] (ABNORMAL) CALCIUM, IONIZED (04/21/2011 7:42 EDT) Pathologist Sig nature Calcium, Ionized 1.35 (H) 1.12 - 1.32 mmol/L [facility] Specimen Blood specimen (specimen) Performing Organization Address [facility] Phon e Number [facility] [address] [place] [address] SERVICES [facility] [address] [place] [address] (ABNORMAL) SCREENING GLUCOSE (04/21/2011 7:42 EDT) Pathologist Sig nature Glucose, Screening 161 (H) 70 - 100 mg/dl [facility] Specimen Blood specimen (specimen) Performing Organization Address [facility]/ZIP [facility] [place] Phon e Number [facility] [address] [place] [address] SERVICES [facility] [address] [place] [address] ALBUMIN (04/21/2011 7:42 EDT) Pathologist Sig nature Albumin 4.1 3.4 - 4.9 g/dl [facility] Specimen Blood specimen (specimen) Performing Organization Address [facility]/ZIP [facility] [place] Phon e Number [facility] [address] [place] [address] SERVICES [facility] [address] [place] [address] PROTEIN, TOTAL (04/21/2011 7:42 EDT) Pathologist Sig nature Total Protein 7.1 6.5 - 8.3 g/dl [facility] Specimen Blood specimen (specimen) Performing Organization Address [facility] Phon e Number [facility] [address] [place] [address] SERVICES [facility] [address] [place] [address] BILIRUBIN DIRECT/INDIRECT (04/21/2011 7:42 EDT) Pathologist Sig nature Conjugated Bilirubin 0.0 0.0 - 0.3 mg/dl [facility] Unconjugated Bilirubin 0.4 0.1 - 1.1 mg/dl [facility] Specimen Blood specimen (specimen) Performing Organization Address [facility] Phon e Number [facility] [address] [place] [address] SERVICES [facility] [address] [place] [id number] ALKALINE PHOSPHATASE (04/21/2011 7:42 EDT) Pathologist Sig nature Total Alkaline 105 38 - 126 U/L [facility] Phosphatase Specimen Blood specimen (specimen) Performing Organization Address [facility] Phon e Number [facility] [address] [place] [address] SERVICES [facility] [address] [place] [address] ALT (04/21/2011 7:42 EDT) Pathologist Sig nature ALT 22 21 - 72 U/L [facility] Specimen Blood specimen (specimen) Performing Organization Address [facility] Phon e Number [facility] [address] [place] [address] SERVICES [facility] [address] [place] [address] CREATININE (04/21/2011 7:42 EDT) Pathologist Sig [facility] Creatinine 1.00 0.7 - 1.5 mg/dl [facility] GFR, Calculated >60 >60 ml/min/1.73m2 [facility] Specimen Blood specimen (specimen) Performing Organization Address [facility] Phon e Number [facility] [address] [place] [address] SERVICES [facility] [address] [place] [address] BUN (04/21/2011 7:42 EDT) Pathologist Sig [facility] BUN 19 10 - 26 mg/dl [facility] Specimen Blood specimen (specimen) Performing Organization Address [facility] Phon e Number [facility] [address] [place] [address] SERVICES [facility] [address] [place] [address] (ABNORMAL) ELECTROLYTES (04/21/2011 7:42 EDT) Pathologist [facility] Sodium 140Comment: Sample 136 - 145 mEq/L [facility] retested, result confirmed Potassium 4.3 3.5 - 5.0 mEq/L [facility] Chloride 115 (H)Comment: 96 - 110 mEq/L [facility] Sample retested, result confirmed CO2 6 (L)Comment: Sample 24 - 32 mEq/L [facility] retested, result confirmed Specimen Blood specimen (specimen) Performing Organization Address [facility] Phon e Number [facility] [address] [place] [address] SERVICES [facility] [address] [place] [address] (ABNORMAL) AST (04/21/2011 7:42 EDT) Pathologist Sig nature AST <10 (L) 15 - 46 U/L [facility] Specimen Blood specimen (specimen) Performing Organization Address [facility] Phon e Number [facility] [address] [place] [address] SERVICES [facility] [address] [place] [address] (ABNORMAL) GLUCOSE, GLUCOMETER (04/21/2011 7:22 EDT) Glucose, 167 (H) 70 - 100 [facility] Fingerstick mg/dl LAB Passementerie Worker ID [id number]: [facility] Test Performed by LAB Nursing Services Specimen Performing Organization Address City/State/ZIP Code Phon e Number [facility] [address] [place] [address] SERVICES [facility] [address] [place] [address] documented in this encounter Visit Diagnoses Diagnosis DKA, type 2 ([facility]) ([facility]) Type II or unspecified type diabetes mario litus with ketoacidosis, uncontrolled Leukocytosis Leukocytosis, unspecified Acidosis documented in this encounter Administered Medications Inactive Administered Medications - up to 3 most recent administrations Medication Order MAR Action Action Date Dose Rate Site acetaminophen (TYLENOL) tablet 325 mg Given 04/22/2011 4:41 EDT 325 mg 325 mg, oral, EVERY 6 HOURS PRN, Starting on Tue04/21/11 at 0741, Until Nevaeh 04/22/11 at 0800, Pain, Fever, Pain or Temperature > 38, Routine acetaminophen (TYLENOL) tablet 325-650 m g Given 04/23/2011 12:19 EDT 650 mg 325-650 mg, oral, EVERY 6 HOURS PRN, Starting on Nevaeh 04/22/11 at 0800, Until Tue04/23/11 at 1655, Pain, Fever, Pain or Temperature > 38, Routine Given 04/22/2011 17:40 EDT 650 mg Given 04/22/2011 8:00 EDT 325 mg aspirin EC tablet 81 mg Given 04/23/2011 9:39 EDT 81 mg 81 mg, oral, DAILY, First dose on Tue04/21/11 at 0945, Until Discontinued, Routine Given 04/22/2011 8:02 EDT 81 mg Given 04/21/2011 11:07 EDT 81 mg dextrose 5 % in lactated ringers Rate Documented 04/22/2011 11:00 E DT 150 mL/hr infusion at 150 mL/hr, intravenous, CONTINUOUS, Starting on Tue04/21/11 at 1000, Until Nevaeh 04/22/11 at 1111, Routine Rate Documented 04/22/2011 10:00 EDT 150 mL/hr Rate Documented 04/22/2011 9:00 EDT 150 mL/hr dextrose 50 % solution 12.5-25 g Given 04/21/2011 22:35 EDT 12.5 g 12.5-25 g, intravenous, PRN, Starting on Tue04/21/11 at 0741, Until Tue04/21/11 at 2037, Low Blood Sugar, Routine docusate sodium (COLACE) capsule 100 mg Given 04/22/2011 20:46 EDT 100 mg 100 mg, oral, 2 TIMES DAILY, First dose on Tue04/21/11 at 0900, Until Discontinued, Routine enoxaparin (LOVENOX) injection 40 mg Given 04/22/2011 8:02 EDT 40 mg 40 mg, subcutaneous, DAILY, First dose on Tue04/21/11 at 0900, Until Discontinued, Routine Given 04/21/2011 11:07 EDT 40 mg insulin aspart (NOVOLOG FlexPen) injecti on Given 04/23/2011 12:11 EDT 2 Units subcutaneous, 3 TIMES DAILY WITH MEALS, First dose on Tue04/22/11 at 0800, Until Discontinued, Routine Given 04/22/2011 17:39 EDT 3 Units Given 04/22/2011 12:24 EDT 7 Units insulin aspart (NOVOLOG FlexPen) injecti on Given 04/22/2011 20:47 EDT 5 Units subcutaneous, AT BEDTIME, First dose on Tue04/21/11 at 2100, Until Discontinued, Routine insulin glargine (LANTUS SoloSTAR PEN) Given 04/21/2011 21:10 ED T 35 Units injection 35 Units 35 Units, subcutaneous, AT BEDTIME, First dose on Tue04/21/11 at 2100, Until Discontinued, Routine insulin glargine (LANTUS SoloSTAR PEN) Given 04/22/2011 20:47 ED T 60 Units injection 60 Units 60 Units, subcutaneous, AT BEDTIME, First dose (after last modification) on Tue04/22/11 at 2100, Until Discontinued, Routine insulin regular Rate Documented 04/21/2011 22:00 0.133 Units/kg/hr 10 .2 mL/hr (HUMULIN R,NOVOLIN R) EDT 100 Units in sodium chloride (NS) 0.9 % 100 mL infusion 0.1 Units/kg/hr ? 76.7 kg (rounded to 7.67 mL/hr), intravenous, CONTINUOUS, Starting on Tue04/21/11 at 0800, Until Nevaeh 04/22/11 at 1111, Routine Rate Documented 04/21/2011 21:00 EDT 0.133 Units/kg/hr 10.2 mL/hr Rate Documented 04/21/2011 20:00 EDT 0.133 Units/kg/hr 10.2 mL/hr lactated ringers (LR) 1,000 mL BOLUS Given 04/21/2011 17:35 EDT 1,000 mL 1,000 mL, intravenous, NOW X1, 1 dose, On Tue04/21/11 at 1745, Routine lactated ringers (LR) 5,000 mL BOLUS Given 04/21/2011 20:22 EDT 1,000 mL 5,000 mL, intravenous, NOW X1, 1 dose, On Tue04/21/11 at 1800, Routine Given 04/21/2011 19:51 EDT 1,000 mL Given 04/21/2011 19:08 EDT 1,000 mL magnesium sulfate 1,000 mg in dextrose 5% Given 04/23/2011 1:30 EDT 1,000 mg (D5W) 50 mL IVPB 1,000 mg, intravenous, Administer over 30 Minutes, NOW X1, 1 dose, On Nevaeh 04/22/11 at 2215, Routine magnesium sulfate in D5W 2 g/50 mL lina de bag Given 04/22/2011 5:46 EDT 2 g 2 g, intravenous, Administer over 30 Minutes, EVERY 1 HOUR PRN, Starting on Tue04/21/11 at 0741, Until Nevaeh 04/22/11 at 1111, Routine ondansetron (PF) (ZOFRAN) 4 mg/2 mL inje ction 1 dose, Starting on Tue04/21/11 at 1422, Until 07/31 at 1430 ondansetron (PF) (ZOFRAN) injection 4 mg Given 04/21/2011 14:30 EDT 4 mg 4 mg, intravenous, EVERY 4 HOURS PRN, Starting on Tue04/21/11 at 1451, Until Tue04/23/11 at 1655, Nausea, Routine potassium chloride (KLOR-CON) packet 20 mEq Given 04/23/2011 3:47 EDT 20 mEq 20 mEq, oral, NOW X1, 1 dose, On Tue04/23/11 at 0345, Routine potassium chloride (KLOR-CON) packet 40 mEq Given 04/22/2011 7:51 EDT 40 mEq 40 mEq, oral, ONCE, 1 dose, Starting on Nevaeh 04/22/11 at 0700, Until Tue04/22/11 at 0751, Routine potassium chloride 20 mEq, lidocaine 10 mg in Given 04/22/2011 6 :41 EDT 20 mEq sodium chloride 0.9% 100 mL IVPB 20 mEq, intravenous, Administer over 60 Minutes, EVERY 1 HOUR PRN, Starting on Tue04/21/11 at 0952, Until Tue04/22/11 at 1111, Routine Given 04/22/2011 5:36 EDT 20 mEq Given 04/21/2011 18:07 EDT 20 mEq potassium chloride 20 mEq, lidocaine 10 mg in Given 04/21/20 18:00 EDT 20 mEq sodium chloride 0.9% 100 mL IVPB 20 mEq, intravenous, Administer over 60 Minutes, EVERY HOUR, 2 doses, First dose on Tue04/21/11 at 1700, Last dose on Tue04/21/11 at 1800, Routine Given 04/21/2011 17:00 EDT 20 mEq potassium chloride 20 mEq, lidocaine 10 mg in Given 04/21/20 21:48 EDT 20 mEq sodium chloride 0.9% 100 mL IVPB 20 mEq, intravenous, Administer over 60 Minutes, EVERY HOUR, 2 doses, First dose on Tue04/21/11 at 2100, Last dose on Tue04/21/11 at 2200, Routine Given 04/21/2011 20:29 EDT 20 mEq potassium chloride 20 mEq, lidocaine 10 mg in Given 04/22/20 23:51 EDT 20 mEq sodium chloride 0.9% 100 mL IVPB 20 mEq, intravenous, Administer over 60 Minutes, EVERY HOUR, 2 doses, First dose (after last reorder) on Nevaeh 04/22/11 at 2215, Last dose on Tue04/22/11 at 2300, Routine Given 04/22/2011 22:47 EDT 20 mEq potassium chloride 20 mEq, lidocaine 10 mg in Given 04/23/2011 4 :58 EDT 20 mEq sodium chloride 0.9% 100 mL IVPB 20 mEq, intravenous, Administer over 60 Minutes, EVERY HOUR, 2 doses, First dose (after last reorder) on Tue04/23/11 at 0400, Last dose on Tue04/23/11 at 0500, Routine Given 04/23/2011 3:47 EDT 20 mEq potassium chloride 20 mEq, lidocaine 10 mg in Given 04/23/20 11 11:52 EDT 20 mEq sodium chloride 0.9% 100 mL IVPB 20 mEq, intravenous, Administer over 60 Minutes, NOW X1, 1 dose, On Tue04/23/11 at 1130, Routine potassium chloride 20 mEq/100 mL infusio n 1 dose, Starting on Tue04/21/11 at 0922, Until 07/31 at 0930 potassium chloride infusion 20 mEq Given 04/21/2011 9:30 EDT 20 mEq 20 mEq, intravenous, PRN, Starting on Tue04/21/11 at 0741, Until Tue04/21/11 at 0952, hypokalemia, Under 4.0, Routine potassium chloride SA (K-DUR, KLOR-CON M20) Given 04/23/2011 13: 20 EDT 60 mEq tablet 60 mEq 60 mEq, oral, DAILY, 3 doses, First dose on Tue04/23/11 at 1145, Last dose on Tue04/25/11 at 0900, Routine potassium PHOSphate 15 mmol in sodium Given 04/21/2011 15:32 EDT 15 mmol 37.5 mL/hr chloride (NS) 0.9 % 150 mL infusion 15 mmol, intravenous, Administer over 4 Hours, NOW X1, 1 dose, On Tue04/21/11 at 1530, Routine sodium chloride (NS) 0.9 % 2,000 mL BOLU S Given 04/21/2011 8:31 EDT 1,000 mL 2,000 mL, intravenous, NOW X1, 1 dose, On Tue04/21/11 at 0815, Routine Given 04/21/2011 7:45 EDT 1,000 mL sodium chloride 0.45 % Rate Documented 04/21/2011 9:00 EDT 300 mL/hr 300 mL/hr infusion at 300 mL/hr, 300 mL/hr, intravenous, CONTINUOUS, Starting on Tue04/21/11 at 0800, Until Tue04/21/11 at 0935, Routine New Bag 04/21/2011 8:28 EDT 300 mL/hr 300 mL/hr documented in this encounter Active and Recently Administered Medications Times are shown in EDT. Scheduled Medication Order 04/21/2011 04/22/2011 04/23/2011 aspirin EC tablet 81 mg 1107 (Given - Provider: Sumeet adamson RN) 0802 (Given - Provider: Sumeet Cronin RN) 0939 (Given - Provider: Khushboo Olmos) 81 mg, Oral, DAILY, First dose on Tue04/21/11 at 0945, Until Dis continued docusate sodium (COLACE) capsule 100 mg (CANCELED) 100 5 (Not Given - Provider: Sumeet Cronin RN - Reason: Other - Comment: bm yesterday)2023 (Not Given - Provider: Sumeet Cronin RN - Reason: Other - Comment: bm yesterday) 1223 (Not Given - Provider: Sumeet Cronin RN - Reason: Patient/family refused)2045 (Given - Provider: Wendy Verdugo RN) 0939 (Not Given - Provider: Khushboo Olmos - Reason: Patient/family refused) 100 mg, Oral, 2 TIMES DAILY, First dose on Tue04/21/11 at 0900, Until Discontinued enoxaparin (LOVENOX) injection 40 mg (CANCELED) 1107 ( Given - Provider: Sumeet Cronin RN) 0802 (Given - Provider: Sumeet Cronin RN) 40 mg, Subcutaneous, DAILY, First dose o n Tue04/21/11 at 0900, Until Discontinued insulin aspart (NOVOLOG FlexPen) injection (CANCELED) 0836 (Given - Provider: Sumeet Cronin RN)1224 (Given - Provider: Sumeet Cronin RN)1739 (Given - Provider: Aubree Queen) 0804 (Not Given - Provider: Khushboo miller - Reason: Order parameters not met - Comment: fs=66 juice given breakfast ordered)1211 (Given - Provider: Khushboo Olmos) Subcutaneous, 3 TIMES DAILY WITH MEALS, First dose on Tue04/22/11 at 0800, Until Discontinued insulin aspart (NOVOLOG FlexPen) injection (CANCELED) 214 (Not Given - Provider: Sumeet Cronin RN - Reason: Order parameters not met - Comment: fs 103) 2046 (Given - Provider: Wendy Verdugo RN) Subcutaneous, AT BEDTIME, First dose on Tue04/21/11 at 2100, Until Discontinued insulin glargine (LANTUS SoloSTAR PEN) injection 35 Un its (CANCELED) 2109 (Given - Provider: Sumeet Cronin RN) 35 Units, Subcutaneous, AT BEDTIME, Firs t dose on Tue04/21/11 at 2100, Until Discontinued insulin glargine (LANTUS SoloSTAR PEN) injection 50 Units 50 Units, Subcutaneous, AT BEDTIME, Firs t dose on Tue04/23/11 at 2100, Until Discontinued insulin glargine (LANTUS SoloSTAR PEN) injection 60 Units (C ANCELED) 2046 (Given - Provider: Wendy Verdugo RN) 60 Units, Subcutaneous, AT BEDTIME, Firs t dose on Tue04/22/11 at 2100, Until Discontinued lactated ringers (LR) 1,000 mL BOLUS (COMPLETED) 1735 (Given - Provider: Sumeet Cronin RN) 1,000 mL, Intravenous, NOW X1, 1 dose, Tue04/21/11 at 1745 lactated ringers (LR) 5,000 mL BOLUS (COMPLETED) 1801 (Given - Provider: Sumeet Cronin RN)1840 (Given - Provider: Sumeet Cronin RN)1908 (Given - Provider: Sumeet Cronin RN)195 (Given - Provider: Sumeet Cronin RN)2021 (Given - Provider: Sumeet Cronin RN) 5,000 mL, Intravenous, NOW X1, 1 dose, Tue04/21/11 at 1800 magnesium sulfate 1,000 mg in dextrose 5% (D5W) 50 mL IVPB (COMP LETED) 0130 (Given - Provider: Wendy Verdugo, TANYA) 1,000 mg, Intravenous, for 30 Minutes, NOW X1, 1 dose, Tue at 2215 potassium chloride (KLOR-CON) packet 20 mEq (COMPLETED) 0347 (Given - Provider: Wendy Verdugo RN) 20 mEq, Oral, NOW X1, 1 dose, Tue04/23/11 at 0345 potassium chloride (KLOR-CON) packet 40 mEq (COMPLETED) 0751 (Given - Provider: Sumeet Cronin RN) 40 mEq, Oral, ONCE, 1 dose, First dose on Nevaeh 04/22/11 at 0700 potassium chloride 20 mEq, lidocaine 10 mg in sodium chloride 0.9% 100 mL IVPB (COMPLETED) 1700 (Given - Provider: Sumeet lamb, TANYA)1800 (Given - Provider: Sumeet Cronin, TANYA) 20 mEq, Intravenous, for 60 Minutes, KERRI RY HOUR, 2 doses, First dose on Tue04/21/11 at 1700, Last dose on Tue04/21/11 at 1800 potassium chloride 20 mEq, lidocaine 10 mg in sodium chloride 0.9% 100 mL IVPB (COMPLETED) 202 (Given - Provider: Sumeet lamb RN)2148 (Given - Provider: Sumeet Cronin RN) 20 mEq, Intravenous, for 60 Minutes, KERRI RY HOUR, 2 doses, First dose on Tue04/21/11 at 2100, Last dose on Tue04/21/11 at 2200 potassium chloride 20 mEq, lidocaine 10 mg in sodium chloride 0.9% 100 mL IVPB (COMPLETED) 2247 (Given - Provider: Wendy Verdugo RN)2351 (Given - Provider: Wendy Verdugo, TANYA) 20 mEq, Intravenous, for 60 Minutes, KERRI RY HOUR, 2 doses, First dose on Nevaeh 04/22/11 at 2215, Last dose on Nevaeh 04/22/11 at 2300 potassium chloride 20 mEq, lidocaine 10 mg in sodium chloride 0.9% 100 mL IVPB (COMPLETED) 0347 (Given - Provid er: Wendy Verdugo RN)0458 (Given - Provider: Wendy Verdugo, TANYA) 20 mEq, Intravenous, for 60 Minutes, KERRI RY HOUR, 2 doses, First dose on Tue04/23/11 at 0400, Last dose on Tue04/23/11 at 0500 potassium chloride 20 mEq, lidocaine 10 mg in sodium chloride 0.9% 100 mL IVPB (COMPLETED) 1152 (Given - Provid er: Khushboo Olmos) 20 mEq, Intravenous, for 60 Minutes, NOW X1, 1 dose, Tue04/23/11 at 1130 potassium chloride SA (K-DUR, KLOR-CON M20) tablet 60 mEq 1320 (Given - Provider: Khushboo Olmos) 60 mEq, Oral, DAILY, 3 doses, First dose on Tue04/23/11 at 1145, Last dose on Tue04/25/11 at 0900 potassium PHOSphate 15 mmol in sodium ch loride (NS) 0.9 % 150 mL infusion (COMPLETED) 1532 (Given - Provider: Sumeet Cronin, TANYA) 15 mmol, Intravenous, for 4 Hours, NOW X1, 1 dose, Tue04/21/11 a t 1530 sodium chloride (NS) 0.9 % 2,000 mL BOLUS (COMPLETED) 0745 (Given - Provider: Sumeet Cronin RN)0831 (Given - Provider: Sumeet Cronin RN) 2,000 mL, Intravenous, NOW X1, 1 dose, Tue04/21/11 at 0815 Continuous Medication Order 04/21/2011 04/22/2011 04/23/2011 dextrose 5 % in lactated ringers infusion (CANCELED) 0 935 (New Bag - Provider: Sumeet Cronin RN)1000 (Rate Documented - Provider: Sumeet Cronin RN)1100 (Rate Documented - Provider: Sumeet Cronin RN)1200 (Rate Documented - Provider: Sumeet Cronin RN) 0000 (Rate Documented - Provider: Jean Carlos Zaldivar RN)0100 (Rate Documented - Provider: Jean Carlos Zaldivar RN)0200 (Rate Documented - Provider: Jean Carlos Zaldivar, TANYA)0400 (Rate Documented - Provider: Jean Carlos Zaldivar, TANYA) at 150 mL/hr, Intravenous, CONTINUOUS, S tarting Tue04/21/11 at 1000, Until Nevaeh 04/22/11 at 1111 1300 (Rate Documented - Provider: Beverly Cronin RN)1400 (Rate Documented - Provider: Sumeet Cronin RN)1500 (Rate Documented - Provider: Sumeet Cronin RN)1600 (Rate Documented - Provider: Sumeet Cronin RN) 0522 (New Bag - Provider: Jean Carlos huertas RN)0700 (Rate Documented - Provider: Sumeet Cronin RN)0800 (Rate Documented - Provider: Sumeet Cronin RN)0900 (Rate Documented - Provider: Sumeet Cronin RN) 1700 (New Bag - Provider: Karen Cronin RN)1800 (Rate Documented - Provider: Sumeet Cronin RN)1900 (Rate Documented - Provider: Sumeet Cronin RN)2000 (Rate Documented - Provider: Sumeet Cronin RN) 1000 (Rate Documented - Provider: Sumeet Cronin RN)1100 (Rate Documented - Provider: Sumeet Cronin RN)1115 (Completed - Provider: Sumeet Cronin RN) 2100 (Rate Documented - Prov ider: Sumeet Cronin RN)2200 (Rate Documented - Provider: Sumeet Cronin RN)2300 (New Bag - Provider: Sumeet Cronin RN) insulin regular (HUMULIN R,NOVOLIN R) 10 0 Units in sodium chloride (NS) 0.9 % 100 mL infusion (CANCELED) 0828 (New Bag - Provider: Sumeet heard RN)0930 (Rate Documented - Provider: Sumeet Cronin RN)1000 (Rate Documented - Provider: Sumeet Cronin RN)1100 (Rate Documented - Provider: Sumeet Cronin RN) 0.1 Units/kg/hr ? 76.7 kg = 7.67 mL/hr, Intravenous, CONTINUOUS, Starting 04/21/11 at 0800, Until Nevaeh 04/22/11 at 1111 1200 (Rate Documented - Provider: Beverly Cronin RN)1234 (Rate Documented - Provider: Sumeet Cronin RN)1300 (Rate Documented - Provider: Sumeet Cronin RN)1331 (Rate Documented - Provider: Sumeet Cronin RN) 1431 (Rate Documented - Prov ider: Sumeet Cronin RN)1500 (Rate Documented - Provider: Sumeet Cronin RN)1630 (Rate Documented - Provider: Sumeet Cronin RN)1700 (Rate Documented - Provider: Sumeet Cronin RN) 1757 (New Bag - Provider: Karen Cronin RN)1800 (Rate Documented - Provider: Sumeet Cronin RN)1840 (Rate Documented - Provider: Sumeet Cronin RN)1930 (Rate Documented - Provider: Sumeet Cronin RN) 1999 (Rate Documented - Prov ider: Sumeet Cronin RN)2100 (Rate Documented - Provider: Sumeet Cronin RN)2200 (Rate Documented - Provider: Sumeet Cronin RN) 222 (IV Stopped - Provider: Sumeet Cronin RN - Comment: fs 68 pt asymptmatic) sodium chloride 0.45 % infusion (CANCELED) 0828 (New B ag - Provider: Sumeet Cronin RN)0900 (Rate Documented - Provider: Sumeet Cronin RN) at 300 mL/hr, Intravenous, CONTINUOUS, S tarting Tue04/21/11 at 0800, Until Tue04/21/11 at 0935 PRN Medication Order 04/21/2011 04/22/2011 04/23/2011 acetaminophen (TYLENOL) tablet 325 mg (CANCELED) 0441 (Given - Provider: Jean Carlos Zaldivar RN - Comment: headache) 325 mg, Oral, EVERY 6 HOURS PRN, Startin g Tue04/21/11 at 0741, Until Nevaeh 04/22/11 at 0800, Pain, Fever, Pain or Temperature > 38 acetaminophen (TYLENOL) tablet 325-650 mg (CANCELED) 0800 (Given - Provider: Sumeet Cronin RN - Comment: crum)1740 (Given - Provider: Aubree Queen) 1219 (Given - Provider: Khushboo Olmos) 325-650 mg, Oral, EVERY 6 HOURS PRN, Sta rting Nevaeh 04/22/11 at 0800, Until Tue04/23/11 at 1655, Pain, Fever, Pain or Temperature > 38 dextrose 50 % solution 12.5-25 g (CANCELED) 2235 (Give n - Provider: Sumeet Cronin RN - Comment: fs 68 pt asymptmatic insulin drip d/c) 12.5-25 g, Intravenous, PRN, Starting We d 04/21/11 at 0741, Until Tue04/21/11 at 2037, Low Blood Sugar magnesium sulfate in D5W 2 g/50 mL premade bag (CANCELED) 0546 (Given - Provider: Jean Carlos Zaldivar RN - Comment: mg=1.4) 2 g, Intravenous, for 30 Minutes, EVERY 1 HOUR PRN, Starting Tue04/21/11 at 0741, Until Nevaeh 04/22/11 at 1111 ondansetron (PF) (ZOFRAN) injection 4 mg (CANCELED) 14 30 (Given - Provider: Sumeet Cronin RN) 4 mg, Intravenous, EVERY 4 HOURS PRN, St arting Tue04/21/11 at 1451, Until Tue04/23/11 at 1655, Nausea potassium chloride 20 mEq, lidocaine 10 mg in sodium chloride 0.9% 100 mL IVPB (CANCELED) 1700 (Given - Provider: Sumeet lamb RN)1707 (Not Given - Provider: Sumeet Cronin RN - Reason: Other - Comment: duplicate documentation)1807 (Given - Provider: Sumeet Cronin RN) 0536 (Given - Provider: Jean Carlos Zaldivar RN - Comment: k=2.7)0641 (Given - Provider: Jean Carlos Zaldivar RN - Comment: two of two) 20 mEq, Intravenous, for 60 Minutes, KERRI RY 1 HOUR PRN, Starting Tue04/21/11 at 0952, Until Nevaeh 04/22/11 at 1111 potassium chloride infusion 20 mEq (CANCELED) 0930 (Gi ricki - Provider: Sumeet Cronin RN - Comment: k 4.3 given per dka protocol) 20 mEq, Intravenous, for 60 Minutes, PRN , Starting Tue04/21/11 at 0741, Until Tue04/21/11 at 0952 documented in this encounter Orders Medications Ordered That Might Not Have Count Last Ord ered Date First Ordered Date Been Administered insulin glargine (LANTUS SoloSTAR PEN) 1 1 injection 50 Units potassium chloride (KLOR-CON) packet 40 1 04/22/20 11 mEq atropine 0.1 mg/mL 10 mL syringe 0.5-1 mg 1 2010 bisacodyl (DULCOLAX) suppository 10 mg 1 1 dextrose 50 % solution 12.5 g 1 04/21/2011 docusate (COLACE) liquid 100 mg 1 04/21/2011 glucagon (human recombinant) injection 1 1 011 mg lidocaine 20 mg/mL (2 %) injection 2 mL 1 04/21/20 11 senna (SENOKOT) tablet 2 Tab 1 04/21/2011 sodium chloride 0.9 % (NS) infusion 1 04/21/2011 Lab Orders Without Results Count Last Ordered Date Fir st Ordered Date POCT BLOOD GAS, G3 I-STAT (BASIC ABG VBG) 1 2010 Respiratory Care Count Last Ordered Date First Ordered Date RESPIRATORY CARE EVALUATION ONLY 1 04/21/2011 IV Count Last Ordered Date First Ordered Date IV REQUEST 1 04/21/2011 Admission Count Last Ordered Date First Ordered Date NOTIFY PPS OF DISCHARGE COMPLETE 1 04/23/2011 PPS NOTIFICATION OF PATIENT ARRIVAL ON 3 1 04/21/2011 UNIT ADMIT TO INPATIENT 1 04/21/2011 NOTIFY PPS OF ROOM CHANGE COMPLETE 2 04/21/2011 Transfer Count Last Ordered Date First Ordered Date CHANGE ATTENDING TO: 2 04/23/2011 04/21/2011 TRANSFER PATIENT 1 04/22/2011 Discharge Count Last Ordered Date First Ordered Date DISCHARGE PATIENT 1 04/23/2011 Equipment Count Last Ordered Date First Ordered Date GENERIC DME ORDER 1 04/23/2011 documented in this encounter Care Teams Welfare Manager Relationship Specialty Start Date End Date Allan Mims MD PCP - General 04/21/11 [id number] [facility] [place] [address] documented as of this encounter
--- OUTSIDE RECORDS SUMMARY | 2022-01-15 01:18 | XMS_ITS | Encounter Summary ---
:[address] [facility] Address [address] [place] [address] Care Team Providers Name Role Phone Unknown, Provider Primary Care Provider Encounter Details Date Type Department Care Team Description 09/28/2010 Results Only [facility] Suzette Landeros MD Laboratory Services - [id number] [facility] [place], [place] [id number] Social History Tobacco Use Types Packs/Day Years Used Date Never Assessed Sex Assigned at Date Recorded Not on file documented as of this encounter Plan of Treatment Not on filedocumented as of this encounter Procedures Procedure Name Priority Date/Time Associated Diagnosis [facility] SURGICAL PATHOLOGY Routine 09/28/2010 0:00 EDT Re sults for this procedure are i n the results section. documented in this encounter Results SURGICAL PATHOLOGY (09/28/2010 0:00 EDT) Pathology Report: SURGICAL PATHOLOGY REPORT ? HUE ALY Reports generated via Bleachers interface contain original data; ? LAB however they are lacking the format of the original report. ? Caution should be taken when reading/interpreting unformatted reports. ? Name: ? BIPIN, KELLY T ? Accession #: ? [id number] ? : ? 1975 (Age: 35) ??M ? Collec t Date: ? 09/28/2010 ? Location: ? [facility] ? R eceive Date: ? 09/28/2010 ? Provider: SUZETTE LANDEROS MD ? Copy to: JC GONZALEZ MD ? Final Pathologic Diagnosis: ? Sinus, anterior ethmo id, biopsies: ? 1. ?Chronically inflamed respiratory mucosa. ? 2. ? Fragments of benign bone. ? Document reviewed and electr onically signed by: ? LISA MANJARREZ MD ? Report ??Date: 10/01/2010 15 :54 ? By the signature above, the attending physician certifies that he/she has ? personally conducted a gross and/or microscopic examination of the described ? specimens and rendered or co nfirmed the above diagnosis. ? Specimen(s) Received: ? Anterior ethmoid ? Clinical History: ? Left pansinusitis ? Gross Description: ? Received in formalin labelled Kelly Leon and #1 anterior ethmoid are eight light [place] soft tissues which vary in size from 0.4 x 0.2 x 0.2 cm up to ?? 1.3 x 0.4 x 0.3 cm. ??The sp ecimen measures 2.0 x 0.8 x 0.3 cm in aggregate. ??Two of the tissues have a small amount of bony tissue within them and are submitted intact as (A1) for light dec alcification. ??The remaining tissues are submitted ?? entirely as (A2). ??(LYNETTE castillo)/tmg ? End of Report ? Specimen Performing Organization Address City/State/ZIP Code Phon e Number [facility] [address] [place] [address] SERVICES [facility] [address] [place] [address] documented in this encounter Visit Diagnoses Not on filedocumented in this encounter Care Teams Baker Bread Relationship Specialty Start Date End Date Unknown, Provider, PCP - General 09/28/10 04/20/11 documented as of this encounter
[2022-01-15 08:23] LABS: Hemoglobin A1C 12.8 % (<5.7)
== END 2022-01-15 01:15 | disposition home or self-care (01) ==
LOC: LBO 01:14
PROVIDERS: PCP Nurse Practitioner Family; Visit Provider Nurse Practitioner Family
DX: E10.9 Type 1 diabetes mellitus without complications (principal)
CPT/HCPCS: 36415; 83036

== ENCOUNTER 2022-02-28 18:16 | Observation (INO) | payer BC, SELFPAY ==
[2022-02-28] VITALS (39 sets, daily range): BP systolic 148–159; BP diastolic 93–105; PULSE 78–111; RESP 12–22; TEMP 36.3; O2SAT 98
--- NOTE | 2022-02-28 18:15 | RT.EKG_ITS ---
APPROVED REPORT Exam: Resting ECG Reason for Exam: possible stroke Patient Location: E HR:92 bpm ECG Measurements Heart Rate 92 AXIS FL 163 P 32 QRSd 103 QRS -18 QT 334 T -30 QTc 414 Conclusion Sinus rhythm...normal P axis, V-rate 60- 99
--- NOTE | 2022-02-28 18:30 | DI.CT_ITS ---
Exam(s) CT BRAIN NECK CTA EXAM: CT BRAIN NECK CTA CLINICAL HISTORY: R arm weakness, dysmetria. TECHNIQUE: Imaging Protocol: Axial CT angiography was performed with multi-slice acquisition and mu lti-planar and/or 3D reconstructions. CONTRAST MATERIAL: Intravenous: Omnipaque 350 Contrast volume:structured data in ml COMPARISON: CT CT ABDOMEN PELVIS WO/W from 02/09/2021 MR MR BRAIN WO from 03/01/2022 FINDINGS: CTA Neck W: Aortic arch anatomy: The aortic arch anatomy is conventional. There is no significant stenosis at the origin the great vessels off the aortic arch. Anterior circulation: Both common carotid arteries ascend with normal luminal diameters. No evident of significant stenosi s at the carotid bifurcations and proximal internal carotid arteries. Both internal carotid arteries in the upper neck are patent and also demonstrated be patent in the skull base-carotid canals. Posterior circulation: There is no stenosis at the origin of the vertebral arteries nor in the subclavian arteries proximal to the vertebral artery takeoff points. Both vertebral arteries ascend in the foramen transverse area with normal and equal luminal diameters with no evidence of intraluminal thrombus nor dissection. At the skull base both vertebral arteries contribute to the formation of the basilar artery. No stenosis evident nor calcification within the distal vertebral arteries. CTA Brain W: Anterior circulation: Both internal carotid arteries are patent in the cavernous sinuses. Supraclinoid aspects of these ve ssels are patent and nonaneurysmal. Both A1 segments are patent as are the anterior cerebral arterie s and there is no evidence of aneurysm at the level of the anterior communicating artery. Both middle cerebral arteries are patent. No significant stenosis. No aneurysms in these vessels ev ident Posterior circulation: Basilar artery is formed by both vertebral arteries and ascends with normal luminal diameter. Distal ly basilar artery gives off patent bilateral superior cerebellar arteries and above this level termin ates as patent bilateral posterior cerebral arteries. There is no aneurysm tip of the basilar artery . There are no posterior communicating arteries on either side of the yecphf-gj-Txgddk. CT BRAIN: There is no evidence of intracranial hemorrhage, mass effect, or shift of midline structures. There are no extra-axial fluid collections. Ventricles are not enlarged or shifted. There are no ring enh ancing lesions in the brain and no abnormal meningeal enhancement. There are bilateral areas abnormal hypodensity. On the left side these are immediate left periventri cular and most probably represent lacunar infarcts. On the right side similar finding is seen in the anterior right periventricular white matter. There is no enhancement associated with these bilatera l abnormal hypodensities. No ring enhancing lesions. No abnormal meningeal enhancement. IMPRESSION: 1. No hemodynamically significant stenoses in the carotid and vertebral arteries in the neck. 2. Intracranial arteries appear patent. 3. There appear to be bilateral lacunar infarcts. Please note that 1 of these on the left side exh ibits restricted diffusion on MRI performed same date. No evidence of aneurysms and no evidence of intracranial hemorrhage. No ring enhancing lesions in th e brain and no abnormal meningeal enhancement. RADIATION DOSE DELIVERED: 2,166.71mGy.cm Total DLP DATA REPOSITORY: All CT scans at this facility are submitted to the National Radiology Data Registry (NRDR) Dose Index Registry (DIR) with the [employer] (ACR). RADIATION OPTIMIZATION: All CT scans at this facility use at least one of these dose optimization te chniques: automated exposure control; mA and/or kV adjustment per patient size (includes targeted exa ms where dose is matched to clinical indication); or iterative reconstruction.
--- NOTE | 2022-02-28 18:43 | DI.RAD_ITS ---
Exam(s) XR CHEST 1V IN DI DEPT EXAM: XR CHEST 1V IN DI DEPT CLINICAL HISTORY: R arm weakness, DM. TECHNIQUE: 2D digital imaging was performed. COMPARISON: CR CHEST 2 VIEWS PA,LAT from 10/31/2017 FINDINGS: Single AP portable view. Heart size is upper normal. The mediastinum is not widened. Lungs are clear. No infiltrates nor obvious pleural effusions. IMPRESSION: No acute pulmonary findings on this single AP portable view of the chest. DATA REPOSITORY: RADIATION DOSE DELIVERED: All CT scans at this facility use at least one of these dose optimization techniques: automated exposure control; mA and/or kV adjustment per patient size (includes targeted e xams where dose is matched to clinical indication); or iterative reconstruction.
--- NOTE | 2022-02-28 18:45 | ED.GENADUL_ITS ---
Discharge Plan Disposition Patient Disposition: STILL A PATIENT Condition: Stable Discharge Details Chief Complaint: CVA/TIA Clinical Impression: CVA (cerebrovascular accident) Primary Care Provider: [facility] ED Provider: Williams Feldman Home Meds and New Rx's Prescriptions: No Action ibuprofen 800 MG tablet 800 mg PO TID PRNQty: 90 (DME) Comfort EZ Pen Jewell 33 gauge x 3/16 needle See Rx Instructions .ROUTE .MEDSUPPLY Qty: 200 4RF Rx Instructions: one QID (DME) Dexcom G6 Ordnance Truck Installation Supervisor Misc See Rx Instructions .ROUTE .MEDSUPPLY Qty: 1 0RF Rx Instructions: As directed (DME) Dexcom G6 Sensor Device See Rx Instructions .ROUTE .MEDSUPPLY Qty: 3 4RF Rx Instructions: As directed (DME) Dexcom G6 Transmitter Device See Rx Instructions .ROUTE .MEDSUPPLY Qty: 1 4RF Rx Instructions: As directed buspirone 30 mg tablet 30 mg PO BID Qty: 60 11RF insulin lispro 100 unit/mL insulin pen See Rx Instructions subcut QID Qty: 15 3RF Rx Instructions: 131-180 = 4 units, 181-240 = 8 units, 241-300 = 10 units, 301-350 = 12 units, 351-400 = 14 units subcut four times a day; insulin glargine [Lantus Solostar U-100 Insulin] 100 unit/mL (3 mL) insulin pen 60 unit subcut BID Qty: 15 3RF gabapentin 400 mg capsule 400 mg PO TID Qty: 180 3RF duloxetine 60 mg capsule,delayed release(DR/EC) 120 mg PO DAILY Qty: 90 4RF methocarbamol 750 mg tablet 750 mg PO TID PRN (Reason: muscle spasm) Qty: 20 0RF Label Comments: not taking (DME) Blood Glucose Test 1 EACH strip 1 ea Miscellaneous QID Qty: 100 6RF Medical Decision Making 46-year-old male presents from home with his . He states he woke up 3 AM Tuesday morning and felt that his right arm was clumsy and weak. He did not fall or injure himself. He had no difficulty with speech. He states his gait has felt unsteady at times over the past 48 hours. He did discuss with on-call physician and was referred to the ER tonight. Patient arrives alert and interactive. His neurologic exam is intact with the exception of right arm weakness, right upper extremity dysmetria and right arm drift on Romberg testing. Patient slightly hypertensive at 158/105, his pulse was 96 and rises 10 points with standing. Differential diagnosis includes small vessel ischemic disease, infarct, mass, dehydration, electrolyte abnormality. Patient IV access established, was placed on a terminal manager, referred for EKG, laboratory testing, and head CT with CT angiogram. Patient be signed out to Dr. Knxo pending review of diagnostic studies and further disposition. Please see his follow-up. HPI General Mode of arrival: ambulatory . Date/Time Provider Initiated Documentation: 02/28/22 18:17 . Limitations to Documentation: no limitations . Information obtained by: patient and family . History of Present Illness 46 year old M presents to the emergency department with the chief complaint of Right arm weakness and clumsiness since 3 AM Tuesday morning, described as moderate, and is localized to the right and upper extremity. Patient started experiencing this hour(s) and it has been constant. No relieving factors improve symptom(s), No exacerbating factors reported . Patient notes other (Feels foggy in the head. Feels his gait has been unsteady at times. No fall, no headache). Patient did receive the following treatments prior to arrival, none Related Data Home Medications Medication Instructions Recorded Confirmed blood sugar diagnostic (Blood #100 strips 11/02/17 05/08/21 Glucose Test strips) ibuprofen 800 mg tablet 800 mg PO TID PRN #90 tab-caps 02/15/18 02/28/22 pen needle, diabetic 33 gauge x #200 ea 10/15/20 05/08/2109/02 (Comfort EZ Pen Jewell) blood-glucose meter,continuous #1 ea 10/30/20 05/08/21 (Dexcom G6 Ordnance Truck Installation Supervisor misc) blood-glucose sensor (Dexcom G6 #3 ea 12/03/20 05/08/21 Sensor device) blood-glucose transmitter (Dexcom #1 ea 05/21/21 G6 Transmitter device) buspirone 30 mg tablet 30 mg PO BID #60 tabs 06/15/21 02/28/22 insulin lispro 100 unit/mL See Rx Instructions subcut QID #15 07/08/21 02/28/22 subcutaneous pen mL insulin glargine 100 unit/mL (3 60 unit (0.6 mL) subcut BID #15 mL 08/31/21 02/28/22 mL) subcutaneous pen (Lantus Solostar U-100 Insulin) gabapentin 400 mg capsule 400 mg PO TID #180 caps 10/14/21 02/28/22 duloxetine 60 mg capsule,delayed 120 mg PO DAILY #90 caps 11/23/21 02/28/22 release methocarbamol 750 mg tablet 750 mg PO TID PRN muscle spasm #20 02/01/22 tabs Previous Rx's Medication Instructions Recorded blood sugar diagnostic (Blood #100 strips 11/02/17 Glucose Test strips) pen needle, diabetic 33 gauge x #200 ea 10/15/2009/02 (Comfort EZ Pen Jewell) blood-glucose meter,continuous #1 ea 10/30/20 (Dexcom G6 Ordnance Truck Installation Supervisor misc) blood-glucose sensor (Dexcom G6 #3 ea 12/03/20 Sensor device) blood-glucose transmitter (Dexcom #1 ea 05/21/21 G6 Transmitter device) buspirone 30 mg tablet 30 mg PO BID #60 tabs 06/15/21 insulin lispro 100 unit/mL See Rx Instructions subcut QID #15 07/08/21 subcutaneous pen mL insulin glargine 100 unit/mL (3 60 unit (0.6 mL) subcut BID #15 mL 08/31/21 mL) subcutaneous pen (Lantus Solostar U-100 Insulin) gabapentin 400 mg capsule 400 mg PO TID #180 caps 10/14/21 duloxetine 60 mg capsule,delayed 120 mg PO DAILY #90 caps 11/23/21 release methocarbamol 750 mg tablet 750 mg PO TID PRN muscle spasm #20 02/01/22 tabs Allergies Allergy/AdvReac Type Severity Reaction Status Date / Time ciprofloxacin [From Cipro] AdvReac Intermediate blacks Verified 02/28/22 18:24 out General Stated Complaint: CVA/TIA NEYMAR: 3 Review of Systems Narrative: States he often misses his diabetes medications. No recent illness. No fall or injury. See HPI. 8 systems were reviewed and otherwise negative. No difficulty with speech. No facial droop. PFSH All Active Problems (Updated 02/28/22 @ 19:47 by Williams Feldman MD) CVA (cerebrovascular accident) (Chronic) Diabetic neuropathy (Acute) Noncompliance with medication regimen (Chronic) Radiculopathy (Acute) Diabetes type I (Chronic) Hypophosphatemia (Acute) Hypomagnesemia (Acute) Renal calculi (Chronic) Left flank pain (Acute) Erectile dysfunction (Acute) Depression (Chronic) Nonproliferative diabetic retinopathy (Chronic 01/25/12) OPTICAL EXPRESSIONS; MILD NPDR IN THE RIGHT EYE ONLY Hyperlipidemia (Chronic) Cervical radiculopathy (Chronic 06/19/13) Medical History COVID-19 ruled out by laboratory testing DKA (diabetic ketoacidosis) Metabolic acidosis due to diabetes mellitus Family History Mother Depression Father Diabetes Social History Smoking/Tobacco Use Status: Former Tobacco Use tobacco type: cigarettes Quit Date: 04/11/02 Tobacco: How many years used: 7 Second Hand Exposure: Yes Smoking risk assessment performed?: Yes Alcohol Intake: former Drug use: Never Substance use type: does not use Details: No ETOH since august 2020 Household members: spouse and children Housing: house Communication Needs: None Do you need help understanding health information?: Never Pets and animals: Yes Pets and animals: cat(s), dog(s) and other Sexually active: Yes Do you think of yourself as: straight/heterosexual Current gender identity: male What is your relationship status?: How often do you talk on the phone with friends or family?: twice per week How often do you get together with friends or relatives?: once per week How often do you attend bahai or mosque services?: decline to answer Do you belong to any clubs or organized social groups?: no Panel score (0-1 are the most socially isolated patients): 2 Nohemi/Anglican: None Seatbelt use: sometimes Drive intox or ride w/intox minibus driver: No Do you feel safe at home: Yes Do you feel safe in your relationship?: Yes Exam Narrative Exam Narrative: GEN: awake, alert, oriented 3. Pleasant, well groomed, interactive. HEAD: Normocephalic, atraumatic ENT: Mucous membranes moist, oropharynx unremarkable, External ear exam unremarkable EYES: PERRL, EOMI NECK: Full ROM, no ELBA, no menigismus CHEST/RESP: Nontender, clear to auscultation bilateral, no wheeze/rhonchi/rales CARDIOVASCULAR: RRR, no murmur, rub enzo. 2+ Rad pulse bilateral ABDOMEN: Soft, nontender, no mass. +Bowel sounds EXT: Full ROM, no edema, no rash Neuro: Alert conversant, interactive. Right arm warehousing technician strength is slightly weaker than left as is right arm flexion at the elbow. Right cmbtfh-ye-yxws is wandering at times. Positive Romberg with right arm drift. Fgyg-lt-azmy is normal bilaterally Psych: Speech fluent, thoughts congruent, affect normal Course Vital Signs Vital signs: Vital Signs Temperature 36.3 C L 02/28/22 18:20 Pulse 96 H 02/28/22 18:20 Respiratory Rate 22 02/28/22 18:20 Blood Pressure 158/105 H 02/28/22 18:20 Pulse Oximetry 98 02/28/22 18:20 Temperature 36.3 C L 02/28/22 18:20 Temperature Source Skin 02/28/22 18:20 Pulse 96 H 02/28/22 18:20 Respiratory Rate 18 02/28/22 18:26 Respiratory Effort 02/28/22 18:26 Respiratory Depth Normal 02/28/22 18:26 Respiratory Pattern Normal 02/28/22 18:26 Blood Pressure 158/105 H 02/28/22 18:20 Pulse Oximetry 98 02/28/22 18:20 Oxygen Delivery Method Room Air 02/28/22 18:20 Oxygen Flow Rate 0 02/28/22 18:20 Pain Level 1 02/28/22 18:20 Comment 02/28/22 18:20
[2022-02-28] MEDS: Normal Saline 1,000 ML 1000 ML IV (18:52)
[2022-02-28 18:54] LABS: Abs Immature Grans 0.04 10^3/uL (0.0-0.06); Absolute Basophil Count 0.08 10^3/uL (0.0-0.2); Absolute Eosinophil Count 0.13 10^3/uL (0.0-0.7); Absolute Lymphocyte Count 3.41 10^3/uL (1.2-3.4); Absolute Monocyte Count 0.82 10^3/uL (0.1-0.8); Absolute Neutrophil Count 5.16 10^3/uL (1.2-6.7); Basophils % 0.8; Eosinophils % 1.3; HCT 42.6 % (40.0-50.0); HGB 14.6 g/dL (13.5-17.5); Immature Grans % 0.4; Lymphocytes % 35.4; MCH 30.7 pg (27.0-33.0); MCHC 34.3 % (32.0-36.0); MCV 90 fL (80-95); MPV 10.1 fL (8.0-11.0); Monocytes % 8.5; Neutrophils % 53.6; Platelet Count 390 10^3/uL (130-400); RBC 4.76 10^6/uL (4.36-5.78); RDW 11.5 % (11.8-14.1); RDW-SD 37.4 fL; WBC 9.64 10^3/uL (4.4-10.8)
[2022-02-28 19:18] LABS: ALT 25 U/L (16-63); AST 9 U/L (15-37); Albumin 3.9 g/dL (3.4-5.0); Alkaline Phosphatase 90 U/L (46-116); Anion Gap 8.9 mmol/L (3-11); BUN 18 mg/dL (7-18); Bilirubin, Total 0.4 mg/dL (0.2-1.0); CO2 30.1 mmol/L (21.0-32.0); CREATININE 1.1 mg/dL (0.70-1.30); Calcium 9.3 mg/dL (8.5-10.1); Chloride 99 mmol/L (98-107); Estimated GFR 84.37 (mL/min/1.73m2); Glucose 254 mg/dL (74-106); Magnesium 1.8 mg/dL (1.8-2.4); Potassium 3.6 mmol/L (3.5-5.1); Sodium 138 mmol/L (136-145); Total Protein 7.3 g/dL (6.4-8.2); Troponin I < 50 ng/L (<or=60)
[2022-02-28] MEDS: Omnipaque 350 MG/ML 100 ML BTL IJ (19:26)
[2022-02-28] MEDS: Normal Saline Flush 10 ML SYR IVP (19:27)
--- NOTE | 2022-02-28 20:45 | DI.VRAD_ITS ---
PROCEDURE INFORMATION: Exam: CT Head Without Contrast Exam date and time: 02/28/2022 7:54 PM Age: 46 years old Clinical indication: Stroke-like symptoms; RT upper extremity weakness; Additional info: R arm weakness, dysmetria TECHNIQUE: Imaging protocol: Computed tomography of the head without contrast. Other technique: STROKE PROTOCOL was implemented. COMPARISON: MR HEAD^ROUTINE WO 01/23/2019 11:48 AM FINDINGS: Brain: There are foci of hypodensity in the corpus callosum and pierre radiata bilaterally. No evidence of acute intracranial hemorrhage, mass effect or midline shift. No large territorial infarct. Cerebral ventricles: No ventriculomegaly. Paranasal sinuses: There is mild mucosal thickening in the left ethmoid sinus. Mastoid air cells: The mastoid air cells are unremarkable. Bones/joints: No acute fracture. Soft tissues: No significant subcutaneous soft tissue abnormality. IMPRESSION: 1. No acute intracranial hemorrhage, mass effect or midline shift. 2. White matter hypodensities within the corpus callosum and pierre radiata are concerning for demyelinating disease versus chronic microvascular ischemic disease. MRI is recommended for further evaluation. ASSESSMENT: ASPECTS ([place] Stroke Program Early CT Score) is 10. PROCEDURE INFORMATION: Exam: CTA Head With Contrast, Arteriography Exam date and time: 02/28/2022 7:54 PM Age: 46 years old Clinical indication: Stroke-like symptoms; RT upper extremity weakness; Additional info: R arm weakness, dysmetria TECHNIQUE: Imaging protocol: Computed tomographic angiography of the head with contrast. Exam focused on the arteries. 3D rendering (Not supervised by radiologist): MIP and/or 3D reconstructed images were created by the technologist. Radiation optimization: All CT scans at this facility use at least one of these dose optimization techniques: automated exposure control; mA and/or kV adjustment per patient size (includes targeted exams where dose is matched to clinical indication); or iterative reconstruction. Contrast material: OMNIPAQUE 350; Contrast volume: 85 ml; Contrast route: INTRAVENOUS (IV); COMPARISON: HEAD^MRA COW 01/23/2019 11:36 AM FINDINGS: ANTERIOR CIRCULATION: Right internal carotid artery: Unremarkable. Intracranial segment is patent with no significant stenosis. No aneurysm. Right middle cerebral artery: Unremarkable. No occlusion or significant stenosis. No aneurysm. Right anterior cerebral artery: Unremarkable. No occlusion or significant stenosis. No aneurysm. Left internal carotid artery: Unremarkable. Intracranial segment is patent with no significant stenosis. No aneurysm. Left middle cerebral artery: Unremarkable. No occlusion or significant stenosis. No aneurysm. Left anterior cerebral artery: Unremarkable. No occlusion or significant stenosis. No aneurysm. POSTERIOR CIRCULATION: Right vertebral artery: Unremarkable. No occlusion or significant stenosis. No aneurysm. Left vertebral artery: Unremarkable. No occlusion or significant stenosis. No aneurysm. Basilar artery: Unremarkable. No occlusion or significant stenosis. No aneurysm. Right posterior cerebral artery: Unremarkable. No occlusion or significant stenosis. No aneurysm. Left posterior cerebral artery: Unremarkable. No occlusion or significant stenosis. No aneurysm. Brain: No definite mass, mass effect, or midline shift. Cerebral ventricles: No ventriculomegaly. Bones/joints: Unremarkable. No acute fracture. Soft tissues: Unremarkable. IMPRESSION: No large vessel stenosis or occlusion. PROCEDURE INFORMATION: Exam: CTA Neck With Contrast Exam date and time: 02/28/2022 7:54 PM Age: 46 years old Clinical indication: Stroke-like symptoms; RT upper extremity weakness; Additional info: R arm weakness, dysmetria TECHNIQUE: Imaging protocol: Computed tomographic angiography of the neck with contrast. 3D rendering (Not supervised by radiologist): MIP and/or 3D reconstructed images were created by the technologist. Radiation optimization: All CT scans at this facility use at least one of these dose optimization techniques: automated exposure control; mA and/or kV adjustment per patient size (includes targeted exams where dose is matched to clinical indication); or iterative reconstruction. Contrast material: OMNIPAQUE 350; Contrast volume: 85 ml; Contrast route: INTRAVENOUS (IV); COMPARISON: CAROTID MRA^CAROTIDS 01/23/2019 12:12 PM FINDINGS: Right common carotid artery: No stenosis. No dissection or occlusion. Right internal carotid artery: No stenosis of the extracranial segment. No dissection or occlusion. Right external carotid artery: No occlusion or stenosis of the origin. Left common carotid artery: No stenosis. No dissection or occlusion. Left internal carotid artery: No stenosis of the extracranial segment. No dissection or occlusion. Left external carotid artery: No occlusion or stenosis of the origin. Right vertebral artery: No stenosis. No dissection or occlusion. Left vertebral artery: No stenosis. No dissection or occlusion. Soft tissues: Normal. No significant soft tissue swelling. Bones/joints: No acute fracture. IMPRESSION: No stenosis or occlusion. REFERENCES: NASCET CRITERIA. The degree of stenosis in the cervical segment of the internal carotid artery is based on NASCET criteria. Normal is no stenosis. Mild is less than 50% stenosis. Moderate is 50-69% stenosis. Severe is 70% to 99% stenosis. Total occlusion is no detectable patent lumen. Dictated and Authenticated by: Alisia Rahman MD. Ordering:LLUVIA Kramer MD
--- NOTE | 2022-02-28 20:46 | DI.VRAD_ITS ---
PROCEDURE INFORMATION: Exam: XR Chest Exam date and time: 02/28/2022 8:07 PM Age: 46 years old Clinical indication: R arm weakness, dm TECHNIQUE: Imaging protocol: Radiologic exam of the chest. Views: 1 view. COMPARISON: CR CHEST 2 VIEWS PA,LAT 10/31/2017 8:03 PM FINDINGS: Lungs: No consolidation. There linear opacity in the left lung base may represent atelectasis. Pleural spaces: No pleural effusion. No pneumothorax. Heart/Mediastinum: No cardiomegaly. Bones/joints: Unremarkable. IMPRESSION: No acute findings. Dictated and Authenticated by: Alisia Rahman MD. Ordering:LLUVIA Kramer MD
--- NOTE | 2022-02-28 20:46 | W.EDPROG ---
Date of service: 02/28/22 Time of Service: 20:[address] shows no acute findings, no large vessel occlusions, he is weak in the right hand can't write using his right hand or do fine motor tasks, has slight drift, doesn't hit the bed of the right hand. Suspect acute cva but last known normal was tuesday night so not a lytic candidate. Will discuss with hospitalist about admission Imaging Data Radiologic Study: Attestation: I personally reviewed and interpreted this imaging study as follows: Imaging: CT Scan Radiologist's impression: PROCEDURE INFORMATION: Exam: CT Head Without Contrast Exam date and time: 02/28/2022 7:54 PM Age: 46 years old Clinical indication: Stroke-like symptoms; RT upper extremity weakness; Additional info: R arm weakness, dysmetria TECHNIQUE: Imaging protocol: Computed tomography of the head without contrast. Other technique: STROKE PROTOCOL was implemented. COMPARISON: MR HEAD^ROUTINE WO 01/23/2019 11:48 AM FINDINGS: Brain: There are foci of hypodensity in the corpus callosum and pierre radiata bilaterally. No evidence of acute intracranial hemorrhage, mass effect or midline shift. No large territorial infarct. Cerebral ventricles: No ventriculomegaly. Paranasal sinuses: There is mild mucosal thickening in the left ethmoid sinus. Mastoid air cells: The mastoid air cells are unremarkable. Bones/joints: No acute fracture. Soft tissues: No significant subcutaneous soft tissue abnormality. IMPRESSION: 1. No acute intracranial hemorrhage, mass effect or midline shift. 2. White matter hypodensities within the corpus callosum and pierre radiata are concerning for demyelinating disease versus chronic microvascular ischemic disease. MRI is recommended for further evaluation. Radiologic Study #2: Attestation: I personally reviewed and interpreted this imaging study as follows: Imaging: X-Ray Radiologist's impression: no acute findings Sign Out Sign Out Data: Sign Out Comment: Followup CT/labs, ? admit Last updated by Williams Feldman MD at 02/28/22 19:53 Discharge Plan Disposition Patient Disposition: [facility] INPATIENT Condition: Stable Discharge Details Clinical Impression: CVA (cerebrovascular accident) Primary Care Provider: [facility] ED Provider: Ch[facility] Home Meds and New Rx's Prescriptions: No Action ibuprofen 800 MG tablet 800 mg PO TID PRNQty: 90 (DME) Comfort EZ Pen [place] 33 gauge x 3/16 needle See Rx Instructions .ROUTE .MEDSUPPLY Qty: 200 4RF Rx Instructions: one QID (DME) Dexcom G6 Ground Support Equipment Mechanic Misc See Rx Instructions .ROUTE .MEDSUPPLY Qty: 1 0RF Rx Instructions: As directed (DME) Dexcom G6 Sensor Device See Rx Instructions .ROUTE .MEDSUPPLY Qty: 3 4RF Rx Instructions: As directed (DME) Dexcom G6 Transmitter Device See Rx Instructions .ROUTE .MEDSUPPLY Qty: 1 4RF Rx Instructions: As directed buspirone 30 mg tablet 30 mg PO BID Qty: 60 11RF insulin lispro 100 unit/mL insulin pen See Rx Instructions subcut QID Qty: 15 3RF Rx Instructions: 131-180 = 4 units, 181-240 = 8 units, 241-300 = 10 units, 301-350 = 12 units, 351-400 = 14 units subcut four times a day; insulin glargine [Lantus Solostar U-100 Insulin] 100 unit/mL (3 mL) insulin pen 60 unit subcut BID Qty: 15 3RF gabapentin 400 mg capsule 400 mg PO TID Qty: 180 3RF duloxetine 60 mg capsule,delayed release(DR/EC) 120 mg PO DAILY Qty: 90 4RF methocarbamol 750 mg tablet 750 mg PO TID PRN (Reason: muscle spasm) Qty: 20 0RF Label Comments: not taking (DME) Blood Glucose Test 1 EACH strip 1 ea Miscellaneous QID Qty: 100 6RF
--- NOTE | 2022-02-28 22:01 | W.PM.HP.N ---
Date of service: 02/28/22 Time of Service: 22:01 Assessment and Plan Assessment and plan (1) CVA (cerebrovascular accident): Status: Chronic Assessment and plan: I think this is almost certainly lacunar infarct, but query demyelinating disease is noted. Will obtain MRI in AM. Proceeding on the basis of CVA, risk factors include HTN and DM. Will allow a degree of permissive HTN in acute setting but plan to begin antihypertensive soon, and begin on ASA (with PPI prophylaxis given h/o GI upset). Will also check lipid panel and plan on statin. Will also monitor on telemetry but no arrythmias have been noted here in ER and pattern of PLATFORM MAN lesions does not suggest embolic source. Also note negative CTA of head and neck so macrovascular disease does not appear to be the issue here. History of Present Illness History of Present Illness Chief Complaint: right sided weakness Narrative: 46 male with h/o HTN, poorly controlled type 1 DM (last A1c 12.8%) -- here with 2 days of right sided weakness. Noticed first when he awakened to go to bathroom 2 nights ago. Has since reported bharath specifically needing to use other arm to raise the affected one, troub;le writing and scuffing his right foot when he walks. Minimal HERNANDEZ at one point but none now. No change in vision, speech. Here in ER w/u of note for multiple white matter hypodensities in corpus callosum and pierre radiata, r/o ischemic vs demyelinating (to my read this appears as multiple lacunes). I was asked to evaluate for admission. Patient denies prior such focal deficits. Denies palpitations. Says he has previously taken ASA but stopped due to GI upset. Review of Systems Narrative: per HPI PFSH All Active Problems CVA (cerebrovascular accident) (Chronic) Diabetic neuropathy (Acute) Noncompliance with medication regimen (Chronic) Radiculopathy (Acute) Diabetes type I (Chronic) Hypophosphatemia (Acute) Hypomagnesemia (Acute) Renal calculi (Chronic) Left flank pain (Acute) Erectile dysfunction (Acute) Depression (Chronic) Nonproliferative diabetic retinopathy (Chronic 01/25/12) OPTICAL EXPRESSIONS; MILD NPDR IN THE RIGHT EYE ONLY Hyperlipidemia (Chronic) Cervical radiculopathy (Chronic 06/19/13) Medical History COVID-19 ruled out by laboratory testing DKA (diabetic ketoacidosis) Metabolic acidosis due to diabetes mellitus Family History Mother Depression Father Diabetes Social History Smoking/Tobacco Use Status: Former Tobacco Use tobacco type: cigarettes Quit Date: 04/11/02 Tobacco: How many years used: 7 Second Hand Exposure: Yes Smoking risk assessment performed?: Yes Alcohol Intake: former Drug use: Never Substance use type: does not use Details: No ETOH since august 2020 Household members: spouse and children Housing: house Communication Needs: None Do you need help understanding health information?: Never Pets and animals: Yes Pets and animals: cat(s), dog(s) and other Sexually active: Yes Do you think of yourself as: straight/heterosexual Current gender identity: male What is your relationship status?: How often do you talk on the phone with friends or family?: twice per week How often do you get together with friends or relatives?: once per week How often do you attend jehovah's witness or hoahaoism services?: decline to answer Do you belong to any clubs or organized social groups?: no Panel score (0-1 are the most socially isolated patients): 2 Nohemi/Latter-Day: None Seatbelt use: sometimes Drive intox or ride w/intox route delivery driver: No Do you feel safe at home: Yes Do you feel safe in your relationship?: Yes Meds Allergies and Home Medications Allergies Allergy/AdvReac Type Severity Reaction Status Date / Time ciprofloxacin [From Cipro] AdvReac Intermediate blacks Verified 02/28/22 18:24 out Home Medications Medication Instructions Recorded Confirmed Type blood sugar diagnostic (Blood #100 strips 11/02/17 05/08/21 Rx Glucose Test strips) ibuprofen 800 mg tablet 800 mg PO TID PRN #90 tab-caps 02/15/18 02/28/22 History pen needle, diabetic 33 gauge x #200 ea 10/15/20 05/08/21 Rx 3/16 (Comfort EZ Pen [place]) blood-glucose meter,continuous #1 ea 10/30/20 05/08/21 Rx (Dexcom G6 Fiber Designer misc) blood-glucose sensor (Dexcom G6 #3 ea 12/03/20 05/08/21 Rx Sensor device) blood-glucose transmitter (Dexcom #1 ea 05/21/21 Rx G6 Transmitter device) buspirone 30 mg tablet 30 mg PO BID #60 tabs 06/15/21 02/28/22 Rx insulin lispro 100 unit/mL See Rx Instructions subcut QID #15 07/08/21 02/28/22 Rx subcutaneous pen mL insulin glargine 100 unit/mL (3 60 unit (0.6 mL) subcut BID #15 mL 08/31/21 02/28/22 Rx mL) subcutaneous pen (Lantus Solostar U-100 Insulin) gabapentin 400 mg capsule 400 mg PO TID #180 caps 10/14/21 02/28/22 Rx duloxetine 60 mg capsule,delayed 120 mg PO DAILY #90 caps 11/23/21 02/28/22 Rx release methocarbamol 750 mg tablet 750 mg PO TID PRN muscle spasm #20 02/01/22 Rx tabs Exam Narrative Exam Narrative: 151/94, 84, 36.3, 16, 98% RA. HEENT atraunatic; neck supple, w/o bruit; lungs clear; heart RRR w/o MRG; abdomen soft and NT; extremities w/o edema, pulses 2+/=; neuro Ox3, lucid, EOMI, PERRL, rodrigues full to confrontation, no facial asymmetry, tongue mid-line; motor RUE 4/5 prox/distal, RLE 4/5 prox,5/5 distal; toes downgoing Results Labs Result diagrams: 02/28/22 18:30 02/28/22 18:30 Labs: Laboratory Results - last 24 hr 02/28/22 02/28/22 18:30 18:30 WBC 9.64 RBC 4.76 Hgb 14.6 Hct 42.6 MCV 90 MCH 30.7 MCHC 34.3 RDW 11.5 L Plt Count 390 MPV 10.1 Immature Gran % 0.4 Neutrophils % 53.6 Lymphocytes % 35.4 Monocytes % 8.5 Eosinophils % 1.3 Basophils % 0.8 Nucleated RBC % 0.0 Absolute Neutrophils 5.16 Absolute Lymphocytes 3.41 H Absolute Monocytes 0.82 H Absolute Eosinophils 0.13 Absolute Basophils 0.08 Sodium 138 Potassium 3.6 Chloride 99 Carbon Dioxide 30.1 Anion Gap 8.9 BUN 18 Creatinine 1.1 Est GFR (CKD-EPI 2020) 84.37 Glucose 254 H Calcium 9.3 Magnesium 1.8 Total Bilirubin 0.4 AST 9 L ALT 25 Alkaline Phosphatase 90 Troponin I < 50 Total Protein 7.3 Albumin 3.9 Last Vital Signs Temp 36.3 C L 02/28/22 18:20 Pulse 84 02/28/22 19:31 Resp 16 02/28/22 19:31 BP 151/94 H 02/28/22 19:31 Pulse Ox 98 02/28/22 18:20
[2022-02-28 22:40] LABS: Troponin I < 50 ng/L (<or=60)
[2022-02-28 23:01] LABS: Source Nasal/Nares
[2022-02-28 23:32] LABS: COVID-19 PCR Negative (Negative)
[2022-03-01] VITALS (27 sets, daily range): BP systolic 131–160; BP diastolic 80–96; PULSE 73–88; RESP 13–18; TEMP 36.4–36.8; O2SAT 94–98
--- NOTE | 2022-03-01 | DI.MRI_ITS ---
Exam(s) MR BRAIN WO EXAM: MR BRAIN WO CLINICAL HISTORY: CVA, right hemiparesis TECHNIQUE: Multiplanar multisequence MRI of the brain was performed. COMPARISON: No exams were available for comparison FINDINGS: CEREBRAL PARENCHYMA: There is no evidence of intracranial hemorrhage, mass effect, or shift of midline structures. There are no extra-axial fluid collections. Ventricles are not enlarged or shifted. There is no significant focal signal abnormality in the cerebellar hemispheres. There is some signal abnormality in both sides of the germán. There is sparing of the midbrain and thalami. However, ther e are multiple foci of periventricular signal abnormality bilaterally. One of these on the left side is associated with restricted diffusion. There is also corresponding hypointensity on the ADC map. No prominent surrounding edema. SWI: No evidence of hemorrhage PITUITARY GLAND: No mass nor parasellar abnormality. No obvious abnormality in the cavernous sinuses. FLOW VOIDS: The expected flow void are noted. No evidence of obvious aneurysm nor obvious vascular ma lformation. PARANASAL SINUSES: The visualized paranasal sinuses appear unremarkable. No obvious finding ORBITS: No obvious findings. IMPRESSION: There are abnormal foci of signal abnormality in the periventricular white matter bilaterally as well as in both sides of the germán. Suspect ischemia sequelae. One of these on the left side periventric ular white matter exhibits restricted diffusion, consistent with acute ischemic event. This measures approximately 12 x 10 millimeters. No associated hemorrhage. DATA REPOSITORY:
[2022-03-01] MEDS: Aspirin 325 MG TAB PO (01:36)
[2022-03-01] MEDS: Pantoprazole 40 MG TABCR PO ×2 (01:37→08:56)
[2022-03-01 03:45] LABS: Bilirubin Negative (Negative); Blood Negative (Negative); Clarity Clear (Clear); Glucose 500 mg/dL (Negative); Ketones Negative (Negative); Leukocyte Esterase Negative (Negative); Nitrite Negative (Negative); Specific Gravity 1.015 (1.005-1.025); Urobilinogen 0.2 EU/dL (Up TO 0.2)
[2022-03-01 03:54] LABS: Bacteria Rare HPF (Negative); C & S Indicated? No; Casts Negative LPF (Negative); Crystals Negative HPF (Negative); Epithelial Cells Rare HPF (Negative); Mucus Negative (Negative); RBC 0-2 HPF (0-2); WBC 0-2 HPF (0-5)
[2022-03-01 06:24] LABS: Calculated LDL 106 mg/dL (<100); Cholesterol 187 mg/dL (<200); HDL Cholesterol 41 mg/dL (40-60); Triglyceride 204 mg/dL (<150)
[2022-03-01] MEDS: Normal Saline Flush 10 ML SYR IVP (08:53)
[2022-03-01] MEDS: busPIRone 5 MG TAB 30 MG PO ×2 (08:54→19:57)
[2022-03-01] MEDS: Aspirin 81 MG CHEW PO (08:54)
[2022-03-01] MEDS: Gabapentin 400 MG CAP PO ×3 (08:54→19:57)
[2022-03-01] MEDS: Ibuprofen 800 MG TAB PO (08:55)
[2022-03-01] MEDS: Atorvastatin 20 MG TAB PO (08:55)
[2022-03-01] MEDS: DULoxetine 30 MG CAP 120 MG PO (08:55)
[2022-03-01] MEDS: Insulin Glargine 300 UNITS/3 ML PEN 40 UNITS SC ×2 (09:55→21:22)
[2022-03-01 11:56] LABS: Hemoglobin A1C 12.1 % (<5.7)
[2022-03-01] MEDS: Atorvastatin 20 MG TAB 60 MG PO (12:13)
[2022-03-01] MEDS: Insulin Aspart 300 UNITS/3 ML PEN SC ×2 (12:14→17:45)
--- NOTE | 2022-03-01 16:07 | PGE_ITS ---
Date of Service Date of service: 03/01/22 Time of Service: 16:07 Assessment and Plan Assessment and plan (1) CVA (cerebrovascular accident): Status: Chronic Assessment and plan: right sided weakness improving with near resolution of right leg, difficulty with fine motor upper continue ASA, statin increased to high dose. allowing permissive hypertension CTA head and neck with no large vessel stenosis or occlusion. MRI brain: IMPRESSION: There are abnormal foci of signal abnormality in the periventricular white matter bilaterally as well as in both sides of the germán.? Suspect ischemia sequelae.? One of these on the left side periventricular white matter exhibits restricted diffusion, consistent with acute ischemic event.? This measures approximately 12 x 10 millimeters.? No associated hemorrhage. echo pending neurology consulted continue telemetry monitoring. PT/OT ordered. (2) Diabetes type I: Status: Chronic Assessment and plan: poorly controlled with hemoglobin A1C 12.1 will continue diabetic diet with ac/hs blood sugar checks with coverage as needed diabetic education continue home lantus dosing reduced from 60 to 40 units BID. blood sugars have been well controlled here. 78-157 today consider adding [place] I but allowing for permissive hypertension now. discussed with Dr Morton. Qualifiers: Diabetes mellitus complication status: without complication Qualified Code(s): E10.9 - Type 1 diabetes mellitus without complications Subjective Subjective Patient reports: no new complaints, feels better, tolerating liquids well, tolerating a regular diet, voiding w/o difficulty and afebrile Interval history since last seen: reports improvement in right leg weakness, stating feels about at baseline. still reporting some numbness and clumsy right hand, difficulty with fine motor Exam Const General: cooperative, comfortable and ill appearing chronically Nutritional Appearance: average body habitus Orientation: alert, awake and oriented x3 [facility] Head: normal to inspection, normocephalic and atraumatic Mouth: oral mucosae normal Resp Effort & Inspection: normal respiratory effort Auscultation: clear to auscultation bilaterally Cardio Rate: regular rate Rhythm: regular rhythm and other (sinus rhythm on telemetry, ) GI Inspection: normal to inspection Palpation: soft Auscultation: normal bowel sounds Skin General skin exam: no rashes or lesions noted Neuro General: patient alert, patient awake and patient oriented x3 Cranial Nerves: EOM intact bilaterally, facial strength normal, tongue midline and gag reflex normal Cognition: normal cognition Speech: speech normal Motor: tone not normal throughout and strength abnormal (right hand weak hand electrician bus when compared to right 4/5, some mild ataxia ) Coordination: [id number] test abnormal (slight deficit on right) Extrem General: normal to inspection, full ROM and no pedal edema Psych Mental Status: mental status grossly normal Speech and Movement: speech and movement normal Mood: congruent mood Affect: normal affect Attitude: cooperative Thought Process: normal Thought Content: normal Insight: insight good Judgment: judgment good Objective Last Vital Signs Temp 36.8 C 03/01/22 15:46 Pulse 88 03/01/22 15:46 Resp 16 03/01/22 15:46 BP 142/88 H 03/01/22 15:46 Pulse Ox 98 03/01/22 15:53 Laboratory Results - last 24 hr 02/28/22 02/28/22 02/28/22 18:30 18:30 18:30 WBC 9.64 RBC 4.76 Hgb 14.6 Hct 42.6 MCV 90 MCH 30.7 MCHC 34.3 RDW 11.5 L Plt Count 390 MPV 10.1 Immature Gran % 0.4 Neutrophils % 53.6 Lymphocytes % 35.4 Monocytes % 8.5 Eosinophils % 1.3 Basophils % 0.8 Nucleated RBC % 0.0 Absolute Neutrophils 5.16 Absolute Lymphocytes 3.41 H Absolute Monocytes 0.82 H Absolute Eosinophils 0.13 Absolute Basophils 0.08 Sodium 138 Potassium 3.6 Chloride 99 Carbon Dioxide 30.1 Anion Gap 8.9 BUN 18 Creatinine 1.1 Est GFR (CKD-EPI 2020) 84.37 Glucose 254 H Hemoglobin A1c 12.1 H Calcium 9.3 Magnesium 1.8 Total Bilirubin 0.4 AST 9 L ALT 25 Alkaline Phosphatase 90 Troponin I < 50 Total Protein 7.3 Albumin 3.9 Triglycerides Total Cholesterol LDL Cholesterol, Calc HDL Cholesterol Urine Color Urine Clarity Urine pH Ur Specific [place] Urine Protein Urine Ketones Urine Blood Urine Nitrite Urine Bilirubin Urine Urobilinogen Ur Leukocyte Esterase Urine RBC Urine WBC Ur Epithelial Cells Urine Crystals Urine Bacteria Urine Casts Urine Mucus Ur Culture Indicated? Urine Glucose COVID-19 Source SARS-CoV-2 (PCR) 02/28/22 02/28/22 02/28/22 22:09 22:15 23:00 WBC RBC Hgb Hct MCV MCH MCHC RDW Plt Count MPV Immature Gran % Neutrophils % Lymphocytes % Monocytes % Eosinophils % Basophils % Nucleated RBC % Absolute Neutrophils Absolute Lymphocytes Absolute Monocytes Absolute Eosinophils Absolute Basophils Sodium Potassium Chloride Carbon Dioxide Anion Gap BUN Creatinine Est GFR (CKD-EPI 2020) Glucose Hemoglobin A1c Calcium Magnesium Total Bilirubin AST ALT Alkaline Phosphatase Troponin I < 50 Total Protein Albumin Triglycerides 204 H Total Cholesterol 187 LDL Cholesterol, Calc 106 H HDL Cholesterol 41 Urine Color Urine Clarity Urine pH Ur Specific [place] Urine Protein Urine Ketones Urine Blood Urine Nitrite Urine Bilirubin Urine Urobilinogen Ur Leukocyte Esterase Urine RBC Urine WBC Ur Epithelial Cells Urine Crystals Urine Bacteria Urine Casts Urine Mucus Ur Culture Indicated? Urine Glucose COVID-19 Source Nasal/Nares SARS-CoV-2 (PCR) Negative 03/01/22 03:40 WBC RBC Hgb Hct MCV MCH MCHC RDW Plt Count MPV Immature Gran % Neutrophils % Lymphocytes % Monocytes % Eosinophils % Basophils % Nucleated RBC % Absolute Neutrophils Absolute Lymphocytes Absolute Monocytes Absolute Eosinophils Absolute Basophils Sodium Potassium Chloride Carbon Dioxide Anion Gap BUN Creatinine Est GFR (CKD-EPI 2020) Glucose Hemoglobin A1c Calcium Magnesium Total Bilirubin AST ALT Alkaline Phosphatase Troponin I Total Protein Albumin Triglycerides Total Cholesterol LDL Cholesterol, Calc HDL Cholesterol Urine Color Yellow Urine Clarity Clear Urine pH 6.0 Ur Specific [place] 1.015 Urine Protein 100 H Urine Ketones Negative Urine Blood Negative Urine Nitrite Negative Urine Bilirubin Negative Urine Urobilinogen 0.2 Ur Leukocyte Esterase Negative Urine RBC 0-2 Urine WBC 0-2 Ur Epithelial Cells Rare Urine Crystals Negative Urine Bacteria Rare Urine Casts Negative Urine Mucus Negative Ur Culture Indicated? No Urine Glucose 500 H COVID-19 Source SARS-CoV-2 (PCR)
--- NOTE | 2022-03-01 16:57 | PDOC.CMIN ---
- If Service Date Differs Date of service: 03/01/22 Time of Service: 16:57 Care Management Initial Assess REASON FOR HOSPITALIZATION:: Stroke PAST MEDICAL HISTORY/PAST SURGICAL HISTORY:: Medical History . COVID-19 ruled out by laboratory testing. DKA (diabetic ketoacidosis). Metabolic acidosis due to diabetes mellitus PREVIOUS FUNCTIONAL STATUS/SOCIAL/FAMILY SUPPORTS:: Dragan resides in [place] with his , Mary and their blended family. They have an adult daughter who resides outside of the home, two eighteen year old boys and an eight year old daughter. 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 He is independent in the community. ADVANCE DIRECTIVES:: Not on file, forms offered. Has patient been provided with info about the portal/API?: Yes Did the patient sign up for the portal?: Yes CODE STATUS:: Full Code INSURANCE COVERAGE / FINANCIAL ISSUES:: BC/BS CURRENT HOME/COMMUNITY SERVICES/EQUIPMENT:: No current services or equipment. PRIMARY CARE PHYSICIAN:: [facility] POTENTIAL DISCHARGE NEEDS:: Evaluation for further needs, follow up appointments. PATIENT/FAMILY EDUCATION NEEDS:: Review discharge instructions regarding activity levels and medications, discussion of self care needs including ask me three. ANTICIPATED BARRIERS TO DISCHARGE:: None identified at this time. TRANSPORTATION:: Via private vehicle by family. PLAN:: Dragan will return home when medicallly cleared by MD. He will be transported home via private vehicle when ready. He will follow up with his PCP and discharge plan of care. CM will continue to follow.
[2022-03-02 03:10] VITALS: BP 105/69; PULSE 83; RESP 14; TEMP 36.3; O2SAT 97
[2022-03-02] MEDS: Normal Saline Flush 10 ML SYR IVP ×2 (05:32→08:58)
[2022-03-02 07:00] VITALS: PULSE 95
[2022-03-02 07:50] VITALS: BP 132/88; PULSE 85; RESP 15; TEMP 35.7; O2SAT 97
[2022-03-02] MEDS: Atorvastatin 40 MG TAB 80 MG PO (08:58)
[2022-03-02] MEDS: Ibuprofen 800 MG TAB PO (08:58)
[2022-03-02] MEDS: Aspirin 81 MG CHEW PO (08:58)
[2022-03-02] MEDS: busPIRone 5 MG TAB 30 MG PO (08:59)
[2022-03-02] MEDS: DULoxetine 30 MG CAP 120 MG PO (08:59)
[2022-03-02] MEDS: Gabapentin 400 MG CAP PO (09:00)
[2022-03-02] MEDS: Pantoprazole 40 MG TABCR PO (09:00)
[2022-03-02] MEDS: Insulin Glargine 300 UNITS/3 ML PEN 40 UNITS SC (09:05)
--- NOTE | 2022-03-02 09:51 | NCONE_ITS ---
Date of service: 03/02/22 Time of Service: 09:51 Assessment and Plan Assessment and plan (1) CVA (cerebrovascular accident): Status: Chronic (2) Diabetes type I: Status: Chronic Assessment and plan: Mr. Leon is a 46 year-old, right-handed man with acute left hemisphere ischemic stroke manifested by R arm >> leg weakness/clumsines and mild sensory loss in the right arm. Etiology likely due to small vessel disease, but further work-up as recommended below. Work-up: -30 day extended cardiac monitoring as an outpiatient Medications: -aspirin 81mg daily for secondary stroke prevention -clopidogrel 75mg daily for secondary stroke prevention x 30 days only, ADRs discussed -atrovastatin 80mg daily for secondary stroke prevention while inpatient with reduction at discharge to 40mg daily for long-term goal LDL <70; ADRs discussed -optimization of insulin for goal A1c <7.0 -optimization of BP as outpatient for goal <130/90 Other: -Physical therapy for leg weakness, gait training -Occupation therapy for upper extremity weakness, activities of daily living -slow return to work as tolerated He should follow-up with neurology in ~6 weeks. Qualifiers: Diabetes mellitus complication status: without complication Qualified Code(s): E10.9 - Type 1 diabetes mellitus without complications History of Present Illness History of Present Illness Chief Complaint: stroke Narrative: Handedness: right. Dragan is a 46 year-old with hypertension, hyperlipidemia, DM1 poorly controlled with retinopathy, nephropathy, and neuropathy; renal strones, depression, and ED. Mr. Leon awoke 02/27/22 around 3am to use the bathroom when he noted R hand/arm weakness and clumsiness. He went back to asleep. When he awoke later that am and went to work he noted persistent symptoms as well as some imbalance/unsteadiness. He did not present to the [facility] ER until 02/28/22 at which time he was outside of the tPA window. BP 158/105. Upon admission, he was placed on aspirin 325mg daily along with atorvastatin. He has undergone the work-up as below. He has no family history of heart attack, stroke, DVT/PE. He is a former smoker. Clinically, symptoms are improving. Work-up: -CTH (02/28/22): old right frontal and L subcortical infarcts. No acute findings. I reviewed these images personally and this is my personal interpretation. -CTA head/neck (02/28/22): unremarkable. I reviewed these images personally and this is my personal interpretation. -MRI brain w/o (03/01/22): Subacute L centrum semiovale stroke. Old small stroke near by with another prior R frontal stroke. I reviewed these images personally and this is my personal interpretation. -TTE (03/01/22): EF 50% with no wall motion abnormaltiies. LA normal. -Labs: A1c 12.1, LDL 106 -Tele: no afib Review of Systems All systems reviewed & are unremarkable except as noted in HPI and below PFSH All Active Problems CVA (cerebrovascular accident) (Chronic) Diabetic neuropathy (Acute) Noncompliance with medication regimen (Chronic) Radiculopathy (Acute) Diabetes type I (Chronic) Hypophosphatemia (Acute) Hypomagnesemia (Acute) Renal calculi (Chronic) Left flank pain (Acute) Erectile dysfunction (Acute) Depression (Chronic) Nonproliferative diabetic retinopathy (Chronic 01/25/12) OPTICAL EXPRESSIONS; MILD NPDR IN THE RIGHT EYE ONLY Hyperlipidemia (Chronic) Cervical radiculopathy (Chronic 06/19/13) Medical History COVID-19 ruled out by laboratory testing DKA (diabetic ketoacidosis) Metabolic acidosis due to diabetes mellitus Family History Mother Depression Father Diabetes Social History Smoking/Tobacco Use Status: Former Tobacco Use tobacco type: cigarettes Quit Date: 04/11/02 Tobacco: How many years used: 7 Second Hand Exposure: Yes Smoking risk assessment performed?: Yes Alcohol Intake: former Drug use: Never Substance use type: does not use Details: No ETOH since august 2020 Household members: spouse and children Housing: house Communication Needs: None Do you need help understanding health information?: Never Pets and animals: Yes Pets and animals: cat(s), dog(s) and other Sexually active: Yes Do you think of yourself as: straight/heterosexual Current gender identity: male What is your relationship status?: How often do you talk on the phone with friends or family?: twice per week How often do you get together with friends or relatives?: once per week How often do you attend restorationism or catholic services?: decline to answer Do you belong to any clubs or organized social groups?: no Panel score (0-1 are the most socially isolated patients): 2 Nohemi/Taoist: None Seatbelt use: sometimes Drive intox or ride w/intox driver courier: No Do you feel safe at home: Yes Do you feel safe in your relationship?: Yes Visit Medication and Allergies Active Medications Generic Name Dose Route Start Last Admin Trade Name Freq PRN Reason Stop Dose Admin Aspirin 81 mg 03/01/22 08:30 03/02/22 08:58 Aspirin 81 Mg Chew PO 81 mg DAILY CHARLINE Administration Atorvastatin Calcium 80 mg 03/02/22 08:30 03/02/22 08:58 Atorvastatin 40 Mg Tab PO 80 mg DAILY CHARLINE Administration Buspirone HCl 30 mg 03/01/22 08:30 03/02/22 08:59 Buspirone 5 Mg Tab PO 30 mg BID CHARLINE Administration Dextrose 0 gm 02/28/22 22:21 Glucose 40% Oral Solution 15 Gm/37.5 Gm Tube PO DIRECTED PRN Dextrose/Water 0 gm 02/28/22 22:21 Dextrose 50%-Water 25 Gm/50 Ml Syr IVP DIRECTED PRN Dimethicone/Zinc Oxide 0 gm 02/28/22 22:21 Jerry Protect Cream 142 Gm Tube TP PRN PRN Duloxetine HCl 120 mg 03/01/22 08:30 03/02/22 08:59 Duloxetine 30 Mg Cap PO 120 mg DAILY CHARLINE Administration Gabapentin 400 mg 03/01/22 08:30 03/02/22 09:00 Gabapentin 400 Mg Cap PO 400 mg TID CHARLINE Administration Sodium Chloride 500 mls @ 0 mls/hr 02/28/22 18:43 Saline 500ml Bag IV PRN PRN As Directed IV Miscellaneous Supplies 1 each 02/28/22 18:45 Iv Access IV DIRECTED CHARLINE Ibuprofen 800 mg 03/01/22 07:30 03/02/22 08:58 Ibuprofen 800 Mg Tab PO 800 mg TID PRN PRN Administration Insulin Aspart 0 units 03/01/22 08:00 03/02/22 09:00 Insulin Aspart 300 Units/3 Ml Pen SC Not Given 0800,1200,1700 [facility] Protocol Insulin Glargine 40 units 03/01/22 08:30 03/02/22 09:05 Insulin Glargine 300 Units/3 Ml Pen SC 40 units BID CHARLINE Administration Pantoprazole Sodium 40 mg 03/01/22 08:30 03/02/22 09:00 Pantoprazole 40 Mg Tabcr PO 40 mg DAILY CHARLINE Administration Sodium Chloride 0 ml 02/28/22 18:43 03/02/22 08:58 Normal Saline Flush 10 Ml Syr IVP 10 ml PRN PRN Administration Sodium Chloride 250 ml 02/28/22 19:30 02/28/22 19:27 Normal Saline 250 Ml Bag IJ 50 ml DIRECTED CHARLINE Administration Allergies ciprofloxacin [From Cipro] Adverse Reaction (Intermediate, Verified 02/28/22 18:24) blacks out Exam Narrative Exam Narrative: Physical Exam: Gen: Patient of apparent stated age, NAD Head and face: no facial or cranial abnormalities Neck: Supple, no meningismus, no occipital tenderness CV: + S1, S2, RRR, no murmur Resp: CTA B/L Abd: soft, nontender, nondistended Ext: No edema. No clubbing or cyanosis. No bony deformity. Neuro Exam: Language: fluency, naming, repetition, and comprehension intact; Mental Status: AAOx3, current events intact, fund of knowledge intact; Speech: no dysarthria Cranial nerves: Funduscopy: not performed CN II: visual rodrigues intact CN III, IV, : extraocular movements intact, no nystagmus, pupils symmetric and reactive to light CN V: face sensation intact to LT and PP CN VII: no facial asymmetry noted CN VIII: hearing intact bilaterally CN IX, X: palate rises symmetrically CN XI: trapezius/SCM 5/5 bilaterally CN XII: protrudes tongue symmetrically Sensory: intact to LT in all extremities; reduced PP in RUE Motor: bulk and tone intact. Fine motor movements reduced on the right. Subtle R pronator drift. Strength 5/5 throughout including the deltoids, biceps, triceps, wrist extensors, hip flexors, knee flexors, knee extensors, ankle flexors, and ankle extensors except R tricep 4/5. Reflexes: 2+ at the biceps, triceps, brachioradialis, patella, and achilles tendons bilaterally; +R Babinski; L toe downgoing Coordination: FTN and HTS intact bilaterally Gait: not tested Results Last Vital Signs Temp 96.3 F L 03/02/22 07:50 Pulse 85 03/02/22 07:50 Resp 15 03/02/22 07:50 BP 132/88 03/02/22 07:50 Pulse Ox 97 03/02/22 07:50 Labs Result diagrams: 02/28/22 18:30 02/28/22 18:30 Labs: Laboratory Results - last 24 hr 02/28/22 18:30 Hemoglobin A1c 12.1 H
[2022-03-02 10:06] VITALS: O2SAT 98
--- NOTE | 2022-03-02 11:10 | PT.INIE ---
Date of service: 03/02/22 Time of Service: 11:10 PT Notes Visit Reasons: Stroke Physical Therapy Inpatient Initial Evaluation Date: 03/02/2022 Referring Doctor: Sultana Auguste NP PT Orders: PT CONSULT: Eval/treat Precautions: Fall. Standard. Activity as tolerated. Patient Profile/Admitting Diagnosis: Dragan is a 46-year-old male who presented to the ED on 02/28/2022 due to cerebrovascular accident seen on MRI with an ischemic sequela. Referral was made in order to weigh in on recommendations for safe discharge planning. PMHX: All Active Problems? CVA (cerebrovascular accident) (Chronic) Diabetic neuropathy (Acute) Noncompliance with medication regimen (Chronic) Radiculopathy (Acute) Diabetes type I (Chronic) Hypophosphatemia (Acute) Hypomagnesemia (Acute) Renal calculi (Chronic) Left flank pain (Acute) Erectile dysfunction (Acute) Depression (Chronic) Nonproliferative diabetic retinopathy (Chronic 01/25/12) OPTICAL EXPRESSIONS; MILD NPDR IN THE RIGHT EYE ONLY Hyperlipidemia (Chronic) Cervical radiculopathy (Chronic 06/19/13) Medical History? COVID-19 ruled out by laboratory testing DKA (diabetic ketoacidosis) Metabolic acidosis due to diabetes mellitus Social History/Home Situation: Lives with in a private home with 3 steps to enter. 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 Independent in all aspects of ADLs prior to admission. Equipment Owned/DME: None Subjective: Pleasant and cooperative. Denies headache, chest pain, lightheadedness, numbness, and tingling. States that his handwriting is back to baseline. Objective: General Observation: Seated at edge of bed. No lines. Mental Status: Alert and oriented as to person, place, time, and purpose. Able to pay attention, focus, and respond appropriately. Pain: Denies Vital Signs: 173/101 mmHg as taken by ZEYAD Feldman. Nurse Tatum delgadillo who states that permissive hypertension has been allowed for patient per MD. Nurse Winn reiterated that patient is okay to be ambulated by PT with [facility] BP of 160/100 mmHg. ROM: Right Upper Extremity: Shoulder Flexion WFL. Shoulder abduction WFL. Elbow flexion WFL. Wrist flexion WFL. Functional opening and closing of hand WFL. Left Upper Extremity: Shoulder Flexion WFL. Shoulder abduction WFL. Elbow flexion WFL. Wrist flexion WFL. Functional opening and closing of hand WFL. Right Lower Extremity: Hip flexion WFL. Hip abduction WFL. Knee flexion WFL. Ankle dorsiflexion WFL. Ankle plantarflexion WFL. Left Lower Extremity: Hip flexion WFL. Hip abduction WFL. Knee flexion WFL. Ankle dorsiflexion WFL. Ankle plantarflexion WFL. Strength: Right Upper Extremity: Shoulder flexors 5/5. Shoulder abductors 5/5. Elbow flexors 5/5. Elbow extensors 5/5. Associate Embalmer/Funeral Director strong. Left Upper Extremity: Shoulder flexors 5/5. Shoulder abductors 5/5. Elbow flexors 5/5. Elbow extensors 5/5. Associate Embalmer/Funeral Director strong. Right Lower Extremity: Hip flexors 5/5. Hip abductors 5/5. Knee flexors 5/5. Knee extensors 5/5. Ankle dorsiflexors 5/5. Ankle plantarflexors 5/5. Left Lower Extremity: Hip flexors 5/5. Hip abductors 5/5. Knee flexors 5/5. Knee extensors 5/5. Ankle dorsiflexors 5/5. Ankle plantarflexors 5/5. Bed Mobility/Transfers: Sit to stand independent Stand to sit independent Bed to bedside commode independent Reclining chair to bed independent Gait: Instructed patient with level surface ambulation of 350 feet independently. Gait pattern unremarkable. Denies headache, chest pain, lightheadedness throughout. Balance: Static Sitting: Normal Dynamic Sitting: Normal Static Standing: Normal Dynamic Standing: Good Special Tests: Mobility Limitations Standardized Measure [facility] AM-PAC 6 clicks Basic Mobility Inpatient Short Form: Raw Score: 24 CMS Score: 0% deficit 4-stage Balance Test: Able to maintain all 4 positions for 10 seconds. Pronator drift: Mild drifting seen on the R after about a minute Romberg test: Mild postural sway but no LOB Informed Consent/Education: Patient was instructed in purpose of PT consult. Assessment: A mild lag for R shoulder flexion and extension was seen but with cueing patient was able to complete full AROM. Strength symmetric. No facial asymmetry seen. Rapid alternating movement mildly impaired. Patient is assessed as a 72129 mdoerate complexity based on the following: History: 46-year-old male with past medical history as indicated above Examination: No demonstrable impairment in strength, balance, and mobility level with underlying impairments and functional limitations seen with a deficit score of 0% utilizing the [facility] Mobility Inpatient Short Form Presentation: Stable Decision Makin moderate complexity Goals: N/A. PT evalaution only. Plan of Care/Treatment Plan: N/A. PT evalaution only. DISCHARGE RECOMMENDATIONS: [X] Home with no services. Home when medically cleared by hospitalist. No equipment needs at this time. [] Home with services [specify] [] Home with outpatient PT [] [] SNF for continued rehabilitation [] [] Nursing Home Care [] [] SNF versus LTC based on ability to participate and progress [] TREATMENT CODE/TIME: 62642 x 28 minutes beginning at 11:10 AM. Thank you for the opportunity to participate in the care of this patient. Aide Sutton PT, DPT, CLT [facility] [place], [place]
[2022-03-02] MEDS: Clopidogrel 75 MG TAB PO (11:24)
[2022-03-02 11:51] VITALS: BP 160/100; PULSE 88; RESP 16; TEMP 36.7; O2SAT 98
[2022-03-02 11:54] VITALS: BP 139/88; PULSE 84; RESP 16; TEMP 36.7; O2SAT 99
[2022-03-02] MEDS: Insulin Aspart 300 UNITS/3 ML PEN SC (11:58)
--- NOTE | 2022-03-02 12:10 | DSE_ITS ---
Date of service: 03/02/22 Time of Service: 12:10 DS: Diagnosis Discharge Diagnosis (1) CVA (cerebrovascular accident): Status: Chronic (2) Diabetes type I: Status: Chronic Discharge Plan Disposition Patient Disposition: HOME Condition: Stable Discharge Details Reason For Visit: Stroke Admit Date/Time: 02/28/22 22:21 Admit Provider: Dwayne Fitzpatrick Attending Provider: Dwayne Fitzpatrick Primary Care Provider: Deep Knxo Hospital Course Hospital Course: This is a 46 year-old male with poorly controlled type 1 DM who presented to the ED with right side weakness that started 2 days prior to arrival, right-hand dominant, who was diagnosed with an acute left hemisphere ischemic stroke by CT and confirmed by MR. He was started on statin and asa and neurology consult placed. Plavix added with additional following recommendations: Work-up: -30 day extended cardiac monitoring as an outpatient (applied at discharge) Medications: -aspirin 81mg daily for secondary stroke prevention -clopidogrel 75mg daily for secondary stroke prevention x 30 days only -atrovastatin 80mg daily for secondary stroke prevention while inpatient with reduction at discharge to 40mg daily for long-term goal LDL <70 -optimization of insulin for goal A1c <7.0 -optimization of BP as outpatient for goal <130/90 He was given prescription for glucose sensor and will monitor his blood sugars closely outpatient. he will be referred to endocrinology for further management. His symptoms resolving by time of discharge. he was seen by physical therapy and demonstrated no impairment in strength, balance, and mobility level with underlying impairments and functional limitations seen with a deficit score of 0% utilizing the [facility] Mobility Inpatient Short Form. Home with no services, Cardiac recorder applied at discharge discussed with Dr inman. Home Meds and New Rx's Prescriptions: New aspirin [Children's Aspirin] 81 mg Tablet,Chewable 81 mg PO DAILY Qty: 30 0RF atorvastatin 40 mg Tablet 40 mg PO DAILY Qty: 30 0RF pantoprazole 40 mg Tablet,Delayed Release (Dr/Ec) 40 mg PO DAILY Qty: 30 0RF clopidogrel 75 mg tablet 75 mg PO DAILY Qty: 30 0RF Continued ibuprofen 800 MG tablet 800 mg PO TID PRNQty: 90 (DME) Comfort EZ Pen [place] 33 gauge x 3/16 needle See Rx Instructions .ROUTE .MEDSUPPLY Qty: 200 4RF Rx Instructions: one QID (DME) Dexcom G6 Wood Molder Misc See Rx Instructions .ROUTE .MEDSUPPLY Qty: 1 0RF Rx Instructions: As directed (DME) Dexcom G6 Transmitter Device See Rx Instructions .ROUTE .MEDSUPPLY Qty: 1 4RF Rx Instructions: As directed buspirone 30 mg tablet 30 mg PO BID Qty: 60 11RF insulin glargine [Lantus Solostar U-100 Insulin] 100 unit/mL (3 mL) insulin p en 60 unit subcut BID Qty: 15 3RF gabapentin 400 mg capsule 400 mg PO TID Qty: 180 3RF duloxetine 60 mg capsule,delayed release(DR/EC) 120 mg PO DAILY Qty: 90 4RF insulin lispro 100 unit/mL insulin pen See Rx Instructions subcut QID Qty: 15 3RF Rx Instructions: 131-180 = 4 units, 181-240 = 8 units, 241-300 = 10 units, 301-350 = 12 units, 351-400 = 14 units subcut four times a day; (DME) Blood Glucose Test 1 EACH strip 1 ea Miscellaneous QID Qty: 100 6RF (DME) Dexcom G6 Sensor Device See Rx Instructions .ROUTE .MEDSUPPLY Qty: 3 4RF Rx Instructions: As directed Discontinued methocarbamol 750 mg tablet 750 mg PO TID PRN (Reason: muscle spasm) Qty: 20 0RF Label Comments: not taking Discharge Instructions Instructions: Diabetic Hyperglycemia (DC), Stroke (DC), Diabetes Type 1: Ma nagement (DC) Stand Alone Forms: Nursing Discharge Form Referrals: ENDOCRINOLOGY,[facility] [place]] - (OFFICE WILL CALL YOU TO SET UP APPOINTMENT.) Deep Knox NP [Primary Care Provider] - 03/10/22 11:40 am (APPOINTMENT WILL BE WITH MATT PENALOZA) Patricia Thorne MD [ [facility] STAFF PHYSICIAN] - 03/02/22 1:29 pm () Activity:: Activity as Tolerated Equipment/Supplies:: No Equipment Needed Diet:: Carb Counting Discharge Orders Discharge Orders: Discharge Order (Routine); Ordered 03/02/22 Ordered By: Sultana Auguste Other Ambulatory Orders: Cardiac Event Recorder (Routine) Timeframe: [id number] Facility: [facility] - Location: Respiratory Therapy Ordered By: Sultana Auguste Discharge Data Discharge Date/Time-TO BE ENTERED AT DEPARTURE: 03/02/22 13:29 DS: Summary Time Spent with Patient providing and/or coordinating discharge services: Less than 30 minutes Status at Discharge Functional status at discharge: independent ambulation Overall status at discharge: patient is back to baseline Mental Status: mental status grossly normal Speech and Movement: speech and movement normal Mood: congruent mood Affect: normal affect Exam Const General: cooperative, comfortable and ill appearing chronically Nutritional Appearance: average body habitus Orientation: alert, awake and oriented x3 HENMT Head: normal to inspection, normocephalic and atraumatic Mouth: oral mucosae normal Resp Effort & Inspection: normal respiratory effort Auscultation: clear to auscultation bilaterally Cardio Rate: regular rate Rhythm: regular rhythm and other (sinus rhythm on telemetry, ) GI Inspection: normal to inspection Palpation: soft Auscultation: normal bowel sounds Skin General skin exam: no rashes or lesions noted Neuro General: patient alert, patient awake and patient oriented x3 Cranial Nerves: EOM intact bilaterally, facial strength normal, tongue midline and gag reflex normal Cognition: normal cognition Speech: speech normal Motor: tone not normal throughout and strength abnormal (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 when compared to right 4/5, some mild ataxia ) Coordination: [id number] test abnormal (slight deficit on right) Extrem General: normal to inspection, full ROM and no pedal edema Psych Mental Status: mental status grossly normal Speech and Movement: speech and movement normal Mood: congruent mood Affect: normal affect Attitude: cooperative Thought Process: normal Thought Content: normal Insight: insight good Judgment: judgment good DS: Data Vitals/I&O Vitals and I&O: Vital Signs Temperature 36.7 C 03/02/22 11:54 Temperature Source Tympanic 03/02/22 11:54 Pulse 84 03/02/22 11:54 Pulse Rhythm Regular 03/02/22 09:00 Pulse 76 03/01/22 01:50 Respiratory Rate 16 03/02/22 11:54 Respiratory Effort Non-Labored 03/02/22 09:00 Respiratory Depth Normal 03/02/22 09:00 Respiratory Pattern Normal 03/02/22 09:00 Blood Pressure 139/88 03/02/22 11:54 Blood Pressure Mean 99 03/01/22 01:41 Pulse Oximetry 99 03/02/22 11:54 Oxygen Delivery Method Room Air 03/02/22 11:54 Oxygen Flow Rate 0 03/02/22 11:54 Pain Level 0 03/02/22 11:54 Comment 03/02/22 11:51 Intake & Output 03/01/22 03/02/22 03/02/22 23:59 11:59 23:59 Intake Total 490 / 740 240 / 240 Output Total 900 / 900 Balance 490 / -160 -660 / -660 Intake: Oral 490 / 730 240 / 240 Output: Urine 900 / 900 Other: Urine Color Yellow Urine Appearance Clear Urine Odor Normal Voiding Methods Toilet Toilet PFSH All Active Problems CVA (cerebrovascular accident) (Chronic) Diabetic neuropathy (Acute) Noncompliance with medication regimen (Chronic) Radiculopathy (Acute) Diabetes type I (Chronic) Hypophosphatemia (Acute) Hypomagnesemia (Acute) Renal calculi (Chronic) Left flank pain (Acute) Erectile dysfunction (Acute) Depression (Chronic) Nonproliferative diabetic retinopathy (Chronic 01/25/12) OPTICAL EXPRESSIONS; MILD NPDR IN THE RIGHT EYE ONLY Hyperlipidemia (Chronic) Cervical radiculopathy (Chronic 06/19/13) Medical History COVID-19 ruled out by laboratory testing DKA (diabetic ketoacidosis) Metabolic acidosis due to diabetes mellitus Family History Mother Depression Father Diabetes Social History Smoking/Tobacco Use Status: Former Tobacco Use tobacco type: cigarettes Quit Date: 04/11/02 Tobacco: How many years used: 7 Second Hand Exposure: Yes Smoking risk assessment performed?: Yes Alcohol Intake: former Drug use: Never Substance use type: does not use Details: No ETOH since august 2020 Household members: spouse and children Housing: house Communication Needs: None Do you need help understanding health information?: Never Pets and animals: Yes Pets and animals: cat(s), dog(s) and other Sexually active: Yes Do you think of yourself as: straight/heterosexual Current gender identity: male What is your relationship status?: How often do you talk on the phone with friends or family?: twice per week How often do you get together with friends or relatives?: once per week How often do you attend gnosticism or yazidi services?: decline to answer Do you belong to any clubs or organized social groups?: no Panel score (0-1 are the most socially isolated patients): 2 Nohemi/Yarsani: None Seatbelt use: sometimes Drive intox or ride w/intox driver operator: No Do you feel safe at home: Yes Do you feel safe in your relationship?: Yes
--- NOTE | 2022-03-02 12:36 | W.INDIABCONS ---
Date of service: 03/02/22 Time of Service: 12:36 Diabetes Inpatient Consult Reason for Visit: dm1 DESCRIPTION/ASSESSMENT: Met with Dragan before discharge today and provided him with a Dexcom 6 sensor. Followed up with hospitalist to be sure that sensors included in discharge orders. Dragan states he used to have a Dexcom 6 script but it ran out. Most recent A1C: 12.8% indicates very poorly controlled Dm1. Admitted with CVA and long hx of Dm1. Home Dm meds: 60 units glargine BID, Lispro as needed. INTERVENTION: Did not want diabetes instruction at this time. Only interested in getting back on CGM which will help with glycemic management. Encouraged him to follow up in outpatient setting. Also encouraged Dragan to follow up with endo and discuss getting an insulin pump. PLAN: Dragan to reach out once discharged if needs diabetes self management education Time Spent in Nutritional Counseling and Treatment: 10
--- NOTE | 2022-03-02 17:42 | PDOC.CMDIS ---
- If Service Date Differs Date of service: 03/02/22 Time of Service: 17:42 LACE Index Scoring Tool - Questions: Length of Stay (in days): 2 Acuity (Admit via E.D.?): Yes Comorbidities: Diabetes w/o Complication E.D. Visits: 1 - Answers: Total Score: 7 Risk of Readmission: Low Risk Care Management Discharge Reason for Hospitalization: Stroke Discharge Plan: Dragan will return home when medicallly cleared by MD. He will be transported home via private vehicle when ready. He will follow up with his PCP and discharge plan of care. Patient/Family Education Needs: Review discharge instructions, discuss Ask Me Three.
--- NOTE | 2022-04-02 13:29 | W.CARDEVENT ---
Date of service: 04/02/22 Time of Service: 13:29 Cardiac Event Recorder Referring Provider:: Dwayne Fitzpatrick Indications:: Stroke Cardiac Event Note: This is a 30-day event monitor. The patient was monitored from March 02 through March 31, 2022 Rhythm throughout was sinus. Average heart rate was 93. Maximum heart rate was 108. There was no bradycardia There was no atrial fibrillation, no high-grade AV block, no pauses greater than 3 seconds There were no significant dysrhythmias whatsoever
== END 2022-03-02 13:29 | disposition home or self-care (01) ==
LOC: ER 03-01 05:31 → MS 03-01 06:26
PROVIDERS: Emergency Medicine; Nurse Practitioner Acute Care; Admitting Provider General Practice; Emergency Provider Emergency Medicine; PCP Nurse Practitioner Family; Visit Provider General Practice
DX: I63.81 Other cerebral infarction due to occlusion or stenosis of small artery (principal); R27.8 Other lack of coordination; E10.65 Type 1 diabetes mellitus with hyperglycemia; E10.40 Type 1 diabetes mellitus with diabetic neuropathy, unspecified; E10.21 Type 1 diabetes mellitus with diabetic nephropathy; E10.3291 Type 1 diabetes mellitus with mild nonproliferative diabetic retinopathy without macular edema, right eye; E83.42 Hypomagnesemia; E83.39 Other disorders of phosphorus metabolism; N20.0 Calculus of kidney; F32.A Depression, unspecified; Z91.14 Patient's other noncompliance with medication regimen; Z87.891 Personal history of nicotine dependence; R90.89 Other abnormal findings on diagnostic imaging of central nervous system; G81.91 Hemiplegia, unspecified affecting right dominant side; M54.10 Radiculopathy, site unspecified
CPT/HCPCS: 36415; 36416; 70496; 70498; 80053; 80061; 82962; 87635; 93005; 93270; 96360; 96372; 97162; 99285; 70551; 71045; 81003; 81015; 83036; 83735; 84484; 85025; 93010; 93306; 99217; 99219; 99225; G0378; J3490

== ENCOUNTER 2022-03-22 16:07 | Outpatient (REF) | payer BC, SELFPAY | END 2022-03-22 16:08 | disposition home or self-care (01) | LOC: LBN 16:07 | PROVIDERS: PCP Nurse Practitioner Family; Visit Provider Nurse Practitioner Family | DX: L98.8 Other specified disorders of the skin and subcutaneous tissue (principal); S50.861A Insect bite (nonvenomous) of right forearm, initial encounter | CPT/HCPCS: 87077; 87070; 87186; 87205 ==

== ENCOUNTER 2022-03-30 02:55 | Outpatient (CLI) | payer BC, SELFPAY ==
[2022-03-30 08:18] LABS: ALT 39 U/L (16-63); AST 14 U/L (15-37); Albumin 3.6 g/dL (3.4-5.0); Alkaline Phosphatase 106 U/L (46-116); Anion Gap 9.8 mmol/L (3-11); BUN 22 mg/dL (7-18); Bilirubin, Total 0.4 mg/dL (0.2-1.0); CO2 26.2 mmol/L (21.0-32.0); CREATININE 1.1 mg/dL (0.70-1.30); Calcium 8.8 mg/dL (8.5-10.1); Calculated LDL 39 mg/dL (<100); Chloride 102 mmol/L (98-107); Cholesterol 113 mg/dL (<200); Estimated GFR 84.37 (mL/min/1.73m2); Glucose 444 mg/dL (74-106); HDL Cholesterol 38 mg/dL (40-60); Potassium 4.2 mmol/L (3.5-5.1); Sodium 138 mmol/L (136-145); Total Protein 6.9 g/dL (6.4-8.2); Triglyceride 181 mg/dL (<150)
== END 2022-03-30 02:56 | disposition home or self-care (01) ==
PROVIDERS: PCP Nurse Practitioner Family; Visit Provider Nurse Practitioner Family
DX: E10.9 Type 1 diabetes mellitus without complications (principal); E78.5 Hyperlipidemia, unspecified; I63.89 Other cerebral infarction
CPT/HCPCS: 36415; 80053; 80061

== ENCOUNTER 2022-07-01 12:27 | Emergency (ER) | payer BC, SELFPAY ==
[2022-07-01 12:33] VITALS: BP 178/111; PULSE 98; RESP 18; TEMP 37; O2SAT 98
--- NOTE | 2022-07-01 12:39 | ED.GENADUL_ITS ---
Discharge Plan Disposition Patient Disposition: Home Condition: Improving Discharge Details Clinical Impression: CVA (cerebral vascular accident), COVID-19, Headache, Hypertension Primary Care Provider: [facility] ED Provider: Rachelle Scanlon Home Meds and New Rx's Prescriptions: Continued glucagon HCl [Glucagon (HCl) Emergency Kit] 1 mg recon soln 1 mg subcut ONCE PRN (Reason: hypoglycemia) lisinopril 20 mg tablet 20 mg PO DAILY Qty: 30 3RF insulin glargine [Lantus Solostar U-100 Insulin] 100 unit/mL (3 mL) insulin pen 36 unit subcut BID Qty: 15 3RF ibuprofen 800 MG tablet 800 mg PO TID PRNQty: 90 (DME) pen needle, diabetic [Comfort EZ Pen Nicholson] 33 gauge x 3/16 needle See Rx Instructions .ROUTE .MEDSUPPLY Qty: 200 4RF Rx Instructions: one QID (DME) Dexcom G6 Outboard Motor Assembler Misc See Rx Instructions .ROUTE .MEDSUPPLY Qty: 1 0RF Rx Instructions: As directed gabapentin 400 mg capsule 400 mg PO TID Qty: 180 3RF insulin lispro 100 unit/mL insulin pen See Rx Instructions subcut QID Qty: 15 3RF Rx Instructions: 131-180 = 4 units, 181-240 = 8 units, 241-300 = 10 units, 301-350 = 12 units, 351-400 = 14 units subcut four times a day; (DME) Dexcom G6 Sensor Device See Rx Instructions .ROUTE .MEDSUPPLY Qty: 3 4RF Rx Instructions: As directed atorvastatin 40 mg tablet 40 mg PO DAILY Qty: 90 3RF pantoprazole 40 mg tablet,delayed release (DR/EC) 40 mg PO DAILY Qty: 90 3RF (DME) Dexcom G6 Transmitter Device See Rx Instructions .ROUTE .MEDSUPPLY Qty: 1 4RF Rx Instructions: As directed duloxetine 60 mg capsule,delayed release(DR/EC) 120 mg PO DAILY Qty: 90 4RF buspirone 30 mg tablet 30 mg PO BID Qty: 180 3RF Discontinued aspirin [Children's Aspirin] 81 mg tablet,chewable 81 mg PO DAILY Qty: 90 3RF Discharge Instructions Instructions: Hypertension (ED), Stroke (DC), COVID-19 (Coronavirus Disease 2019) (ED) Additional Instructions: The MRI of your brain noted that you had a stroke which likely occurred 5 days ago. There were also small amounts of blood products around the area of the stroke. There was no acute blood or bleeding noted on the CT scan of your head today. Dr. Thorne is recommended that you stop taking your aspirin today and start taking Plavix. You were given Plavix here in the emergency department and a prescription was sent electronically to your pharmacy to take once daily starting tomorrow. You also tested positive for the COVID-19 virus today. Your stroke in addition to Covid are likely contributing to your headache. The remainder of your blood tests, EKG and imaging today is reassuring and shows no evidence of acute concerning or significant findings. Drink plenty of fluids and get plenty of rest. Follow-up with your scheduled appointment with Dr. Thorne next July 07 at 2:45 PM. Call your primary care doctor's office tomorrow to schedule a follow-up appointment for reevaluation and for continued management of your blood pressure. Return immediately to the emergency department if you develop any worsening or new concerning symptoms. Stand Alone Forms: Work Release Referrals: Patricia Thorne MD [ [facility] STAFF PHYSICIAN] - Discharge Data Discharge Date/Time-TO BE ENTERED AT DEPARTURE: 07/01/22 17:54 Discharge Physician: Rachelle Scanlon Medical Decision Making 8455 -- 47yo M w/ a h/o insulin dependent diabetes, HTN, hyperlipidemia, CVA and depression presents for headache and high blood pressure for the past 5 days with an episode of right facial droop and palpitations occurring 5 days ago that has since resolved. Blood pressure on arrival 178/111. Upon my assessment BP has improved to 155/110. Remainder of vitals within normal limits. Patient appears comfortable and nontoxic. He has no focal deficits on exam. No meningeal signs. Discussed that he is outside the window for any intervention if there is a possible CVA. Considering his history, will obtain screening labs, CTA head and neck, chest x- ray, ekg, fluvid and give IV tylenol and IV fluids and reassess. 1400 --labs and imaging reviewed. COVID result POSITIVE. Remainder of labs and imaging unremarkable. Case discussed with Dr. Thorne who recommends MRI brain if available but otherwise can obtain as outpatient. Patient reassessed and he is feeling much better. He was informed of COVID- positive result. Discussed that he is outside the window for Paxlovid as his symptoms started 5 to 6 days ago. Able to obtain MRI at 3:45 PM today. 1644 --MRI reviewed with Dr. Thorne --there is a right germán infarct with blood products which would correlate with patient's right facial droop 5 days ago. However there is no acute blood on CT so patient can be discharged home. Recommending to stop patient's aspirin and load with Plavix now with 300 mg and start on Plavix 75 mg p.o. once daily starting tomorrow. Patient has a follow- up appointment with Dr. Thorne on Tuesday at 2:45 PM. Blood pressure prior to discharge close to his baseline at 154/97. Patient feels better and feels comfortable going home. Advised to call the PCP office tomorrow to schedule a follow-up appointment for reevaluation within the next week for continued management of his blood pressure. Usual and customary return precautions given prior to discharge. Medical Records Medical records reviewed: Yes I reviewed the patient's medical records. Imaging Data Radiologic Study: Radiologist's impression: CT BRAIN ? NECK CTA CLINICAL HISTORY: ? headache, elevated BP, r/o cva. ? TECHNIQUE:? Imaging Protocol:? Axial CT angiography was performed with multi- slice acquisition and multi-planar and/or 3D reconstructions. CONTRAST MATERIAL:? Intravenous: Omnipaque 350 contrast volume:85 mL COMPARISON:? CT CT BRAIN ? NECK CTA from 02/28/2022 FINDINGS: CT Head W/O and W: Ventricles and Extra axial spaces: Normal in size and morphology for the patient's age. Hemorrhage: None. Cerebral parenchyma: No evidence of an acute territorial infarct.? There again seen areas of decreased attenuation in the periventricular white matter likely reflecting old lacunar infarct.? Midline shift: None. Brainstem/Cerebellum: Normal. Calvarium: Normal. Visualized Paranasal sinuses/Mastoids: There is mucosal thickening in the ethmoid air cells bilaterally.? The remaining visualized paranasal sinuses and mastoid air cells are clear.? Soft Tissues: Unremarkable. Enhancement: Unremarkable.? CTA Neck W: Common Carotid: Right:? No dissection, occlusion or significant stenosis. Left:? No dissection, occlusion or significant stenosis. External Carotid: Right:? No occlusion or significant stenosis. Left:? No occlusion or significant stenosis. Internal Carotid: Right:? No dissection, occlusion or significant stenosis. Mild atherosclerosis at the origin. Left:? No dissection, occlusion or significant stenosis. Mild atherosclerosis at the origin. Vertebral Artery: Right:? No dissection, occlusion or significant stenosis. Left:? No dissection, occlusion or significant stenosis. Lung Apices: Normal. Bones: Within normal limits for the patient's age. Soft Tissues: Normal. Thyroid gland: Unremarkable. CTA Brain W: Internal Carotid Arteries: Normal.? Anterior Cerebral Arteries: Right:? No aneurysm, occlusion or significant stenosis. Left:? No aneurysm, occlusion or significant stenosis. Middle Cerebral Arteries: Right:? No aneurysm, occlusion or significant stenosis. Left:? No aneurysm, occlusion or significant stenosis. Posterior Cerebral Arteries: Right:? No aneurysm, occlusion or significant stenosis. Left:? No aneurysm, occlusion or significant stenosis. Vertebral Arteries: Right:? No aneurysm, occlusion or significant stenosis. Left:? No aneurysm, occlusion or significant stenosis. Basilar Artery:? No aneurysm, occlusion or significant stenosis. IMPRESSION: 1. No large vessel occlusion or significant stenosis on the CT angiography of the head.? 2. No acute intracranial process.? 3. No occlusion or significant stenosis on the CT angiography of the neck. XR CHEST 2V PA ? LATERAL CLINICAL HISTORY:? palpitations, r/o acute disease TECHNIQUE:? 2D digital imaging was performed of the chest.? Two images were obtained.? PA and lateral views were obtained. COMPARISON:? CR,XR XR CHEST 1V IN DI DEPT from 02/28/2022 FINDINGS: MEDIASTINUM: Normal.? HEART: Normal. PULMONARY VASCULATURE: Normal. LUNGS: Clear. ? PLEURAL SPACE: No pleural effusion or pneumothorax. BONE:Within normal limits for the patient's age.? OTHER FINDINGS:Normal.? IMPRESSION: No acute pulmonary findings. MR BRAIN WO CLINICAL HISTORY:? headache, high BP, r/o cva TECHNIQUE:? Multiplanar multisequence MRI of the brain was performed. COMPARISON:? MR MR BRAIN WO from 03/01/[address] BRAIN ? NECK CTA from 07/01/2022 FINDINGS: VENTRICLES AND EXTRA AXIAL SPACES: Normal in size and morphology for the patient's age. MIDLINE SHIFT: None. CEREBRAL PARENCHYMA: There is a focus of restricted diffusion in the right joon s.? There is also an associated area of decreased signal on the gradient echoes.? No space-occupying lesion identified. Old lacunar infarcts are seen in the periventricular white matter. HEMORRHAGE: None. BRAINSTEM/CEREBELLUM: Normal. CALVARIUM: Normal.? VISUALIZED PARANASAL SINUSES/MASTOIDS:Clear. NENANA OF PERALTA: Normal flow void. PITUITARY GLAND: Unremarkable. OTHER FINDINGS: None. IMPRESSION: Findings suggestive of an acute infarct in the right germán with associated evidence of prior hemorrhage.? Lab Data Lab results reviewed: Yes I reviewed the patient's lab results. Labs: Laboratory Tests Range/Units 07/01/22 07/01/22 12:50 14:57 WBC (4.4-10.8) 10^3/uL 8.41 RBC (4.36-5.78) 10^6/uL 5.17 Hgb (13.5-17.5) g/dL 15.6 Hct (40.0-50.0) % 45.2 MCV (80-95) fL 87 MCH (27.0-33.0) pg 30.2 MCHC (32.0-36.0) % 34.5 RDW (11.8-14.1) % 11.7 L Plt Count (130-400) 10^3/uL 379 MPV (8.0-11.0) fL 11.2 H Immature Gran % 0.7 Neutrophils % 65.0 Lymphocytes % 23.2 Monocytes % 8.2 Eosinophils % 1.7 Basophils % 1.2 Nucleated RBC % (0.0-0.3) % 0.0 Absolute Neutrophils (1.2-6.7) 10^3/uL 5.47 Absolute Lymphocytes (1.2-3.4) 10^3/uL 1.95 Absolute Monocytes (0.1-0.8) 10^3/uL 0.69 Absolute Eosinophils (0.0-0.7) 10^3/uL 0.14 Absolute Basophils (0.0-0.2) 10^3/uL 0.10 Urine Color (Yellow) Yellow Urine Clarity (Clear) Clear Urine pH (5-8) 5.5 Ur Specific [place] (1.005-1.025) 1.025 Urine Protein (Negative) mg/dL >=300 H Urine Ketones (Negative) mg/dL Negative Urine Blood (Negative) Trace-lysed H Urine Nitrite (Negative) Negative Urine Bilirubin (Negative) Negative Urine Urobilinogen (Up TO 0.2) EU/dL 0.2 Ur Leukocyte Esterase (Negative) Negative Urine RBC (0-2) HPF 0-2 Urine WBC (0-5) HPF 0-2 Ur Epithelial Cells (Negative) HPF Rare Urine Crystals (Negative) HPF Negative Urine Bacteria (Negative) HPF Negative Urine Casts (Negative) LPF Negative Urine Mucus (Negative) Trace Ur Culture Indicated? No Urine Glucose (Negative) mg/dL 500 H ECG Data Attestation: I personally reviewed and interpreted this ECG (s) as follows: Interpretation: rate of 88, sinus, no stemi. HPI General Mode of arrival: ambulatory . Date/Time Provider Initiated Documentation: 07/01/22 12:34 . Limitations to Documentation: no limitations . Information obtained by: patient . HPI Narrative: Patient is a 47-year-old male with a history of diabetes type 1, hypertension, hyperlipidemia, CVA in February 2022 with no residual weakness presents for intermittent high blood pressure for the past 5 days with an episode of right facial droop, headache and palpitations occurring 5 days ago. Patient states his facial droop is near resolved and his palpitations are resolved. He states he has still had a headache for the past 5 days. Patient states the headache has been constant, feels like a dull ache and is on the top of his head. He states the headache is currently 4/10. He last took 400 mg of Advil last night with some relief. 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 Patient states he checked his blood pressure at that time and it was 180s/110s. Patient states he called his PCP office regarding his high blood pressure and they advised him to increase his lisinopril from 20 to 40 mg which she started 5 nights ago. Patient states he took 40 mg of lisinopril this morning. Patient states he did not talk to his PCP office about his other symptoms. Patient states his called Dr. Thorne's office regarding his symptoms and they advised him to come to the ER for a CAT scan of his head. Patient states his episodes of palpitations occurred twice 5 days ago while driving. He states each episode lasted approximately 1 hour and then resolved. He states he had some chest pain occurring with the first episode of palpitations but not since then. He states while driving at night he has noted flashing lights and photophobia for the past several nights. He otherwise denies any fever, blurry vision, sore throat, difficulty breathing, abdominal pain, urinary symptoms or diarrhea. Related Data Home Medications Medication Instructions Recorded Confirmed ibuprofen 800 mg tablet 800 mg PO TID PRN #90 tab-caps 02/15/18 07/01/22 pen needle, diabetic 33 gauge x #200 ea 10/15/20 07/01/22 3/16 (Comfort EZ Pen Nicholson) blood-glucose meter,continuous #1 ea 10/30/20 07/01/22 (Dexcom G6 Outboard Motor Assembler) gabapentin 400 mg capsule 400 mg PO TID #180 caps 10/14/21 07/01/22 insulin lispro 100 unit/mL See Rx Instructions subcut QID #15 03/01/22 07/01/22 subcutaneous pen mL insulin glargine 100 unit/mL (3 36 unit (0.36 mL) subcut BID #15 mL 03/24/22 07/01/22 mL) subcutaneous pen (Lantus Solostar U-100 Insulin) blood-glucose sensor (Dexcom G6 #3 ea 03/26/22 07/01/22 Sensor device) glucagon HCl 1 mg solution for 1 mg subcut ONCE PRN hypoglycemia 04/02/22 07/01/22 injection (Glucagon (HCl) Emergency Kit) lisinopril 20 mg tablet 20 mg PO DAILY #30 tabs 04/02/22 07/01/22 atorvastatin 40 mg tablet 40 mg PO DAILY #90 tabs 04/07/22 07/01/22 pantoprazole 40 mg tablet,delayed 40 mg PO DAILY #90 tabs 04/07/22 07/01/22 release blood-glucose transmitter (Dexcom #1 ea 05/24/22 07/01/22 G6 Transmitter device) buspirone 30 mg tablet 30 mg PO BID #180 tabs 06/28/22 07/01/22 duloxetine 60 mg capsule,delayed 120 mg PO DAILY #90 caps 06/28/22 07/01/22 release Previous Rx's Medication Instructions Recorded pen needle, diabetic 33 gauge x #200 ea 10/15/20 316 (Comfort EZ Pen Nicholson) blood-glucose meter,continuous #1 ea 10/30/20 (Dexcom G6 Outboard Motor Assembler) gabapentin 400 mg capsule 400 mg PO TID #180 caps 10/14/21 insulin lispro 100 unit/mL See Rx Instructions subcut QID #15 03/01/22 subcutaneous pen mL insulin glargine 100 unit/mL (3 36 unit (0.36 mL) subcut BID #15 mL 03/24/22 mL) subcutaneous pen (Lantus Solostar U-100 Insulin) blood-glucose sensor (Dexcom G6 #3 ea 03/26/22 Sensor device) lisinopril 20 mg tablet 20 mg PO DAILY #30 tabs 04/02/22 atorvastatin 40 mg tablet 40 mg PO DAILY #90 tabs 04/07/22 pantoprazole 40 mg tablet,delayed 40 mg PO DAILY #90 tabs 04/07/22 release blood-glucose transmitter (Dexcom #1 ea 05/24/22 G6 Transmitter device) buspirone 30 mg tablet 30 mg PO BID #180 tabs 06/28/22 duloxetine 60 mg capsule,delayed 120 mg PO DAILY #90 caps 06/28/22 release Allergies Allergy/AdvReac Type Severity Reaction Status Date / Time ciprofloxacin [From Cipro] AdvReac Intermediate blacks Verified 07/01/22 12:35 out General Stated Complaint: CVA/TIA NEYMAR: 3 Review of Systems All systems reviewed & are unremarkable except as noted in HPI and below Constitutional Constitutional: Reports as per HPI, Denies chills, Denies fever(s) and Reports headache(s) Eyes Eyes: Denies blurry vision ENT Ears, Nose, Mouth, and Throat: Denies dizziness, Reports headache(s), Denies sore throat and Denies throat swelling Cardiovascular Cardiovascular: Denies chest pain, Reports palpitations and Denies dyspnea Respiratory Respiratory: Denies cough and Denies dyspnea Gastrointestinal Gastrointestinal: Denies abdominal pain, Denies diarrhea and Denies vomiting Genitourinary Genitourinary: Denies hematuria and Denies dysuria Musculoskeletal Musculoskeletal: Denies back pain and Denies numbness Integumentary/Breasts Skin/Breast: Denies lesions and Denies rash Neurologic Neurologic: Denies dizziness, Reports headache(s), Denies localized weakness and Denies numbness Endocrine Endocrine: Reports palpitations Allergic/Immunologic Allergic/Immunologic: Denies throat swelling PFSH All Active Problems (Updated 07/01/22 @ 16:54 by Rachelle Scanlon DO) COVID-19 (Acute) Headache (Acute) Hypertension (Chronic) CVA (cerebral vascular accident) (Chronic) Cervical radiculopathy (Chronic 06/19/13) Hyperlipidemia (Chronic) Nonproliferative diabetic retinopathy (Chronic 01/25/12) OPTICAL EXPRESSIONS; MILD NPDR IN THE RIGHT EYE ONLY Depression (Chronic) Erectile dysfunction (Acute) Left flank pain (Acute) Renal calculi (Chronic) Hypomagnesemia (Acute) Hypophosphatemia (Acute) Radiculopathy (Acute) Noncompliance with medication regimen (Chronic) Diabetic neuropathy (Acute) CVA (cerebrovascular accident) (Chronic) Left shoulder pain (Acute) Cellulitis due to MRSA (Acute ~02/2022) Of Right forearm Type 1 diabetes mellitus with diabetic nephropathy, with long-term current use of insulin (Acute) Essential hypertension (Acute) Medical History (Updated 07/01/22 @ 16:54 by Rachelle Scanlon DO) COVID-19 ruled out by laboratory testing DKA (diabetic ketoacidosis) Metabolic acidosis due to diabetes mellitus Surgical History (Updated 07/01/22 @ 13:39 by Rachelle Scanlon DO) History of nasal surgery Hx of lithotripsy Family History Mother Depression Father Diabetes Social History Smoking/Tobacco Use Status: Former Tobacco Use tobacco type: cigarettes Quit Date: 04/11/02 Tobacco: How many years used: 7 Second Hand Exposure: Yes Smoking risk assessment performed?: Yes Alcohol Intake: former Drug use: Never Substance use type: does not use Details: No ETOH since august 2020 Household members: spouse and children Housing: house Communication Needs: None Do you need help understanding health information?: Never Pets and animals: Yes Pets and animals: cat(s), dog(s) and other Sexually active: Yes Do you think of yourself as: straight/heterosexual Current gender identity: male What is your relationship status?: How often do you talk on the phone with friends or family?: twice per week How often do you get together with friends or relatives?: once per week How often do you attend yazdanism or yazidism services?: decline to answer Do you belong to any clubs or organized social groups?: no Panel score (0-1 are the most socially isolated patients): 2 Nohemi/Tenriism: None Seatbelt use: sometimes Drive intox or ride w/intox cart driver: No Do you feel safe at home: Yes Do you feel safe in your relationship?: Yes Exam Const General: cooperative and no acute distress Orientation: alert, awake and oriented x3 HENMT Head: normal to inspection Ears: hearing grossly normal bilaterally and external ears normal Face and sinus: normal facial exam Mouth: oral mucosae normal Throat: posterior oropharynx normal Eyes General: appearance normal, both eyes and all related structures Pupils: PERRL EOM: EOM intact bilaterally Neck Neck: normal visual inspection and No submandibular swelling Lymphatic: no lymphadenopathy noted Chest Chest: normal inspection of the chest and no tenderness Resp Effort & Inspection: normal respiratory effort and able to speak in complete sentences Auscultation: clear to auscultation bilaterally Cardio Rate: regular rate Rhythm: regular rhythm GI Inspection: normal to inspection Palpation: soft, not firm, not rigid and nontender Auscultation: hypoactive bowel sounds Male General Exam: Yes normal external exam Skin General skin exam: no rashes or lesions noted Neuro General: patient alert, patient awake, patient oriented x3, no meningeal signs a nd no focal motor deficits Cranial Nerves: CN's II-XI intact bilaterally Cognition: normal cognition Speech: speech normal Motor: muscle tone normal throughout, strength 5/5 throughout and no pronator drift Sensory Exam: no sensory deficits noted Extrem General: normal to inspection, full ROM, capillary refill normal, no calf tenderness bilaterally and no edema Psych Appearance: grossly normal Mental Status: mental status grossly normal Speech and Movement: speech and movement normal Affect: normal affect Course Vital Signs Vital signs: Vital Signs Temperature 98.6 F 07/01/22 12:33 Pulse 98 H 07/01/22 12:33 Respiratory Rate 18 07/01/22 12:33 Blood Pressure 178/111 H 07/01/22 12:33 Pulse Oximetry 98 07/01/22 12:33 Temperature 98.6 F 07/01/22 12:33 Temperature Source Temporal Artery Scan 07/01/22 12:33 Pulse 98 H 07/01/22 12:33 Respiratory Rate 18 07/01/22 12:33 Blood Pressure 178/111 H 07/01/22 12:33 Blood Pressure Position Sitting 07/01/22 12:33 Pulse Oximetry 98 07/01/22 12:33 Oxygen Delivery Method Room Air 07/01/22 12:33 Oxygen Flow Rate 0 07/01/22 12:33 Pain Level 4 07/01/22 12:33
--- NOTE | 2022-07-01 13:15 | DI.RAD_ITS ---
Exam(s) XR CHEST 2V PA LATERAL EXAM: XR CHEST 2V PA LATERAL CLINICAL HISTORY: palpitations, r/o acute disease TECHNIQUE: 2D digital imaging was performed of the chest. Two images were obtained. PA and lateral views were obtained. COMPARISON: CR,XR XR CHEST 1V IN DI DEPT from 02/28/2022 FINDINGS: MEDIASTINUM: Normal. HEART: Normal. PULMONARY VASCULATURE: Normal. LUNGS: Clear. PLEURAL SPACE: No pleural effusion or pneumothorax. BONE:Within normal limits for the patient's age. OTHER FINDINGS:Normal. IMPRESSION: No acute pulmonary findings. DATA REPOSITORY: RADIATION DOSE DELIVERED:
--- NOTE | 2022-07-01 13:15 | DI.CT_ITS ---
Exam(s) CT BRAIN NECK CTA EXAM: CT BRAIN NECK CTA CLINICAL HISTORY: headache, elevated BP, r/o cva. TECHNIQUE: Imaging Protocol: Axial CT angiography was performed with multi-slice acquisition and mu lti-planar and/or 3D reconstructions. CONTRAST MATERIAL: Intravenous: Omnipaque 350 contrast volume:85 mL COMPARISON: CT CT BRAIN NECK CTA from 02/28/2022 FINDINGS: CT Head W/O and W: Ventricles and Extra axial spaces: Normal in size and morphology for the patient's age. Hemorrhage: None. Cerebral parenchyma: No evidence of an acute territorial infarct. There again seen areas of decrease d attenuation in the periventricular white matter likely reflecting old lacunar infarct. Midline shift: None. Brainstem/Cerebellum: Normal. Calvarium: Normal. Visualized Paranasal sinuses/Mastoids: There is mucosal thickening in the ethmoid air cells bilateral ly. The remaining visualized paranasal sinuses and mastoid air cells are clear. Soft Tissues: Unremarkable. Enhancement: Unremarkable. CTA Neck W: Common Carotid: Right: No dissection, occlusion or significant stenosis. Left: No dissection, occlusion or significant stenosis. External Carotid: Right: No occlusion or significant stenosis. Left: No occlusion or significant stenosis. Internal Carotid: Right: No dissection, occlusion or significant stenosis. Mild atherosclerosis at the origin. Left: No dissection, occlusion or significant stenosis. Mild atherosclerosis at the origin. Vertebral Artery: Right: No dissection, occlusion or significant stenosis. Left: No dissection, occlusion or significant stenosis. Lung Apices: Normal. Bones: Within normal limits for the patient's age. Soft Tissues: Normal. Thyroid gland: Unremarkable. CTA Brain W: Internal Carotid Arteries: Normal. Anterior Cerebral Arteries: Right: No aneurysm, occlusion or significant stenosis. Left: No aneurysm, occlusion or significant stenosis. Middle Cerebral Arteries: Right: No aneurysm, occlusion or significant stenosis. Left: No aneurysm, occlusion or significant stenosis. Posterior Cerebral Arteries: Right: No aneurysm, occlusion or significant stenosis. Left: No aneurysm, occlusion or significant stenosis. Vertebral Arteries: Right: No aneurysm, occlusion or significant stenosis. Left: No aneurysm, occlusion or significant stenosis. Basilar Artery: No aneurysm, occlusion or significant stenosis. IMPRESSION: 1. No large vessel occlusion or significant stenosis on the CT angiography of the head. 2. No acute intracranial process. 3. No occlusion or significant stenosis on the CT angiography of the neck. 4. Findings were discussed with Dr. Scanlon at 2:40 p.m. on 07/01/2022. RADIATION DOSE DELIVERED: 2,256.2mGy.cm Total DLP DATA REPOSITORY: All CT scans at this facility are submitted to the National Radiology Data Registry (NRDR) Dose Index Registry (DIR) with the [employer] (ACR). RADIATION OPTIMIZATION: All CT scans at this facility use at least one of these dose optimization te chniques: automated exposure control; mA and/or kV adjustment per patient size (includes targeted exa ms where dose is matched to clinical indication); or iterative reconstruction.
[2022-07-01 13:39] VITALS: PULSE 93; O2SAT 98
--- NOTE | 2022-07-01 13:45 | RT.EKG_ITS ---
APPROVED REPORT Exam: Resting ECG Reason for Exam: palpitations Patient Location: E HR:88 bpm ECG Measurements Heart Rate 88 AXIS AL 163 P 22 QRSd 103 QRS -19 QT 349 T -8 QTc 423 Conclusion Age and gender not entered, assume 51 yo male for purpose of ECG interpretation Sinus rhythm...normal P axis, V-rate 60- 99 Left ventricular hypertrophy...multiple voltage criteria. Sinus. No STEMI. I have reviewed and interpreted ECG and agree with software generated interpretation.
[2022-07-01] MEDS: Normal Saline 500 ML IV (14:12)
[2022-07-01 14:14] VITALS: TEMP 37
[2022-07-01] MEDS: ACETAMINOPHEN 1,000 MG/100 ML BTL 400 MG (14:14)
[2022-07-01] MEDS: Omnipaque 350 MG/ML 100 ML BTL IJ (14:49)
[2022-07-01] MEDS: Normal Saline - Diluent 50 ML VIAL IJ (14:49)
--- NOTE | 2022-07-01 15:00 | DI.MRI_ITS ---
Exam(s) MR BRAIN WO EXAM: MR BRAIN WO CLINICAL HISTORY: headache, high BP, r/o cva TECHNIQUE: Multiplanar multisequence MRI of the brain was performed. COMPARISON: MR MR BRAIN WO from 03/01/[address] BRAIN NECK CTA from 07/01/2022 FINDINGS: VENTRICLES AND EXTRA AXIAL SPACES: Normal in size and morphology for the patient's age. MIDLINE SHIFT: None. CEREBRAL PARENCHYMA: There is a focus of restricted diffusion in the right germán. There is also an as sociated area of decreased signal on the gradient echoes. No space-occupying lesion identified. Old lacunar infarcts are seen in the periventricular white matter. HEMORRHAGE: None. BRAINSTEM/CEREBELLUM: Normal. CALVARIUM: Normal. VISUALIZED PARANASAL SINUSES/MASTOIDS:Clear. [place]: Normal flow void. PITUITARY GLAND: Unremarkable. OTHER FINDINGS: None. IMPRESSION: Findings suggestive of an acute infarct in the right germán with associated evidence of prior hemorrhag e. DATA REPOSITORY:
[2022-07-01 15:03] LABS: Bilirubin Negative (Negative); Blood Trace-lysed (Negative); Clarity Clear (Clear); Glucose 500 mg/dL (Negative); Ketones Negative (Negative); Leukocyte Esterase Negative (Negative); Nitrite Negative (Negative); Specific Gravity 1.025 (1.005-1.025); Urobilinogen 0.2 EU/dL (Up TO 0.2); pH 5.5 (5-8)
[2022-07-01 15:10] LABS: Bacteria Negative HPF (Negative); C & S Indicated? No; Casts Negative LPF (Negative); Crystals Negative HPF (Negative); Epithelial Cells Rare HPF (Negative); Mucus Trace (Negative); RBC 0-2 HPF (0-2); WBC 0-2 HPF (0-5)
[2022-07-01 15:53] LABS: Abs Immature Grans 0.06 10^3/uL (0.0-0.06); Absolute Eosinophil Count 0.14 10^3/uL (0.0-0.7); Absolute Lymphocyte Count 1.95 10^3/uL (1.2-3.4); Absolute Monocyte Count 0.69 10^3/uL (0.1-0.8); Absolute Neutrophil Count 5.47 10^3/uL (1.2-6.7); Basophils % 1.2; Eosinophils % 1.7; HCT 45.2 % (40.0-50.0); HGB 15.6 g/dL (13.5-17.5); Immature Grans % 0.7; Lymphocytes % 23.2; MCH 30.2 pg (27.0-33.0); MCHC 34.5 % (32.0-36.0); MCV 87 fL (80-95); MPV 11.2 fL (8.0-11.0); Monocytes % 8.2; Platelet Count 379 10^3/uL (130-400); RBC 5.17 10^6/uL (4.36-5.78); RDW 11.7 % (11.8-14.1); RDW-SD 37.5 fL; WBC 8.41 10^3/uL (4.4-10.8)
[2022-07-01 15:59] LABS: ALT 39 U/L (16-63); AST 20 U/L (15-37); Albumin 4.4 g/dL (3.4-5.0); Alkaline Phosphatase 123 U/L (46-116); Anion Gap 6.8 mmol/L (3-11); BUN 24 mg/dL (7-18); Bilirubin, Total 0.5 mg/dL (0.2-1.0); CO2 31.2 mmol/L (21.0-32.0); CREATININE 0.9 mg/dL (0.70-1.30); Calcium 9.9 mg/dL (8.5-10.1); Chloride 98 mmol/L (98-107); Estimated GFR 106.67 (mL/min/1.73m2); Glucose 309 mg/dL (74-106); Magnesium 1.8 mg/dL (1.8-2.4); Potassium 3.6 mmol/L (3.5-5.1); Sodium 136 mmol/L (136-145); Total Protein 8.3 g/dL (6.4-8.2); Troponin I < 50 ng/L (<or=60)
[2022-07-01 16:03] LABS: Influenza A PCR Negative (Negative); Influenza B PCR Negative (Negative); RSV PCR Negative (Negative)
[2022-07-01 16:04] LABS: Source Nasopharynx
[2022-07-01 16:05] LABS: COVID-19 PCR Positive (Negative)
[2022-07-01 16:57] VITALS: BP 153/84; PULSE 85; TEMP 37.3; O2SAT 99
[2022-07-01] MEDS: Clopidogrel 300 MG TAB PO (16:59)
[2022-07-01] MEDS: Normal Saline 500 ML 999 ML IV (17:03)
[2022-07-01 17:30] VITALS: BP 169/94; PULSE 85; RESP 18; O2SAT 98
[2022-07-01 17:44] VITALS: BP 154/97
--- NOTE | 2022-07-07 07:45 | NUR.NOTE ---
Nursing Note: Accessed patient chart to determine how many EKG orders were in the chart from the ED. There was an outstanding EKG in ordered status. There are no EKG's in the [facility] system that are outstanding.
== END 2022-07-01 17:54 | disposition home or self-care (01) ==
PROVIDERS: Emergency Provider Physician Assistant; PCP Nurse Practitioner Family
DX: U07.1 COVID-19 (principal); I63.9 Cerebral infarction, unspecified; E10.10 Type 1 diabetes mellitus with ketoacidosis without coma; E78.5 Hyperlipidemia, unspecified; I10 Essential (primary) hypertension; Z79.4 Long term (current) use of insulin; Z86.16 Personal history of COVID-19
CPT/HCPCS: 70496; 70498; 80053; 87637; 93005; 96361; 96374; 99285; 70551; 71046; 81003; 81015; 83735; 84484; 85025; 93010; J0131; J3490

== ENCOUNTER 2022-07-03 03:47 | Inpatient (IN) | payer BC, SELFPAY ==
[2022-07-03] VITALS (10 sets, daily range): BP systolic 153–169; BP diastolic 83–102; PULSE 81–98; RESP 16–18; TEMP 36.3–37; O2SAT 95–99
--- NOTE | 2022-07-03 04:00 | DI.CT_ITS ---
Exam(s) CT BRAIN NECK CTA EXAM: CT BRAIN NECK CTA CLINICAL HISTORY: recent germán stroke 7 days ago, now dizzy. TECHNIQUE: Imaging Protocol: Axial CT angiography was performed with multi-slice acquisition and mu lti-planar and/or 3D reconstructions. CONTRAST MATERIAL: Intravenous: Omnipaque 350 contrast volume:100 mL COMPARISON: MR MR BRAIN WO from 07/01/[address] BRAIN NECK CTA from 07/01/2022 FINDINGS: CT Head W/O and W: Ventricles and Extra axial spaces: Normal in size and morphology for the patient's age. Hemorrhage: None. Cerebral parenchyma: There are old bilateral lacunar infarcts present. There is streak artifact in t he germán limiting evaluation. Midline shift: None. Brainstem/Cerebellum: Normal. Calvarium: Normal. Visualized Paranasal sinuses/Mastoids: There is pansinusitis. No fluid levels are seen. The mastoid air cells are clear. Soft Tissues: Unremarkable. Enhancement: Unremarkable. CTA Neck W: Common Carotid: Right: No dissection, occlusion or significant stenosis. Left: No dissection, occlusion or significant stenosis. External Carotid: Right: No occlusion or significant stenosis. Left: No occlusion or significant stenosis. Internal Carotid: Right: No dissection, occlusion or significant stenosis. Mild atherosclerosis at the origin of the r ight internal carotid artery. Left: No dissection, occlusion or significant stenosis. Mild atherosclerosis at the origin of the le ft internal carotid artery. Vertebral Artery: Right: No dissection, occlusion or significant stenosis. Left: No dissection, occlusion or significant stenosis. Lung Apices: Normal. Bones: Within normal limits for the patient's age. Soft Tissues: Normal. Thyroid gland: Unremarkable. CTA Brain W: Internal Carotid Arteries: Normal. Anterior Cerebral Arteries: Right: No aneurysm, occlusion or significant stenosis. Left: No aneurysm, occlusion or significant stenosis. Middle Cerebral Arteries: Right: No aneurysm, occlusion or significant stenosis. Left: No aneurysm, occlusion or significant stenosis. Posterior Cerebral Arteries: Right: No aneurysm, occlusion or significant stenosis. Left: No aneurysm, occlusion or significant stenosis. Vertebral Arteries: Right: No aneurysm, occlusion or significant stenosis. Left: No aneurysm, occlusion or significant stenosis. Basilar Artery: No aneurysm, occlusion or significant stenosis. IMPRESSION: 1. No large vessel occlusion or significant stenosis on the CT angiography of the head. 2. Evaluation of the germán is limited due to streak artifact. MRI may be considered for further evalu ation. 3. Old bilateral lacunar infarcts. 4. No occlusion or significant stenosis on the CT angiography of the neck. RADIATION DOSE DELIVERED: 2,195.18mGy.cm Total DLP DATA REPOSITORY: All CT scans at this facility are submitted to the National Radiology Data Registry (NRDR) Dose Index Registry (DIR) with the [employer] (ACR). RADIATION OPTIMIZATION: All CT scans at this facility use at least one of these dose optimization te chniques: automated exposure control; mA and/or kV adjustment per patient size (includes targeted exa ms where dose is matched to clinical indication); or iterative reconstruction.
--- NOTE | 2022-07-03 04:00 | RT.EKG_ITS ---
APPROVED REPORT Exam: Resting ECG Reason for Exam: dizzy Patient Location: E HR:88 bpm ECG Measurements Heart Rate 88 AXIS OR 158 P 30 QRSd 106 QRS -12 QT 355 T 19 QTc 431 Conclusion Sinus rhythm...normal P axis, V-rate 60- 99 Probable left ventricular hypertrophy...multiple LVH criteria Physician: no stemi, unchanged from prior ekg
--- NOTE | 2022-07-03 04:10 | ED.GENADUL_ITS ---
Discharge Plan Disposition Patient Disposition: Admit to [facility] Condition: Stable Discharge Details Clinical Impression: Ataxic gait, Dizziness Primary Care Provider: [facility] ED Provider: Thiago Billy Home Meds and New Rx's Prescriptions: No Action glucagon HCl [Glucagon (HCl) Emergency Kit] 1 mg recon soln 1 mg subcut ONCE PRN (Reason: hypoglycemia) lisinopril 20 mg tablet 20 mg PO DAILY Qty: 30 3RF insulin glargine [Lantus Solostar U-100 Insulin] 100 unit/mL (3 mL) insulin pen 36 unit subcut BID Qty: 15 3RF ibuprofen 800 MG tablet 800 mg PO TID PRNQty: 90 (DME) pen needle, diabetic [Comfort EZ Pen [place]] 33 gauge x 3/16 needle See Rx Instructions .ROUTE .MEDSUPPLY Qty: 200 4RF Rx Instructions: one QID (DME) Dexcom G6 Hat Body Inspector Misc See Rx Instructions .ROUTE .MEDSUPPLY Qty: 1 0RF Rx Instructions: As directed gabapentin 400 mg capsule 400 mg PO TID Qty: 180 3RF insulin lispro 100 unit/mL insulin pen See Rx Instructions subcut QID Qty: 15 3RF Rx Instructions: 131-180 = 4 units, 181-240 = 8 units, 241-300 = 10 units, 301-350 = 12 units, 351-400 = 14 units subcut four times a day; (DME) Dexcom G6 Sensor Device See Rx Instructions .ROUTE .MEDSUPPLY Qty: 3 4RF Rx Instructions: As directed atorvastatin 40 mg tablet 40 mg PO DAILY Qty: 90 3RF pantoprazole 40 mg tablet,delayed release (DR/EC) 40 mg PO DAILY Qty: 90 3RF (DME) Dexcom G6 Transmitter Device See Rx Instructions .ROUTE .MEDSUPPLY Qty: 1 4RF Rx Instructions: As directed duloxetine 60 mg capsule,delayed release(DR/EC) 120 mg PO DAILY Qty: 90 4RF buspirone 30 mg tablet 30 mg PO BID Qty: 180 3RF clopidogrel [Plavix] 75 mg tablet 75 mg PO DAILY 30 Days Qty: 30 0RF Medical Decision Making 47-year-old male with a past medical history of diabetes, hypertension, high cholesterol, recent stroke about 5 to 7 days ago with a small hemorrhagic component, diagnosed on MRI, with associated COVID positive diagnosis, who is currently on 75 mg of Plavix daily, presents today for evaluation of dizziness. Patient states that about 45 minutes ago he awoke to what he thought was the sound of a loud pop. He was notably dizzy as soon as he awoke. He admits to a very minimal headache which she describes as a 1 out of 10. He denies any numbness tingling or weakness. Previously when he had a/stroke he had some left-sided facial droop, and he denies any of the symptoms currently. He denies any fever or chills. He denies any ringing in his ears. The dizziness is only present when he lie flat. No dizziness when he gets up, walks and ambulates or looks around. No other complaints at this time. No other modifying factors. Physical exam demonstrates bidirectional horizontal bilateral fatigable nystagmus, no rotatory or vertical nystagmus. Negative vertical correction for test of skew. The remainder of his assessment demonstrates no other abnormalities. Symptoms certainly appear inconsistent with major stroke. Concern is for potential small bleed however we already know that he had this based on the MRI 2 days ago. Headache minimal. No clinical evidence of meningeal signs whatsoever. Headache is described as barely anything, only a 1 out of 10. With the patient currently being on Plavix, and having the known small bleed already 2 days ago, and with having symptoms inconsistent with the worst headache of his life or significant headache at all for that matter, I do not feel that he would be an appropriate candidate for lumbar puncture. Additionally since symptoms have occurred within the last 45 minutes he is a candidate for bleed evaluation on CT for an acute component. We will do CT Noncon with CTA to rule out other etiology, will give meclizine for potential peripheral vertigo component, will monitor closely and reassess. 7:[address] scan/CTA shows chronic infarcts but no acute process. Laboratory work-up stable. Patient is still COVID-positive. I contacted [facility] neurology and discussed the case with them. My personal concern is that the patient may have had another small vessel cerebellar or germán infarct based on his symptoms of ataxia, dizziness, and vertiginous symptoms. He had no improvement with meclizine whatsoever. I spoke with Dr. Hathaway, and he reviewed the images and we reviewed the case. He agrees that this is also likely a small vessel disease process and likely a new small infarct. His recommendations are to keep the patient for continued monitoring, MRI, increase his atorvastatin to 80 mg daily, and add a daily 81 mg aspirin in addition to his current Plavix dose. He does not recommend tPA at this time. The patient is not a tPA candidate based on NIH stroke score and symptomatology at this time. He does not recommend transfer, additionally [facility] does not have capacity. We will reach out to the hospitalist service for admission. I did try to get the patient up again and he is still notably ataxic and unsteady. Discussed the case with the hospitalist Dr. Wyatt. He agrees with the assessment and plan. I have extensively reviewed the treatment plan with the patient. I have addressed all patient concerns at this time. I have also discussed the plan with the admitting physician and they agree with the current assessment and plan and have agreed to assume responsibility for the patient. All parties demonstrate verbal understanding and agreement with our assessment and plan at this time. The documentation in this chart was dictated using [employer] dictation software. Please excuse any dictation errors. FINDINGS: Limitations: Streak artifact limits evaluation of the germán. ANTERIOR CIRCULATION: Right internal carotid artery: The intracranial segment is patent with no significant stenosis. No aneurysm. Right middle cerebral artery: No occlusion or significant stenosis. No aneurysm. Right anterior cerebral artery: No occlusion or significant stenosis. No aneurysm. Left internal carotid artery: The intracranial segment is patent with no significant stenosis. No aneurysm. Left middle cerebral artery: No occlusion or significant stenosis. No aneurysm. Left anterior cerebral artery: No occlusion or significant stenosis. No aneurysm. POSTERIOR CIRCULATION: Right vertebral artery: No occlusion or significant stenosis. No aneurysm. Left vertebral artery: No occlusion or significant stenosis. No aneurysm. Basilar artery: No occlusion or significant stenosis. No aneurysm. The proximal superior cerebellar arteries are visualized and appear patent. Right posterior cerebral artery: No occlusion or significant stenosis. No aneurysm. Left posterior cerebral artery: No occlusion or significant stenosis. No aneurysm. HEAD: Brain: No acute intracranial hemorrhage. There are bilateral chronic gangliocapsular lacunar infarcts. There is hypodensity of the entire germán, likely related to streak artifact. Cerebral ventricles: No ventriculomegaly. Bones/joints: No acute fracture. Paranasal sinuses: Mucoperiosteal thickening and opacification of multiple bilateral ethmoid air cells, similar to the comparison examination. There is additional mucoperiosteal thickening of the right sphenoid sinus. There has been surgical decompression of the left maxillary sinus. Mastoid air cells: Visualized mastoids are normal. No mastoid effusion. Soft tissues: Unremarkable. Other findings: The right and left PICA as are visualized segmentally. The left is better seen than the right. IMPRESSION: 1. No large vessel occlusion. 2. Multiple chronic bilateral gangliocapsular infarcts. 3. Evaluation of the germán is limited by streak artifact. 4. Paranasal sinus disease as above. FINDINGS: Right common carotid artery: No significant stenosis. No dissection or occlusion. Right internal carotid artery: No significant stenosis of the extracranial segment. No dissection or occlusion. Right external carotid artery: No occlusion or significant stenosis of the origin. Left common carotid artery: No significant stenosis. No dissection or occlusion. Left internal carotid artery: Atheromatous calcification of the proximal extracranial segment with no significant stenosis. No dissection or occlusion. Left external carotid artery: No occlusion or significant stenosis of the origin. Right vertebral artery: No significant stenosis. No dissection or occlusion. Left vertebral artery: No significant stenosis. No dissection or occlusion. Soft tissues: No significant soft tissue swelling. Bones/joints: No acute fracture. IMPRESSION: 1. Normal right extracranial internal carotid artery by NASCET criteria. 2. 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 3. Patent bilateral vertebral arteries with a dominant left vertebral Thank you for allowing us to participate in the care of your patient. Dictated and Authenticated by: Arturo Lopez MD 07/03/2022 6:00 AM Eastern Time ([place] & [place]) HPI General Date/Time Provider Initiated Documentation: 07/03/22 03:57 . HPI Narrative: 47-year-old male with a past medical history of diabetes, hypertension, high cholesterol, recent stroke about 5 to 7 days ago with a small hemorrhagic component, diagnosed on MRI, with associated COVID positive diagnosis, who is currently on 75 mg of Plavix daily, presents today for evaluation of dizziness. Patient states that about 45 minutes ago he awoke to what he thought was the sound of a loud pop. He was notably dizzy as soon as he awoke. He admits to a very minimal headache which she describes as a 1 out of 10. He denies any numbness tingling or weakness. Previously when he had a/stroke he had some left-sided facial droop, and he denies any of the symptoms currently. He denies any fever or chills. He denies any ringing in his ears. The dizziness is only present when he lie flat. No dizziness when he gets up, walks and ambulates or looks around. No other complaints at this time. No other modifying factors. Related Data Home Medications Medication Instructions Recorded Confirmed ibuprofen 800 mg tablet 800 mg PO TID PRN #90 tab-caps 02/15/18 07/03/22 pen needle, diabetic 33 gauge x #200 ea 10/15/20 07/03/22/16 (Comfort EZ Pen [place]) blood-glucose meter,continuous #1 ea 10/30/20 07/03/22 (Dexcom G6 Hat Body Inspector) gabapentin 400 mg capsule 400 mg PO TID #180 caps 10/14/21 07/03/22 insulin lispro 100 unit/mL See Rx Instructions subcut QID #15 03/01/22 07/03/22 subcutaneous pen mL insulin glargine 100 unit/mL (3 36 unit (0.36 mL) subcut BID #15 mL 03/24/22 07/03/22 mL) subcutaneous pen (Lantus Solostar U-100 Insulin) blood-glucose sensor (Dexcom G6 #3 ea 03/26/22 07/03/22 Sensor device) glucagon HCl 1 mg solution for 1 mg subcut ONCE PRN hypoglycemia 04/02/22 07/03/22 injection (Glucagon (HCl) Emergency Kit) lisinopril 20 mg tablet 20 mg PO DAILY #30 tabs 04/02/22 07/03/22 atorvastatin 40 mg tablet 40 mg PO DAILY #90 tabs 04/07/22 07/03/22 pantoprazole 40 mg tablet,delayed 40 mg PO DAILY #90 tabs 04/07/22 07/03/22 release blood-glucose transmitter (Dexcom #1 ea 05/24/22 07/03/22 G6 Transmitter device) buspirone 30 mg tablet 30 mg PO BID #180 tabs 06/28/22 07/03/22 duloxetine 60 mg capsule,delayed 120 mg PO DAILY #90 caps 06/28/22 07/03/22 release clopidogrel 75 mg tablet (Plavix) 75 mg PO DAILY 30 days #30 tabs 07/02/22 07/03/22 Previous Rx's Medication Instructions Recorded pen needle, diabetic 33 gauge x #200 ea 10/15/20/ (Comfort EZ Pen [place]) blood-glucose meter,continuous #1 ea 10/30/20 (Dexcom G6 Hat Body Inspector) gabapentin 400 mg capsule 400 mg PO TID #180 caps 10/14/21 insulin lispro 100 unit/mL See Rx Instructions subcut QID #15 03/01/22 subcutaneous pen mL insulin glargine 100 unit/mL (3 36 unit (0.36 mL) subcut BID #15 mL 03/24/22 mL) subcutaneous pen (Lantus Solostar U-100 Insulin) blood-glucose sensor (Dexcom G6 #3 ea 03/26/22 Sensor device) lisinopril 20 mg tablet 20 mg PO DAILY #30 tabs 04/02/22 atorvastatin 40 mg tablet 40 mg PO DAILY #90 tabs 04/07/22 pantoprazole 40 mg tablet,delayed 40 mg PO DAILY #90 tabs 04/07/22 release blood-glucose transmitter (Dexcom #1 ea 05/24/22 G6 Transmitter device) buspirone 30 mg tablet 30 mg PO BID #180 tabs 06/28/22 duloxetine 60 mg capsule,delayed 120 mg PO DAILY #90 caps 06/28/22 release clopidogrel 75 mg tablet (Plavix) 75 mg PO DAILY 30 days #30 tabs 07/02/22 Allergies Allergy/AdvReac Type Severity Reaction Status Date / Time ciprofloxacin [From Cipro] AdvReac Intermediate blacks Verified 07/01/22 12:35 out General Stated Complaint: GenMedical NEYMAR: 3 Review of Systems All systems reviewed & are unremarkable except as noted in HPI and below PFSH All Active Problems (Updated 07/03/22 @ 07:17 by Thiago Billy DO) COVID-19 (Acute) Headache (Acute) Hypertension (Chronic) CVA (cerebral vascular accident) (Chronic) Ataxic gait (Acute) Dizziness (Acute) Cervical radiculopathy (Chronic 06/19/13) Hyperlipidemia (Chronic) Nonproliferative diabetic retinopathy (Chronic 01/25/12) OPTICAL EXPRESSIONS; MILD NPDR IN THE RIGHT EYE ONLY Depression (Chronic) Erectile dysfunction (Acute) Left flank pain (Acute) Renal calculi (Chronic) Hypomagnesemia (Acute) Hypophosphatemia (Acute) Radiculopathy (Acute) Noncompliance with medication regimen (Chronic) Diabetic neuropathy (Acute) CVA (cerebrovascular accident) (Chronic) Left shoulder pain (Acute) Cellulitis due to MRSA (Acute ~02/2022) Of Right forearm Type 1 diabetes mellitus with diabetic nephropathy, with long-term current use of insulin (Acute) Essential hypertension (Acute) Medical History COVID-19 ruled out by laboratory testing DKA (diabetic ketoacidosis) Metabolic acidosis due to diabetes mellitus Surgical History History of nasal surgery Hx of lithotripsy Family History Mother Depression Father Diabetes Social History Smoking/Tobacco Use Status: Former Tobacco Use tobacco type: cigarettes Quit Date: 04/11/02 Tobacco: How many years used: 7 Second Hand Exposure: Yes Smoking risk assessment performed?: Yes Alcohol Intake: former Drug use: Never Substance use type: does not use Details: No ETOH since august 2020 Household members: spouse and children Housing: house Communication Needs: None Do you need help understanding health information?: Never Pets and animals: Yes Pets and animals: cat(s), dog(s) and other Sexually active: Yes Do you think of yourself as: straight/heterosexual Current gender identity: male What is your relationship status?: How often do you talk on the phone with friends or family?: twice per week How often do you get together with friends or relatives?: once per week How often do you attend zoroastrian or rastafari services?: decline to answer Do you belong to any clubs or organized social groups?: no Panel score (0-1 are the most socially isolated patients): 2 Nohemi/Hinduism: None Seatbelt use: sometimes Drive intox or ride w/intox patient transportation driver: No Do you feel safe at home: Yes Do you feel safe in your relationship?: Yes Exam Narrative Exam Narrative: 1.Const: Well-nourished, Well-developed, appearing stated age 2.Eyes: PERRL, no conjunctival injection, and symmetrical lids. Mild bilateral bidirectional horizontal fatigable nystagmus. No rotatory or vertical nystagmus. 3.ENT: Atraumatic external nose and ears. Moist MM. Neck: Symmetric, trachea midline, No thyromegaly. 4.CVS: +S1/S2, No murmurs or gallops. Peripheral pulses 2+ and equal in all extremities. Brisk capillary refill in all extremities. 5.RESP: Unlabored respiratory effort. Clear to auscultation bilaterally. No wheezes rales or rhonchi 6.GI: Soft, Nontender/Nondistended, No hepatosplenomegaly. No guarding or rebound. 7.MSK: Normocephalic/Atraumatic, Extremities w/o deformity or ttp No cyanosis or clubbing, Normal movement of all extremities 8.Skin: Warm, Dry. No rashes or lesions. 9.Neuro: compress engineer II-XII grossly intact. Sensation grossly intact, no focal neurologic deficits. All 6 cardinal planes of vision are fully intact. No evidence of rotatory or vertical nystagmus. The patient demonstrated a normal [id number], good dexterity. There was no evidence of dysdiadochokinesia. Patient does have mild difficulty with ambulation and does demonstrate a mild slow wide-based gait. Romberg testing was normal. Afvo-we-dprk testing was normal. Sensation was intact bilaterally as well as muscle strength bilaterally for all extremities. Patient was able to verbalize butter cup with no slurring, or miss pronunciation. Test of skew demonstrates no vertical correction. Head impulse test demons trates no worsening of his symptoms. Symptoms are worsened by backwards movement. 10.Psych: (AAO) x3. Appropriate mood and affect Course Vital Signs Vital signs: Vital Signs Temperature 36.3 C L 07/03/22 03:50 Pulse 88 07/03/22 03:50 Respiratory Rate 18 07/03/22 03:50 Blood Pressure 169/96 H 07/03/22 03:50 Pulse Oximetry 98 07/03/22 03:50 Temperature 36.3 C L 07/03/22 03:50 Pulse 88 07/03/22 03:50 Respiratory Rate 18 07/03/22 03:50 Respiratory Effort 07/03/22 03:56 Blood Pressure 169/96 H 07/03/22 03:50 Pulse Oximetry 98 07/03/22 03:50 Oxygen Delivery Method Room Air 07/03/22 03:50 Oxygen Flow Rate 0 07/03/22 03:50 Pain Level 1 07/03/22 03:50
[2022-07-03 04:17] LABS: Source Nasal/Nares
[2022-07-03 04:19] LABS: Abs Immature Grans 0.02 10^3/uL (0.0-0.06); Absolute Basophil Count 0.08 10^3/uL (0.0-0.2); Absolute Eosinophil Count 0.14 10^3/uL (0.0-0.7); Absolute Lymphocyte Count 1.21 10^3/uL (1.2-3.4); Absolute Monocyte Count 0.68 10^3/uL (0.1-0.8); Absolute Neutrophil Count 2.92 10^3/uL (1.2-6.7); Basophils % 1.6; Eosinophils % 2.8; HCT 43.9 % (40.0-50.0); HGB 14.8 g/dL (13.5-17.5); Immature Grans % 0.4; MCH 30.1 pg (27.0-33.0); MCHC 33.7 % (32.0-36.0); MCV 89 fL (80-95); MPV 10.4 fL (8.0-11.0); Monocytes % 13.5; Neutrophils % 57.7; Platelet Count 342 10^3/uL (130-400); RBC 4.92 10^6/uL (4.36-5.78); RDW 11.7 % (11.8-14.1); RDW-SD 37.3 fL; WBC 5.05 10^3/uL (4.4-10.8)
[2022-07-03] MEDS: Meclizine 25 MG TAB PO (04:26)
[2022-07-03 04:34] LABS: INR 0.9 (0.9-1.1); PTT Activated 22.5 sec (21.0-27.5); Prothrombin Time 9.1 sec (9.3-11.0)
[2022-07-03 04:36] LABS: ALT 32 U/L (16-63); AST 18 U/L (15-37); Albumin 3.8 g/dL (3.4-5.0); Alkaline Phosphatase 117 U/L (46-116); Anion Gap 7.5 mmol/L (3-11); BUN 15 mg/dL (7-18); Bilirubin, Total 0.4 mg/dL (0.2-1.0); CO2 28.5 mmol/L (21.0-32.0); Chloride 103 mmol/L (98-107); Glucose 299 mg/dL (74-106); Potassium 3.7 mmol/L (3.5-5.1); Sodium 139 mmol/L (136-145); Total Protein 7.4 g/dL (6.4-8.2); Troponin I < 50 ng/L (<or=60)
[2022-07-03] MEDS: Omnipaque 350 MG/ML 100 ML BTL IJ (04:37)
[2022-07-03] MEDS: Normal Saline - Diluent 50 ML VIAL IJ (04:38)
[2022-07-03 04:43] LABS: COVID-19 PCR POSITIVE (Negative)
[2022-07-03] MEDS: Normal Saline 500 ML IV (04:49)
--- NOTE | 2022-07-03 06:00 | DI.VRAD_ITS ---
Addendum created by Arturo Lopez MD on 07/03/2022 6:04:08 AM EST: THIS REPORT CONTAINS FINDINGS THAT MAY BE CRITICAL TO PATIENT CARE. The findings were verbally communicated via telephone conference with MICHAEL HALE at 6:03 AM EST on 07/03/2022. The findings were acknowledged and understood. Initial report created on 07/03/2022 6:00:15 AM EST: PROCEDURE INFORMATION: Exam: CTA Head Without And With Contrast, Arteriography Exam date and time: 07/03/2022 4:30 AM Age: 47 years old Clinical indication: Stroke-like symptoms; Dizziness/giddiness; Additional info: Recent germán stroke 7 days ago, now dizzy TECHNIQUE: Imaging protocol: Computed tomographic angiography of the head without and with contrast. Exam focused on the arteries. 3D rendering (Not supervised by radiologist): MIP and/or 3D reconstructed images were created by the technologist. Radiation optimization: All CT scans at this facility use at least one of these dose optimization techniques: automated exposure control; mA and/or kV adjustment per patient size (includes targeted exams where dose is matched to clinical indication); or iterative reconstruction. Contrast material: OMNI 350; Contrast volume: 100 ml; Contrast route: INTRAVENOUS (IV); Other technique: STROKE PROTOCOL was implemented. COMPARISON: CT BRAIN NECK CTA 07/01/2022 1:46 PM FINDINGS: Limitations: Streak artifact limits evaluation of the germán. ANTERIOR CIRCULATION: Right internal carotid artery: The intracranial segment is patent with no significant stenosis. No aneurysm. Right middle cerebral artery: No occlusion or significant stenosis. No aneurysm. Right anterior cerebral artery: No occlusion or significant stenosis. No aneurysm. Left internal carotid artery: The intracranial segment is patent with no significant stenosis. No aneurysm. Left middle cerebral artery: No occlusion or significant stenosis. No aneurysm. Left anterior cerebral artery: No occlusion or significant stenosis. No aneurysm. POSTERIOR CIRCULATION: Right vertebral artery: No occlusion or significant stenosis. No aneurysm. Left vertebral artery: No occlusion or significant stenosis. No aneurysm. Basilar artery: No occlusion or significant stenosis. No aneurysm. The proximal superior cerebellar arteries are visualized and appear patent. Right posterior cerebral artery: No occlusion or significant stenosis. No aneurysm. Left posterior cerebral artery: No occlusion or significant stenosis. No aneurysm. HEAD: Brain: No acute intracranial hemorrhage. There are bilateral chronic gangliocapsular lacunar infarcts. There is hypodensity of the entire germán, likely related to streak artifact. Cerebral ventricles: No ventriculomegaly. Bones/joints: No acute fracture. Paranasal sinuses: Mucoperiosteal thickening and opacification of multiple bilateral ethmoid air cells, similar to the comparison examination. There is additional mucoperiosteal thickening of the right sphenoid sinus. There has been surgical decompression of the left maxillary sinus. Mastoid air cells: Visualized mastoids are normal. No mastoid effusion. Soft tissues: Unremarkable. Other findings: The right and left PICA as are visualized segmentally. The left is better seen than the right. IMPRESSION: 1. No large vessel occlusion. 2. Multiple chronic bilateral gangliocapsular infarcts. 3. Evaluation of the germán is limited by streak artifact. 4. Paranasal sinus disease as above. ASSESSMENT: ASPECTS ([place] Stroke Program Early CT Score) is 10. PROCEDURE INFORMATION: Exam: CTA Neck Without And With Contrast Exam date and time: 07/03/2022 4:30 AM Age: 47 years old Clinical indication: Stroke-like symptoms; Dizziness/giddiness; Additional info: Recent germán stroke 7 days ago, now dizzy TECHNIQUE: Imaging protocol: Computed tomographic angiography of the neck without and with contrast. 3D rendering (Not supervised by radiologist): MIP and/or 3D reconstructed images were created by the technologist. Radiation optimization: All CT scans at this facility use at least one of these dose optimization techniques: automated exposure control; mA and/or kV adjustment per patient size (includes targeted exams where dose is matched to clinical indication); or iterative reconstruction. Contrast material: OMNI 350; Contrast volume: 100 ml; Contrast route: INTRAVENOUS (IV); COMPARISON: CT BRAIN NECK CTA 07/01/2022 1:46 PM FINDINGS: Right common carotid artery: No significant stenosis. No dissection or occlusion. Right internal carotid artery: No significant stenosis of the extracranial segment. No dissection or occlusion. Right external carotid artery: No occlusion or significant stenosis of the origin. Left common carotid artery: No significant stenosis. No dissection or occlusion. Left internal carotid artery: Atheromatous calcification of the proximal extracranial segment with no significant stenosis. No dissection or occlusion. Left external carotid artery: No occlusion or significant stenosis of the origin. Right vertebral artery: No significant stenosis. No dissection or occlusion. Left vertebral artery: No significant stenosis. No dissection or occlusion. Soft tissues: No significant soft tissue swelling. Bones/joints: No acute fracture. IMPRESSION: 1. Normal right extracranial internal carotid artery by NASCET criteria. 2. 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 3. Patent bilateral vertebral arteries with a dominant left vertebral. REFERENCES: NASCET CRITERIA. The degree of stenosis in the cervical segment of the internal carotid artery is based on NASCET criteria. Normal is no stenosis. Mild is less than 50% stenosis. Moderate is 50-69% stenosis. Severe is 70% to 99% stenosis. Total occlusion is no detectable patent lumen. Dictated and Authenticated by: Arturo Lopez MD. Ordering:STANISLAV Das MD
--- NOTE | 2022-07-03 08:01 | W.PM.HP.N ---
Date of service: 07/03/22 Time of Service: 08:01 Assessment and Plan Assessment and plan (1) CVA (cerebral vascular accident): Status: Chronic Assessment and plan: cont. DAPT (Plavix/ASA), incr. atorvastatin to 80 mg qpm; consult neurology, P.T., O.T., telemetry monitoring, extended property assessment monitor post discharge; work on diabetes and HTN control and lipid control (2) COVID-19: Status: Acute Assessment and plan: continue resp. isolation for 5 days post initial positive test, then cont. masking for total of 10 day. Monitor for respiratory symptoms (3) Ataxic gait: Status: Acute Assessment and plan: P.T. and O.T. consult as above (4) Depression: Status: Chronic Assessment and plan: cont. home meds of buspar and duloxetine Qualifiers: Depression Type: reactive depression Qualified Code(s): F32.9 - Major depressive disorder, single episode, unspecified (5) Essential hypertension: Status: Acute Assessment and plan: continue lisinopril 40 mg daily; will monitor BP avoid hypotension however, likely needs adjustment in his antihypertensive meds given his lacunar infarcts; I have set parameters for holding his lisinopril for next 24 to 48 hrs (6) Hyperlipidemia: Status: Chronic Assessment and plan: Increase atorvastatin 80 mg daily (7) Type 1 diabetes mellitus with diabetic nephropathy, with long-term current use of insulin: Status: Acute Assessment and plan: poorly controlled. last HbA1c was 12.1% on 02/28/22. will recheck but suspect still high. I have ordered basal/bolus insulin w/ CHO coverage. I did decrease his lantus to 2/3 of his usual dose until I see how his glucose levels respond while hospitalized and uncer strict diet. He needs referral to bacteriologist industrial/ stamps or coins salesperson. It appears that this referral or a recommendation for this was made at his dc from [facility] on 03/02/22. (8) DVT prophylaxis: Status: Acute Assessment and plan: enoxaparin 40 mg sc daily History of Present Illness History of Present Illness Chief Complaint: nausea, vomiting, dizziness, heard loud pop in his head Narrative: 47-year-old male right hand dominant with a history of insulin-dependent diabetes mellitus, essential pretension, hyperlipidemia, CVA, depression was recently evaluated emergency department [facility] for complaints of headache and elevated blood pressure that began 5 days prior to his ER visit along with an episode of right facial droop and palpitations. Facial droop and palpitations have resolved. Evaluation in the ER included CT of the head CTA of the head and MRI of the brain. He had evidence of a right pontine infarct with some small dimas-infarct hemorrhage. Patient's aspirin was discontinued he was started on Plavix Dr. Thorne was consulted by the ED provider patient's blood pressure was stable and he was discharged home for follow-up with Dr. Thorne on 07/07/2022. Patient was also diagnosed with COVID-19 by nasal PCR swab that was positive. However he was asymptomatic for COVID from a respiratory standpoint and was not put on any treatment. Patient presented to the emergency department this morning for evaluation of dizziness. 45 minutes prior to presentation he awoke with what he thought was a loud pop in his head and was notably dizzy when he awoke. He had a mild headache rated 1 out of 10. He had no focal paresthesias or paraparesis. Whereas he previously had some left-sided facial droop he had none now. On examination he was noted by the ED provider Dr. Thiago Billy to have bidirectional horizontal nystagmus with no rotary or vertical component. Because of concern for potential lead from his previous stroke CT of the head and CT of the head was performed. CT scan of the brain shows chronic infarcts but no acute process CTA showed no acute obstruction. Laboratory work-up was unremarkable. He remains positive for COVID-19 per nasal PCR swab. Dr. Billy contacted [facility] neurology and spoke with Dr.Alexander William who recommended repeat MRI scan of the brain and recommend increase the patient's atorvastatin 80 mg daily and add aspirin 81 mg daily to his current Plavix dose. He did not feel that the patient is a candidate for tPA. He did not recommend transfer to [facility] who currently has no bed capacity. When Dr. Billy attempted to ambulate the patient in the ED department the patient was notably ataxic and unsteady. I discussed case with Dr. Billy and we will admit the patient to the medical/surgical floor on telemetry monitoring under COVID precautions. We will consult OT and PT to evaluate his gait ataxia and work with his balance. We will get an MRI scan of the brain on Tuesday morning and consult with Dr. Thorne at that time. Atorvastatin will be increased to 80 mg every afternoon and patient was given a dose of aspirin in the emergency department we will continue his Plavix and aspirin dual antiplatelet therapy. I will allow mild permissive hypertension for the first 24 hours however more than likely his CVAs are secondary to poorly controlled hypertension and small vessel disease. Of note patient did not have an echocardiogram during his work-up through the ED department on 07/01/2022 however he did have an echocardiogram on 03/01/2022 which showed normal biventricular function with an LVEF of 58% and normal LV filling pressures and normal atrial size and no significant valvular heart disease. This was obtained during a hospitalization from 02/28/2022 through 03/02/2022 for symptoms of an acute CVA in which he had right-sided weakness is MRI at that time on 03/01/2022 demonstrated signal abnormalities in both sides of the germán with sparing of the midbrain and thalami with multiple foci of periventricular signal abnormalities bilaterally with one of them on the left side showing restricted diffusion defect with corresponding hypointensity on ADC map consistent with an acute ischemic event. [facility] All Active Problems (Updated 07/03/22 @ 08:36 by Neo Wyatt MD) DVT prophylaxis (Acute) COVID-19 (Acute) Headache (Acute) CVA (cerebral vascular accident) (Chronic) right germán w/ prior hemorrhage Ataxic gait (Acute) Dizziness (Acute) Cervical radiculopathy (Chronic 06/19/13) Hyperlipidemia (Chronic) Nonproliferative diabetic retinopathy (Chronic 01/25/12) OPTICAL EXPRESSIONS; MILD NPDR IN THE RIGHT EYE ONLY Depression (Chronic) Erectile dysfunction (Acute) Radiculopathy (Acute) Noncompliance with medication regimen (Chronic) Diabetic neuropathy (Acute) Type 1 diabetes mellitus with diabetic nephropathy, with long-term current use of insulin (Acute) Essential hypertension (Acute) Medical History Cellulitis due to MRSA (~02/2022) Of Right forearm COVID-19 ruled out by laboratory testing CVA (cerebrovascular accident) bilateral lacunar infarcts, left periventricular lacunar infarct is acute DKA (diabetic ketoacidosis) Metabolic acidosis due to diabetes mellitus Renal calculi Surgical History History of nasal surgery Hx of lithotripsy Family History Mother Depression Father Diabetes Social History Smoking/Tobacco Use Status: Former Tobacco Use tobacco type: cigarettes Quit Date: 04/11/02 Tobacco: How many years used: 7 Second Hand Exposure: Yes Smoking risk assessment performed?: Yes Alcohol Intake: former Drug use: Never Substance use type: does not use Details: No ETOH since august 2020 Household members: spouse and children Housing: house Communication Needs: None Do you need help understanding health information?: Never Pets and animals: Yes Pets and animals: cat(s), dog(s) and other Sexually active: Yes Do you think of yourself as: straight/heterosexual Current gender identity: male What is your relationship status?: How often do you talk on the phone with friends or family?: twice per week How often do you get together with friends or relatives?: once per week How often do you attend sabianism or anabaptist services?: decline to answer Do you belong to any clubs or organized social groups?: no Panel score (0-1 are the most socially isolated patients): 2 Nohemi/Voodoo: None Seatbelt use: sometimes Drive intox or ride w/intox carrier driver: No Do you feel safe at home: Yes Do you feel safe in your relationship?: Yes Meds Allergies and Home Medications Allergies Allergy/AdvReac Type Severity Reaction Status Date / Time ciprofloxacin [From Cipro] AdvReac Intermediate blacks Verified 07/01/22 12:35 out Home Medications Medication Instructions Recorded Confirmed Type ibuprofen 800 mg tablet 800 mg PO TID PRN #90 tab-caps 02/15/18 07/03/22 History pen needle, diabetic 33 gauge x #200 ea 10/15/20 07/03/22 Rx 3/16 (Comfort EZ Pen [place]) blood-glucose meter,continuous #1 ea 10/30/20 07/03/22 Rx (Dexcom G6 Die Cast Engineer) gabapentin 400 mg capsule 400 mg PO TID #180 caps 10/14/21 07/03/22 Rx insulin lispro 100 unit/mL See Rx Instructions subcut QID #15 03/01/22 07/03/22 Rx subcutaneous pen mL insulin glargine 100 unit/mL (3 36 unit (0.36 mL) subcut BID #15 mL 03/24/22 07/03/22 Rx mL) subcutaneous pen (Lantus Solostar U-100 Insulin) blood-glucose sensor (Dexcom G6 #3 ea 03/26/22 07/03/22 Rx Sensor device) glucagon HCl 1 mg solution for 1 mg subcut ONCE PRN hypoglycemia 04/02/22 07/03/22 History injection (Glucagon (HCl) Emergency Kit) lisinopril 20 mg tablet 20 mg PO DAILY #30 tabs 04/02/22 07/03/22 Rx atorvastatin 40 mg tablet 40 mg PO DAILY #90 tabs 04/07/22 07/03/22 Rx pantoprazole 40 mg tablet,delayed 40 mg PO DAILY #90 tabs 04/07/22 07/03/22 Rx release blood-glucose transmitter (Dexcom #1 ea 05/24/22 07/03/22 Rx G6 Transmitter device) buspirone 30 mg tablet 30 mg PO BID #180 tabs 06/28/22 07/03/22 Rx duloxetine 60 mg capsule,delayed 120 mg PO DAILY #90 caps 06/28/22 07/03/22 Rx release clopidogrel 75 mg tablet (Plavix) 75 mg PO DAILY 30 days #30 tabs 07/02/22 07/03/22 Rx Exam Narrative Exam Narrative: Middle-aged white male who is alert and oriented person place time circumstance. HEENT is remarkable for horizontal nystagmus that is worse with left lateral gaze. Pupils equally round and reactive full extraocular motions intact. No facial asymmetry no dysarthric speech. Neck is supple no JVD normal carotid pulses Lungs I cannot auscultate his lungs as there is no stethoscope in the room at the time of my exam and I was wearing a PAPR mask device and unable to auscultate. Palpation of his chest revealed no thrill and no tactile fremitus. Heart regular apical impulse no thrill heave Abdomen soft nontender nondistended no organomegaly no palpable masses Extremities without peripheral cyanosis or edema no calf tenderness. He has multiple tattoos no open sores. Normal pedal pulses. Neuro exam other than the nystagmus I did not appreciate a focal cranial nerve deficits did not appreciate any focal motor weakness in any of his extremities and sensation was grossly intact to light touch. Results Imaging Imaging Studies: Initial report created on 07/03/2022 6:00:15 AM EST: PROCEDURE INFORMATION: Exam: CTA Head Without And With Contrast, Arteriography Exam date and time: 07/03/2022 4:30 AM IMPRESSION: 1. No large vessel occlusion. 2. Multiple chronic bilateral gangliocapsular infarcts. 3. Evaluation of the germán is limited by streak artifact. 4. Paranasal sinus disease as above. MR BRAIN WO 07/01/22 VENTRICLES AND EXTRA AXIAL SPACES: Normal in size and morphology for the patient's age. MIDLINE SHIFT: None. CEREBRAL PARENCHYMA: There is a focus of restricted diffusion in the right germán.? There is also an associated area of decreased signal on the gradient echoes.? No space-occupying lesion identified. Old lacunar infarcts are seen in the periventricular white matter. HEMORRHAGE: None. BRAINSTEM/CEREBELLUM: Normal. CALVARIUM: Normal.? VISUALIZED PARANASAL SINUSES/MASTOIDS:Clear. [place]: Normal flow void. PITUITARY GLAND: Unremarkable. OTHER FINDINGS: None. IMPRESSION: Findings suggestive of an acute infarct in the right germán with associated evidence of prior hemorrhage.? Labs Result diagrams: 07/03/22 04:00 07/03/22 04:00 Labs: Laboratory Results - last 24 hr 07/03/22 07/03/22 07/03/22 04:00 04:00 04:00 WBC 5.05 RBC 4.92 Hgb 14.8 Hct 43.9 MCV 89 MCH 30.1 MCHC 33.7 RDW 11.7 L Plt Count 342 MPV 10.4 Immature Gran % 0.4 Neutrophils % 57.7 Lymphocytes % 24.0 Monocytes % 13.5 Eosinophils % 2.8 Basophils % 1.6 Nucleated RBC % 0.0 Absolute Neutrophils 2.92 Absolute Lymphocytes 1.21 Absolute Monocytes 0.68 Absolute Eosinophils 0.14 Absolute Basophils 0.08 PT INR APTT Sodium 139 Potassium 3.7 Chloride 103 Carbon Dioxide 28.5 Anion Gap 7.5 BUN 15 Creatinine 1.0 Est GFR (CKD-EPI 2020) 94.00 Glucose 299 H Calcium 9.0 Total Bilirubin 0.4 AST 18 ALT 32 Alkaline Phosphatase 117 H Troponin I < 50 Total Protein 7.4 Albumin 3.8 COVID-19 Source Nasal/Nares SARS-CoV-2 (PCR) POSITIVE A* 07/03/22 04:00 WBC RBC Hgb Hct MCV MCH MCHC RDW Plt Count MPV Immature Gran % Neutrophils % Lymphocytes % Monocytes % Eosinophils % Basophils % Nucleated RBC % Absolute Neutrophils Absolute Lymphocytes Absolute Monocytes Absolute Eosinophils Absolute Basophils PT 9.1 L INR 0.9 APTT 22.5 Sodium Potassium Chloride Carbon Dioxide Anion Gap BUN Creatinine Est GFR (CKD-EPI 2020) Glucose Calcium Total Bilirubin AST ALT Alkaline Phosphatase Troponin I Total Protein Albumin COVID-19 Source SARS-CoV-2 (PCR) Last Vital Signs Temp 36.3 C L 07/03/22 03:50 Pulse 82 07/03/22 05:40 Resp 18 07/03/22 05:40 BP 159/95 H 07/03/22 05:40 Pulse Ox 98 07/03/22 05:40 Time Spent Time spent with Patient: 55-74 minutes Time was spent: preparing to see the patient(eg.review tests), obtaining and/or reviewing separately otained hiistory, ordering medications,tests, procedures, referring, communicating with other health respiratory care program director, indepentently interpreting results, counseling the patient and care coordination
[2022-07-03 09:23] LABS: TSH (W/Ref FT4) 2.11 uIU/mL (0.36-3.74)
[2022-07-03] MEDS: busPIRone 15 MG TAB 30 MG PO ×2 (10:24→22:22)
[2022-07-03] MEDS: Pantoprazole 40 MG TABCR PO (10:24)
[2022-07-03] MEDS: DULoxetine 30 MG CAP 120 MG PO (10:26)
[2022-07-03] MEDS: Enoxaparin 40 MG/0.4 ML SYR SC (10:26)
[2022-07-03] MEDS: Lisinopril 20 MG TAB PO (10:26)
[2022-07-03] MEDS: Clopidogrel 75 MG TAB PO (10:26)
[2022-07-03] MEDS: Insulin Glargine 300 UNITS/3 ML PEN 24 UNITS SC (10:26)
[2022-07-03] MEDS: Insulin Aspart 300 UNITS/3 ML PEN SC ×7 (10:27→22:26)
[2022-07-03] MEDS: Aspirin E.C. 81 MG TABEC (10:36)
--- NOTE | 2022-07-03 11:16 | IN_ITS ---
Date of service: 07/03/22 Time of Service: 11:16 PT Notes Visit Reasons: Ataxia, Pontine CVA Physical Therapy Inpatient Initial Evaluation Date: 06/24/2022 Referring Doctor: Neo Wyatt MD PT Orders: PT CONSULT: Fall safety assessment Precautions: Activity as tolerated. Airborne precautions due to COVID-19. Patient Profile/Admitting Diagnosis: Dragan is a 47-year-old right hand dominant male who presented to the ED early today with complaints of new onset headache, and dizziness when lying flat. He was diagnosed with a recent CVA a week ago and is being admitted for management of possible recurrence of CVA, COVID-19 infection, depression, essential hypertension, and hyperlipidemia. PMHX: All Active Problems?(Updated 07/03/22 @ 08:36 by Neo Wyatt MD) DVT prophylaxis (Acute) COVID-19 (Acute) Headache (Acute) CVA (cerebral vascular accident) (Chronic) right germán w/ prior hemorrhageAtaxic gait (Acute) Dizziness (Acute) Cervical radiculopathy (Chronic 06/19/13) Hyperlipidemia (Chronic) Nonproliferative diabetic retinopathy (Chronic 01/25/12) OPTICAL EXPRESSIONS; MILD NPDR IN THE RIGHT EYE ONLY Depression (Chronic) Erectile dysfunction (Acute) Radiculopathy (Acute) Noncompliance with medication regimen (Chronic) Diabetic neuropathy (Acute) Type 1 diabetes mellitus with diabetic nephropathy, with long-term current use of insulin (Acute) Essential hypertension (Acute) Medical History? Cellulitis due to MRSA (~02/2022) Of Right forearm COVID-19 ruled out by laboratory testing CVA (cerebrovascular accident) bilateral lacunar infarcts, left periventricular lacunar infarct is acute DKA (diabetic ketoacidosis) Metabolic acidosis due to diabetes mellitus Renal calculi Surgical History? History of nasal surgery Hx of lithotripsy Social History/Home Situation: Lives with family in a private home. Independent with all aspects of ADLs prior to admission. 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 Equipment Owned/DME: None Subjective: Complains of dizziness and headache when on his back, when turning head to the left while lying, and when transitioning from sitting to lying on his back. Does not feel that he is at walking speed baseline. Reported 2-3/10 pain and tenderness in the suboccipital area. He also reported blurriness of vision while on his back and truning head to the right. Objective: General Observation: In NAD. Seated on bedside chair. Mental Status: Alert and oriented as to person, place, time, and purpose. Able to pay attention, focus, and respond appropriately. Pain: 1-2/10 R-parietotemproal area; 2-3/10 suboccipital area R more affected than L Vital Signs: Higg blood pressure measure before PT came in, 160s/100s mmHg; Nurse Dania measured 288 mg/dL on the glucometer during session ROM: Right Upper Extremity: Shoulder Flexion WFL. Shoulder abduction WFL. Elbow flexion WFL. Wrist flexion WFL. Functional opening and closing of hand WFL. Left Upper Extremity: Shoulder Flexion WFL. Shoulder abduction WFL. Elbow flexion WFL. Wrist flexion WFL. Functional opening and closing of hand WFL. Right Lower Extremity: Hip flexion WFL. Hip abduction WFL. Knee flexion WFL. Ankle dorsiflexion WFL. Ankle plantarflexion WFL. Left Lower Extremity: Hip flexion WFL. Hip abduction WFL. Knee flexion WFL. Ankle dorsiflexion WFL. Ankle plantarflexion WFL. Strength: Right Upper Extremity: Shoulder flexors 5/5. Shoulder abductors 5/5. Elbow flexors 5/5. Elbow extensors 5/5. Loss Prevention Supervisor strong. Left Upper Extremity: Shoulder flexors 5/5. Shoulder abductors 5/5. Elbow flexors 5/5. Elbow extensors 5/5. Loss Prevention Supervisor strong. Right Lower Extremity: Hip flexors 5/5. Hip abductors 5/5. Knee flexors 5/5. Knee extensors 5/5. Ankle dorsiflexors 4/5. Ankle plantarflexors 5/5. Left Lower Extremity: Hip flexors 5/5. Hip abductors 5/5. Knee flexors 5/5. Knee extensors 5/5. Ankle dorsiflexors 4/5. Ankle plantarflexors 5/5. Bed Mobility/Transfers: Rolling independent Supine to sit independent Sit to supine independent Sit to stand independent Stand to sit independent Bed to reclining chair independent Reclining chair to bed independent Gait: Instructed patient with in-room level surface ambulation of 90 feet independently however with significantly reduced speed. Needed to slow down during directional changes. Steps hesitant/cautious but no path deviation, no loss of balance. No ataxia seen. Balance: Static Sitting: Normal Dynamic Sitting: Normal Static Standing: Good Dynamic Standing: Good Special Tests: Mobility Limitations Standardized Measure [facility] AM-PAC 6 clicks Basic Mobility Inpatient Short Form: Raw Score: 24 CMS Score: 0% deficit NEURO TESTING: Spontaneous nystagmus: No vertical nystagmus seen at rest Smooth pursuit: Intact to R, R beating nystagmus with L gaze Conjugate gaze: Intact but with R beating horizontal nystagmus with L gaze Romberg Test: Positive. Patient had severe postural sway and near LOB 4 seconds after closing eyes, needed minimal assist of PT to recover. 4-Stage balance Test: Able to assume feet together, semi-tandem, full tandem, and one-legged stance for 10 seconds after 2-3 attempts. Pronator drift: Negative Rapid alternating movement: Impaired NEURO RE-EDUCATION: Slow head turns x 10 seated Slow head turns x 10 standing Slow head turns supine x 5 with report of increased dizziiness/nausea, blurriness of vision, and headache with L head turn Informed Consent/Education: Patient was instructed in purpose of PT consult and plan of care. Agreeable to proceed with established PT POC to achieve personal goals. Assessment: Strength to B UE/LE symmetric. Romberg Test positive. Gait nikki/speed decreased due to balance impairment. Patient safe to walk without assitive device at reduced gait speed. Vertiginous in supine with L head turned to R and with sit to supine. Able to do mobility performance and ADLs if done slowly. Assistive ambulatory device not needed. Patient presents with clinical signs and symptoms consistent with current/admitting diagnoses that have resulted to mobility limitations, gait instability, generalized weakness, and overall ADL decline as demonstrated by the following impairment level findings: 1. Dizziness and nausea with supine and L head turning 2. Impaired standing static and ndynamic balance 3. Impaired activity tolerance Impairments are contributing to the following functional limitations: 1. Increased completion time for mobility ADL performance 2. Increased risk for falls 3. Difficulty with managing steps alone safely Patient is assessed as a 04028 moderate complexity based on the following: History: 47-year-old male with past medical history as indicated above Examination: Demonstrable impairment in strength, balance, and mobility level with underlying impairments and functional limitations as exhibited above as well as deficit score of 0% utilizing the [facility] Mobility Inpatient Short Form Presentation: Evolving Decision Makin moderate complexity Goals: Goals X1 week 1. Independent gait on level surface with improved nikki of at least 130 steps per minute without report of dizziness 2. Independent with home exercise program 3. Normal static and dynamic standing balance/tolerance Plan of Care/Treatment Plan: 1-2x/day, 7 days/week x 1 week. Plan of care has been reviewed with the TRANSPORTATION SALES CONSULTANT providing the service under Physical Therapy direction. Initiate Physical Therapy intervention for pain management as needed, strengthening, bed mobility, transfers, gait, stairs, balance training, and use of assistive device. DISCHARGE RECOMMENDATIONS: [] Home with no services [] [] Home with services [specify] [X] Home with outpatient PT. Home when medically cleared by hospitalist. Recommend outpatient PT services for continued vestibular rehabilitation to facilitate return to premorbid indepedent level and allow full return to vocational activities. [] SNF for continued rehabilitation [] [] Intermediate Care [] [] SNF versus LTC based on ability to participate and progress [] TREATMENT CODE/TIME: 07914 x 20 minutes, 56781 x 20 minutes beginning at 11:16 AM. Thank you for the opportunity to participate in the care of this patient. Aide Sutton PT, DPT, CLT [facility] [place], [place]
[2022-07-03 11:25] LABS: Troponin I < 50 ng/L (<or=60)
[2022-07-03] MEDS: Acetaminophen 325 MG TAB PO (15:10)
[2022-07-03] MEDS: Ondansetron 4 MG/2 ML VIAL IVP (15:11)
[2022-07-03] MEDS: Normal Saline Flush 10 ML SYR IVP ×2 (15:11→22:23)
[2022-07-03] MEDS: Atorvastatin 40 MG TAB 80 MG PO (22:22)
[2022-07-03] MEDS: Insulin Glargine 300 UNITS/3 ML PEN 36 UNITS SC (22:23)
[2022-07-04] VITALS (9 sets, daily range): BP systolic 130–165; BP diastolic 83–100; PULSE 77–88; RESP 17–19; TEMP 36–36.7; O2SAT 97–99
[2022-07-04 06:48] LABS: Abs Immature Grans 0.02 10^3/uL (0.0-0.06); Absolute Basophil Count 0.05 10^3/uL (0.0-0.2); Absolute Eosinophil Count 0.19 10^3/uL (0.0-0.7); Absolute Neutrophil Count 3.48 10^3/uL (1.2-6.7); Basophils % 0.8; HCT 40.3 % (40.0-50.0); HGB 13.8 g/dL (13.5-17.5); Immature Grans % 0.3; MCH 30.2 pg (27.0-33.0); MCHC 34.2 % (32.0-36.0); MCV 88 fL (80-95); MPV 10.2 fL (8.0-11.0); Neutrophils % 54.9; Platelet Count 312 10^3/uL (130-400); RBC 4.57 10^6/uL (4.36-5.78); RDW 11.7 % (11.8-14.1); RDW-SD 37.3 fL; WBC 6.34 10^3/uL (4.4-10.8)
[2022-07-04 07:10] LABS: Calculated LDL 87 mg/dL (<100); Cholesterol 148 mg/dL (<200); Ferritin 86 ng/mL (26-388); HDL Cholesterol 35 mg/dL (40-60); Triglyceride 130 mg/dL (<150)
[2022-07-04 07:43] LABS: ALT 31 U/L (16-63); AST 21 U/L (15-37); Albumin 3.1 g/dL (3.4-5.0); Alkaline Phosphatase 97 U/L (46-116); Anion Gap 6.7 mmol/L (3-11); BUN 12 mg/dL (7-18); Bilirubin, Total 0.4 mg/dL (0.2-1.0); CO2 29.3 mmol/L (21.0-32.0); CREATININE 0.8 mg/dL (0.70-1.30); Calcium 8.6 mg/dL (8.5-10.1); Chloride 104 mmol/L (98-107); Estimated GFR 110.53 (mL/min/1.73m2); Glucose 108 mg/dL (74-106); Potassium 3.6 mmol/L (3.5-5.1); Sodium 140 mmol/L (136-145); Total Protein 5.9 g/dL (6.4-8.2)
[2022-07-04 08:15] LABS: LDH 135 U/L (85-227)
[2022-07-04] MEDS: Clopidogrel 75 MG TAB PO (08:34)
[2022-07-04] MEDS: Enoxaparin 40 MG/0.4 ML SYR SC (08:34)
[2022-07-04] MEDS: DULoxetine 30 MG CAP 120 MG PO (08:34)
[2022-07-04] MEDS: busPIRone 15 MG TAB 30 MG PO ×2 (08:34→19:35)
[2022-07-04] MEDS: Pantoprazole 40 MG TABCR PO (08:35)
[2022-07-04] MEDS: Insulin Aspart 300 UNITS/3 ML PEN SC ×6 (08:36→22:58)
[2022-07-04] MEDS: Aspirin E.C. 81 MG TABEC PO (08:36)
[2022-07-04] MEDS: Insulin Glargine 300 UNITS/3 ML PEN 36 UNITS SC ×2 (08:37→22:57)
--- NOTE | 2022-07-04 12:32 | PT.INTREAT ---
PT Notes Visit Reasons: Ataxia, Pontine CVA Date: 07/04/2022 PRECAUTIONS: Fall, activity as tolerated SUBJECTIVE: Pt in recliner when approached for therapy this morning. Pt still in isolation for positive Covid, reports that he is feeling ok, agreed to participating with therapy. OBJECTIVE:? PAIN: Patient denies pain ? BED MOBILITY/TRANSFERS? ? Supine to EOB: independent EOB to supine: independent ? Sit-stand: independent? Stand-sit: independent? GAIT? Assistive Device:? N/A Weight bearing: Full Assist: supervision? Distance: 100'? Deviation: Cautious but no path deviation,? no loss of balance.? No ataxia seen. Sit to stand [id number] without UE support Neurological re-education: Rhomberg stance 1min, tandem stance 1min L/R, SLS L/R 1min each, 360 turns clockwise counter clockwise, side stepping 1min, backward walking 1min, braiding 1mins. ? ASSESSMENT: Pt tolerated activity well, no LOB during high level balance activity, pt cue to perform sit to stand without UE support hourly for exercise and balance training. PLAN: DC to home without pt PT. TREATMENT CODE/TIME: 30 minutes [id number] (11:30-12:00am)
--- NOTE | 2022-07-04 13:18 | PGE_ITS ---
Date of Service Date of service: 07/04/22 Time of Service: 13:19 Assessment and Plan Assessment and plan (1) CVA (cerebral vascular accident): Status: Chronic Assessment and plan: cont. DAPT (Plavix/ASA), incr. atorvastatin to 80 mg qpm; consult neurology, P.T., O.T., telemetry monitoring, extended hand sander post discharge; work on diabetes and HTN control and lipid control (2) COVID-19: Status: Acute Assessment and plan: continue resp. isolation for 5 days post initial positive test, then cont. masking for total of 10 day. Monitor for respiratory symptoms (3) Ataxic gait: Status: Resolved Assessment and plan: gait has improved. No ataxia w/ tandem walking. (4) Depression: Status: Chronic Assessment and plan: cont. home meds of buspar and duloxetine Qualifiers: Depression Type: reactive depression Qualified Code(s): F32.9 - Major depressive disorder, single episode, unspecified (5) Essential hypertension: Status: Acute Assessment and plan: continue lisinopril 20 mg daily; will monitor BP avoid hypotension however, likely needs adjustment in his antihypertensive meds given his lacunar infarcts; I have set parameters for holding his lisinopril for next 24 to 48 hrs (6) Hyperlipidemia: Status: Chronic Assessment and plan: Increase atorvastatin 80 mg daily (7) Type 1 diabetes mellitus with diabetic nephropathy, with long-term current use of insulin: Status: Acute Assessment and plan: poorly controlled. last HbA1c was 12.1% on 02/28/22. repeat A1c is pending. He will follow up w/ his cell attendant helper at [facility] upon discharge but I explained to him that goal is for fasting glucose under 120 and A1c under 7%. (8) DVT prophylaxis: Status: Acute Assessment and plan: enoxaparin 40 mg sc daily Subjective Subjective Interval history since last seen: Patient states that his vertigo is much better today. He had slight dizziness when he first sat up this morning but since then he has been getting in and out of bed on his own w/out any dizziness or vertigo. P.T. has cleared him. I explained to him and his (via his cell phone) that his symptoms have cleared but that we would like him to get his MRI of the brain and see Dr. Thorne tomorrow. Afterwards he can return home. Exam Narrative Exam Narrative: Dragan is alert and oriented x 3, sitting up in bed, no ataxia and no vertigo symptoms. He ambulated around the room for me w/ no imbalance, Rhomberg was negative. Normal ROM in all 4's Full EOMI, no visible nystagmus Objective Last Vital Signs Temp 36.5 C 07/04/22 12:02 Pulse 87 07/04/22 12:02 Resp 18 07/04/22 12:02 BP 165/97 H 07/04/22 12:02 Pulse Ox 99 07/04/22 12:02 Laboratory Results - last 24 hr 07/04/22 07/04/22 07/04/22 06:20 06:20 06:20 WBC 6.34 RBC 4.57 Hgb 13.8 Hct 40.3 MCV 88 MCH 30.2 MCHC 34.2 RDW 11.7 L Plt Count 312 MPV 10.2 Immature Gran % 0.3 Neutrophils % 54.9 Lymphocytes % 30.0 Monocytes % 11.0 Eosinophils % 3.0 Basophils % 0.8 Nucleated RBC % 0.0 Absolute Neutrophils 3.48 Absolute Lymphocytes 1.90 Absolute Monocytes 0.70 Absolute Eosinophils 0.19 Absolute Basophils 0.05 Sodium 140 Potassium 3.6 Chloride 104 Carbon Dioxide 29.3 Anion Gap 6.7 BUN 12 Creatinine 0.8 Est GFR (CKD-EPI 2020) 110.53 Glucose 108 H Calcium 8.6 Ferritin 86 Total Bilirubin 0.4 AST 21 ALT 31 Alkaline Phosphatase 97 Lactate Dehydrogenase 135 Total Protein 5.9 L Albumin 3.1 L Triglycerides 130 Total Cholesterol 148 LDL Cholesterol, Calc 87 HDL Cholesterol 35 L Time Spent with Patient Time Spent with Patient: <25 minutes Time was spent: preparing to see the patient(eg.review tests), counseling the patient and care coordination
[2022-07-04] MEDS: Lisinopril 10 MG TAB 20 MG PO (14:30)
--- NOTE | 2022-07-04 16:26 | PDOC.CMIN ---
- If Service Date Differs Date of service: 07/04/22 Time of Service: 16:26 Care Management Initial Assess REASON FOR HOSPITALIZATION:: Ataxia, pontine CVA PAST MEDICAL HISTORY/PAST SURGICAL HISTORY:: All Active Problems. DVT prophylaxis (Acute). COVID-19 (Acute). Headache (Acute). CVA (cerebral vascular accident) (Chronic). right germán w/ prior hemorrhage. Ataxic gait (Acute). Dizziness (Acute). Cervical radiculopathy (Chronic 06/19/13). Hyperlipidemia (Chronic). Nonproliferative diabetic retinopathy (Chronic 01/25/12). OPTICAL EXPRESSIONS; MILD NPDR IN THE RIGHT EYE ONLY. Depression (Chronic). Erectile dysfunction (Acute). Radiculopathy (Acute). Noncompliance with medication regimen (Chronic). Diabetic neuropathy (Acute). Type 1 diabetes mellitus with diabetic nephropathy, with long-term current use of insulin (Acute). Essential hypertension (Acute). Medical History. Cellulitis due to MRSA (~02/2022). Of Right forearm. COVID-19 ruled out by laboratory testing. CVA (cerebrovascular accident). bilateral lacunar infarcts, left periventricular lacunar infarct is acute. DKA (diabetic ketoacidosis). Metabolic acidosis due to diabetes mellitus. Renal calculi. Surgical History. History of nasal surgery. Hx of lithotripsy PREVIOUS FUNCTIONAL STATUS/SOCIAL/FAMILY SUPPORTS:: Dragan resides in [place] with his , Mary and their blended family. They have an adult daughter who resides outside of the home, two eighteen year old boys and an eight year old daughter. 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 He is independent in the community. CURRENT FUNCTIONAL STATUS:: Dragan is currently on Covid precautions, therefore CM did not meet with him. Per report, Dragan is being closely monitored on telemetry, and will likely require cardiac monitoring post discharge. He will have an MRI tomorrow, as well as a Neuro consult prior to discharge. PT evaluated him and he is independent, with a recommendation of outpatient PT. CM will continue to follow. ADVANCE DIRECTIVES:: on file. Mary () listed as HCA. Has patient been provided with info about the portal/API?: Yes Did the patient sign up for the portal?: Yes (active) CODE STATUS:: Full Code INSURANCE COVERAGE / FINANCIAL ISSUES:: [place] of [place] CURRENT HOME/COMMUNITY SERVICES/EQUIPMENT:: None. PRIMARY CARE PHYSICIAN:: [facility] POTENTIAL DISCHARGE NEEDS:: Outpatient PT referral, follow up appointment with PCP. PATIENT/FAMILY EDUCATION NEEDS:: Review discharge instructions and limitations, discussion of self care needs including ask me three. ANTICIPATED BARRIERS TO DISCHARGE:: none. TRANSPORTATION:: Via private vehicle with his . PLAN:: Dragan will have an MRI and a neuro consult tomorrow, and will likely return home with no services. PT recommends outpatient PT. His will drive him home via private vehicle. He will follow up with his PCP and discharge plan of care. CM will continue to follow.
[2022-07-04] MEDS: Atorvastatin 40 MG TAB 80 MG PO (19:36)
[2022-07-04] MEDS: Normal Saline Flush 10 ML SYR IVP (19:37)
[2022-07-05 02:29] VITALS: BP 129/90; PULSE 83; RESP 16; TEMP 36.3; O2SAT 97
[2022-07-05 07:53] VITALS: BP 131/78; PULSE 82; RESP 17; TEMP 36; O2SAT 97
[2022-07-05 08:10] VITALS: PULSE 89
[2022-07-05] MEDS: Enoxaparin 40 MG/0.4 ML SYR SC (08:21)
[2022-07-05] MEDS: Lisinopril 20 MG TAB PO (08:22)
[2022-07-05] MEDS: Clopidogrel 75 MG TAB PO (08:22)
[2022-07-05] MEDS: DULoxetine 30 MG CAP 120 MG PO (08:22)
[2022-07-05] MEDS: Aspirin E.C. 81 MG TABEC PO (08:22)
[2022-07-05] MEDS: Pantoprazole 40 MG TABCR PO (08:22)
[2022-07-05] MEDS: busPIRone 15 MG TAB 30 MG PO (08:22)
[2022-07-05] MEDS: Insulin Aspart 300 UNITS/3 ML PEN SC ×5 (08:23→17:50)
[2022-07-05] MEDS: Insulin Glargine 300 UNITS/3 ML PEN 36 UNITS SC (10:11)
--- NOTE | 2022-07-05 12:15 | DI.MRI_ITS ---
Exam(s) MR BRAIN WO EXAM: MR BRAIN WO CLINICAL HISTORY: pontine CVA TECHNIQUE: Multiplanar multisequence MRI of the brain was performed. COMPARISON: MR MR BRAIN WO from 07/01/2022 FINDINGS: VENTRICLES AND EXTRA AXIAL SPACES: Normal in size and morphology for the patient's age. MIDLINE SHIFT: None. CEREBRAL PARENCHYMA: There has been no change in appearance of the restricted diffusion involving the right germán. There is again seen an associated loss of signal in this region on the gradient echoes suggesting prior hemorrhage. No new areas of restricted diffusion or present. There again seen area s of hyperintense signal in the white matter on the FLAIR and T2 weighted images. They lie perpendic ular to the lateral ventricles. HEMORRHAGE: Stable hypointense area in the right germán suggesting prior hemorrhage. No new areas are seen. BRAINSTEM/CEREBELLUM: Normal. CALVARIUM: Normal. VISUALIZED PARANASAL SINUSES/MASTOIDS:There is mucosal thickening seen in the paranasal sinuses. No fluid levels are seen. [place]: Normal flow void. PITUITARY GLAND: Unremarkable. OTHER FINDINGS: None. IMPRESSION: 1. Stable appearance of the right pontine lesion since 07/01/2022. 2. No new areas of restricted diffusion to suggest acute infarct. 3. Hyperintense foci in the periventricular region. Demyelinating processes including MS should be c onsidered. DATA REPOSITORY:
[2022-07-05 14:56] VITALS: BP 162/107; PULSE 99; RESP 18; TEMP 36.1; O2SAT 99
--- NOTE | 2022-07-05 16:26 | CMPROGNOTE_ITS ---
- If Service Date Differs Date of service: 07/05/22 Time of Service: 16:26 Care Management Progress Note S/O: Dragan had additional testing throughout the day, anticipated discharge home; no updates at time of documentation. CM continues to follow. A: 47 year old male admitted to [facility] 07/03/21 for ataxia, pontine CVA P: Dragan will likely return home with no services with outpatient PT follow up. His will drive him home via private vehicle. He will also follow up with his PCP and discharge plan of care. CM will continue to follow.
--- NOTE | 2022-07-05 17:00 | DSE_ITS ---
Date of service: 07/05/22 Time of Service: 17:01 DS: Diagnosis Discharge Diagnosis (1) CVA (cerebral vascular accident): Status: Chronic Asessment and Plan: Patient will remain on dual antiplatelet therapy for the next [address] Thorne will guide him on continued antiplatelet therapy thereafter. Patient remain on high-dose atorvastatin for the next 30 days afterwards atorvastatin should be adjusted based on goal-directed therapy with a goal of an LDL of 70 or less. Patient does not require any outpatient physical therapy or occupational therapy or speech therapy. Patient will keep his appointment with Dr. Patricia Thorne for Wednesday, July 07, 2021. Explained the patient that part of stroke prevention includes improving his diabetes control with a goal of an A1c under 7% and control of his blood pressure with a goal for readings under 130/85. (2) COVID-19: Status: Acute (3) Ataxic gait: Status: Resolved (4) Depression: Status: Chronic Asessment and Plan: Continue home dose of BuSpar and duloxetine (5) Essential hypertension: Status: Chronic Asessment and Plan: Patient will continue lisinopril 20 mg daily. I will add chlorthalidone 25 mg daily and recheck a BMP next week he is to monitor his blood pressures twice daily and bring in a diary of his blood pressure readings to his PCP and to Dr. Thorne. (6) Hyperlipidemia: Status: Chronic (7) Type 1 diabetes mellitus with diabetic nephropathy, with long-term current use of insulin: Status: Acute Asessment and Plan: No change was made in his insulin dose but he is encouraged to follow-up with his rn clinical coordinator at [facility] as well as his PCP Carlos Brannon for further adjustment Discharge Plan Disposition Patient Disposition: Home Condition: Good Discharge Details Reason For Visit: Ataxia, Pontine CVA Admit Date/Time: 07/03/22 07:40 Admit Provider: Neo Wyatt Attending Provider: Neo Wyatt Primary Care Provider: [facility] Hospital Course Hospital Course: 47 yr old male w/ type 1 DM poorly controlled and poorly controlled HTN who presented to the ED on 07/01/22 w/ acute vertigo after awakening to sound of a loud pop in his head followed by vertigo, nausea and headache. Workup per MRI demonstrated a completed right pontine lacunar infarct. Patient had been on aspirin but was switched to Plavix and discharged home to follow up w/ Dr. Thorne. He returned to the ED on 07/03 with similar symptoms. Repeat CT head did not show any hemorrhage nor any large territory strokes. [facility] neurology was called by [facility] ED provider for advice. The neurologist claim professional recommended resumption of the patient's aspirin and to continue his Plavix and admit him on telemetry for observation and to repeat his MRI of his brain. As it was the we ekend, no MRI was available. He also had been diagnosed w/ COVID-19 as of his ER visit on 07/01 but was asymptomatic of any respiratory involvement. He was admitted on isolation, monitored on telemetry. His rhythm remained in NSR. His nausea was treated w/ antiemetics and headache was treated w/ Tylenol and NSAID. His atorvastatin was increased to 80 mg from his base of 40 mg. His vertigo improved overnight and by 07/04 it was totally gone. Repeat MRI of the brain was done on 07/05 which showed stable right pontine CVA but now was being read as showing some hyperintense foci in the periventricular area c/w multiple sclerosis. This was seen on the MRI on 07/01 but not read as such. An echocardiogram was not performed this admission as the patient had a normal echocardiogram on 02/28/22. As the patient's symptoms had resolved and the MRI demonstrated stability of his pontine CVA and his rhythm remained in sinus and he was not having any respiratory symptoms from his COVID, he was discharged home to follow up w/ Dr. Thorne. Upon discharge he was prescribed chlorthalidone 25 mg to be taken w/ his lisinopril 20 mg daily to try to improve his hypertension control, as his CVA is most likely lacunar strokes related to his hypertension and DM. He is advised to keep diary of his BP readings and follow up w/ his PCP to adjust his BP meds. As for his DM, he should follow up with his rn clinical coordinator at [facility]. Home Meds and New Rx's Prescriptions: New aspirin 81 mg Tablet,Delayed Release (Dr/Ec) 81 mg PO DAILY Qty: 0 0RF chlorthalidone 25 mg tablet 25 mg PO DAILY Qty: 30 0RF Continued glucagon HCl [Glucagon (HCl) Emergency Kit] 1 mg recon soln 1 mg subcut ONCE PRN (Reason: hypoglycemia) lisinopril 20 mg tablet 20 mg PO DAILY Qty: 30 3RF insulin glargine [Lantus Solostar U-100 Insulin] 100 unit/mL (3 mL) insulin pen 36 unit subcut BID Qty: 15 3RF gabapentin 400 mg capsule 400 mg PO TID Qty: 180 3RF insulin lispro 100 unit/mL insulin pen See Rx Instructions subcut QID Qty: 15 3RF Rx Instructions: 131-180 = 4 units, 181-240 = 8 units, 241-300 = 10 units, 301-350 = 12 units, 351-400 = 14 units subcut four times a day; pantoprazole 40 mg tablet,delayed release (DR/EC) 40 mg PO DAILY Qty: 90 3RF duloxetine 60 mg capsule,delayed release(DR/EC) 120 mg PO DAILY Qty: 90 4RF buspirone 30 mg tablet 30 mg PO BID Qty: 180 3RF clopidogrel [Plavix] 75 mg tablet 75 mg PO DAILY 30 Days Qty: 30 0RF Changed atorvastatin 40 mg tablet 80 mg PO DAILY Qty: 90 3RF Discontinued ibuprofen 800 MG tablet 800 mg PO TID PRNQty: 90 No Action (DME) pen needle, diabetic [Comfort EZ Pen [place]] 33 gauge x 3/16 needle See Rx Instructions .ROUTE .MEDSUPPLY Qty: 200 4RF Rx Instructions: one QID (DME) Dexcom G6 Real Estate Site Analyst Misc See Rx Instructions .ROUTE .MEDSUPPLY Qty: 1 0RF Rx Instructions: As directed (DME) Dexcom G6 Sensor Device See Rx Instructions .ROUTE .MEDSUPPLY Qty: 3 4RF Rx Instructions: As directed (DME) Dexcom G6 Transmitter Device See Rx Instructions .ROUTE .MEDSUPPLY Qty: 1 4RF Rx Instructions: As directed Discharge Instructions Instructions: Chlorthalidone (By mouth), Ischemic Stroke (DC), Hypertension (DC) Additional Instructions: Follow up w/ your PCP regarding obtaining good blood pressure control. Goal is 130/85 or less. You should continue your lisinopril and chlorthalidone, a diuretic, was added to help control your blood pressure. Monitor your blood pr essure twice a day, morning and evening and keep a diary to share w/ your PCP. Get follow up labs end of this week. Chlorthalidone can lead to low potassium or sodium levels. Supplement your diet w/ foods high in potassium. Keep your follow up w/ Dr. Patricia Thorne for this 07/07/22. She will go over your MRI findings and make any recommendations in your treatment and follow up. Incr ease your atorvastatin to 80 mg per evening for next month then your dose can be adjusted downward based on your cholesterol levels (goal is LDL under 70). Continue both plavix (clopidogrel) and aspirin for now. Dr. Thorne will guide you on how long to remain on both (they are both antiplatelet medications that reduce the incidence of strokes and heart attacks. You have COVID-19 and should remain in isolation for 5 total days from the onset (07/01-07/06) after this you may go out in public but need to continue to wear an effective mask (N95) for minimum of 10 days (through 07/11). You were not prescribed anything specific for COVID-19 as you had no respiratory symptoms. COVID may have contributed to your stroke as it does increase your clotting factors, however the major causes for strokes are vascular disease from hypertension and diabetes mellitus. Stand Alone Forms: Nursing Discharge Form Referrals: [facility]STIC SALES SPECIALIST [Primary Care Provider] - (Please call Tuesday to make an Appointment in the next 7-10 Days) Patricia Thorne MD [ [facility] STAFF PHYSICIAN] - (keep your appointment for this Tuesday07/07/22) Activity:: Activity as Tolerated Equipment/Supplies:: No Equipment Needed Diet:: Low Sodium Discharge Orders Discharge Orders: Discharge Order (Routine); Ordered 07/05/22 Ordered By: Neo Wyatt Discharge Data Discharge Date/Time-TO BE ENTERED AT DEPARTURE: 07/05/22 17:58 DS: Summary Time Spent with Patient providing and/or coordinating discharge services: Greater than 30 minutes Status at Discharge Functional status at discharge: independent ambulation Overall status at discharge: patient is back to baseline Mental Status: mental status grossly normal Speech and Movement: speech and movement normal Mood: congruent mood Affect: normal affect Exam Narrative Exam Narrative: Dragan says that his vertigo has resolved and not returned. He has no imbalance, no visible CN abnormalities and no focal paresesis or paresthesias I went over his MRI report read by Dr. Mckeon. I explained to him that his pontine lacunar stroke on the right is unchanged from 07/[address] Mckeon is reading a hyperintense signal in the white matter along the lateral ventricles for which multiple sclerosis is a consideration. I explained to him that MS can present as stroke like symptoms but that the symptoms do not usually resolve as quickly as his symptoms did and that the MRI findings could also be consistent w/ other lacunes. I told him that Dr. Thorne will review his images and go over this with him at his follow up this Tuesday Psych Mental Status: mental status grossly normal Speech and Movement: speech and movement normal Mood: congruent mood Affect: normal affect DS: Data Vitals/I&O Vitals and I&O: Vital Signs Temperature 36.1 C L 07/05/22 14:56 Temperature Source Tympanic 07/05/22 14:56 Pulse 99 H 07/05/22 14:56 Pulse Rhythm Regular 07/05/22 08:20 Respiratory Rate 18 07/05/22 14:56 Respiratory Effort Non-Labored 07/05/22 08:20 Respiratory Depth Normal 07/05/22 08:20 Respiratory Pattern Normal 07/05/22 08:20 Blood Pressure 162/107 H 07/05/22 14:56 Pulse Oximetry 99 07/05/22 14:56 Oxygen Delivery Method Room Air 07/05/22 14:56 Oxygen Flow Rate 0 07/05/22 14:56 Pain Level 0 07/05/22 14:56 Comment 07/05/22 14:56 Intake & Output 07/04/22 07/05/22 07/05/22 23:59 11:59 23:59 Intake Total 480 / 740 250 / 490 240 / 490 Balance 480 / 740 250 / 490 240 / 490 Intake: IV Oral 480 / 730 240 / 480 240 / 480 Other: Comment pt voided pT stated that he voided. pT uses bathroom independently. Stool Size Moderate Stool Characteristics Formed Voiding Methods Toilet Toilet Data Completed and Pending Completed studies during hospitalization [Text1]: MRI BRAIN W/OUT CONTRAST: IMPRESSION: 1. Stable appearance of the right pontine lesion since 07/01/2022. 2. No new areas of restricted diffusion to suggest acute infarct. 3. Hyperintense foci in the periventricular region.? Demyelinating processes including MS should be considered.? Labs on day of discharge: Labs from last 24 hours 07/04/22 07/04/22 06:20 06:[address] Glu mg/dL Pending Hemoglobin A1c Pending Cancelled PFSH All Active Problems (Updated 07/05/22 @ 17:07 by Neo Wyatt MD) DVT prophylaxis (Acute) COVID-19 (Acute) Headache (Acute) CVA (cerebral vascular accident) (Chronic) right germán w/ prior hemorrhage Dizziness (Acute) Cervical radiculopathy (Chronic 06/19/13) Hyperlipidemia (Chronic) Nonproliferative diabetic retinopathy (Chronic 01/25/12) OPTICAL EXPRESSIONS; MILD NPDR IN THE RIGHT EYE ONLY Depression (Chronic) Erectile dysfunction (Acute) Radiculopathy (Acute) Noncompliance with medication regimen (Chronic) Diabetic neuropathy (Acute) Type 1 diabetes mellitus with diabetic nephropathy, with long-term current use of insulin (Acute) Essential hypertension (Chronic) Medical History Cellulitis due to MRSA (~02/2022) Of Right forearm COVID-19 ruled out by laboratory testing CVA (cerebrovascular accident) bilateral lacunar infarcts, left periventricular lacunar infarct is acute DKA (diabetic ketoacidosis) Metabolic acidosis due to diabetes mellitus Renal calculi Surgical History History of nasal surgery Hx of lithotripsy Family History Mother Depression Father Diabetes Social History Smoking/Tobacco Use Status: Former Tobacco Use tobacco type: cigarettes Quit Date: 04/11/02 Tobacco: How many years used: 7 Second Hand Exposure: Yes Smoking risk assessment performed?: Yes Alcohol Intake: former Drug use: Never Substance use type: does not use Details: No ETOH since august 2020 Household members: spouse and children Housing: house Communication Needs: None Do you need help understanding health information?: Never Pets and animals: Yes Pets and animals: cat(s), dog(s) and other Sexually active: Yes Do you think of yourself as: straight/heterosexual Current gender identity: male What is your relationship status?: How often do you talk on the phone with friends or family?: twice per week How often do you get together with friends or relatives?: once per week How often do you attend methodist or scientology services?: decline to answer Do you belong to any clubs or organized social groups?: no Panel score (0-1 are the most socially isolated patients): 2 Nohemi/Uatsdin: None Seatbelt use: sometimes Drive intox or ride w/intox skidder driver: No Do you feel safe at home: Yes Do you feel safe in your relationship?: Yes Time Spent with Patient Time Spent with Patient: <45 minutes Time was spent: preparing to see the patient(eg.review tests), ordering medications,tests, procedures, indepentently interpreting results and counseling the patient
[2022-07-05 17:17] VITALS: PULSE 99
[2022-07-06 12:40] LABS: Estimated Average Glucose 306 mg/dL; Hemoglobin A1C 12.3 % (<5.7)
--- NOTE | 2022-07-06 17:40 | INDS_ITS ---
Date of service: 07/08/22 PT Notes Visit Reasons: Ataxia, Pontine CVA Physical Therapy Inpatient Initial Evaluation Date: 07/06/2022 Dates of Service: 07/03/2022 through 07/04/2022 This is a clinical summary of care provided for the duration of dates listed above. No charge was made in the completion of this documentation. Referring Doctor:? Neo Wyatt MD PT Orders: PT CONSULT: Fall safety assessment Precautions: Activity as tolerated. Airborne precautions due to COVID-19. Patient Profile/Admitting Diagnosis:? Dragan is a 47-year-old right hand dominant male who presented to the ED early today with complaints of new onset headache, and dizziness when lying flat.? He was diagnosed with a recent CVA a week ago and is being admitted for management of possible recurrence of CVA, COVID-19 infection, depression, essential hypertension, and hyperlipidemia. PMHX: All Active Problems?(Updated 07/03/22 @ 08:36 by Neo Wyatt MD) DVT prophylaxis (Acute) COVID-19 (Acute) Headache (Acute) CVA (cerebral vascular accident) (Chronic) right germán w/ prior hemorrhageAtaxic gait (Acute) Dizziness (Acute) Cervical radiculopathy (Chronic 06/19/13) Hyperlipidemia (Chronic) Nonproliferative diabetic retinopathy (Chronic 01/25/12) OPTICAL EXPRESSIONS; MILD NPDR IN THE RIGHT EYE ONLY Depression (Chronic) Erectile dysfunction (Acute) Radiculopathy (Acute) Noncompliance with medication regimen (Chronic) Diabetic neuropathy (Acute) Type 1 diabetes mellitus with diabetic nephropathy, with long-term current use of insulin (Acute) Essential hypertension (Acute) Medical History? Cellulitis due to MRSA (~02/2022) Of Right forearm COVID-19 ruled out by laboratory testing CVA (cerebrovascular accident) bilateral lacunar infarcts, left periventricular lacunar infarct is acute DKA (diabetic ketoacidosis) Metabolic acidosis due to diabetes mellitus Renal calculi Surgical History? History of nasal surgery Hx of lithotripsy Social History/Home Situation: Lives with family in a private home.? Independent with all aspects of ADLs prior to admission.? 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 Equipment Owned/DME: None Subjective: Complains of dizziness and headache when on his back,? when turning head to the left while lying,? and when transitioning from sitting to lying on his back.? Does not feel that he is at walking speed baseline.? Reported 2-3/10 pain and tenderness in the suboccipital area.? He also reported blurriness of vision wh ile on his back and truning head to the right. Objective: General Observation: In NAD.? Seated on bedside chair.? Mental Status: Alert and oriented as to person, place, time, and purpose. Able to pay attention, focus, and respond appropriately. Pain: 1-07/30 R-parietotemproal area;? 2-08/27 suboccipital area R more affected than L Vital Signs: Higg blood pressure measure before PT came in,? 160s/100s mmHg;? Nurse Dania measured 288 mg/dL on the glucometer during session ROM: Right Upper Extremity: ? Shoulder Flexion WFL. Shoulder abduction WFL. Elbow flexion WFL. Wrist flexion WFL. Functional opening and closing of hand WFL. Left Upper Extremity:? Shoulder Flexion WFL. Shoulder abduction WFL. Elbow flexion WFL. Wrist flexion WFL. Functional opening and closing of hand WFL. Right Lower Extremity: Hip flexion WFL. Hip abduction WFL. Knee flexion WFL. Ankle dorsiflexion WFL. Ankle plantarflexion WFL. Left Lower Extremity: Hip flexion WFL. Hip abduction WFL. Knee flexion WFL. Ankle dorsiflexion WFL. Ankle plantarflexion WFL. Strength: Right Upper Extremity: Shoulder flexors 5/5. Shoulder abductors 5/5. Elbow flexors 5/5. Elbow extensors 5/5. Lay Out Machine Operator strong. Left Upper Extremity: Shoulder flexors 5/5. Shoulder abductors 5/5. Elbow flexors 5/5. Elbow extensors 5/5. Lay Out Machine Operator strong. Right Lower Extremity: Hip flexors 5/5. Hip abductors 5/5. Knee flexors 5/5. Knee extensors 5/5. Ankle dorsiflexors 4/5. Ankle plantarflexors 5/5. Left Lower Extremity: Hip flexors 5/5. Hip abductors 5/5. Knee flexors 5/5. Knee extensors 5/5. Ankle dorsiflexors 4/5. Ankle plantarflexors 5/5. Bed Mobility/Transfers: Rolling independent Supine to sit independent Sit to supine independent Sit to stand independent Stand to sit independent Bed to reclining chair independent Reclining chair to bed independent Gait: Instructed patient with in-room level surface ambulation of 90 feet independently however with significantly reduced speed. Needed to slow down during directional changes.? Steps hesitant/cautious but no path deviation,? no loss of balance.? No ataxia seen. Balance: Static Sitting: Normal Dynamic Sitting: Normal Static Standing: Good Dynamic Standing: Good Special Tests: Mobility Limitations Standardized Measure [facility] 6 clicks Basic Mobility Inpatient Short Form: Raw Score: 24? CMS Score: 0% deficit? ? ? NEURO TESTING: Spontaneous nystagmus: No vertical nystagmus seen at rest Smooth pursuit: Intact to R,? R beating nystagmus with L gaze Conjugate gaze: Intact but with R beating horizontal nystagmus with L gaze Romberg Test:? Positive.? Patient had severe postural sway and near LOB 4 seconds after closing eyes,? needed minimal assist of PT to recover. 4-Stage balance Test:? Able to assume feet together,? semi-tandem, full tandem, and one-legged stance for 10 seconds after 2-3 attempts. Pronator drift: Negative Rapid alternating movement: Impaired NEURO RE-EDUCATION: Slow head turns x 10 seated Slow head turns x 10 standing Slow head turns supine x 5 with report of increased dizziiness/nausea,? blurriness of vision, and headache with L head turn Assessment: Strength to B UE/LE symmetric.? Romberg Test positive.? Gait nikki/speed decreased due to balance impairment. Patient safe to walk without assitive device at reduced gait speed.? Vertiginous in supine with L head turned to R and with sit to supine.? Able to do mobility performance and ADLs if done slowly.? Assistive ambulatory device not needed. Patient presents with clinical signs and symptoms consistent with current/admitting diagnoses that have resulted to mobility limitations, gait instability, generalized weakness, and overall ADL decline as demonstrated by the following impairment level findings: 1.? Dizziness and nausea with supine and L head turning 2.? Impaired standing static and ndynamic balance 3.? Impaired activity tolerance Impairments are contributing to the following functional limitations: 1.? Increased completion time for mobility ADL performance 2.? Increased risk for falls 3.? Difficulty with managing steps alone safely Goals: Goals X1 week 1. Independent gait on level surface with improved nikki of at least 130 steps per minute without report of dizziness NOT MET 2. Independent with home exercise program NOT MET 3. Normal static and dynamic standing balance/tolerance NOT MET DISCHARGE RECOMMENDATIONS: [] ? Home with no services [] [] ? Home with services [specify] [X] ? Home with outpatient PT. Home when medically cleared by hospitalist.? Recommend outpatient PT services for continued vestibular rehabilitation to facilitate return to premorbid indepedent level and allow full return to vocational activities. [] ? SNF for continued rehabilitation [] [] ? Penitentiary Care [] [] ? SNF versus LTC based on ability to participate and progress [] TREATMENT CODE/TIME: EDISON Thank you for the opportunity to participate in the care of this patient. Aide Sutton PT, DPT, CLT [facility] [place], [place]
== END 2022-07-05 17:58 | disposition home or self-care (01) | DRG 64 ==
LOC: ER 08:05 → MS 09:13
PROVIDERS: Admitting Provider Internal Medicine; Emergency Provider Student in an Organized Health Care Education/Training Program; PCP Nurse Practitioner Family; Visit Provider Internal Medicine
DX: I63.81 Other cerebral infarction due to occlusion or stenosis of small artery; U07.1 COVID-19; R42 Dizziness and giddiness; R26.0 Ataxic gait; F32.A Depression, unspecified; I10 Essential (primary) hypertension; E78.5 Hyperlipidemia, unspecified; E10.21 Type 1 diabetes mellitus with diabetic nephropathy; M54.12 Radiculopathy, cervical region; Z91.14 Patient's other noncompliance with medication regimen; E10.40 Type 1 diabetes mellitus with diabetic neuropathy, unspecified; E10.65 Type 1 diabetes mellitus with hyperglycemia
CPT/HCPCS: 36415; 36416; 70496; 70498; 80053; 80061; 82962; 87635; 93005; 96360; 96372; 97161; 97530; 99285; J1650; 70551; 82728; 83036; 83615; 84443; 84484; 85025; 85610; 85730; 93010; 99223; 99232; 99239; J2405; J3490

== ENCOUNTER 2024-03-09 07:34 | Emergency (ER) | payer BC, SELFPAY ==
[2024-03-09 07:35] VITALS: BP 128/82; PULSE 83; RESP 17; O2SAT 99
--- NOTE | 2024-03-09 08:19 | W.ED.GENAD ---
Discharge Plan Disposition Patient Disposition: Home Discharge Details Clinical Impression: Immunization, tetanus-diphtheria, Laceration of right ring finger Primary Care Provider: Deep Knox ED Provider: Allan Cabral Aristes Meds and New Rx's Prescriptions: New cephalexin 500 mg capsule 500 mg PO QID 5 Days Qty: 20 0RF Continued glucagon HCl [Glucagon (HCl) Emergency Kit] 1 mg recon soln 1 mg subcut ONCE PRN (Reason: hypoglycemia) (DME) insulin pump cart,10 units/day Cartridge See Rx Instructions .ROUTE Qty: 5 0RF Rx Instructions: [facility] endocrinology manages. (DME) Dexcom G6 Potato Picker Misc See Rx Instructions .ROUTE .MEDSUPPLY Qty: 1 0RF Rx Instructions: As directed buspirone 30 mg tablet 30 mg PO BID Qty: 180 3RF chlorthalidone 25 mg tablet 25 mg PO DAILY Qty: 90 3RF lisinopril 20 mg tablet 20 mg PO DAILY Qty: 90 3RF (DME) Dexcom G6 Sensor Device See Rx Instructions .ROUTE .MEDSUPPLY Qty: 3 4RF Rx Instructions: As directed (DME) Dexcom G6 Transmitter Device See Rx Instructions .ROUTE .MEDSUPPLY Qty: 1 4RF Rx Instructions: As directed atorvastatin 40 mg tablet 40 mg PO DAILY Qty: 90 3RF duloxetine 60 mg capsule,delayed release(DR/EC) 120 mg PO DAILY Qty: 180 4RF clopidogrel [Plavix] 75 mg tablet 75 mg PO DAILY Qty: 90 3RF Discharge Instructions Instructions: Tdap (Tetanus, Diphtheria, Pertussis) Vaccine CDC Vaccine Information Statement (VIS) Additional Instructions: You are seen emergency department for your finger laceration. Given that the laceration was sustained 2 days ago your wound was allowed to heal by secondary intention which means that it will heal from the bottom up without stitches. You are receiving antibiotics that you should take as directed. Please return to the emergency department if you develop streaking signs of infection fevers chills nausea or vomiting. Otherwise please keep your laceration dressed clean and free of any water for the next 48 hours. Stand Alone Forms: Work Release Discharge Data Discharge Date/Time-TO BE ENTERED AT DEPARTURE: 03/09/24 08:52 HPI General Date/Time Provider Initiated Documentation: 03/09/24 07:48. HPI Narrative: MDM This is an overall very well-appearing normothermic and not tachycardic [id number] 48-year-old male with hemostatic laceration to the skin overlying the DIP joint of his dominant right ring finger which occurred approximately 2 days ago and which we will allow to heal by secondary intention following tetanus immunization. Patient has full range of motion in his right hand so my suspicion for any acute osseous abnormality is low so I did not obtain an x-ray. No pain out of proportion to suggest necrotizing soft tissue infection. Given that his finger was pinched by the mailbox I was not suspicious for possible foreign body so I did not feel he required radiographs. No significant erythema nor fevers to suggest increased risk for infection however given that the patient is diabetic we will treat him with a short course of cephalexin. No tenderness with percussion along the flexor tendon sheath so my suspicion is low for flexor tenosynovitis. No tenderness to pulp of right ring finger so I am not concerned for felon. Will dress wound with Surgicel after allowing it to dry as it does appear to be slightly macerated. Given that wound has been open for the past several days and was initially irrigated we will defer additional irrigation at this point in time. Patient I discussed return indications to the ED including worsening pain persistent bleeding foul-smelling drainage or streaking signs of infection or fevers. I treated patient with a course of cephalexin for 5 days given history of diabetes. Patient understood return indications and was discharged with empiric trial of expectant outpatient management. Chronic conditions affecting the care of the patient: Diabetes History obtained from an outside historian: N/A External record review: N/A Medications: Tetanus immunization Social determinants of health affecting disposition: N/A Management discussed with: N/A Treatment/interventions considered: N/A Response to therapies provided: N/A HPI This is a [id number] 48-year-old diabetic male arrived to the emergency department via private vehicle in the setting of right ring finger pain and laceration. 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 The finger was pinched between the mailbox and his car door. He takes clopidogrel as he has had prior CVAs. He denies routine tobacco. He is an insulin-dependent diabetic. He has had no difficulties in ranging his right hand and specifically his right ring finger. No fevers chills nausea nor vomiting. He was able to rinse his right ring finger following his injury. Exam General: Well-appearing in no acute distress speaking in complete sentences. Head: Normocephalic, atraumatic. Eye: Extraocular eye movements intact. No conjunctival injection. No scleral icterus. Ear, nose, mouth, throat: Grossly normal inspection. Normal voice, handling secretions normally. Neck: Trachea midline. Cardiovascular: Well-perfused distal extremities. Respiratory: Nonlabored respiration. Gastrointestinal: Nondistended abdomen. Musculoskeletal: On the volar surface of the right ring finger and the superficial tissue overlying the DIP joint there is a hemostatic approximately 3 cm laceration. Laceration does not appear to violate the subcutaneous tissue. No streaking signs of infection. No pain with percussion along flexor tendon sheath. Full range of motion in right hand. Specifically full range of motion right ring finger on flexion and extension across the MCP, PIP, and DIP joints. 2+ right radial pulse. Cap refill less than 2 seconds in the right fingertips. Skin: Normal for age and race, grossly normal temperature and turgor. No acute rash. Neurologic: Alert and appropriate, no apparent acute deficits. GCS 15. Psychiatric: Mood and manner are appropriate. Grooming and personal hygiene are appropriate. Related Data Home Medications ?Medication ?Instructions ?Recorded ?Confirmed blood-glucose meter,continuous #1 ea 10/30/20 03/09/24 (Dexcom G6 Potato Picker) glucagon HCl 1 mg solution for 1 mg subcut ONCE PRN hypoglycemia 04/02/22 03/09/24 injection (Glucagon (HCl) Emergency Kit) buspirone 30 mg tablet 30 mg PO BID #180 tabs 06/17/23 03/09/24 chlorthalidone 25 mg tablet 25 mg PO DAILY #90 tabs 07/20/23 03/09/24 lisinopril 20 mg tablet 20 mg PO DAILY #90 tabs 07/27/23 03/09/24 blood-glucose sensor (Dexcom G6 #3 ea 08/03/23 03/09/24 Sensor device) insulin pump cart,10 units/day #5 ea 08/03/23 03/09/24 blood-glucose transmitter (Dexcom #1 ea 08/15/23 03/09/24 G6 Transmitter device) atorvastatin 40 mg tablet 40 mg PO DAILY #90 tabs 10/31/23 03/09/24 duloxetine 60 mg capsule,delayed 120 mg (2 x 60 mg) PO DAILY #180 02/09/24 03/09/24 release caps clopidogrel 75 mg tablet (Plavix) 75 mg PO DAILY #90 tabs 03/05/24 03/09/24 cephalexin 500 mg capsule 500 mg PO QID 5 days #20 caps 03/09/24 Previous Rx's ?Medication ?Instructions ?Recorded blood-glucose meter,continuous #1 ea 10/30/20 (Dexcom G6 Potato Picker) buspirone 30 mg tablet 30 mg PO BID #180 tabs 06/17/23 chlorthalidone 25 mg tablet 25 mg PO DAILY #90 tabs 07/20/23 lisinopril 20 mg tablet 20 mg PO DAILY #90 tabs 07/27/23 blood-glucose sensor (Dexcom G6 #3 ea 08/03/23 Sensor device) insulin pump cart,10 units/day #5 ea 08/03/23 blood-glucose transmitter (Dexcom #1 ea 08/15/23 G6 Transmitter device) atorvastatin 40 mg tablet 40 mg PO DAILY #90 tabs 10/31/23 duloxetine 60 mg capsule,delayed 120 mg (2 x 60 mg) PO DAILY #180 02/09/24 release caps clopidogrel 75 mg tablet (Plavix) 75 mg PO DAILY #90 tabs 03/05/24 cephalexin 500 mg capsule 500 mg PO QID 5 days #20 caps 03/09/24 Allergies Allergy/AdvReac Type Severity Reaction Status Date / Time ciprofloxacin (From Cipro) AdvReac Intermediate blacks Verified 03/09/24 07:41 out General Stated Complaint: Laceration NEYMAR: 4 Course Vital Signs Vital signs: Vital Signs Pulse 83 03/09/24 07:35 Respiratory Rate 17 03/09/24 07:35 Blood Pressure 128/82 03/09/24 07:35 Pulse Oximetry 99 03/09/24 07:35 Pulse 83 03/09/24 07:35 Respiratory Rate 17 03/09/24 07:35 Respiratory Effort Normal 03/09/24 07:40 Blood Pressure 128/82 03/09/24 07:35 Blood Pressure Position Sitting 03/09/24 07:35 Pulse Oximetry 99 03/09/24 07:35 Oxygen Delivery Method Room Air 03/09/24 07:35 Oxygen Flow Rate 0 03/09/24 07:35 Pain Level 1 03/09/24 07:42 Medical Decision Making Quality:SDOH Health Related Social Needs: No Data to Display PFSH All Active Problems (Updated 03/09/24 @ 08:36 by Allan Cabral MD) Laceration of right ring finger (Acute) Immunization, tetanus-diphtheria (Acute) Hyperlipidemia (Chronic) Nonproliferative diabetic retinopathy (Chronic 01/25/12) OPTICAL EXPRESSIONS; MILD NPDR IN THE RIGHT EYE ONLY Depression (Chronic) Erectile dysfunction (Acute) Radiculopathy (Acute) Noncompliance with medication regimen (Chronic) Diabetic neuropathy (Acute) Type 1 diabetes mellitus with diabetic nephropathy, with long-term current use of insulin (Acute) Essential hypertension (Chronic) Medical History Cellulitis due to MRSA (~02/2022) Of Right forearm CVA (cerebrovascular accident) bilateral lacunar infarcts, left periventricular lacunar infarct is acute COVID-19 ruled out by laboratory testing Metabolic acidosis due to diabetes mellitus DKA (diabetic ketoacidosis) Renal calculi Surgical History Hx of lithotripsy History of nasal surgery Family History Mother Depression Father Diabetes Social History (Updated 08/11/23 @ 15:16 by Linda Ortiz) Smoking/Tobacco Use Status: Former Tobacco Use tobacco type: cigarettes Quit Date: 04/11/02 Tobacco: How many years used: 7 Second Hand Exposure: Yes Smoking risk assessment performed?: Yes Alcohol Intake: former Drug use: Never Substance use type: does not use Details: No ETOH since august 2020 Adopted: No Caregiver/Support person: No Household members: significant other Housing: house Number of Children: 4 number of grandchildren: 1 Communication Needs: None Education Level: college Do you need help understanding health information?: Never current occupation: [employer] Pets and animals: Yes Pets and animals: cat(s), dog(s) and other Sexually active: Yes Do you think of yourself as: straight/heterosexual Current gender identity: male What is your relationship status?: How often do you talk on the phone with friends or family?: three or more times per week How often do you get together with friends or relatives?: once per week How often do you attend scientology or jainism services?: decline to answer Do you belong to any clubs or organized social groups?: no Panel score (0-1 are the most socially isolated patients): 1 What type of physical activity do you participate in: none and decline to answer Frequency: decline to answer Nohemi/Alevism: None Special nohemi needs: No Seatbelt use: always Helmet use: No Drive intox or ride w/intox special needs bus driver: No Firearms in home: No Do you feel safe at home: Yes Do you feel safe in your relationship?: Yes Victim of physical abuse: No Victim of emotional abuse: No Victim of sexual abuse: No Would you like helpful sources: No PAWSS Have you Been Recently Intoxicated or Drunk Within the Last 30 days?: No Have you Ever Experienced Previous Episodes of Alcohol Withdrawal?: No Have you ever Experienced Withdrawal Seizures?: No Have you ever Experienced Delirium Tremens(DT)s?: No Have you ever undergone Alcohol Rehabilitation Treatment (i.e, inpt ot outpatient treatment programs)?: No Have you ever Experienced Blackouts?: No Have you ever Combined Alcohol with other Downers within the last 90 days?: No Have you ever Combined Alcohol with any other Substance of Abuse during the last 90 days?: No Result: 0
[2024-03-09] MEDS: Tetanus & Diphtheria Tox,ADULT 0.5 ML VIAL IM (08:28)
[2024-03-09 08:34] VITALS: RESP 18; TEMP 36.5; O2SAT 98
[2024-03-09] MEDS: Cellulose,Oxidized 4X8 1 PACKET MC (08:45)
== END 2024-03-09 08:52 | disposition home or self-care (01) ==
PROVIDERS: Emergency Provider Emergency Medicine; PCP Nurse Practitioner Family
DX: S61.214A Laceration without foreign body of right ring finger without damage to nail, initial encounter (principal); W23.1XXA Caught, crushed, jammed, or pinched between stationary objects, initial encounter; Z23 Encounter for immunization
CPT/HCPCS: 90471; 90714; 99284; 99283

== ENCOUNTER 2024-12-31 07:05 | Observation (INO) | payer BC, SELFPAY ==
[2024-12-31] VITALS (71 sets, daily range): BP systolic 133–174; BP diastolic 76–146; PULSE 88–104; RESP 12–26; TEMP 36.6–36.8; O2SAT 92–100
--- NOTE | 2024-12-31 07:00 | DI.CT_ITS ---
Exam(s) CT BRAIN NECK CTA EXAM: CT BRAIN NECK CTA CLINICAL HISTORY: weakness. TECHNIQUE: Imaging Protocol: Axial CT angiography was performed with multi- slice acquisition and multi-planar and/or 3D reconstructions. CONTRAST MATERIAL: Intravenous: Omnipaque 350 contrast volume:70 mL COMPARISON: CT CT BRAIN NECK CTA from 07/03/2022 FINDINGS: CT Head W/O and W: Ventricles and Extra axial spaces: Normal in size and morphology for the patient's age. Hemorrhage: None. Cerebral parenchyma: The areas of decreased attenuation in the white matter are less prominent compared to the prior examination from 07/03/2022. No evidence of an acute territorial infarct or mass effect is identified. Midline shift: None. Brainstem/Cerebellum: Normal. Calvarium: Normal. Visualized Paranasal sinuses/Mastoids: Clear. Soft Tissues: Unremarkable. Enhancement: Unremarkable. CTA Neck W: Common Carotid: Right: No dissection, occlusion or significant stenosis. Left: No dissection, occlusion or significant stenosis. External Carotid: Right: No occlusion or significant stenosis. Left: No occlusion or significant stenosis. Internal Carotid: Mild atherosclerotic calcification is seen at the origins of both internal carotid arteries. Right: No dissection, occlusion or significant stenosis. Left: No dissection, occlusion or significant stenosis. Vertebral Artery: Right: No dissection, occlusion or significant stenosis. Left: No dissection, occlusion or significant stenosis. Lung Apices: There is a ground-glass infiltrate in the right upper lobe. Bones: Within normal limits for the patient's age. Soft Tissues: Normal. Thyroid gland: Unremarkable. CTA Brain W: Internal Carotid Arteries: Mild atherosclerotic calcification is seen of the cavernous portion of the left internal carotid artery. No significant stenosis, occlusion or aneurysm is seen of the internal carotid arteries. Anterior Cerebral Arteries: Right: No aneurysm, occlusion or significant stenosis. Left: No aneurysm, occlusion or significant stenosis. Middle Cerebral Arteries: Right: No aneurysm, occlusion or significant stenosis. Left: No aneurysm, occlusion or significant stenosis. Posterior Cerebral Arteries: Right: No aneurysm, occlusion or significant stenosis. Left: No aneurysm, occlusion or significant stenosis. Vertebral Arteries: Right: No aneurysm, occlusion or significant stenosis. Left: No aneurysm, occlusion or significant stenosis. Basilar Artery: No aneurysm, occlusion or significant stenosis. IMPRESSION: 1. No large vessel occlusion or significant stenosis on the CT angiography of the head. 2. No acute intracranial process. 3. No occlusion or significant stenosis on the CT angiography of the neck. 4. Right upper lobe ground-glass infiltrate which may represent a pneumonia. Please correlate clinically. 5. The preliminary [facility] report was reviewed. RADIATION DOSE DELIVERED: 2,372.39mGy.cm Total DLP DATA REPOSITORY: All CT scans at this facility are submitted to the National Radiology Data Registry (NRDR) Dose Index Registry (DIR) with the [employer] (ACR). RADIATION OPTIMIZATION: All CT scans at this facility use at least one of these dose optimization techniques: automated exposure control; mA and/or kV adjustment per patient size (includes targeted exams where dose is matched to clinical indication); or iterative reconstruction.
--- NOTE | 2024-12-31 07:00 | RT.EKG_ITS ---
APPROVED REPORT Exam: Resting ECG Reason for Exam: weakness Patient Location: E HR:92 bpm ECG Measurements Heart Rate 92 AXIS [place] 146 P 26 QRSd 105 QRS -16 QT 367 T 1 QTc 455 Conclusion Sinus rhythm...normal P axis, V-rate 60- 99 No Occlusion OK
--- NOTE | 2024-12-31 07:00 | DI.RAD_ITS ---
Exam(s) XR CHEST 1V IN DI DEPT EXAM: XR CHEST 1V IN DI DEPT CLINICAL HISTORY: weakness. TECHNIQUE: 2D digital imaging was performed. COMPARISON: CR XR CHEST 2V PA LATERAL from 07/01/2022 FINDINGS: Single AP portable view. Heart size is upper normal. The mediastinum is not widened. Increased markings peripherally in the right lung evident. No obvious pleural effusion. There is slightly increased markings in the left lower lobe retrocardiac region which are probably vascular as the appear unchanged from chest x-ray of June 2022. There is also subsegmental platelike atelectasis in the lateral left lung base. There are no pleural effusions. IMPRESSION: Increased left lower lobe markings which are probably vascular as they are unchanged from chest x-ray of June 2022. There is also platelike atelectasis in the lateral left lung base. There are slightly increased markings in the lateral aspect the right lung, more so than previous. There are no pleural effusions. DATA REPOSITORY: RADIATION DOSE DELIVERED:
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
[2024-12-31] MEDS: Omnipaque 350 MG/ML 100 ML BTL IJ (07:16)
[2024-12-31] MEDS: Normal Saline - Diluent 50 ML VIAL IJ (07:18)
[2024-12-31 07:47] LABS: Abs Immature Grans 0.07 10^3/uL (0.0-0.06); HCT 39.7 % (40.0-50.0); HGB 13.6 g/dL (13.5-17.5); Immature Grans % 0.9 %; MCH 32.0 pg (27.0-33.0); MCHC 34.3 % (32.0-36.0); MCV 93 fL (80-95); MPV 10.2 fL (8.0-11.0); Platelet Count 356 10^3/uL (130-400); RBC 4.25 10^6/uL (4.36-5.78); RDW 11.6 % (11.8-14.1); RDW-SD 39.6 fL; WBC 7.49 10^3/uL (4.4-10.8)
--- NOTE | 2024-12-31 08:07 | DI.VRAD_ITS ---
PROCEDURE INFORMATION: Exam: CTA Head Without And With Contrast, Arteriography Exam date and time: 12/31/2024 7:18 AM Age: 49 years old Clinical indication: Stroke-like symptoms; Generalized weakness TECHNIQUE: Imaging protocol: Computed tomographic angiography of the head without and with contrast. Exam focused on the arteries. 3D rendering (Not supervised by radiologist): MIP and/or 3D reconstructed images were created by the technologist. Other technique: STROKE PROTOCOL was implemented. COMPARISON: CT BRAIN NECK CTA 07/03/2022 4:30 AM FINDINGS: ANTERIOR CIRCULATION: Right internal carotid artery: Intracranial segment is patent with no significant stenosis or occlusion. No aneurysm. Right middle cerebral artery: No occlusion or significant stenosis. No aneurysm. Right anterior cerebral artery: No occlusion or significant stenosis. No aneurysm. Left internal carotid artery: Intracranial segment is patent with no significant stenosis. No aneurysm. Left middle cerebral artery: No occlusion or significant stenosis. No aneurysm. Left anterior cerebral artery: No occlusion or significant stenosis. No aneurysm. POSTERIOR CIRCULATION: Right vertebral artery: No occlusion or significant stenosis. No aneurysm. Left vertebral artery: No occlusion or significant stenosis. No aneurysm. Basilar artery: No occlusion or significant stenosis. No aneurysm. Right posterior cerebral artery: No occlusion or significant stenosis. No aneurysm. Left posterior cerebral artery: No occlusion or significant stenosis. No aneurysm. HEAD: Brain: Normal. No hemorrhage. Unremarkable white matter. No mass effect. Cerebral ventricles: Normal. No ventriculomegaly. Bones: Unremarkable. No acute fracture. Paranasal sinuses: Mucous membrane thickening within visualized paranasal sinuses. Mastoid air cells: Visualized mastoids are normal. No mastoid effusion. Soft tissues: Unremarkable. IMPRESSION: 1. No large vessel occlusion. 2. Unremarkable CT head. ASSESSMENT: ASPECTS (Jinny Stroke Program Early CT Score) is 10. PROCEDURE INFORMATION: Exam: CTA Neck Without And With Contrast Exam date and time: 12/31/2024 7:18 AM Age: 49 years old Clinical indication: Stroke-like symptoms; Generalized weakness TECHNIQUE: Imaging protocol: Computed tomographic angiography of the neck without and with contrast. Exam focused on the cervical segments of the vasculature. 3D rendering (Not supervised by radiologist): MIP and/or 3D reconstructed images were created by the technologist. COMPARISON: CT BRAIN NECK CTA 07/03/2022 4:30 AM FINDINGS: Right common carotid artery: No stenosis. No dissection or occlusion. Right internal carotid artery: No stenosis of the extracranial segment. No dissection or occlusion. Right external carotid artery: No occlusion or stenosis of the origin. Left common carotid artery: No stenosis. No dissection or occlusion. Left internal carotid artery: No stenosis of the extracranial segment. No dissection or occlusion. Left external carotid artery: No occlusion or stenosis of the origin. Right vertebral artery: No stenosis. No dissection or occlusion. Left vertebral artery: No stenosis. No dissection or occlusion. Soft tissues: Normal. No significant soft tissue swelling. Bones/joints: No acute fracture. Lungs: Focal ground-glass opacification within the right lung apex, suspicious for an infectious or inflammatory process. IMPRESSION: 1. No stenosis or occlusion. 2. Focal ground-glass opacification within the right lung apex, suspicious for an infectious or inflammatory process. REFERENCES: NASCET CRITERIA. The degree of stenosis in the cervical segment of the internal carotid artery is based on NASCET criteria. Normal is no stenosis. Mild is less than 50% stenosis. Moderate is 50-69% stenosis. Severe is 70% to 99% stenosis. Total occlusion is no detectable patent lumen. Dictated and Authenticated by: Fran Tam MD. Orderin Marianna Lemus MD
[2024-12-31 08:13] LABS: ALT 35 U/L (16-63); AST 22 U/L (15-37); Albumin 3.5 g/dL (3.4-5.0); Alkaline Phosphatase 116 U/L (46-116); Anion Gap 10.0 mmol/L (3-11); BUN 29 mg/dL (7-18); Bilirubin, Total 0.3 mg/dL (0.2-1.0); CO2 26.0 mmol/L (21.0-32.0); Calcium 9.2 mg/dL (8.5-10.1); Chloride 102 mmol/L (98-107); Estimated GFR 82.81 (mL/min/1.73m2); Glucose 158 mg/dL (74-106); Potassium 4.3 mmol/L (3.5-5.1); Sodium 138 mmol/L (136-145); Total Protein 7.5 g/dL (6.4-8.2)
[2024-12-31 08:23] LABS: TSH (W/Ref FT4) 1.77 uIU/mL (0.36-3.74); Troponin I 9 ng/L (<or=76)
--- NOTE | 2024-12-31 08:45 | DI.MRI_ITS ---
Exam(s) MR BRAIN WO EXAM: MR BRAIN WO CLINICAL HISTORY: Right upper extremity weakness TECHNIQUE: Multiplanar multisequence MRI of the brain was performed. COMPARISON: MR MR BRAIN WO from 07/01/2022 MR MR BRAIN WO from 07/05/[address] BRAIN NECK CTA from 12/31/2024 FINDINGS: The examination is limited due to patient motion artifact. VENTRICLES AND EXTRA AXIAL SPACES: Normal in size and morphology for the patient's age. MIDLINE SHIFT: None. CEREBRAL PARENCHYMA: No focus of restricted diffusion to suggest acute infarct. No space-occupying lesion identified. There are several areas of hyperintense signal seen in the white matter. There are white matter hyperintense lesions perpendicularly oriented to the ventricles. Demyelinating process such as MS should be considered. These are unchanged compared to the prior examination. There is a new focus of hyperintense signal seen in the white matter in the anterior aspect of the left parietal lobe. HEMORRHAGE: None. BRAINSTEM/CEREBELLUM: Normal. CALVARIUM: Normal. VISUALIZED PARANASAL SINUSES/MASTOIDS:Clear. [place]: Normal flow void. PITUITARY GLAND: Unremarkable. OTHER FINDINGS: None. IMPRESSION: 1. No evidence of an acute territorial infarct. 2. Multiple white matter lesions again seen which are mostly stable. There is a new hyperintense white matter lesion in the anterior aspect of the left parietal lobe. 3. Findings were discussed with Dr. Cabral at 12:26 p.m. on 12/31/2024. DATA REPOSITORY:
[2024-12-31] MEDS: Famotidine 20 MG/2 ML VIAL 40 MG IVP (09:46)
[2024-12-31] MEDS: Aspirin 81 MG CHEW 324 MG CH (09:46)
[2024-12-31] MEDS: Acetaminophen 500 MG TAB 1000 MG PO (11:25)
[2024-12-31 12:33] LABS: Troponin I 7 ng/L (<or=76)
[2024-12-31 13:22] LABS: Troponin I 6 ng/L (<or=76)
[2024-12-31] MEDS: Normal Saline Flush 10 ML SYR IVP (15:13)
[2024-12-31] MEDS: Gadoterate meglumine 20 ML SYRINGE IVP (15:14)
--- NOTE | 2024-12-31 15:40 | DI.MRI_ITS ---
Exam(s) MR BRAIN W EXAM: MR BRAIN W CLINICAL HISTORY: Stroke TECHNIQUE: Multiplanar multisequence MRI of the brain was performed. Both noninfused and contrast infused sequences were performed. IV Contrast injected was cc Dotarem. COMPARISON: MR MR BRAIN WO from 07/05/[address] BRAIN NECK CTA from 12/31/2024 MR MR BRAIN WO from 12/31/2024 FINDINGS: CEREBRAL PARENCHYMA: No evidence of intracranial hemorrhage, new mass effect nor shift of midline structure. No extraaxial fluid collections. Ventricles are not enlarged nor shifted. Previously described FLAIR bright foci of signal abnormality in both sides of the germán is again noted as well as in the Mckayla-supra ventricular white matter, cysts similar to previous These do not exhibit evidence of acute hemorrhage, surrounding edema nor enhancement and there is no restricted diffusion to suggest acute ischemic event at these levels. DWI: No areas of restricted diffusion to suggest acute ischemic event. SWI: Susceptibility artifact in the right-side of the germán noted on conventional images earlier today consistent with prior microhemorrhage at this level. This is unchanged from MRI scan of 07/05/2022.. There are no ring enhancing lesions in the brain. There is no abnormal meningeal enhancement. PITUITARY GLAND: No mass nor parasellar abnormality. No obvious abnormality in the cavernous sinuses. FLOW VOIDS: The expected flow void are noted. No evidence of obvious aneurysm nor obvious vascular malformation. PARANASAL SINUSES: The visualized paranasal sinuses appear unremarkable. ORBITS: No obvious abnormal findings. IMPRESSION: 1. No significant acute intracranial findings. No restricted diffusion 2. Areas of periventricular signal abnormality appear relatively stable and without new areas of hemorrhage, enhancement, nor restricted diffusion. 3. There are also no ring enhancing lesions in the brain and there is no abnormal meningeal enhancement. DATA REPOSITORY:
--- NOTE | 2024-12-31 17:54 | W.PC.ACHO ---
Registration Status: ADM NAVNEET Primary Language: Preferred Language: Czech ED Information & Data Chief Complaint CVA/TIA 12/31/24 07:48 Chief Complaint CVA/TIA 12/31/24 07:46 Triage Note Pt reports at 0615 this AM 12/31/24 07:46 he started experiencing sharp pain in his right arm that lasted 30 seconds then he felt generalized weakness , a shuffling gate, and fatigue- recent hx stroke Medical / Surgical History (Last Reviewed 04/05/23 @ 09:04 by Patricia Thorne MD) Cellulitis due to MRSA (~02/2022) CVA (cerebrovascular accident) COVID-19 ruled out by laboratory testing Metabolic acidosis due to diabetes mellitus DKA (diabetic ketoacidosis) Renal calculi (Last Reviewed 04/05/23 @ 09:04 by Patricia Thorne MD) Hx of lithotripsy History of nasal surgery Most Recent Vital Signs Temperature 36.6 C 12/31/24 16:22 Temperature Source Oral 12/31/24 07:46 Pulse 95 H 12/31/24 16:22 Pulse Rhythm Regular 12/31/24 16:22 Pulse 99 H 12/31/24 15:15 Respiratory Rate 16 12/31/24 16:22 Respiratory Effort Normal, Non-Labored 12/31/24 16:22 Respiratory Depth Normal 12/31/24 16:22 Respiratory Pattern Normal 12/31/24 16:22 Blood Pressure 133/96 H 12/31/24 16:22 Blood Pressure Mean 104 12/31/24 15:15 Blood Pressure Position Sitting 12/31/24 07:46 Pulse Oximetry 99 12/31/24 16:22 Oxygen Delivery Method Room Air 12/31/24 16:22 Oxygen Flow Rate 0 12/31/24 16:22 Pain Level 0 12/31/24 16:22 Allergies ciprofloxacin (From Cipro) Adverse Reaction (Intermediate, Verified 12/31/24 07:48) blacks out Precautions Isolation Standard precaution 12/31/24 07:48 Active Medications Generic Name Dose Route Start Last Admin Trade Name Freq PRN Reason Stop Dose Admin Gadoterate Meglumine 20 ml 12/31/24 15:15 12/31/24 15:14 Gadoterate Meglumine 20 Ml Syringe IVP 01/30/25 23:59 20 ml DIRECTED CHARLINE Administration Iohexol 100 ml 12/31/24 07:30 12/31/24 07:16 Omnipaque 350 Mg/Ml 100 Ml Btl IJ 01/30/25 23:59 70 ml DIRECTED CHARLINE Administration Sodium Chloride 50 ml 12/31/24 07:30 12/31/24 07:18 Normal Saline - Diluent 50 Ml Vial IJ 50 ml .FOR DI USE CHARLINE Administration Sodium Chloride 0 ml 12/31/24 15:13 12/31/24 15:13 Normal Saline Flush 10 Ml Syr IVP 10 ml PRN PRN Administration IV IV Catheter Type [Right Saline Lock Antecubital] IV Catheter Gauge [Right 18 Antecubital] Diet Orders Category Date Time Status Heart Healthy Eating [DIET] Nutrition 12/31/24 Dinner Active Diagnostics 12/31/24 12/31/24 12/31/24 Range/Units 12:08 11:15 07:19 WBC 7.49 (4.4-10.8) 10^3/uL RBC 4.25 L (4.36-5.78) 10^6/uL Hgb 13.6 (13.5-17.5) g/dL Hct 39.7 L (40.0-50.0) % MCV 93 (80-95) fL MCH 32.0 (27.0-33.0) pg MCHC 34.3 (32.0-36.0) % RDW 11.6 L (11.8-14.1) % Plt Count 356 (130-400) 10^3/uL MPV 10.2 (8.0-11.0) fL Immature Gran % 0.9 % Neutrophils % 66.7 % Lymphocytes % 20.4 % Monocytes % 8.0 % Eosinophils % 2.8 % Basophils % 1.2 % Nucleated RBC % 0.0 (0.0-0.3) % Absolute Neutrophils 4.99 (1.2-6.7) 10^3/uL Absolute Lymphocytes 1.53 (1.2-3.4) 10^3/uL Absolute Monocytes 0.60 (0.1-0.8) 10^3/uL Absolute Eosinophils 0.21 (0.0-0.7) 10^3/uL Absolute Basophils 0.09 (0.0-0.2) 10^3/uL Sodium 138 (136-145) mmol/L Potassium 4.3 (3.5-5.1) mmol/L Chloride 102 (98-107) mmol/L Carbon Dioxide 26.0 (21.0-32.0) mmol/L Anion Gap 10.0 (3-11) mmol/L BUN 29 H (7-18) mg/dL Creatinine 1.1 (0.70-1.30) mg/dL Est GFR (CKD-EPI 2020) 82.81 (mL/min/1.73m2) Glucose 158 H (74-106) mg/dL Calcium 9.2 (8.5-10.1) mg/dL Total Bilirubin 0.3 (0.2-1.0) mg/dL AST 22 (15-37) U/L ALT 35 (16-63) U/L Alkaline Phosphatase 116 (46-116) U/L Troponin I 6 7 9 (<or=76) ng/L Total Protein 7.5 (6.4-8.2) g/dL Albumin 3.5 (3.4-5.0) g/dL TSH 1.77 (0.36-3.74) uIU/mL [id number] Documentation Fingerstick Glucose Start: 12/31/24 07:10 Freq: Status: Active Protocol: Activity Type Activity Date Activity User E-sign Co-sign Detail Recorded Client Recorded Date Recorded By Document 12/31/24 07:10 BKG DAEMON(3) [id number] 12/31/24 07:10 BKG DAEMON(4) Intake and Output - 24 Hour Total 12/31/24 07:05 thru 12/31/24 16:22 Weight 104.326 kg Other: Urine Appearance Clear Falls Risk Assessment History of Falls No History 12/31/24 16:22 Contributing Factors No Factors 12/31/24 16:22 Ambulatory Aids Independent 12/31/24 16:22 Tubes/Lines None 12/31/24 16:22 Gait Evaluation No gait disturbance 12/31/24 16:22 Cognition No cognitive impairment 12/31/24 16:22 Fall Total Score 0 12/31/24 16:22 Level of Risk Standard/Low Risk 12/31/24 16:22 Problems (Last Reviewed 04/05/23 @ 09:04 by Patricia Thorne MD) Brain TIA (Acute) Right arm weakness (Acute) v v v v v v v v v Sending and/or Receiving Nurses: Please use comment section below to note any information pertinent to the patient hand-off not included above. Information / Comments: Right AC, A&O x4. Report received from: Ike Feldman ED Nurse
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
[2024-12-31 20:32] LABS: Lab Add On Test DONE
[2024-12-31] MEDS: busPIRone 15 MG TAB 30 MG PO (20:50)
[2024-12-31] MEDS: Acetaminophen 325 MG TAB 650 MG PO (20:51)
[2024-12-31 20:53] LABS: Hemoglobin A1C 9.3 % (<5.7)
--- NOTE | 2025-01-01 | DI.US_ITS ---
APPROVED REPORT EXAM: Comprehensive 2D, Doppler, and color-flow Echocardiogram Patient Location: In-Patient Room/Bed: 216 Direct Customer Service Representative: Ariadna Longoria RDCS (AE) Indications: Stroke Echo Enhancing Agent Indication: Rule out Shunt Agent(s) / Amount(s) Used: Agitated Saline 30.0 cc Comments: Contrast study was performed with 3 IV injections of 10ccs of agitated normal saline, at rest, with cough and post valsalva maneuver. Negative contrast study for shunt flow. Other Information Study Quality: Adequate. Technically limited study due to body habitus, exam done bedside. Conclusion Normal left ventricular wall thickness and chamber size. Ejection fraction is 50 to 55%. Wall motion is normal Normal right ventricular size and function Both atria are normal in size No intracardiac shunting is seen with injection of agitated saline There are no structural or hemodynamically significant valvular abnormalities Wall motion Left Ventricle The left ventricle is normal size. The left ventricular systolic function is normal. The left ventricular ejection fraction is within the normal range. There is normal left ventricular wall thickness. There is normal LV segmental wall motion. There is no ventricular septal defect visualized. LVEF is 52%. Right Ventricle The right ventricle is normal size. The right ventricular systolic function is normal. Atria The left atrium size is normal. The right atrium size is normal. Saline bubble contrast intravenous injection does not demonstrate PFO. Aortic Valve Aortic valve is trileaflet. There is no aortic valvular stenosis. Mitral Valve The mitral valve is normal in structure. No evidence of mitral valve stenosis. Trace mitral regurgitation. Tricuspid Valve The tricuspid valve is normal in structure. There is no tricuspid valve stenosis. Trace tricuspid regurgitation. Unable to assess PA pressure. Pulmonic Valve The pulmonary valve is normal in structure. There is no pulmonic valvular stenosis. Trace pulmonic regurgitation. Great Vessels The aortic root is normal in size. The ascending aorta is normal in size. Aortic arch is not well visualized. The IVC was not visualized. Technically limited subcostal imaging. Pericardium Technically limited subcostal imaging. 2D Dimensions IVSD d PLAX 1.10 cm M: 0.6-1.2 Ao Root d 3.07 cm M: 3.1 - 3.7 LVPW d PLAX 1.11 cm M: 0.6 - 1.2 Ao Asc Diam d 3.12 cm M: 2.6 - 3.4 LVID d PLAX 5.64 cm M: 4.2 - 5.8 LVDs 4.12 cm M: 2.5 - 4.0 LV EF Teichholz 52.1 % FS 27.03 % LV EDV (Teich) 156.4 mL LV ESV (Teich) 75.0 mL M-Mode TAPSE 2.59 cm (M/F) >1.7 Auto EF LV EDV A4C 119.9 mL LV EDV A2C 139.5 mL LV EDV BP 130.0 mL LV ESV A4C 58.2 mL LV ESV A2C 65.7 mL LV ESV BP 61.9 mL LVEF(%) A4C 51.5 % LVEF(%) A2C 52.9 % LVEF(%) BP 52.4 % LV SV A4C 61.7 ml LV SV A2C 73.9 ml LV SV BP 68.2 ml LV CO A4C 6.1 L/min LV CO A2C 7.3 L/min LV CO BP 6.7 L/min HR A4C 99.18 BPM HR A2C 99.45 BPM LV EDV Index (BP) LA Volume LA Length A4C 3.8 cm LA Length A2C 4.0 cm LA Area A4C s 12.02 cm2 LA Area A2C s 12.53 cm2 LA Vol A4C A-L 31.93 mL LA Vol A2C A-L 33.38 mL LA Vol Biplane A-L 33.3 mL LA Vol/BSA A4C A-L LA Vol/BSA A2C A-L LA Vol/BSA BP A-L 14.9 mL/m2 LA Vol A4C MOD 28.1 mL LA Vol A2C MOD 32.0 mL LA Vol BP MOD 30.5 mL RA Volume RA Area A4C 8.5 cm2 RA ESV A4C (A-L) 15.5mL RA Vol/BSA A4C A-L RA Length A4C 4.0 cm RA ESV A4C (MOD) 14.7mL LV Diastology MV E' medial 0.079 (>0.07 m/s) MV E Vmax 0.57 (0.4-1.3 m/s) MV E/E' MED 7.13 (<14) MV A Vmax 0.90 (0.4-1.3 m/s) MV E' lateral 0.123 (>0.1 m/s) E/A Ratio 0.6 MV E/E' LAT 4.60 (<14) MV E' Average 0.101 m/s MV E/E'(average) 5.59 Aortic Valve AoV Vmax 1.33 m/s LVOT Vmax 1.09 m/s AoV Peak Grad 7.1 mmHg LVOT Peak Grad 4.8 mmHg AoV Area (Vmax) 2.81 cm2 LVOT VTI 0.185 m AoV VTI 0.249 m LVOT Mean Grad 2.9 mmHg AoV Mean Jose Alejandro. 1.00 m/s LVOT SV 63.57 mL AoV Mean Grad 4.5 mmHg LVOT Diam s 2.05 cm AoV Area (VTI) 2.56 cm2 AV Regurg Peak Gr. 7.09 mmHg Velocity Ratio 0.82 Mitral Valve MV DT 244 (160-240 msec) MV Vmax TIPS 0.96 m/s MV Mean Grad 1.7 (<2mmHg) MV VTI 0.173 m Pulmonary Valve PV Vmax 1.20 (0.5-1.5 m/s) RVOT Vmax 0.82 m/s PV Peak Grad 5.8 mmHg RVOT Peak Gr. 2.7 mmHg PV Mean Jose Alejandro 0.79 m/s RVOT VTI 0.143 m PV Mean Grad 3.0 mmHg RVOT Mean Gr. 1.3 mmHg Tricuspid Valve TV S' 0.17 m/s
[2025-01-01 04:15] VITALS: BP 128/86; PULSE 85; RESP 18; TEMP 36.2; O2SAT 95
[2025-01-01 07:15] VITALS: BP 119/75; PULSE 88; RESP 18; TEMP 36.5; O2SAT 98
[2025-01-01 07:16] LABS: Abs Immature Grans 0.07 10^3/uL (0.0-0.06); HCT 39.4 % (40.0-50.0); HGB 13.6 g/dL (13.5-17.5); Immature Grans % 0.9 %; MCH 32.1 pg (27.0-33.0); MCHC 34.5 % (32.0-36.0); MCV 93 fL (80-95); MPV 9.9 fL (8.0-11.0); Platelet Count 333 10^3/uL (130-400); RBC 4.24 10^6/uL (4.36-5.78); RDW 11.8 % (11.8-14.1); RDW-SD 40.3 fL; WBC 7.86 10^3/uL (4.4-10.8)
[2025-01-01 07:29] LABS: Anion Gap 10.2 mmol/L (3-11); BUN 28 mg/dL (7-18); CO2 24.8 mmol/L (21.0-32.0); Calcium 9.0 mg/dL (8.5-10.1); Chloride 103 mmol/L (98-107); Estimated GFR 82.81 (mL/min/1.73m2); Glucose 182 mg/dL (74-106); Magnesium 1.8 mg/dL (1.8-2.4); Potassium 4.1 mmol/L (3.5-5.1); Sodium 138 mmol/L (136-145)
[2025-01-01] MEDS: Normal Saline Flush 10 ML SYR IVP (07:55)
[2025-01-01] MEDS: Lisinopril 20 MG TAB PO (07:56)
[2025-01-01] MEDS: Chlorthalidone 25 MG TAB PO (07:56)
[2025-01-01] MEDS: Enoxaparin 40 MG/0.4 ML SYR SC (07:56)
[2025-01-01] MEDS: Clopidogrel 75 MG TAB PO (07:56)
[2025-01-01] MEDS: busPIRone 15 MG TAB 30 MG PO (07:56)
[2025-01-01] MEDS: Aspirin 81 MG CHEW PO (07:56)
[2025-01-01] MEDS: Atorvastatin 40 MG TAB 80 MG PO (07:57)
[2025-01-01] MEDS: DULoxetine 30 MG CAP 120 MG PO (07:57)
[2025-01-01] MEDS: Pantoprazole 40 MG TABCR PO (07:57)
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
[2025-01-01] MEDS: Acetaminophen 325 MG TAB 650 MG PO (09:55)
--- NOTE | 2025-01-01 10:21 | CMDISCH_ITS ---
Date of service: 01/01/25 Time of Service: 14:08 LACE Index Scoring Tool Questions: Length of Stay (in days): 1 Was the patient admitted via the E.D.?: Yes Comorbidities: Diabetes w/o Complication E.D. Visits: 1 Answers: Total Score: 6 Risk of Readmission: Low Risk Care Management Discharge Plan Reason for Hospitalization: Right Arm weakness Discharge Plan: Dragan requested his MRI results be reviewed with him prior to d/c, CM relayed this request to the provider. CM provided Dragan with a return to work letter with provider recommendations. Dragan will discharge home with no new services today. He will follow up with his community providers and discharge plan of care. He will transport via private vehicle by his spouse. Patient/Family Education Needs: Review of discharge instructions, activity, l imitations, and plan of care. Discuss Ask me three.
[2025-01-01 11:15] VITALS: BP 136/94; PULSE 90; RESP 18; TEMP 36.5; O2SAT 97
[2025-01-01 11:17] LABS: Lab Add On Test DONE
[2025-01-01 11:37] LABS: Calculated LDL 110 mg/dL (<100); Cholesterol 182 mg/dL (<200); HDL Cholesterol 42 mg/dL (>or=40); Triglyceride 154 mg/dL (<150)
[2025-01-01] MEDS: [UNRECOGNIZED DRUG - OTHER] IJ (12:18)
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
[2025-01-01 13:07] LABS: Iron 128 ug/dL (65-175); Total Iron Binding Capacity 375 ug/dL (250-450); Transferrin Sat 34 % (20-55)
[2025-01-01 13:33] LABS: Ferritin 48 ng/mL (26-388); Folate > 20.0 ng/mL (8.6-20.0); Vitamin B12 347 pg/mL (193-986)
== END 2025-01-01 15:10 | disposition home or self-care (01) ==
LOC: ER 15:53 → MS 16:13
PROVIDERS: Admitting Provider Hospitalist; Emergency Provider Emergency Medicine; PCP Nurse Practitioner Family; Responsible Provider Nurse Practitioner Family; Visit Provider Hospitalist
DX: I63.9 Cerebral infarction, unspecified (principal); R26.0 Ataxic gait; F32.A Depression, unspecified; I10 Essential (primary) hypertension; E78.2 Mixed hyperlipidemia; E10.21 Type 1 diabetes mellitus with diabetic nephropathy; E10.40 Type 1 diabetes mellitus with diabetic neuropathy, unspecified; Z96.41 Presence of insulin pump (external) (internal); Z86.73 Personal history of transient ischemic attack (TIA), and cerebral infarction without residual deficits; R47.81 Slurred speech; E10.65 Type 1 diabetes mellitus with hyperglycemia; E78.5 Hyperlipidemia, unspecified; E10.3291 Type 1 diabetes mellitus with mild nonproliferative diabetic retinopathy without macular edema, right eye; Z91.148 Patient's other noncompliance with medication regimen for other reason; Z87.891 Personal history of nicotine dependence; G83.24 Monoplegia of upper limb affecting left nondominant side; Z86.14 Personal history of Methicillin resistant Staphylococcus aureus infection
CPT/HCPCS: 00123; 36415; 36416; 70496; 70498; 70552; 80048; 80053; 80061; 82962; 93005; 96372; 96374; 99285; J1650; 70551; 71045; 82607; 82728; 82746; 83036; 83540; 83550; 83735; 84443; 84484; 85025; 93010; 93306; 99222; 99239; G0378; J3490

== ENCOUNTER 2025-01-07 13:21 | Outpatient (CLI) | payer BC, SELFPAY ==
[2025-01-07 12:38] LABS: Abs Immature Grans 0.04 10^3/uL (0.0-0.06); HCT 42.2 % (40.0-50.0); HGB 14.3 g/dL (13.5-17.5); Immature Grans % 0.4 %; MCH 31.6 pg (27.0-33.0); MCHC 33.9 % (32.0-36.0); MCV 93 fL (80-95); MPV 10.3 fL (8.0-11.0); Platelet Count 374 10^3/uL (130-400); RBC 4.52 10^6/uL (4.36-5.78); RDW 11.5 % (11.8-14.1); RDW-SD 39.4 fL; WBC 10.01 10^3/uL (4.4-10.8)
[2025-01-07 13:10] LABS: Iron 100 ug/dL (65-175); Total Iron Binding Capacity 414 ug/dL (250-450)
[2025-01-07 13:38] LABS: ALT 41 U/L (16-63); AST 25 U/L (15-37); Albumin 4.0 g/dL (3.4-5.0); Alkaline Phosphatase 107 U/L (46-116); Bilirubin, Direct 0.1 mg/dL (0.0-0.2); Bilirubin, Total 0.3 mg/dL (0.2-1.0); TSH (W/Ref FT4) 1.81 uIU/mL (0.36-3.74); Total Protein 7.8 g/dL (6.4-8.2)
[2025-01-07 14:48] LABS: Ferritin 51 ng/mL (26-388); Vitamin B12 519 pg/mL (193-986)
[2025-01-08 10:41] LABS: Transferrin 312 mg/dL (201-352)
[2025-01-29 10:47] LABS: Testosterone, Free 102.8
== END 2025-01-07 13:22 | disposition home or self-care (01) ==
PROVIDERS: PCP Nurse Practitioner Family; Visit Provider Nurse Practitioner Family
DX: D50.9 Iron deficiency anemia, unspecified (principal)
CPT/HCPCS: 36415; 80076; 84402; 84403; 82607; 82728; 83540; 83550; 84443; 84466; 85025